=== PATIENT | female | born 1975 | race African-American/Black ===

== ENCOUNTER 2020-01-16 14:42 | Emergency (ER) | payer SELFPAY ==
[2020-01-16 15:01] VITALS: BP 133/68; PULSE 88; RESP 19; TEMP 36.8; O2SAT 100
--- NOTE | 2020-01-16 15:01 | ECG_ITS ---
Measurements Intervals [place] Rate: 86 P: 49 [place]: 144 QRS: -28 QRSD: 98 T: 1 QT: 370 QTc: 443 Interpretive Statements SINUS RHYTHM LOW QRS VOLTAGE IN PRECORDIAL LEADS POOR R WAVE PROGRESSION, ANTERIOR LEADS BORDERLINE ST-T WAVE ABNORMALITY- ANT/INF LEADS BORDERLINE ECG Electronically Signed On 01-16-2020 16:19:23 TIE KNITTER HELPER by Cliff Hackett D.O.
--- NOTE | 2020-01-16 15:11 | PC.NURSE ---
Blood draw x 2 different RNs with no success, patient waiting for IV to obtain blood draw
[2020-01-16 15:29] LABS: Basophils Percent Auto 0.3 % (0.2-1.2); Eosinophils Absolute Auto 0.2 K/mm3 (0-0.3); Eosinophils Percent Auto 1.3 % (0-4.4); Hematocrit 45.6 % (37.0-47.0); Hemoglobin 13.9 g/dL (12.0-15.0); Immature Granulocyte Absolute 0.05 K/mm3 (0.00-0.031); Immature Granulocyte Percent A 0.4 % (0-0.5); Lymphocytes Absolute Auto 3.38 K/mm3 (0.9-3.2); Lymphocytes Percent Auto 29.5 % (18.3-44.2); Mean Corpuscular HGB Conc 30.5 g/dl (32-36); Mean Corpuscular Hemoglobin 28.4 pg (26-34); Mean Corpuscular Volume 93.3 fl (80-100); Mean Platelet Volume 10.6 fl (7.4-10.4); Monocytes Absolute Auto 0.7 K/mm3 (0.1-0.6); Monocytes Percent Auto 5.8 % (2.6-8.5); Neutrophils Absolute Auto 7.2 K/mm3 (1.3-6.7); Neutrophils Percent Auto 62.7 % (45.5-73.1); Platelet Count Result 259 k/mm3 (150-375); Red Blood Count 4.89 M/mm3 (4.2-5.4); Red Cell Distribution Width 13.7 % (11.5-14.5); White Blood Count 11.4 K/mm3 (4.5-10.0)
[2020-01-16 15:38] LABS: INR 0.9; Prothrombin Time 11.6 Seconds (11.1-14.7)
[2020-01-16 15:39] LABS: Blood Urea Nitrogen 14 mg/dL (7-17); Calcium 9.2 mg/dL (8.4-10.2); Carbon Dioxide 25 mmol/L (22-30); Chloride 104 mmol/L (98-107); Estimated Glomerular Filt Rate > 60; Glucose 350 mg/dL (65-105); Potassium 4.1 mmol/L (3.4-5.0); Sodium 139 mmol/L (137-145)
[2020-01-16 15:51] LABS: Troponin I < 0.012 ng/mL (0.000-0.034)
--- NOTE | 2020-01-16 16:27 | PC.NURSE ---
1620 Pt at desk stating she was going to go somewhere else as we were not taking her serious. This conventional underwriter explained there were no rooms available and we had done an EKG and drawn her blood and if there were any abnormalities she would be called back sooner. She stated she was leaving and going somewhere else.
== END 2020-01-16 16:27 | disposition left against medical advice (07) ==
LOC: ANHED 16:40
PROVIDERS: Emergency Provider Emergency Medicine
DX: R07.9 Chest pain, unspecified (principal)
CPT/HCPCS: 36415; 80048; 84484; 85025; 85610; 85730; 93005; 99199

== ENCOUNTER 2021-04-09 17:31 | Emergency (ER) | payer OTHER, SELFPAY ==
--- NOTE | 2021-04-09 17:36 | ED.EYEPROB ---
HPI - Eye Problem General Chief complaint: Eye Problems Stated complaint: Swollen Eye Time Seen by Provider: 04/09/21 17:42 Source: patient Mode of arrival: ambulatory Limitations: no limitations History of Present Illness HPI Narrative: Page Mckinley is a 45 yo female with a PMH of high cholesterol, HTN, [facility]. She has a lot of eye make-up and false eyelashes on the other magnetic strip based. She is concerned if it is a neurological symptom as she sometimes has headaches, or pinkeye or some other type of infection. She works at the [employer]; she has had 3 stents in her heart placed at separate times. She is on Plavix and aspirin as well as medication for hypertension and she is in uncontrolled diabetic Related Data Home Medications Medication Instructions Recorded Confirmed aspirin PO 10/31/19 atorvastatin 10/31/19 clopidogrel 10/31/19 gabapentin 10/31/19 sitagliptin [Januvia] mg 10/31/19 insulin degludec [Tresiba SUBCUT 04/09/21 FlexTouch U-100] ranolazine mg PO 04/09/21 semaglutide [Ozempic] mg SUBCUT 04/09/21 Allergies Allergy/AdvReac Type Severity Reaction Status Date / Time adhesive tape Allergy Mild RASH Verified 04/09/21 17:36 cyclobenzaprine AdvReac Intermediate Dizziness Verified 04/09/21 17:36 Review of Systems Review of Systems: Narrative: CONSTITUTIONAL: Denies fever, chills, sweats. EYES: Denies visual changes, left eye redness, discharge. ENT: Denies rhinorrhea, congestion, sore throat, otalgia. CARDIOVASCULAR: Denies chest pain, palpitations, edema. RESPIRATORY: Denies dyspnea, wheezing, cough GASTROINTESTINAL: Denies abdominal pain, nausea, vomiting, diarrhea. GENITOURINARY: Denies dysuria, hematuria, abnormal discharge SKIN: Denies rash or itching. NEUROLOGIC: Denies numbness, or focal weakness. PSYCHIATRIC: Denies anxiety or depression. [facility] Past Medical History Medical History Cervical vertebral fusion Diabetes Hyperlipidemia Hypertension Myocardial infarction Peripheral neuropathy Surgical History Surgical History H/O: hysterectomy Hx of heart artery stent Previous section Social History Social History Gender identity (if verbalized by the patient): Female Comments At time of signature, I agree with nursing past medical, surgical, social and family history. There is no relevant family history pertinent to the presenting complaint. Exam Narrative: Exam Narrative: GENERAL: This is a well-nourished, well-developed patient, in mild distress. HEAD: normocephalic, atraumatic. EYES: Sclera clear/white on L. Vision is grossly intact. Right eye is injected EARS: External ears normal, a Hearing grossly intact. NOSE: External nose normal without nasal discharge, nares without redness, no rhinorrhea. THROAT: Mucous membranes moist, NECK: Neck supple, non-tender CARDIOVASCULAR: Regular rate and rhythm without murmurs, gallops, or rubs. RESPIRATORY: Clear to auscultation. Breath sounds equal bilaterally. No wheezes, rales, or rhonchi. GASTROINTESTINAL: Abdomen soft, non-tender, SKIN: warm, intact with no suspicious lesions or rash, good texture and turgor. NEURO: awake, alert, and oriented to person, place and time. There were no obvious focal neurologic abnormalities. Steady gait EXTREMITIES: Normal range of motion. BACK: Nontender without deformity Course Course Emergency Course: Patient came for left eye injection, was concerned about also having a intermittent headache-he has a history of headaches and wanted reassurance that is not related to her eye Tetracaine and fluorescein staining done treated for small corneal abrasion in multiple areas If continues to have headache should follow-up with her PCP to do further evaluation Started on tobramycin
[2021-04-09 17:39] VITALS: BP 128/72; PULSE 86; RESP 16; TEMP 36.1; O2SAT 100
[2021-04-09 18:01] VITALS: BP 128/72; PULSE 86; RESP 16; TEMP 36.1; O2SAT 100
== END 2021-04-09 18:20 | disposition home or self-care (01) ==
PROVIDERS: Emergency Provider Nurse Practitioner; PCP Family Medicine
DX: S05.02XA Injury of conjunctiva and corneal abrasion without foreign body, left eye, initial encounter (principal); X58.XXXA Exposure to other specified factors, initial encounter; E78.00 Pure hypercholesterolemia, unspecified; I10 Essential (primary) hypertension; Z95.5 Presence of coronary angioplasty implant and graft; Z79.82 Long term (current) use of aspirin; I25.2 Old myocardial infarction; E11.42 Type 2 diabetes mellitus with diabetic polyneuropathy
CPT/HCPCS: 99213; A9270; G0463

== ENCOUNTER 2021-06-02 08:46 | Emergency (ER) | payer OTHER, SELFPAY ==
[2021-06-02 09:01] VITALS: BP 98/62; PULSE 77; RESP 16; TEMP 36.1; O2SAT 100
--- NOTE | 2021-06-02 09:24 | ED.GENADULT ---
HPI - General Adult General Chief complaint: Headache Stated complaint: headache Time Seen by Provider: 06/02/21 09:20 Source: patient and RN notes reviewed Mode of arrival: ambulatory Limitations: no limitations History of Present Illness HPI narrative: 45-year-old -Maldivian female presents with complaints of headache with aura (light sensitivity and nausea) for the past 14 days. ?Page reports intermittent DASH, initially believed to be related to eyes sought eye care without relief. ?Tylenol and Zyrtec were last taken at 02:00 AM without relief. ?DASH is not the WORST one of her life. ?No neck stiffness. ?No fever or chills. ?No URI symptoms. ?No head injury. ?History of migraines. ?Denies dizziness, vision change, confusion, or seizure activity. ?Remains active. ?The patient reports she has not been diagnosed with COVID-19. ?The patient reports she received 1 Moderna COVID-19 vaccine on Monday05/31/21. ?The patient reports she is not waiting for the results of a COVID-19 lab test. ?The patient reports she does not have fever, chills, weakness, fatigue, myalgia, or facial swelling. ?The patient reports she does not have a new or worsening cough or shortness of breath. ?The patient reports she does not have any rhinorrhea, congestion, loss of taste, sore throat, and diarrhea. ?Denies recent traveling. ?Denies concerns for COVID-19 or exposures. ?At this time, the patient is not suspected of having COVID-19. Some parts of this dictation were generated by voice recognition software and may contain typographical and/or grammatical inaccuracies. Related Data Home Medications Medication Instructions Recorded Confirmed atorvastatin 40 mg PO DAILY 06/02/21 06/02/21 semaglutide [Ozempic] 1 mg SUBCUT 06/02/21 Allergies Allergy/AdvReac Type Severity Reaction Status Date / Time adhesive tape Allergy Unknown Verified 06/02/21 09:37 cyclobenzaprine Allergy Unknown Verified 06/02/21 09:37 [From Flexeril] Review of Systems Review of Systems: Narrative: CONSTITUTIONAL: Denies fever, chills, sweats. EYES: Denies visual changes, redness, discharge. ENT: Denies rhinorrhea, congestion, sore throat, otalgia. CARDIOVASCULAR: Denies chest pain, palpitations, edema. RESPIRATORY: Denies dyspnea, wheezing, cough. GASTROINTESTINAL: Denies abdominal pain, vomiting, or diarrhea. Complaints of nausea. GENITOURINARY: Denies dysuria, hematuria, abnormal discharge. SKIN: Denies rash or itching. MUSCULOSKELETAL: Denies acute back pain, joint pain, or myalgia. NEUROLOGIC: Denies numbness or focal weakness. Complaints of headaches with light sensitivity. PSYCHIATRIC: Denies anxiety or depression. All systems reviewed & are unremarkable except as noted in HPI and below. [facility] Past Medical History Medical History (Updated 06/02/21 @ 09:49 by CAMILLA Vincent) Cervical vertebral fusion delivery delivered Cigar smoker Diabetes Obesity Surgical History Surgical History (Updated 06/02/21 @ 09:44 by CAMILLA Vincent) H/O section X3 History of coronary artery stent placement History of hysterectomy History of neck surgery cervical fusion History of tonsillectomy Family History Family History Mother Diabetes mellitus Hypertension Family history of malignant neoplasm of breast in first degree relative Sibling Diabetes mellitus Hypertension Grandparent Family history of malignant neoplasm of breast in first degree relative Social History Social History (Updated 06/02/21 @ 09:45 by CAMILLA Vincent) Smoking status: Light tobacco smoker Tobacco type: cigars Second hand tobacco smoke exposure: Yes Alcohol intake: current Substance use: never Substance use type: does not use Living arrangements: with family Occupation/Education: occupation Gender identity (if verbalized by the patient): Female Sexual Orientation (if Ve
[2021-06-02] MEDS: FAMOTIDINE 20 MG TABLET 40 MG PO (09:41)
[2021-06-02] MEDS: ONDANSETRON HCL ODT 4 MG TABLET PO (09:41)
[2021-06-02] MEDS: KETOROLAC (*BKC) 60 MG/2 ML VIAL IM (09:42)
== END 2021-06-02 10:22 | disposition home or self-care (01) ==
PROVIDERS: Emergency Provider Nurse Practitioner Family; PCP Family Medicine
DX: G43.109 Migraine with aura, not intractable, without status migrainosus (principal); F17.290 Nicotine dependence, other tobacco product, uncomplicated; E11.9 Type 2 diabetes mellitus without complications; E66.9 Obesity, unspecified; Z68.36 Body mass index [BMI] 36.0-36.9, adult; Z95.5 Presence of coronary angioplasty implant and graft
CPT/HCPCS: 96372; 99203; A9270; G0463; J1885

== ENCOUNTER 2021-07-01 09:26 | Emergency (ER) | payer OTHER, SELFPAY ==
--- NOTE | 2021-07-01 09:31 | ED.GENADULT ---
HPI - General Adult General Chief complaint: Unspecified Stated complaint: Heart burn,Nausea Time Seen by Provider: 07/01/21 09:57 Source: patient and RN notes reviewed Mode of arrival: ambulatory Limitations: no limitations History of Present Illness HPI narrative: 45-year-old female with history of myocardial infarction, hypertension, diabetes presents with concern for nausea, heartburn. She also reports redness, swelling, warmth to her left upper arm where she received her Covid injection on Monday. Reports she noticed on Monday after getting the injection the area became tender and has since become red, warm, swollen, hard. She reports a history of myocardial infarction, reports symptoms with those 2 instances she had severe chest pain, shortness of breath. She denies any intervention for the nausea and heartburn. Reports she had one episode of vomiting yesterday. Reports her only history with heartburn is experiencing it during pregnancies. MD complaint: Heartburn, nausea Related Data Home Medications Medication Instructions Recorded Confirmed aspirin PO 10/31/19 clopidogrel 10/31/19 gabapentin 10/31/19 sitagliptin [Januvia] mg 10/31/19 insulin degludec [Tresiba SUBCUT 04/09/21 FlexTouch U-100] ranolazine mg PO 04/09/21 atorvastatin 40 mg PO DAILY 06/02/21 06/02/21 semaglutide [Ozempic] 1 mg SUBCUT 06/02/21 blood-glucose sensor [Dexcom G6 07/01/21 07/01/21 Sensor] Allergies Allergy/AdvReac Type Severity Reaction Status Date / Time adhesive tape Allergy Unknown Verified 06/08/21 14:45 cyclobenzaprine Allergy Unknown Verified 06/08/21 14:45 [From Flexeril] Review of Systems Review of Systems: CONSTITUTIONAL: Denies malaise, chills, sweats, or fever. CARDIOVASCULAR: Denies chest pain, palpitations, or edema. RESPIRATORY: Denies cough or dyspnea. GASTROINTESTINAL: Denies abdominal pain, diarrhea. Reports nausea, one episode of vomiting, heartburn SKIN: Reports red, swollen, tender, warm area on her left upper arm MUSCULOSKELETAL: Denies back pain, joint pain, or myalgia. NEUROLOGIC: Denies numbness, weakness, or headache. All systems reviewed & are unremarkable except as noted in HPI and below [facility] Past Medical History Medical History (Updated 07/01/21 @ 10:37 by Madelyn Baeza NP) Cervical vertebral fusion Cervical vertebral fusion delivery delivered Cigar smoker Diabetes Diabetes Hyperlipidemia Hypertension Myocardial infarction Obesity Peripheral neuropathy Surgical History Surgical History (Updated 06/08/21 @ 14:45 by Sean Olsen) H/O section X3 H/O: hysterectomy History of coronary artery stent placement History of hysterectomy History of neck surgery cervical fusion History of tonsillectomy Hx of heart artery stent Previous section Family History Family History Mother Diabetes mellitus Hypertension Family history of malignant neoplasm of breast in first degree relative Sibling Diabetes mellitus Hypertension Grandparent Family history of malignant neoplasm of breast in first degree relative Social History Social History (System 06/08/21 @ 14:45 by Sean Olsen) Smoking status: Light tobacco smoker Tobacco type: cigars Second hand tobacco smoke exposure: Yes Alcohol intake: current Substance use: never Substance use type: does not use Gender identity (if verbalized by the patient): Female Comments At time of signature, agree with nursing past medical, surgical, social and family history. There is no relevant family history pertinent to the presenting complaint Exam Narrative: GENERAL: Well-appearing, well-nourished, and in no acute distress. HEAD: Normocephalic, atraumatic. EYES: PERRLA, conjunctivae clear ENT: Nares clear. Mucous membranes moist. NECK: Supple. No lymphadenopathy. CHEST: No respiratory distress. Clear to auscultation. No
[2021-07-01 09:38] VITALS: BP 124/75; PULSE 75; RESP 16; TEMP 36.5; O2SAT 99
[2021-07-01] MEDS: MAG HYDROX/AL HYDROX/SIMETH 30 ML UDC PO (10:13)
--- NOTE | 2021-07-01 11:54 | ECG_ITS ---
Measurements Intervals [place] Rate: 70 P: 51 [place]: 168 QRS: -16 QRSD: 101 T: 6 QT: 400 QTc: 433 Interpretive Statements SINUS RHYTHM DELAYED PRECORDIAL R/S TRANSITION LOW QRS VOLTAGE IN PRECORDIAL LEADS BORDERLINE ECG Electronically Signed On 07-01-2021 13:16:49 CDT by Cliff Hackett D.O.
== END 2021-07-01 10:44 | disposition home or self-care (01) ==
PROVIDERS: Emergency Provider Nurse Practitioner; PCP Family Medicine
DX: L03.114 Cellulitis of left upper limb (principal); R12 Heartburn; E11.9 Type 2 diabetes mellitus without complications; E78.5 Hyperlipidemia, unspecified; I10 Essential (primary) hypertension; I25.2 Old myocardial infarction; E11.42 Type 2 diabetes mellitus with diabetic polyneuropathy; E66.9 Obesity, unspecified; Z68.36 Body mass index [BMI] 36.0-36.9, adult; Z95.5 Presence of coronary angioplasty implant and graft; F17.290 Nicotine dependence, other tobacco product, uncomplicated
CPT/HCPCS: 93005; 99213; A9270; G0463

== ENCOUNTER 2021-07-10 16:09 | Emergency (ER) | payer OTHER, SELFPAY ==
--- NOTE | ~2021-07-10 | XR_ITS ---
EXAMINATION: XR foot LT min 3V DATE: 07/10/2021 16:36 INDICATION: Left foot injury. TECHNIQUE: 4 views of left foot were obtained. COMPARISON: None. FINDINGS: Bone alignment is normal. No fracture. Joint spaces are well maintained. There is an enthes ophyte at plantar aspect of calcaneal tuberosity. IMPRESSION: 1. No fracture. Reviewed, dictated and finalized at location A. IMPRESSION: 1. No fracture.
[2021-07-10 16:18] VITALS: BP 128/77; PULSE 82; RESP 16; TEMP 36.3; O2SAT 100
--- NOTE | 2021-07-10 16:51 | ED.GENADULT ---
HPI - General Adult General Chief complaint: Extremity Injury, Lower Stated complaint: left foot pain Time Seen by Provider: 07/10/21 16:19 Source: patient and RN notes reviewed Mode of arrival: ambulatory Limitations: no limitations History of Present Illness HPI narrative: 45-year-old -Sudanese female presents today with complaints of left foot pain and swelling for the past 19 minutes. ?Page reports walking out the front door and stepping wrong, heard a cracking sound in LT foot causing pain, incident occurred approximated at 16:00. ?No treatment. Hurts to bear weight. ?No radiation of pain. ?No numbness, tingling, or loss of mobility. ?Exacerbating factor applying weight. Denies inability to bear weight. ?Denies discoloration. ?Denies suspect foreign body. ?Denies fever or chills. ?LMP hysterectomy. ?Remains active. ?The patient reports she has not been diagnosed with COVID-19. ?The patient reports she received 2 Moderna COVID-19 vaccines. The patient reports she is not waiting for the results of a COVID-19 lab test. ?The patient reports she does not have weakness, fatigue, or myalgia. ?The patient reports she does not have a new or worsening cough or shortness of breath. ?The patient reports she does not have any rhinorrhea, congestion, loss of taste, sore throat, and diarrhea. ?Denies recent traveling. ?Denies concerns for COVID-19 or exposures. ?At this time, the patient is not suspected of having COVID-19.?? Some parts of this dictation were generated by voice recognition software and may contain typographical and/or grammatical inaccuracies. Related Data Home Medications Medication Instructions Recorded Confirmed aspirin 325 mg PO DAILY 10/31/19 07/10/21 clopidogrel 75 mg PO DAILY 10/31/19 07/10/21 gabapentin 300 mg PO DAILY 10/31/19 07/10/21 insulin degludec [Tresiba SUBCUT 04/09/21 FlexTouch U-100] ranolazine mg PO 04/09/21 atorvastatin 40 mg PO DAILY 06/02/21 07/10/21 semaglutide [Ozempic] 1 mg SUBCUT DIRECTED 06/02/21 07/10/21 blood-glucose sensor [Dexcom G6 07/01/21 07/01/21 Sensor] Allergies Allergy/AdvReac Type Severity Reaction Status Date / Time adhesive tape Allergy Unknown Verified 07/10/21 16:20 cyclobenzaprine Allergy Unknown Verified 07/10/21 16:20 [From Flexeril] Review of Systems Review of Systems: CONSTITUTIONAL: Denies fever, chills, sweats. EYES: Denies visual changes, redness, discharge. ENT: Denies rhinorrhea, congestion, sore throat, otalgia. CARDIOVASCULAR: Denies chest pain, palpitations, edema. RESPIRATORY: Denies dyspnea, wheezing, cough. GASTROINTESTINAL: Denies abdominal pain, nausea, vomiting, diarrhea. SKIN: Denies rash or itching. MUSCULOSKELETAL: Denies acute back pain or myalgia. Complaints of pain and swelling to the left foot. NEUROLOGIC: Denies numbness or focal weakness. PSYCHIATRIC: Denies anxiety or depression. All other systems reviewed are negative, except as documented in HPI and below. [facility] Past Medical History Medical History Cervical vertebral fusion Cervical vertebral fusion delivery delivered Cigar smoker Diabetes Diabetes Hyperlipidemia Hypertension Myocardial infarction Obesity Peripheral neuropathy Surgical History Surgical History H/O section X3 H/O: hysterectomy History of coronary artery stent placement History of hysterectomy History of neck surgery cervical fusion History of tonsillectomy Hx of heart artery stent Previous section Family History Family History Mother Diabetes mellitus Hypertension Family history of malignant neoplasm of breast in first degree relative Sibling Diabetes mellitus Hypertension Grandparent Family history of malignant neoplasm of breast in first degree relative Social History Socia
[2021-07-10] MEDS: KETOROLAC (*BKC) 60 MG/2 ML VIAL IM (17:14)
== END 2021-07-10 17:20 | disposition home or self-care (01) ==
PROVIDERS: Emergency Provider Nurse Practitioner Family; PCP Family Medicine
DX: S93.602A Unspecified sprain of left foot, initial encounter (principal); X58.XXXA Exposure to other specified factors, initial encounter; Z79.82 Long term (current) use of aspirin; Z72.0 Tobacco use; E11.42 Type 2 diabetes mellitus with diabetic polyneuropathy; E78.5 Hyperlipidemia, unspecified; I10 Essential (primary) hypertension; I25.2 Old myocardial infarction; E66.9 Obesity, unspecified; Z68.36 Body mass index [BMI] 36.0-36.9, adult; I25.10 Atherosclerotic heart disease of native coronary artery without angina pectoris; Z95.5 Presence of coronary angioplasty implant and graft
CPT/HCPCS: 73630; 99213; G0463; J1885

== ENCOUNTER 2022-01-18 14:17 | Emergency (ER) | payer OTHER, MEDICAID, SELFPAY ==
[2022-01-18 14:19] VITALS: BP 121/59; PULSE 94; RESP 16; TEMP 36.5; O2SAT 100
--- NOTE | 2022-01-18 15:43 | ECG_ITS ---
Measurements Intervals [place] Rate: 89 P: 49 [place]: 144 QRS: -35 QRSD: 94 T: 3 QT: 353 QTc: 429 Interpretive Statements SINUS RHYTHM POSSIBLE LEFT ATRIAL ENLARGEMENT [-0.1mV P WAVE IN V1/V2] LEFT AXIS DEVIATION [QRS AXIS < -30] LOW QRS VOLTAGE IN PRECORDIAL LEADS [QRS DEFLECTION < 1.0 mV IN CHEST LEADS] PATTERN CONSISTENT WITH PULMONARY DISEASE ABNORMAL EKG COMPARED TO ECG 07/01/2021 10:24:41 LEFT-AXIS DEVIATION NOW PRESENT Electronically Signed On 01-18-2022 15:55:43 HARDWARE MANAGER by Perico Amaya M.D.
[2022-01-18 16:31] VITALS: BP 117/91; PULSE 90; RESP 16; TEMP 36.7; O2SAT 100
--- NOTE | 2022-01-18 16:57 | ED.GENADULT ---
HPI - General Adult General Chief complaint: Nausea/Vomiting/Diarrhea Stated complaint: Nausea and Vomiting Time Seen by Provider: 01/18/22 16:33 Source: patient History of Present Illness HPI narrative: 46-year-old female with history of coronary artery disease presented to the emergency department for evaluation of nausea vomiting and diarrhea that started approximately 6 AM this morning. Patient reports she had a sleep study last night and that yesterday she was eating and drinking normally without any complaints. Patient states that approximate 545 she had onset of nausea and vomiting. Patient states that with the nausea and vomiting she did develop some abdominal cramping. Patient states one time during her emesis she did have some streaked blood. Patient states on subsequent emeses she had no further bleeding. Patient does take Plavix. Patient is also states that she did develop some substernal chest pain. Patient states this is intermittent short lasting and is nonradiating. Patient states it does not radiate to her neck back arm. Patient denies any current associated shortness of breath. Patient does have a prior history of a hysterectomy. Patient has had no abdominal surgeries. Patient did have a stress test in August 2021 when she had another stent placed. Patient currently has 4 stents placed. Related Data Home Medications Medication Instructions Recorded Confirmed aspirin 325 mg PO DAILY 10/31/19 07/10/21 clopidogrel 75 mg PO DAILY 10/31/19 07/10/21 gabapentin 300 mg PO DAILY 10/31/19 07/10/21 insulin degludec [Tresiba SUBCUT 04/09/21 FlexTouch U-100] ranolazine mg PO 04/09/21 atorvastatin 40 mg PO DAILY 06/02/21 07/10/21 semaglutide [Ozempic] 1 mg SUBCUT DIRECTED 06/02/21 07/10/21 blood-glucose sensor [Dexcom G6 07/01/21 07/01/21 Sensor] Allergies Allergy/AdvReac Type Severity Reaction Status Date / Time adhesive tape Allergy Unknown Verified 07/10/21 16:20 cyclobenzaprine Allergy Unknown Verified 07/10/21 16:20 [From Flexeril] Review of Systems Review of Systems: CONSTITUTIONAL: Denies fever, chills, or sweats. EYES: Denies visual changes, redness, or discharge. ENT: Denies rhinorrhea, congestion, sore throat, or otalgia. CARDIOVASCULAR: Intermittent chest pain that lasts approximately 5 minutes and resolved. Patient states chest pain began after her emesis. RESPIRATORY: Denies cough or dyspnea. GASTROINTESTINAL: Nausea vomiting diarrhea with intermittent abdominal cramping GENITOURINARY: Denies dysuria or hematuria. SKIN: Denies rash or itching. MUSCULOSKELETAL: Denies back pain, joint pain, or myalgia. NEUROLOGIC: Denies headache, numbness, or weakness. PSYCHIATRIC: Denies anxiety or depression. All systems reviewed & are unremarkable except as noted in HPI and below [facility] Past Medical History Medical History Cervical vertebral fusion Cervical vertebral fusion delivery delivered Cigar smoker Diabetes Diabetes Hyperlipidemia Hypertension Myocardial infarction Obesity Peripheral neuropathy Surgical History Surgical History H/O section X3 H/O: hysterectomy History of coronary artery stent placement History of hysterectomy History of neck surgery cervical fusion History of tonsillectomy Hx of heart artery stent Previous section Family History Family History Mother Diabetes mellitus Hypertension Family history of malignant neoplasm of breast in first degree relative Sibling Diabetes mellitus Hypertension Grandparent Family history of malignant neoplasm of breast in first degree relative Social History Social History Smoking status: Light tobacco smoker Tobacco type: cigars Second hand tobacco smoke
[2022-01-18 17:16] LABS: Basophils Absolute Auto 0.1 K/mm3 (0.0-0.1); Basophils Percent Auto 0.3 % (0.2-1.2); Eosinophils Absolute Auto 0.1 K/mm3 (0-0.3); Eosinophils Percent Auto 0.7 % (0-4.4); Hematocrit 45.5 % (37.0-47.0); Hemoglobin 13.9 g/dL (12.0-15.0); Immature Granulocyte Absolute 0.07 K/mm3 (0.00-0.031); Immature Granulocyte Percent A 0.4 % (0-0.5); Immature Platelet Fraction Pct 3.6 % (0.9-11.2); Lymphocytes Absolute Auto 3.43 K/mm3 (0.9-3.2); Lymphocytes Percent Auto 20.7 % (18.3-44.2); Mean Corpuscular HGB Conc 30.5 g/dl (32-36); Mean Corpuscular Hemoglobin 28.7 pg (26-34); Mean Platelet Volume 10.3 fl (7.4-10.4); Monocytes Absolute Auto 1.1 K/mm3 (0.1-0.6); Monocytes Percent Auto 6.5 % (2.6-8.5); Neutrophils Absolute Auto 11.9 K/mm3 (1.3-6.7); Neutrophils Percent Auto 71.4 % (45.5-73.1); Platelet Count Result 301 k/mm3 (150-375); Red Blood Count 4.84 M/mm3 (4.2-5.4); Red Cell Distribution Width 13.5 % (11.5-14.5); White Blood Count 16.6 K/mm3 (4.5-10.0)
[2022-01-18 17:48] LABS: Alanine Aminotransferase 22 U/L (4-35); Albumin Level 4.6 g/dL (3.5-5.1); Alkaline Phosphatase 90 U/L (38-126); Anion Gap 8 mmol/L (8-16); Aspartate Amino Transferase 31 U/L (14-36); Bilirubin,Total 0.6 mg/dL (0.2-1.3); Blood Urea Nitrogen 14 mg/dL (7-17); Calcium 8.7 mg/dL (8.4-10.2); Carbon Dioxide 26 mmol/L (22-30); Chloride 107 mmol/L (98-107); Estimated CRCL calculation 115 ml/min; Estimated Glomerular Filt Rate > 60; Glucose 160 mg/dL (65-110); Potassium 4.1 mmol/L (3.4-5.0); Sodium 141 mmol/L (137-145); Troponin I < 0.012 ng/mL (0.000-0.034)
[2022-01-18 18:08] LABS: Platelet Estimate Adequate (Adequate)
[2022-01-18 18:09] LABS: Ovalocytes 1+ (NORMAL)
[2022-01-18] MEDS: BELLADONNA ALK/PHENOB ELIX 10 ML, MAG HYDROX/ALUMINUM HYD/SIMETH 30 ML, LIDOCAINE HCL 2... PO (18:23)
[2022-01-18 18:31] LABS: Add Urine Microscopic? YES; Appearance Urine Clear (Clear); Bilirubin Urine Negative (Negative); Blood Urine 1+ (Negative); Color Urine Yellow (Yellow); Glucose Urine UA 1+ mg/dL (Negative); Ketones Urine Negative (Negative); Leukocyte Esterase Ur Negative LEU/UL (Negative); Mucus Urine Rare /lpf; Nitrate Urine Negative (Negative); Protein Urine Negative (Negative); RBC Urine 0-2 /hpf (0-2); Specific Grav Ur 1.024 (1.001-1.035); Squamous Epithelial Cell Urine Few /hpf (Few); Urobilinogen Urine Negative mg/dL (<2.0); WBC Urine 0-3 /hpf
[2022-01-18] MEDS: SODIUM CHLORIDE 0.9% IV 1,000 ML 999 ML IV CONT (18:50)
[2022-01-18] MEDS: ONDANSETRON INJ 4 MG/2 ML VIAL IV PUSH (18:52)
[2022-01-18] MEDS: HYDROmorphone HCL INJ (*CRX) 1 MG/ML SYR 0.5 MG IV PUSH (18:53)
[2022-01-18 19:29] VITALS: BP 108/69; PULSE 78; RESP 18; O2SAT 98
[2022-01-18 20:46] VITALS: BP 115/69; PULSE 75; RESP 18; O2SAT 100
[2022-01-18 21:10] LABS: Troponin I < 0.012 ng/mL (0.000-0.034)
== END 2022-01-18 21:34 | disposition home or self-care (01) ==
PROVIDERS: Emergency Provider Emergency Medicine; PCP Family Medicine
DX: R11.2 Nausea with vomiting, unspecified (principal); I25.10 Atherosclerotic heart disease of native coronary artery without angina pectoris; I25.2 Old myocardial infarction; E11.42 Type 2 diabetes mellitus with diabetic polyneuropathy; E78.5 Hyperlipidemia, unspecified; Z79.02 Long term (current) use of antithrombotics/antiplatelets; Z79.4 Long term (current) use of insulin; Z79.82 Long term (current) use of aspirin; Z95.5 Presence of coronary angioplasty implant and graft; Z98.1 Arthrodesis status; F17.290 Nicotine dependence, other tobacco product, uncomplicated
CPT/HCPCS: 36415; 80053; 81001; 84484; 85025; 85055; 93005; 96361; 96374; 96375; 99284; A9270; J1170; J2405; J7030

== ENCOUNTER 2022-03-28 13:12 | Outpatient (CLI) | payer OTHER, MEDICAID, SELFPAY ==
--- NOTE | ~2022-03-28 | XR_ITS ---
XR lumbar spine 2-3V DATE: 03/28/2022 13:46 INDICATION: Low back pain. No injury. TECHNIQUE: AP, lateral, coned lateral lumbosacral views COMPARISON: None FINDINGS: Mild levoscoliosis. Normal alignment of the lumbar spine. No fracture or bone destruction o r spondylolisthesis. The lumbar pedicles are intact. The sacroiliac joints are normal. Lumbosacral in terspaces are well preserved. Minimal degenerative spurring at L3-4 and L4-5. IMPRESSION: Mild levoscoliosis Minimal degenerative spurring Reviewed, dictated and finalized at location B.
--- NOTE | ~2022-03-28 | XR_ITS ---
XR thoracic spine 2V DATE: 03/28/2022 13:46 INDICATION: Back pain TECHNIQUE: AP, lateral and swimmer views COMPARISON: None FINDINGS: There is mild levoscoliosis of the thoracolumbar spine. There is degenerative spurring in the mid to lower thoracic spine. No fracture or bone destruction is evident. The thoracic pedicles are intact. Status post interbody surgical spinal fusion at C5-6 IMPRESSION: Degenerative spurring of the mid to lower thoracic spine Reviewed, dictated and finalized at location B.
--- NOTE | ~2022-03-28 | XR_ITS ---
XR_CERV2-3V_CR DATE: 03/28/2022 13:46 INDICATION: Neck pain. No injury. TECHNIQUE: AP, open-mouth, lateral views COMPARISON: None FINDINGS: There is reversal cervical curvature. Status post interbody spinal fusion at C5-6. There is uncovertebral joint spurring at C5-6 bilaterall y. There is anterior spurring at C4-5 and C6-7. Interspaces are relatively preserved. There is mild anterolisthesis at C6-7. C1 and C2 are normally aligned and the odontoid process is intact. No fracture or dislocation or lock ed facet or prevertebral soft tissue swelling. IMPRESSION: Status post interbody spinal fusion at C5-6 Uncovertebral joint spurring at C5-6 Prominent anterior spurring at C4-5 and C6-7 Reversal cervical curvature Reviewed, dictated and finalized at Location A. Reviewed, dictated and finalized at location B.
== END 2022-03-28 13:13 | disposition home or self-care (01) ==
PROVIDERS: PCP Family Medicine; Visit Provider Physician Assistant
DX: M54.50 Low back pain, unspecified (principal); Z98.1 Arthrodesis status
CPT/HCPCS: 72040; 72070; 72100

== ENCOUNTER 2022-04-08 09:33 | Emergency (ER) | payer OTHER, MEDICAID, SELFPAY ==
--- NOTE | ~2022-04-08 | CT_ITS ---
EXAMINATION: CT cervical spine wo con DATE: 04/08/2022 13:19 INDICATION: Neck pain TECHNIQUE: Computed tomography (CT) of the cervical spine was performed without intravenous contrast. The dose-length product was 466 mGy-cm. Automated exposure control and iterative reconstruction tech Unisf[employer] were employed. COMPARISON: Cervical spine series dated 03/28/2022 FINDINGS: There is straightening of cervical lordosis. There is interbody fusion at C5-6. Vertebral b harleen heights are maintained. Odontoid process within normal limits. Craniovertebral junction is normal . No acute fracture or traumatic malalignment. Lung apices are normal. No significant paraspinal soft tissue abnormality. IMPRESSION: 1. No acute abnormality of the cervical spine. Reviewed, dictated and finalized at location B.
--- NOTE | ~2022-04-08 | CT_ITS ---
EXAMINATION: CT thoracic lumbar wo con DATE: 04/08/2022 13:19 INDICATION: Upper and lower back pain. TECHNIQUE: Computed tomography (CT) of the thoracic and lumbar spine was performed without intravenou s contrast. Automated exposure control and iterative reconstruction technique were employed. The dose -length product was 465.89 mGy-cm. COMPARISON: Thoracic and lumbar spine radiographs 03/28/2022 FINDINGS: CT THORACIC SPINE: Bone alignment is normal. There is mild chronic anterior wedging of T7 and T8 vert ebral bodies. Partially visualized are changes of anterior fusion procedure at C5-C6 with interbody d evice. There is mildly decreased disc height from T3-T4 through T8-T9. There is multilevel mild facet joint osteoarthritis. On the right, there is mild neural foraminal stenosis at T9-T10 and T10-T11. N o central canal stenosis. CT LUMBAR SPINE: There is 5 degrees levocurvature of lumbar spine. Vertebral body heights are normal. Intervertebral disc heights are normal. The following disc levels are specifically discussed: L1-L2: The disc does not extend beyond the endplate margin. There is mild bilateral facet joint osteo arthritis. There is no neural foraminal stenosis. There is no central canal stenosis. L2-L3: The disc does not extend beyond the endplate margin. There is mild bilateral facet joint osteo arthritis. There is no neural foraminal stenosis. There is no central canal stenosis. L3-L4: The disc is bulging. There is moderate bilateral facet joint osteoarthritis. There is mild octaviano ateral neural foraminal stenosis. There is mild central canal stenosis. L4-L5: The disc is bulging. There is mild bilateral facet joint osteoarthritis. There is mild bilater al neural foraminal stenosis. There is mild central canal stenosis. L5-S1: The disc is bulging. There is severe right and moderate left facet joint osteoarthritis. There is mild right and moderate left neural foraminal stenosis. There is mild central canal stenosis. IMPRESSION: 1. Mild thoracic and lumbar spondylosis. Reviewed, dictated and finalized at location A.
[2022-04-08 09:38] VITALS: BP 133/73; PULSE 84; RESP 18; TEMP 36.3; O2SAT 100
--- NOTE | 2022-04-08 12:13 | PC.NURSE ---
Called to pt's room, pt tearful. Pt angry regarding her wait and that she hasn't been given any medications for pain. Explained that unable to give meds until has been evaluated, and that someone has signed up for her, but that it has been busy. Apologized for wait. Suellen, charge coordinator made aware of pt's complaints.
[2022-04-08] MEDS: HYDROcodone/acetaminophen (*CRX) 5-325 MG TABLET 1 TAB PO (12:52)
[2022-04-08] MEDS: KETOROLAC 30 MG/ML VIAL (*BKC) IM (12:52)
--- NOTE | 2022-04-08 12:58 | PC.NURSE ---
Meds given po, IM, and topically per SHAILESH Conn. Pt to CT via stretcher.
[2022-04-08] MEDS: LIDOCAINE 5% PATCH 2 PATCH TRANSDERM (13:21)
--- NOTE | 2022-04-08 13:55 | ED.BACK ---
HPI - Back Pain/Injury General Chief Complaint: Back Pain/Injury Stated Complaint: low back pain Time Seen by Provider: 04/08/22 11:08 Source: patient Mode of arrival: ambulatory History of Present Illness HPI Narrative: 46-year-old female presents today with back pain. Patient has a history of back pain and has seen her primary and a pain specialist. Patient saw the pain specialist yesterday who ordered an MRI but no medications. Patient states the pain is intolerable. Patient has a history of cervical neck surgery in [employer]. Patient with complaints of pain to the lumbar area radiating down into the legs. Patient denies urinary incontinence, bowel incontinence, or leg weakness, but does endorse intermittent numbness to thighs which has been going on for more than a month and her legs giving out due to pain when walking at times. Related Data Home Medications Medication Instructions Recorded Confirmed aspirin 325 mg PO DAILY 10/31/19 07/10/21 clopidogrel 75 mg PO DAILY 10/31/19 07/10/21 insulin degludec [Tresiba SUBCUT 04/09/21 FlexTouch U-100] ranolazine mg PO 04/09/21 atorvastatin 40 mg PO DAILY 06/02/21 07/10/21 semaglutide [Ozempic] 1 mg SUBCUT DIRECTED 06/02/21 07/10/21 blood-glucose sensor [Dexcom G6 07/01/21 07/01/21 Sensor] insulin aspart (niacinamide) SUBCUT 04/08/22 [Fiasp FlexTouch U-100 Insulin] Allergies Allergy/AdvReac Type Severity Reaction Status Date / Time adhesive tape Allergy Unknown Verified 04/08/22 10:38 cyclobenzaprine Allergy Unknown Verified 04/08/22 10:38 [From Flexeril] Review of Systems Review of Systems: CONSTITUTIONAL: Denies fever, chills, or sweats. EYES: Denies visual changes, redness, or discharge. ENT: Denies rhinorrhea, congestion, sore throat, or otalgia. CARDIOVASCULAR: Denies chest pain, palpitations, or edema. RESPIRATORY: Denies cough or dyspnea. GASTROINTESTINAL: Denies abdominal pain, nausea, vomiting, or diarrhea. GENITOURINARY: Denies dysuria or hematuria. SKIN: Denies rash or itching. MUSCULOSKELETAL: Low back pain radiating down leg. Denies joint pain, or myalgia. NEUROLOGIC: Denies headache, numbness, dizziness, or weakness. PSYCHIATRIC: Denies anxiety or depression. [facility] Past Medical History Medical History Cervical vertebral fusion Cervical vertebral fusion delivery delivered Cigar smoker Diabetes Diabetes Hyperlipidemia Hypertension Myocardial infarction Obesity Peripheral neuropathy Surgical History Surgical History H/O section X3 H/O: hysterectomy History of coronary artery stent placement History of hysterectomy History of neck surgery cervical fusion History of tonsillectomy Hx of heart artery stent Previous section Family History Family History Mother Diabetes mellitus Hypertension Family history of malignant neoplasm of breast in first degree relative Sibling Diabetes mellitus Hypertension Grandparent Family history of malignant neoplasm of breast in first degree relative Social History Social History Smoking status: Light tobacco smoker Tobacco type: cigars Second hand tobacco smoke exposure: Yes Alcohol intake: current Substance use: never Substance use type: does not use Gender identity (if verbalized by the patient): Female Sexual Orientation (if Verbalized by the Patient): Straight or Heterosexual Exam Narrative: GENERAL: Well-appearing, well-nourished, and in no acute distress. HEAD: Normocephalic, atraumatic. EYES: PERRLA and EOMI. ENT: Nares clear, no rhinorrhea or epistaxis. Mucous membranes moist. Oropharynx without tonsillar hypertrophy exudate or other lesions. Bilateral TMs pearly avendano nonbulging NECK: Supple. No adenopathy o
[2022-04-08 14:25] VITALS: BP 99/65; PULSE 81; RESP 18; O2SAT 100
== END 2022-04-08 14:26 | disposition home or self-care (01) ==
PROVIDERS: Emergency Provider Nurse Practitioner Family; PCP Family Medicine
DX: M51.16 Intervertebral disc disorders with radiculopathy, lumbar region (principal); E78.5 Hyperlipidemia, unspecified; I10 Essential (primary) hypertension; I25.2 Old myocardial infarction; E11.42 Type 2 diabetes mellitus with diabetic polyneuropathy; E66.9 Obesity, unspecified; Z68.38 Body mass index [BMI] 38.0-38.9, adult; Z79.4 Long term (current) use of insulin; Z79.82 Long term (current) use of aspirin; Z95.5 Presence of coronary angioplasty implant and graft; Z98.1 Arthrodesis status; F17.290 Nicotine dependence, other tobacco product, uncomplicated; M47.816 Spondylosis without myelopathy or radiculopathy, lumbar region; M47.814 Spondylosis without myelopathy or radiculopathy, thoracic region
CPT/HCPCS: 72125; 72128; 72131; 96372; 99284; A9270; J1100; J1885

== ENCOUNTER 2022-06-01 13:22 | Outpatient (CLI) | payer OTHER, MEDICAID, SELFPAY ==
--- NOTE | ~2022-06-01 | MR_ITS ---
EXAMINATION: MR cervical spine wo con DATE: 06/01/2022 15:28 INDICATION: Cervical radicular pain. TECHNIQUE: Magnetic resonance imaging (MRI) of the cervical spine was performed without intravenous c ontrast. Sequences included sagittal T2-weighted FSE, sagittal T2-weighted FS FSE, sagittal T1-weight ed FSE, axial MERGE and axial T2-weighted FSE. COMPARISON: Cervical spine CT dated 04/08/2022 FINDINGS: Straightening of the normal cervical lordosis. Metallic magnetic field artifact associated with an in terbody fusion device at C5-C6. Vertebral body heights are normal. Remaining vertebral body heights a re normal. Bone marrow signal intensity is normal. Mild disc height loss at C2-C3 through C4-C5. Cor d signal intensity is normal. Visualized cervical soft tissues are unremarkable. The following disc l evels are specifically discussed: C2-C3: Disc is minimally bulging. There is no uncovertebral joint osteoarthritis. There is no facet j oint osteoarthritis. There is no neural foraminal stenosis. There is no central canal stenosis. C3-C4: Disc is mildly bulging. There is no uncovertebral joint osteoarthritis. There is no facet join t osteoarthritis. There is no neural foraminal stenosis. There is mild central canal stenosis with sl ight flattening of the ventral surface of the cord. C4-C5: Disc is bulging with annular fissure. There is mild bilateral uncovertebral joint osteoarthrit is. There is mild left facet joint osteoarthritis. There is mild left neural foraminal stenosis. Ther e is mild central canal stenosis with mild indentation of the ventral surface of the cord. C5-C6: Discectomy and anterior spinal fusion. Mild hypertrophic change at the bilateral uncovertebral joints.. There is mild bilateral facet joint osteoarthritis. There is mild left neural foraminal everardo nosis. There is no central canal stenosis. C6-C7: Disc is bulging. There is no uncovertebral joint osteoarthritis. There is no facet joint osteo arthritis. There is no neural foraminal stenosis. There is no central canal stenosis. C7-T1: The disc does not extend beyond the endplate margin. There is no uncovertebral joint osteoarth ritis. There is mild left facet joint osteoarthritis. There is no neural foraminal stenosis. There is no central canal stenosis. IMPRESSION: 1. Minimal to mild cervical spondylosis with anterior fusion at C5-C6. Reviewed, dictated and finalized at location B.
== END 2022-06-01 13:23 | disposition home or self-care (01) ==
PROVIDERS: PCP Family Medicine; Referring Provider Nurse Practitioner Family; Visit Provider Nurse Practitioner Adult Health
DX: M54.16 Radiculopathy, lumbar region (principal); M47.812 Spondylosis without myelopathy or radiculopathy, cervical region; Z98.1 Arthrodesis status
CPT/HCPCS: 72141

== ENCOUNTER 2022-06-01 15:22 | Observation (INO) | payer OTHER, MEDICAID, SELFPAY ==
[2022-06-01] VITALS (15 sets, daily range): BP systolic 132–140; BP diastolic 61–75; PULSE 69–86; RESP 13–20; TEMP 36.4–36.7; O2SAT 97–100; BMI 38.3
--- NOTE | ~2022-06-01 | CT_ITS ---
EXAMINATION: CT abdomen pelvis w con DATE: 06/01/2022 19:15 INDICATION: Nausea and abdomen pain TECHNIQUE: Computed tomography (CT) of the abdomen and pelvis was performed with 100 cc Omnipaque 300 intravenous contrast. The dose-length product was 1369.69 mGy-cm. Automated exposure control and ite rative reconstruction technique were employed. COMPARISON: CT dated 10/11/2018. FINDINGS: Lung bases are unremarkable. Heart size is normal. No significant pleural or pericardial ef fusion. No significant vascular abnormality. Heart size normal. The liver, spleen, pancreas, adrenal glands and right kidney are unremarkable. Small subcentimeter hypodensity of the left kidney, most li tika benign cysts. Gallbladder is present. Nonobstructive bowel gas pattern. There are surgical chandra es in the lower anterior abdominal wall. Nonobstructive bowel gas pattern. Moderate colonic fecal aries ding. No bowel obstruction. No free air or free fluid. No acute osseous abnormality. IMPRESSION: 1. No acute abdominal abnormality. Reviewed, dictated and finalized at location A.
--- NOTE | ~2022-06-01 | XR_ITS ---
EXAMINATION: XR chest 2V 06/01/2022 17:13 INDICATION: Chest pain and shortness of breath. Hypertension PROCEDURE: 2 view chest COMPARISON: 03/08/2018 FINDINGS: The lungs are clear. The cardiomediastinal silhouette is within normal limits. There are no pleural effusions. There is no pneumothorax suspected. IMPRESSION: 1: NO ACUTE CARDIOPULMONARY DISEASE. Reviewed, dictated and finalized at location A.
--- NOTE | 2022-06-01 15:29 | ECG_ITS ---
Measurements Intervals [place] Rate: 80 P: 44 MI: 150 QRS: -24 QRSD: 94 T: -3 QT: 360 QTc: 415 Interpretive Statements SINUS RHYTHM POSSIBLE LEFT ATRIAL ENLARGEMENT LOW QRS VOLTAGE IN PRECORDIAL LEADS INCOMPLETE RIGHT BUNDLE BRANCH BLOCK POOR R WAVE PROGRESSION, CONSIDER ANTERIOR INFARCT BORDERLINE T WAVE ABNORMALITY- ANTEROLAT/INF LEADS ABNORMAL ECG Electronically Signed On 06-01-2022 15:47:57 CDT by Cliff Hackett D.O.
[2022-06-01 15:45] LABS: Basophils Absolute Auto 0.1 K/mm3 (0.0-0.1); Basophils Percent Auto 0.4 % (0.2-1.2); Eosinophils Absolute Auto 0.2 K/mm3 (0-0.3); Eosinophils Percent Auto 1.6 % (0-4.4); Hematocrit 40.9 % (37.0-47.0); Hemoglobin 12.3 g/dL (12.0-15.0); Immature Granulocyte Absolute 0.06 K/mm3 (0.00-0.031); Immature Granulocyte Percent A 0.4 % (0-0.5); Lymphocytes Absolute Auto 4.63 K/mm3 (0.9-3.2); Lymphocytes Percent Auto 32.9 % (18.3-44.2); Mean Corpuscular HGB Conc 30.1 g/dl (32-36); Mean Corpuscular Hemoglobin 28.3 pg (26-34); Mean Platelet Volume 9.9 fl (7.4-10.4); Monocytes Absolute Auto 0.9 K/mm3 (0.1-0.6); Monocytes Percent Auto 6.7 % (2.6-8.5); Neutrophils Absolute Auto 8.2 K/mm3 (1.3-6.7); Platelet Count Result 260 k/mm3 (150-375); Red Blood Count 4.35 M/mm3 (4.2-5.4); Red Cell Distribution Width 14.5 % (11.5-14.5); White Blood Count 14.1 K/mm3 (4.5-10.0)
[2022-06-01 15:55] LABS: Prothrombin Time 12.9 Seconds (11.1-14.7)
[2022-06-01 15:56] LABS: Partial Thromboplastin Time 27.1 SECONDS (22.3-36.8)
[2022-06-01 15:58] LABS: Alanine Aminotransferase 19 U/L (6-35); Albumin Level 4.2 g/dL (3.5-5.1); Alkaline Phosphatase 94 U/L (38-126); Anion Gap 4 mmol/L (8-16); Aspartate Amino Transferase 17 U/L (14-36); Bilirubin,Total 0.3 mg/dL (0.2-1.3); Blood Urea Nitrogen 14 mg/dL (7-17); Calcium 8.7 mg/dL (8.4-10.2); Carbon Dioxide 28 mmol/L (22-30); Chloride 107 mmol/L (98-107); Estimated CRCL calculation 103 ml/min; Estimated Glomerular Filt Rate > 60; Glucose 264 mg/dL (65-110); Lipase 373 U/L (23-300); Potassium 3.9 mmol/L (3.4-5.0); Sodium 139 mmol/L (137-145)
[2022-06-01 16:09] LABS: Troponin I < 0.012 ng/mL (0.000-0.034)
[2022-06-01] MEDS: NITROGLYCERIN SL 0.4 MG TABLET SUBLINGUAL (18:12)
--- NOTE | 2022-06-01 18:47 | ED.CHESTPAIN ---
HPI - Chest Pain General Chief Complaint: Chest Pain Stated Complaint: lightheaded, chest tightness Time Seen by Provider: 06/01/22 16:34 Source: patient and RN notes reviewed Mode of arrival: wheelchair Limitations: no limitations History of Present Illness HPI narrative: This is a 46 year old female who presents for evaluation of chest pain. Patient states she was getting an MRI of her cervical spine today for issue with left arm pain with numbness to her fingers. While she was in the MRI machine, she became warm and she developed shortness of breath. She also reports left anterior chest tightness. She states her chest tightness is waxing and waning. She has history of VA and she states her chest pain feels similar to her VA. She states she was not having chest pain with exertion before today. She denies having shortness of breath with exertion before today. She has had 4 coronary stents placed and her last stent was last year. SHe denies leg swelling, nausea, vomiting. She reports mild upper abdominal pain. She rates her chest pain as 8/10 Related Data Home Medications Medication Instructions Recorded Confirmed aspirin 325 mg tablet,delayed 325 mg PO DAILY 10/31/19 07/10/21 release clopidogrel 75 mg tablet 75 mg PO DAILY 10/31/19 07/10/21 insulin degludec 100 unit/mL (3 subcut 04/09/21 mL) subcutaneous pen (Tresiba FlexTouch U-100 insulin) ranolazine 500 mg tablet,extended mg PO 04/09/21 release,12 hr atorvastatin 40 mg tablet 40 mg PO DAILY 06/02/21 07/10/21 semaglutide 1 mg/dose (4 mg/3 mL) 1 mg subcut DIRECTED 06/02/21 07/10/21 subcutaneous pen injector (Ozempic) blood-glucose sensor (Dexcom G6 07/01/21 07/01/21 Sensor device) insulin aspart subcut 04/08/22 (niacinamide)(U-100) 100 unit/mL(3 mL) subcutaneous pen (Fiasp FlexTouch U-100 Insulin) Allergies Allergy/AdvReac Type Severity Reaction Status Date / Time adhesive tape Allergy Unknown Verified 04/08/22 10:38 cyclobenzaprine Allergy Unknown Verified 04/08/22 10:38 [From Flexeril] Review of Systems Review of Systems: All systems reviewed & are unremarkable except as noted in HPI and below Constitutional: Constitutional: Denies chills, Denies fatigue and Denies fever(s) Cardiovascular: Cardiovascular: Reports chest pain and Reports radiating jaw, neck or arm pain Respiratory: Respiratory: Denies chest congestion, Denies cough and Reports dyspnea Gastrointestinal: Gastrointestinal: Reports abdominal pain, Denies diarrhea, Denies nausea and Denies vomiting PMFSH Past Medical History Medical History Cervical vertebral fusion Cervical vertebral fusion delivery delivered Cigar smoker Diabetes Diabetes Hyperlipidemia Hypertension Myocardial infarction Obesity Peripheral neuropathy Surgical History Surgical History H/O section X3 H/O: hysterectomy History of coronary artery stent placement History of hysterectomy History of neck surgery cervical fusion History of tonsillectomy Hx of heart artery stent Previous section Family History Family History Mother Diabetes mellitus Hypertension Family history of malignant neoplasm of breast in first degree relative Sibling Diabetes mellitus Hypertension Grandparent Family history of malignant neoplasm of breast in first degree relative Social History Social History Smoking status: Light tobacco smoker Tobacco type: cigars Second hand tobacco smoke exposure: Yes Alcohol intake: current Substance use: never Substance use type: does not use Gender identity (if verbalized by the patient): Female Sexual Orientation (if Verbalized by the Patient): Straight or Heterosexual Exam N
[2022-06-01 19:21] LABS: Troponin I < 0.012 ng/mL (0.000-0.034)
--- NOTE | 2022-06-01 19:41 | PM.IMHP ---
H&P: HPI History of Present Illness Date/Time: 06/01/22 19:41 Chief Complaint: Chest pain. Narrative: This is a 46-year-old female with past medical history significant for coronary artery disease status post PTCI with stenting patient follows up at outside hospital, hypertension, type diabetes mellitus, obesity, peripheral diabetic neuropathy. Patient presented to the emergency room due to chest pain that started out while she was undergoing MRI taking states pain is in the precordial area radiates to the arm has been having chest pain on and off for the last several months her percutaneous transluminal coronary plasty was done in August of 2021, rates her pain at 6 are out of 10 in intensity and is oppressive. Preliminary workup has been essentially nonrevealing. Patient is been placed in observation for further evaluation, management and treatment. Review of Systems Review of Systems: Chest pain Constitutional: Constitutional: Denies body ache(s), Denies chills, Denies fatigue, Denies fever(s), Denies malaise, Denies night sweats and Denies poor appetite Eyes: Eyes: Denies change in vision ENT: Denies dysphagia, Denies vertigo, Denies dizziness, Denies odynophagia and Denies disequilibrium Cardiovascular: Cardiovascular: Reports chest pain, Denies pedal edema, Denies irregular heart rhythm, Denies leg edema, Denies lightheadedness, Reports radiating jaw, neck or arm pain, Reports palpitations and Denies dyspnea on exertion Respiratory: Respiratory: Denies chest congestion, Denies cough and Denies excessive phlegm production Gastrointestinal: Gastrointestinal: Denies abdominal pain, Denies dyspepsia, Denies heartburn, Denies nausea and Denies vomiting Genitourinary: Genitourinary: Denies dysuria Musculoskeletal: Musculoskeletal: Denies back pain, Denies myalgias, Denies arthralgias, Denies joint swelling and Denies muscle weakness Integumentary/Breasts: Skin/Breast: Denies rash Neurologic: Denies vertigo, Denies dizziness, Denies focal weakness and Denies Sensory deficit (Neuro) Psychiatric: Psychiatric: Reports no additional psychiatric complaints and Reports as per HPI Endocrine: Endocrine: Denies cold intolerance, Denies fatigue, Denies flushing, Denies heat intolerance, Denies polyphagia, Denies polydipsia and Denies palpitations Hematologic/Lymphatic: Hematologic/Lymphatic: Reports no additional hematologic/lymphatic complaints and Reports as per HPI Allergic/Immunologic: Allergic/Immunologic: Reports no additional allergic/immunologic complaints and Reports as per HPI [facility] Past Medical History Medical History (Updated 06/02/22 @ 13:46 by Nabor Phillips MD) CAD (coronary artery disease) Cervical vertebral fusion Cervical vertebral fusion delivery delivered Cigar smoker Diabetes Diabetes Hyperlipidemia Hypertension Myocardial infarction Obesity Peripheral neuropathy Surgical History Surgical History H/O section X3 H/O: hysterectomy History of coronary artery stent placement History of hysterectomy History of neck surgery cervical fusion History of tonsillectomy Hx of heart artery stent Previous section Family History Family History Mother Diabetes mellitus Hypertension Family history of malignant neoplasm of breast in first degree relative Sibling Diabetes mellitus Hypertension Grandparent Family history of malignant neoplasm of breast in first degree relative Social History Social History Smoking status: Current every day smoker Tobacco type: cigars Second hand tobacco smoke exposure: Yes Additional smoking assessment comments: 1/4-1 cigar per day Alcohol intake: current Substance use: never Substance use type: does not use Other substance usage details: drinks alcohol three ti
[2022-06-01] MEDS: MECLIZINE HCL 25 MG TABLET PO (19:59)
[2022-06-01] MEDS: MORPHINE SULFATE (*CRX) 4 MG/ML INJ IV PUSH ×2 (19:59→23:44)
[2022-06-01] MEDS: ONDANSETRON INJ 4 MG/2 ML VIAL IV PUSH (19:59)
[2022-06-01 21:17] LABS: SARS-CoV-2 RNA PCR Negative
[2022-06-01 22:05] LABS: Troponin I < 0.012 ng/mL (0.000-0.034)
[2022-06-01 22:39] LABS: Glucose Point of Care 250 mg/dl (65-105)
--- NOTE | 2022-06-01 22:48 | ADMGEN ---
This patient, Page Mckinley, was admitted to IMU Room 231-01. Patient/family oriented to hospital policies and general routines including ID bracelet, bed and alarms, visiting hours, pain management, procedures, bathroom and other care routines, personal items, smoking policy, room service/diet, and visiting hours. Information on how to activate the Rapid Response Team has been discussed. Patient/Family are encouraged to report perceived risks to care and to ask questions if they do not understand what they are told or what they should do.
[2022-06-02] VITALS (15 sets, daily range): BP systolic 115–133; BP diastolic 52–76; PULSE 66–84; RESP 16–20; TEMP 36.2–36.6; O2SAT 96–100
[2022-06-02] MEDS: INSULIN GLARGINE (*BKC) 100 UNITS/ML 45 UNITS SUB-Q ×2 (02:14→21:05)
[2022-06-02 02:18] LABS: Glucose Point of Care 264 mg/dl (65-105)
[2022-06-02] MEDS: MORPHINE SULFATE (*CRX) 4 MG/ML INJ IV PUSH ×7 (02:18→23:45)
[2022-06-02] MEDS: ONDANSETRON INJ 4 MG/2 ML VIAL IV PUSH ×2 (02:18→21:13)
[2022-06-02] MEDS: ASPIRIN 81 MG CHEWABLE TABLET PO ×2 (02:24→20:49)
[2022-06-02] MEDS: CLOPIDOGREL BISULFATE 75 MG TABLET PO ×2 (02:27→20:48)
[2022-06-02] MEDS: traZODone HCL 50 MG TABLET PO ×2 (02:27→20:48)
[2022-06-02] MEDS: LOSARTAN POTASSIUM 25 MG TABLET PO ×2 (02:27→20:49)
[2022-06-02] MEDS: METOPROLOL SUCCINATE EXT REL 25 MG TABCR PO ×2 (02:27→20:48)
[2022-06-02] MEDS: FOLIC ACID 1 MG TABLET PO ×2 (02:28→20:48)
[2022-06-02] MEDS: CYANOCOBALAMIN 1,000 MCG TABLET 1000 MCG PO ×2 (02:28→20:50)
[2022-06-02] MEDS: CHOLECALCIFEROL 1,000 UNITS TABLET 2000 UNITS PO ×2 (02:29→20:50)
[2022-06-02 05:38] LABS: Basophils Percent Auto 0.2 % (0.2-1.2); Eosinophils Absolute Auto 0.2 K/mm3 (0-0.3); Eosinophils Percent Auto 1.8 % (0-4.4); Hemoglobin 12.3 g/dL (12.0-15.0); Immature Granulocyte Absolute 0.09 K/mm3 (0.00-0.031); Immature Granulocyte Percent A 0.7 % (0-0.5); Lymphocytes Absolute Auto 5.03 K/mm3 (0.9-3.2); Mean Corpuscular Hemoglobin 28.3 pg (26-34); Mean Corpuscular Volume 94.5 fl (80-100); Mean Platelet Volume 10.3 fl (7.4-10.4); Monocytes Absolute Auto 0.7 K/mm3 (0.1-0.6); Monocytes Percent Auto 5.8 % (2.6-8.5); Neutrophils Absolute Auto 6.5 K/mm3 (1.3-6.7); Neutrophils Percent Auto 51.5 % (45.5-73.1); Platelet Count Result 237 k/mm3 (150-375); Red Blood Count 4.34 M/mm3 (4.2-5.4); Red Cell Distribution Width 14.2 % (11.5-14.5); White Blood Count 12.6 K/mm3 (4.5-10.0)
[2022-06-02 05:43] LABS: Alanine Aminotransferase 18 U/L (6-35); Albumin Level 3.9 g/dL (3.5-5.1); Alkaline Phosphatase 86 U/L (38-126); Anion Gap 6 mmol/L (8-16); Aspartate Amino Transferase 19 U/L (14-36); Bilirubin,Total 0.4 mg/dL (0.2-1.3); Blood Urea Nitrogen 14 mg/dL (7-17); Calcium 8.1 mg/dL (8.4-10.2); Carbon Dioxide 25 mmol/L (22-30); Chloride 105 mmol/L (98-107); Estimated CRCL calculation 103 ml/min; Estimated Glomerular Filt Rate > 60; Glucose 231 mg/dL (65-110); Lipase 242 U/L (23-300); Potassium 4.1 mmol/L (3.4-5.0); Sodium 136 mmol/L (137-145)
[2022-06-02 07:56] LABS: Glucose Point of Care 215 mg/dl (65-105)
[2022-06-02] MEDS: GABAPENTIN 400 MG CAPSULE 800 MG PO ×3 (09:48→17:10)
[2022-06-02] MEDS: ATORVASTATIN 40 MG TABLET 80 MG PO (09:48)
[2022-06-02] MEDS: ENOXAPARIN 40 MG/0.4 ML SYRINGE SUB-Q (09:49)
[2022-06-02] MEDS: PANTOPRAZOLE 40 MG TABLET PO ×2 (09:49→20:49)
[2022-06-02] MEDS: FAMOTIDINE 20 MG TABLET PO ×2 (09:49→20:48)
[2022-06-02] MEDS: RANOLAZINE 500 MG TAB.ER.12H 1000 MG PO ×2 (09:49→20:50)
[2022-06-02] MEDS: ISOSORBIDE MONONITRATE 60 MG TAB.ER.24H PO ×2 (09:49→17:11)
[2022-06-02] MEDS: MECLIZINE HCL 25 MG TABLET PO ×2 (10:08→18:49)
--- NOTE | 2022-06-02 12:03 | PM.IMPN ---
Progress Note: A&P Assessment and Plan (1) Chest pain: Code(s): R07.9 - Chest pain, unspecified Status: Acute Assessment and Plan: Sounds atypical. Cardiology has been consulted and will see the patient. Echo has been ordered. Troponins negative. Likely noncardiac. (2) Cigar smoker: Code(s): F17.290 - Nicotine dependence, other tobacco product, uncomplicated Status: Acute (3) Hypertension: Code(s): I10 - Essential (primary) hypertension Status: Acute Assessment and Plan: Monitor and continue home medications (4) Obesity: Code(s): E66.9 - Obesity, unspecified Status: Acute (5) Peripheral neuropathy: Code(s): G62.9 - Polyneuropathy, unspecified Status: Acute Assessment and Plan: Monitor and continue home medications (6) CAD (coronary artery disease): Code(s): I25.10 - Atherosclerotic heart disease of [place] coronary artery without angina pectoris Status: Acute Subjective Date/time seen: 06/02/22 12:03 Still has some mild atypical chest pain. Cardiology to see the patient as well. Exam Narrative: General: alert and oriented Psych: appropriate mood nad affect Eyes: PERRLA Neck: Trachea midline, no new lesions Skin: no changes Lungs: CTA Cardiac: Normal S1,S2, no MGR ABD: soft, nd, nt, nbs Ext: no new lesions, no cce Vasc: Pulses intact Objective Data Vital Signs Vital Signs: Vital Signs - 24 hr 06/01/22 15:47 06/01/22 16:29 06/01/22 16:30 Temperature 97.5 F L Pulse Rate 78 69 74 Respiratory Rate 20 18 15 Blood Pressure 139/63 Pulse Oximetry 100 100 Oxygen Delivery Room Air 06/01/22 16:31 06/01/22 16:51 06/01/22 17:00 Temperature Pulse Rate 82 75 76 Respiratory Rate 19 13 18 Blood Pressure 140/61 Pulse Oximetry 100 100 100 Oxygen Delivery 06/01/22 17:01 06/01/22 17:15 06/01/22 17:17 Temperature Pulse Rate 78 77 76 Respiratory Rate 16 15 14 Blood Pressure 135/75 132/74 Pulse Oximetry 97 100 100 Oxygen Delivery 06/01/22 17:33 06/01/22 17:45 06/01/22 18:00 Temperature Pulse Rate 86 76 78 Respiratory Rate 18 14 18 Blood Pressure Pulse Oximetry 99 Oxygen Delivery 06/01/22 22:35 06/01/22 22:49 06/01/22 22:45 Temperature 98.1 F Pulse Rate 77 77 77 Respiratory Rate 20 20 Blood Pressure 138/70 Pulse Oximetry 100 100 Oxygen Delivery Room Air 06/02/22 00:00 06/02/22 00:00 06/02/22 02:27 Temperature Pulse Rate 74 77 71 Respiratory Rate 20 Blood Pressure Pulse Oximetry 100 Oxygen Delivery Room Air 06/02/22 02:00 06/02/22 04:00 06/02/22 04:00 Temperature Pulse Rate 76 73 71 Respiratory Rate 20 Blood Pressure Pulse Oximetry 100 Oxygen Delivery Room Air 06/02/22 04:00 06/02/22 06:00 06/02/22 08:00 Temperature 97.8 F 97.2 F L Pulse Rate 72 71 66 Respiratory Rate 20 16 Blood Pressure 133/52 L 115/54 L Pulse Oximetry 99 96 Oxygen Delivery 06/02/22 08:00 06/02/22 10:00 06/02/22 08:00 Temperature Pulse Rate 77 66 Respiratory Rate Blood Pressure Pulse Oximetry Oxygen Delivery Room Air Intake/Output Intake/Output: Intake & Output 05/30/22 05/31/22 06/01/22 06/02/22 23:59 23:59 23:59 23:59 Intake Total 300 Balance 300 Meds/Results Medications: Active Medications Generic Name Dose Route Start Last Admin Trade Name Freq PRN Reason Stop Dose Admin Albuterol 2.5 mg 06/02/22 00:10 Albuterol Sulfate Neb 2.5 Mg/3 Ml Inh INHALATION Q4HRT PRN shortness of breath or wheezing Aspirin 81 mg 06/01/22 21:00 06/02/22 02:24 Aspirin 81 Mg Chewable Tablet PO 81 mg HS ANGEL Administration Atorvastatin Calcium 80 mg 06/02/22 09:00 06/02/22 09:48 Atorvastatin 40 Mg Tablet PO 80 mg DAILY ANGEL Administration Clopidogrel Bisulfate 75 mg 06/01/22 21:00 06/02/22 02:27 Clopidogrel Bisulfate 75 Mg Tablet PO 75 mg HS ANGEL
[2022-06-02 12:07] LABS: Glucose Point of Care 202 mg/dl (65-105)
[2022-06-02] MEDS: INSULIN ASPART (*BKC) 100 UNITS/ML 24 UNITS SUB-Q (12:36)
--- NOTE | 2022-06-02 13:40 | PM.CNCAR ---
Assessment and Plan Assessment and plan (1) Chest pain: Code(s): R07.9 - Chest pain, unspecified Status: Acute Assessment and Plan: Atypical, some reproducible chest pain worse with deep breathing, movement but negative serial cardiac enzymes and no acute ischemic changes by EKG. 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 Kirby Gaytan with [facility]. Dr. Gaytan also agrees with conservative management at this time and outpatient follow-up as she knows her history very well. Continue present antianginal therapy. It additional workup for musculoskeletal chest pain per primary service. Pain control per their discretion. Continue dual antiplatelet therapy with aspirin and clopidogrel, Ranexa, Imdur, metoprolol succinate. No clear evidence of pericardial inflammatory process. Will check 2D echocardiogram to assess LV size/function, wall motion abnormalities, valve pathology, pulmonary pressures, and pericardium. Recommendation to follow as appropriate. Patient will follow-up with Dr. Gaytan as an outpatient within the next 2-4 weeks. Disposition per hospitalist service provided echocardiogram does not reveal new or concerning pathology. (2) CAD (coronary artery disease): Code(s): I25.10 - Atherosclerotic heart disease of [place] coronary artery without angina pectoris Status: Acute Assessment and Plan: As above, stable from cardiac perspective with recent coronary angiography having ruled out for myocardial infarction. No further invasive cardiac workup indicated. (3) Hypertension associated with type 2 diabetes mellitus: Code(s): E11.59 - Type 2 diabetes mellitus with other circulatory complications; I15.2 - Hypertension secondary to endocrine disorders Status: Acute Assessment and Plan: Controlled, no acute issues. Continue current antihypertensive regimen. (4) Mixed diabetic hyperlipidemia associated with type 2 diabetes mellitus: Code(s): E11.69 - Type 2 diabetes mellitus with other specified complication; E78.2 - Mixed hyperlipidemia Status: Acute Assessment and Plan: Continue statin therapy with atorvastatin 80 mg at bedtime. Goal LDL less than 70. (5) Tobacco abuse: Code(s): Z72.0 - Tobacco use Status: Acute Assessment and Plan: Immediate and absolute smoking cessation counseling performed. Patient verbalized understanding. History of Present Illness History of Present Illness Consult date/time: Date of service: 06/02/22 13:40 Requesting physician: Joel Leavitt MD Consult reason: chest pain Reason For Visit: chest pain, dizziness, abdominal pain Narrative: Patient is a very pleasant 46-year-old female with a past medical history significant for CAD with multiple previously placed stents with recent coronary angiography January 2022 with patent previously placed stents and nonobstructive CAD, hypertension, type 2 diabetes mellitus, hyperlipidemia, chronic back and neck pain with cervical arthritis who complained of left hand and arm numbness for several weeks. Patient admits to exertional dyspnea at times as well. Patient states she has been having occasional chest pains random and occasional with activity made worse with deep breathing certain movement position change where she was at MRI dated presentation and developed an intense burning sensation in left anterior chest along with shortness of breath made worse with deep breathing. This gave way to a tightness which has waxed and waned but otherwise been relatively persistent since yesterday. Morphine helps nitroglycerin provided no relief ER. She has been compliant with medications. She has had similar symptoms in the past. Patient is able to localize with 2 fingers of poin
--- NOTE | 2022-06-02 13:54 | ECHO_ITS ---
Patient Info Name: Page Mckinley Age: 46 years : 1975 Gender: Female Ht: 65 in Wt: 230 lbs BSA: 2.24 m2 HR: 72 bpm BP: 118 / 57 mmHg Heart Rhythm: Sinus Rhythm Technical Quality: Good Exam Date: 06/02/2022 4:09 PM Exam Location: [facility] Pulmonary Exam Room: 231 Patient Status: Inpatient Admit Date: 06/01/2022 Staff Ordering Physician: Nabor Phillips MD District Manager In Training: Rosetta Soria RDCS Attending Provider: Najma Marcos MD Referring Physician: Jacqueline SANTANA; Exam Type: CA echo doppler color flow Study Info Indications R07.89 - Other chest pain Complete two-dimensional, color flow and Doppler transthoracic echocardiogram is performed. Summary 1. Complete two-dimensional, color flow and Doppler transthoracic echocardiogram is performed. 2. Left ventricular chamber dimension is normal. 3. Left ventricular systolic function is normal, estimated at 65-70%. 4. There is mildly increased left ventricular wall thickness. 5. The left ventricular diastolic function is grade I diastolic dysfunction. 6. There is no aortic valve stenosis. 7. There is trace mitral valve regurgitation. 8. There is trace tricuspid valve regurgitation. 9. No pulmonary hypertension, estimated pulmonary arterial systolic pressure is 29 mmHg. Left Ventricle Left ventricular chamber dimension is normal. Left ventricular systolic function is normal, estimated at 65-70%. There is mildly increased left ventricular wall thickness. The left ventricular diastolic function is grade I diastolic dysfunction. Right Ventricle Right ventricular chamber dimension is normal. Right ventricular systolic function is normal. Left Atria Left atrial chamber dimension is normal. Right Atria Right atrial chamber dimension is normal. Aortic Valve The aortic valve is trileaflet. There is no aortic valve stenosis. There is no aortic valve regurgitation. Pulmonic Valve The pulmonic valve is not well visualized. There is mild pulmonic regurgitation. Mitral Valve The mitral valve has normal leaflets. There is trace mitral valve regurgitation. Tricuspid Valve The tricuspid valve leaflets are normal. There is trace tricuspid valve regurgitation. No pulmonary hypertension, estimated pulmonary arterial systolic pressure is 29 mmHg. Pericardium/Pleural The pericardium appears normal. There is trivial pericardial effusion. Inferior Vena Cava Normal inferior vena cava with >50% collapse upon inspiration consistent with normal right atrial pressure, 5 mmHg. Aorta The aortic root size at the sinus of Valsalva is normal. There is mild aortic atherosclerosis. Left Ventricular Outflow Tract Name Value Normal LVOT 2D LVOT Diameter 2.0 cm LVOT Doppler LVOT Peak Gradient 5 mmHg LVOT Mean Gradient 2 mmHg LVOT VTI 24 cm LVOT VTI/AV VTI Ratio 0.9 LVOT Stroke Volume 73 ml LVOT CO 13.0 l/min LVOT CI
[2022-06-02 15:48] LABS: Glucose Point of Care 313 mg/dl (65-105)
[2022-06-02] MEDS: INSULIN ASPART (*BKC) 100 UNITS/ML 28 UNITS SUB-Q (17:12)
[2022-06-02 22:52] LABS: Glucose Point of Care 278 mg/dl (65-105)
[2022-06-03] VITALS (7 sets, daily range): BP systolic 101–113; BP diastolic 44–62; PULSE 75–85; RESP 16–18; TEMP 36.1–36.7; O2SAT 95–100
[2022-06-03 08:14] LABS: Glucose Point of Care 285 mg/dl (65-105)
[2022-06-03] MEDS: MORPHINE SULFATE (*CRX) 4 MG/ML INJ IV PUSH ×2 (08:38→10:54)
[2022-06-03] MEDS: GABAPENTIN 400 MG CAPSULE 800 MG PO ×2 (08:39→13:05)
[2022-06-03] MEDS: ENOXAPARIN 40 MG/0.4 ML SYRINGE SUB-Q (08:39)
[2022-06-03] MEDS: RANOLAZINE 500 MG TAB.ER.12H 1000 MG PO (08:39)
[2022-06-03] MEDS: FAMOTIDINE 20 MG TABLET PO (08:39)
[2022-06-03] MEDS: ATORVASTATIN 40 MG TABLET 80 MG PO (08:39)
[2022-06-03] MEDS: ISOSORBIDE MONONITRATE 60 MG TAB.ER.24H PO (08:40)
[2022-06-03] MEDS: PANTOPRAZOLE 40 MG TABLET PO (08:40)
[2022-06-03] MEDS: INSULIN ASPART (*BKC) 100 UNITS/ML 24 UNITS SUB-Q ×2 (08:40→13:05)
[2022-06-03 12:09] LABS: Glucose Point of Care 233 mg/dl (65-105)
--- NOTE | 2022-06-03 12:20 | PM.DS ---
DS: Admitting Diagnosis Discharge Date June 03, 2022 Admitting Diagnosis Chest pain DS: Discharge Diagnosis Discharge Diagnosis (1) Chest pain: Code(s): R07.9 - Chest pain, unspecified Status: Acute (2) Cigar smoker: Code(s): F17.290 - Nicotine dependence, other tobacco product, uncomplicated Status: Acute (3) Hypertension: Code(s): I10 - Essential (primary) hypertension Status: Acute (4) Obesity: Code(s): E66.9 - Obesity, unspecified Status: Acute (5) Peripheral neuropathy: Code(s): G62.9 - Polyneuropathy, unspecified Status: Acute (6) CAD (coronary artery disease): Code(s): I25.10 - Atherosclerotic heart disease of [place] coronary artery without angina pectoris Status: Acute DS: Summary Hospital Course Hospital Course: Patient is a 46-year-old female with history of coronary disease and multiple stents placed in the past. Patient has had a left heart catheterization within the last year which was reported as being within normal limits and no stenosis. Patient came in with chest pain and upon evaluation here troponins were negative. Cardiology did evaluate the patient echocardiogram was ordered with no abnormalities or acute issues. No further cardiac workup is indicated at this time. Appreciate Cardiology input. Patient can be discharged home on cardiac medications. Time Spent with Patient Time attestation: Total time spent providing and/or coordinating discharge services: Exam Narrative: General: alert and oriented Psych: appropriate mood nad affect Eyes: PERRLA Neck: Trachea midline, no new lesions Skin: no changes Lungs: CTA Cardiac: Normal S1,S2, no MGR ABD: soft, nd, nt, nbs Ext: no new lesions, no cce Vasc: Pulses intact DS: Data Data Completed and Pending Labs on day of discharge: Labs from last 24 hours 06/03/22 06/03/22 06/02/22 12:07 08:08 22:48 POC Capillary Glucose 233 H 285 H 278 H 06/02/22 15:41 POC Capillary Glucose 313 H Discharge Plan Discharge Attending physician on discharge: Joel Leavitt Consulting providers: Joel Zamora Discharging Clinician: Joel Leavitt Patient Disposition: Home, Self-Care Activity: no preference Diet: as tolerated Patient Instructions: Antibiotic Form Stand Alone Forms: General Discharge Information Follow-up/Referrals: Heber,Mara Mondragon MD [Primary Care Provider] - Discharge Medications: Continued albuterol sulfate 2.5 mg /3 mL (0.083 %) solution for nebulization 2.5 mg INHALATION Q4H PRN (Reason: shortness of breath or wheezing) Qty: 75 0RF clopidogrel 75 mg tablet 75 mg PO HS famotidine 20 mg tablet 20 mg PO BID Qty: 30 0RF atorvastatin 40 mg tablet 80 mg PO DAILY Ozempic 1 mg/dose (4 mg/3 mL) pen injector 1 mg SUBCUT WEEKLY Rx Instructions: every Monday (DME) [employer] G6 Sensor Device MISCELLANEOUS ranolazine 500 mg tablet extended release 12 hr 1,000 mg PO BID Tresiba FlexTouch U-100 100 unit/mL (3 mL) insulin pen 45 unit SUBCUT HS Fiasp FlexTouch U-100 Insulin 100 unit/mL (3 mL) insulin pen See Rx Instructions .ROUTE .COMPLEX Rx Instructions: 24 units SUBQ with breakfast and lunch, 28 units SUBQ with dinner aspirin 81 mg tablet,chewable 81 mg PO HS trazodone 50 mg tablet 50 mg PO HS omeprazole 40 mg capsule,delayed release(DR/EC) 40 mg PO HS isosorbide mononitrate 60 mg tablet extended release 24 hr 60 mg PO BID gabapentin 800 mg Tablet 800 mg PO TID glimepiride 4 mg tablet 4 mg PO BID losartan 25 mg Tablet 25 mg PO HS folic acid 1 mg tablet 1 mg PO HS metoprolol succinate 25 mg tablet extended release 24 hr 25 tablet PO HS cholecalciferol (vitamin D3) [Vitamin D3] 50 mcg (2,000 unit) Capsule 50 mcg PO HS mecobalamin (vitamin B12) 1,000
== END 2022-06-03 14:20 | disposition home or self-care (01) ==
LOC: ANHED 16:45 → ANHIMU 22:24
PROVIDERS: Emergency Medicine; Admitting Provider Internal Medicine; Emergency Provider General Practice; PCP Family Medicine; Visit Provider Chiropractor
DX: R07.9 Chest pain, unspecified (principal); F17.290 Nicotine dependence, other tobacco product, uncomplicated; I15.2 Hypertension secondary to endocrine disorders; E66.9 Obesity, unspecified; E11.42 Type 2 diabetes mellitus with diabetic polyneuropathy; E11.59 Type 2 diabetes mellitus with other circulatory complications; I25.10 Atherosclerotic heart disease of native coronary artery without angina pectoris; Z95.5 Presence of coronary angioplasty implant and graft; Z20.822 Contact with and (suspected) exposure to COVID-19; M79.602 Pain in left arm; R20.0 Anesthesia of skin; R06.02 Shortness of breath; I11.9 Hypertensive heart disease without heart failure; I25.2 Old myocardial infarction; Z68.41 Body mass index [BMI] 40.0-44.9, adult; E78.5 Hyperlipidemia, unspecified; Z90.710 Acquired absence of both cervix and uterus; M54.89 Other dorsalgia; M47.892 Other spondylosis, cervical region; M54.2 Cervicalgia; R94.31 Abnormal electrocardiogram [ECG] [EKG]; Z79.82 Long term (current) use of aspirin; I45.19 Other right bundle-branch block; Z79.02 Long term (current) use of antithrombotics/antiplatelets; Z79.4 Long term (current) use of insulin; Z79.84 Long term (current) use of oral hypoglycemic drugs; Z79.899 Other long term (current) drug therapy
CPT/HCPCS: 36415; 71046; 74177; 80053; 82948; 83690; 84484; 85025; 85610; 85730; 93005; 93306; 96372; 96374; 96375; 96376; 99285; A9270; C9803; G0378; J1650; J1815; J2270; J2405; Q9967; U0003; U0005

== ENCOUNTER 2022-08-15 11:58 | Outpatient (CLI) | payer OTHER, MEDICAID, SELFPAY ==
--- NOTE | ~2022-08-15 | XR_ITS ---
XR cervical spine 4-5V 08/15/2022 12:42 Indication: Pseudoarthrosis after fusion. Procedure: 4 view cervical spine Comparison: 03/28/2022 Findings: There are surgical changes consistent with interbody fusion at C5-6. There is degenerative disc disease at C4-5. Straightening of cervical lordosis. No prevertebral soft tissue swelling. No si gnificant alteration of alignment with flexion/extension views. Lung apices are normal. There are unc inate degenerative changes at C4-5 and C5-6. Impression: 1: No acute abnormality of the cervical spine. 2: Mild cervical spondylosis with surgical changes consistent with interbody fusion at C5-6. Reviewed, dictated and finalized at location B. Impression: 1: No acute abnormality of the cervical spine. 2: Mild cervical spondylosis with surgical changes consistent with interbody f usion at C5-6.
--- NOTE | ~2022-08-15 | CT_ITS ---
EXAMINATION: CT cervical spine wo con DATE: 08/15/2022 12:45 INDICATION: Neck pain. Pseudoarthrosis after fusion or arthrodesis. TECHNIQUE: Computed tomography (CT) of the cervical spine was performed without intravenous contrast. Automated exposure control and iterative reconstruction technique were employed. The dose-length pro duct was 438.28 mGy-cm. COMPARISON: CT cervical spine 04/08/2022, radiographs 08/15/2022, head CT 11/01/17 FINDINGS: There is mild kyphosis of cervical spine. The posterior arch of C1 is ununited bilaterally without change from 11/01/2017, which may be developmental. There are changes of anterior fusion proc edure at C5-C6 with interbody device. There is a bridging left anterior endplate osteophyte. Vertebra l body heights are normal. There is mildly decreased disc height at C4-C5. The following disc levels are specifically discussed: C2-C3: There is no uncovertebral joint osteoarthritis. There is no facet joint osteoarthritis. There is no neural foraminal stenosis. There is no central canal stenosis. C3-C4: There is no uncovertebral joint osteoarthritis. There is no facet joint osteoarthritis. There is no neural foraminal stenosis. There is mild central canal stenosis. C4-C5: There is no uncovertebral joint osteoarthritis. There is mild bilateral facet joint osteoarthr itis. There is no neural foraminal stenosis. There is mild central canal stenosis. C5-C6: There is mild bilateral uncovertebral joint hypertrophy. There is no facet joint osteoarthriti s. There is no neural foraminal stenosis. There is mild central canal stenosis. C6-C7: There is no uncovertebral joint osteoarthritis. There is no facet joint osteoarthritis. There is no neural foraminal stenosis. There is no central canal stenosis. C7-T1: There is no uncovertebral joint osteoarthritis. There is no facet joint osteoarthritis. There is no neural foraminal stenosis. There is no central canal stenosis. IMPRESSION: 1. Anterior fusion procedure at C5-C6. 2. Mild cervical spondylosis. 3. 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 Reviewed, dictated and finalized at location A. IMPRESSION: 1. Anterior fusion procedure at C5-C6. 2. Mild cervical spondylosis. 3. 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
--- NOTE | ~2022-08-15 | XR_ITS ---
XR lumbar spine 2-3V 08/15/2022 12:42 Indication: Pseudoarthrosis. Back pain. Procedure: 4 views lumbar spine Comparison: 03/28/2022 Findings: Vertebral body heights are maintained. No significant disc narrowing. Normal lumbar lordosi s. No evidence for acute fracture or spondylolisthesis. No alteration of alignment with flexion/exten charlene. Mild levocurvature of the lumbar spine. Impression: 1: Mild levoscoliosis. Reviewed, dictated and finalized at location B. Impression: 1: Mild levoscoliosis.
== END 2022-08-15 11:59 | disposition home or self-care (01) ==
PROVIDERS: PCP Family Medicine; Visit Provider Neurological Surgery
DX: M96.0 Pseudarthrosis after fusion or arthrodesis (principal); M54.50 Low back pain, unspecified; Z98.1 Arthrodesis status; M47.892 Other spondylosis, cervical region
CPT/HCPCS: 72050; 72100; 72125

== ENCOUNTER 2022-09-05 10:50 | Emergency (ER) | payer OTHER, SELFPAY ==
[2022-09-05 11:08] VITALS: BP 127/62; PULSE 74; RESP 18; TEMP 36.1; O2SAT 100
--- NOTE | 2022-09-05 11:17 | ED.GENADULT ---
HPI - General Adult General Chief complaint: Upper Respiratory Infection Stated complaint: Headache,Sore Throat,Left Big Toe Time Seen by Provider: 09/05/22 11:17 Source: patient, RN notes reviewed and old records reviewed Mode of arrival: ambulatory Limitations: no limitations History of Present Illness HPI narrative: 46-year-old female presents to the [facility] with complaints of frontal headache, sore throat for 4 days. Patient also reports that her bilateral pinky toes, tip are known. Has an appointment with neurosurgery or neurology for spinal injections. History of peripheral neuropathy secondary to diabetes. Denies any new back pain. No loss or retention bowel or bladder. Related Data Home Medications Medication Instructions Recorded Confirmed clopidogrel 75 mg tablet 75 mg PO HS 10/31/19 09/05/22 insulin degludec 100 unit/mL (3 45 unit subcut HS 04/09/21 09/05/22 mL) subcutaneous pen (Tresiba FlexTouch U-100 insulin) ranolazine 500 mg tablet,extended 1,000 mg PO BID 04/09/21 09/05/22 release,12 hr atorvastatin 40 mg tablet 80 mg PO DAILY 06/02/21 09/05/22 semaglutide 1 mg/dose (4 mg/3 mL) 1 mg subcut WEEKLY 06/02/21 09/05/22 subcutaneous pen injector (Ozempic) blood-glucose sensor ([employer] G6 07/01/21 09/05/22 Sensor device) insulin aspart See Rx Instructions .Route .COMPLEX 04/08/22 09/05/22 (niacinamide)(U-100) 100 unit/mL(3 mL) subcutaneous pen (Fiasp FlexTouch U-100 Insulin) aspirin 81 mg chewable tablet 81 mg PO HS 06/01/22 09/05/22 cholecalciferol (vitamin D3) 50 50 mcg PO HS 06/01/22 09/05/22 mcg (2,000 unit) capsule (Vitamin D3) folic acid 1 mg tablet 1 mg PO HS 06/01/22 09/05/22 gabapentin 800 mg tablet 800 mg PO TID 06/01/22 09/05/22 glimepiride 4 mg tablet 4 mg PO BID 06/01/22 09/05/22 isosorbide mononitrate 60 mg 60 mg PO BID 06/01/22 09/05/22 tablet,extended release 24 hr losartan 25 mg tablet 25 mg PO HS 06/01/22 09/05/22 mecobalamin (vitamin B12) 1,000 1,000 mcg PO HS 06/01/22 09/05/22 mcg chewable tablet metoprolol succinate 25 mg 25 tablet PO HS 06/01/22 09/05/22 tablet,extended release 24 hr omeprazole 40 mg capsule,delayed 40 mg PO HS 06/01/22 09/05/22 release trazodone 50 mg tablet 50 mg PO HS 06/01/22 09/05/22 insulin aspart See Rx Instructions .Route .COMPLEX 06/02/22 09/05/22 (niacinamide)(U-100) 100 unit/mL(3 mL) subcutaneous pen (Fiasp FlexTouch U-100 Insulin) Allergies Allergy/AdvReac Type Severity Reaction Status Date / Time adhesive tape Allergy Unknown Verified 09/05/22 10:58 cyclobenzaprine Allergy Unknown Verified 09/05/22 10:58 [From Flexeril] Review of Systems Review of Systems: All systems reviewed & are unremarkable except as noted in HPI and below Constitutional: Constitutional: Reports no additional constitutional complaints, Denies chills and Denies fever(s) Eyes: Eyes: Reports no additional eye complaints ENT: Reports as per HPI Cardiovascular: Cardiovascular: Reports no additional cardiovascular complaints Respiratory: Respiratory: Reports no additional respiratory complaints Gastrointestinal: Gastrointestinal: Reports no additional gastrointestinal complaints Musculoskeletal: Musculoskeletal: Reports no additional musculoskeletal complaints Integumentary/Breasts: Skin/Breast: Reports system reviewed and no additional complaints, except as docu Neurologic: Reports system reviewed and no additional complaints, except as documented Psychiatric: Psychiatric: Reports no additional psychiatric complaints Allergic/Immunologic: Allergic/Immunologic: Reports no additional allergic/immunologic complaints FOR[facility]LY [facility], [facility]1983 Past Medical History Medical History CAD (coronary artery disease) Cervical vertebral fusion Cervical vertebral fusion delivery delivered Cigar smoker Diabetes Diabetes Hyperlipidemia Hypertension Myocardial infarction Obesity Elisabeth
== END 2022-09-05 13:08 | disposition home or self-care (01) ==
PROVIDERS: Emergency Provider Nurse Practitioner; PCP Family Medicine
DX: H65.03 Acute serous otitis media, bilateral (principal); E11.42 Type 2 diabetes mellitus with diabetic polyneuropathy; R09.82 Postnasal drip; F17.290 Nicotine dependence, other tobacco product, uncomplicated; I25.10 Atherosclerotic heart disease of native coronary artery without angina pectoris; E78.5 Hyperlipidemia, unspecified; I10 Essential (primary) hypertension; I25.2 Old myocardial infarction; E66.9 Obesity, unspecified; Z68.38 Body mass index [BMI] 38.0-38.9, adult; Z95.5 Presence of coronary angioplasty implant and graft
CPT/HCPCS: 99213; G0463

== ENCOUNTER 2022-12-05 08:16 | Emergency (ER) | payer OTHER, SELFPAY ==
--- NOTE | 2022-12-05 08:18 | ED.FEMALEGU ---
HPI - Female Genitourinary General Chief complaint: Urogenital-Female Stated complaint: UTI Time Seen by Provider: 12/05/22 08:18 Source: patient, RN notes reviewed and old records reviewed Mode of arrival: ambulatory Limitations: no limitations History of Present Illness HPI Narrative: 47-year-old female presents to the [facility] with complaints of a UTI. Denies any vaginal discharge. Patient's reports abnormal smell of urine for approximately 1 week. Patient denies any burning, frequency, urgency. Has a history of chronic back pain, denies any new pain. Denies any nausea vomiting or diarrhea. Denies abdominal pain. Denies any chest pain. MD elicited complaint: UTI Onset (ago): week(s) (1) Related Data Home Medications Medication Instructions Recorded Confirmed clopidogrel 75 mg tablet 75 mg PO HS 10/31/19 09/05/22 insulin degludec 100 unit/mL (3 45 unit subcut HS 04/09/21 09/05/22 mL) subcutaneous pen (Tresiba FlexTouch U-100 insulin) ranolazine 500 mg tablet,extended 1,000 mg PO BID 04/09/21 09/05/22 release,12 hr atorvastatin 40 mg tablet 80 mg PO DAILY 06/02/21 09/05/22 semaglutide 1 mg/dose (4 mg/3 mL) 1 mg subcut WEEKLY 06/02/21 09/05/22 subcutaneous pen injector (Ozempic) blood-glucose sensor (Dexcom G6 07/01/21 09/05/22 Sensor device) insulin aspart See Rx Instructions .Route .COMPLEX 04/08/22 09/05/22 (niacinamide)(U-100) 100 unit/mL(3 mL) subcutaneous pen (Fiasp FlexTouch U-100 Insulin) aspirin 81 mg chewable tablet 81 mg PO HS 06/01/22 09/05/22 cholecalciferol (vitamin D3) 50 50 mcg PO HS 06/01/22 09/05/22 mcg (2,000 unit) capsule (Vitamin D3) folic acid 1 mg tablet 1 mg PO HS 06/01/22 09/05/22 gabapentin 800 mg tablet 800 mg PO TID 06/01/22 09/05/22 glimepiride 4 mg tablet 4 mg PO BID 06/01/22 09/05/22 isosorbide mononitrate 60 mg 60 mg PO BID 06/01/22 09/05/22 tablet,extended release 24 hr losartan 25 mg tablet 25 mg PO HS 06/01/22 09/05/22 mecobalamin (vitamin B12) 1,000 1,000 mcg PO HS 06/01/22 09/05/22 mcg chewable tablet metoprolol succinate 25 mg 25 tablet PO HS 06/01/22 09/05/22 tablet,extended release 24 hr omeprazole 40 mg capsule,delayed 40 mg PO HS 06/01/22 09/05/22 release trazodone 50 mg tablet 50 mg PO HS 06/01/22 09/05/22 insulin aspart See Rx Instructions .Route .COMPLEX 06/02/22 09/05/22 (niacinamide)(U-100) 100 unit/mL(3 mL) subcutaneous pen (Fiasp FlexTouch U-100 Insulin) Allergies Allergy/AdvReac Type Severity Reaction Status Date / Time adhesive tape Allergy Unknown Verified 12/05/22 08:20 cyclobenzaprine Allergy Unknown Verified 12/05/22 08:20 [From Flexeril] Review of Systems Review of Systems: All systems reviewed & are unremarkable except as noted in HPI and below Constitutional: Constitutional: Reports no additional constitutional complaints Eyes: Eyes: Reports no additional eye complaints ENT: Reports system reviewed and no additional complaints, except as documented Cardiovascular: Cardiovascular: Reports no additional cardiovascular complaints, Denies chest pain and Denies dyspnea Respiratory: Respiratory: Reports no additional respiratory complaints, Denies chest congestion, Denies cough and Denies dyspnea Gastrointestinal: Gastrointestinal: Reports no additional gastrointestinal complaints, Denies abdominal pain, Denies nausea and Denies vomiting Genitourinary: Genitourinary: Reports as per HPI and Reports dysuria Musculoskeletal: Musculoskeletal: Reports no additional musculoskeletal complaints Integumentary/Breasts: Skin/Breast: Reports system reviewed and no additional complaints, except as docu Neurologic: Reports system reviewed and no additional complaints, except as documented Psychiatric: Psychiatric: Reports no additional psychiatric complaints Allergic/Immunologic: Allergic/Immunologic: Reports no additional allergic/immunologic complaints PMFSH Past Medical History Medical History (Re
[2022-12-05 08:20] VITALS: BP 122/82; PULSE 92; RESP 18; TEMP 35.9; O2SAT 100
== END 2022-12-05 08:48 | disposition home or self-care (01) ==
PROVIDERS: Emergency Provider Nurse Practitioner; PCP Family Medicine
DX: N39.0 Urinary tract infection, site not specified (principal); F17.290 Nicotine dependence, other tobacco product, uncomplicated; I25.10 Atherosclerotic heart disease of native coronary artery without angina pectoris; E78.5 Hyperlipidemia, unspecified; I10 Essential (primary) hypertension; I25.2 Old myocardial infarction; E66.9 Obesity, unspecified; Z68.26 Body mass index [BMI] 26.0-26.9, adult; E11.42 Type 2 diabetes mellitus with diabetic polyneuropathy; Z95.5 Presence of coronary angioplasty implant and graft; Z79.4 Long term (current) use of insulin; Z79.82 Long term (current) use of aspirin
CPT/HCPCS: 81003; 87077; 87086; 87186; 99213; G0463

== ENCOUNTER 2023-02-01 13:31 | Emergency (ER) | payer OTHER, SELFPAY ==
--- NOTE | 2023-02-01 13:35 | ED.URI ---
HPI - URI/Sore Throat General Chief Complaint: Upper Respiratory Infection Stated Complaint: Sore Throat Time Seen by Provider: 02/01/23 13:35 Source: patient Mode of arrival: ambulatory Limitations: no limitations History of Present Illness HPI Narrative: Page is a 47-year-old female patient presenting to clinic today with complaints of sore throat x2 days. She reports she has lost her voice as well. She denies any fever or chills. MD elicited complaint: sore throat and nasal congestion Related Data Home Medications Medication Instructions Recorded Confirmed clopidogrel 75 mg tablet 75 mg PO HS 10/31/19 02/01/23 insulin degludec 100 unit/mL (3 45 unit subcut HS 04/09/21 02/01/23 mL) subcutaneous pen (Tresiba FlexTouch U-100 insulin) ranolazine 500 mg tablet,extended 1,000 mg PO BID 04/09/21 02/01/23 release,12 hr atorvastatin 40 mg tablet 80 mg PO DAILY 06/02/21 02/01/23 semaglutide 1 mg/dose (4 mg/3 mL) 1 mg subcut WEEKLY 06/02/21 02/01/23 subcutaneous pen injector (Ozempic) blood-glucose sensor (Dexcom G6 07/01/21 02/01/23 Sensor device) insulin aspart See Rx Instructions .Route .COMPLEX 04/08/22 02/01/23 (niacinamide)(U-100) 100 unit/mL(3 mL) subcutaneous pen (Fiasp FlexTouch U-100 Insulin) aspirin 81 mg chewable tablet 81 mg PO HS 06/01/22 02/01/23 cholecalciferol (vitamin D3) 50 50 mcg PO HS 06/01/22 02/01/23 mcg (2,000 unit) capsule (Vitamin D3) folic acid 1 mg tablet 1 mg PO HS 06/01/22 02/01/23 gabapentin 800 mg tablet 800 mg PO TID 06/01/22 02/01/23 glimepiride 4 mg tablet 4 mg PO BID 06/01/22 02/01/23 isosorbide mononitrate 60 mg 60 mg PO BID 06/01/22 02/01/23 tablet,extended release 24 hr losartan 25 mg tablet 25 mg PO HS 06/01/22 02/01/23 mecobalamin (vitamin B12) 1,000 1,000 mcg PO HS 06/01/22 02/01/23 mcg chewable tablet metoprolol succinate 25 mg 25 tablet PO HS 06/01/22 02/01/23 tablet,extended release 24 hr omeprazole 40 mg capsule,delayed 40 mg PO HS 06/01/22 02/01/23 release trazodone 50 mg tablet 50 mg PO HS 06/01/22 02/01/23 insulin aspart See Rx Instructions .Route .COMPLEX 06/02/22 02/01/23 (niacinamide)(U-100) 100 unit/mL(3 mL) subcutaneous pen (Fiasp FlexTouch U-100 Insulin) Allergies Allergy/AdvReac Type Severity Reaction Status Date / Time adhesive tape Allergy Unknown Verified 02/01/23 13:40 cyclobenzaprine Allergy Unknown Verified 02/01/23 13:40 [From Flexeril] Review of Systems Review of Systems: Pertinent positives per HPI. Patient denies any fever, chills, rash, headache, visual changes, dizziness, cough, shortness of breath, chest pain, palpitations, nausea, vomiting, diarrhea, constipation, abdominal pain, or any urinary issues. [facility] Past Medical History Medical History CAD (coronary artery disease) Cervical vertebral fusion Cervical vertebral fusion delivery delivered Cigar smoker Diabetes Diabetes Hyperlipidemia Hypertension Myocardial infarction Obesity Peripheral neuropathy Surgical History Surgical History H/O section X3 H/O: hysterectomy History of coronary artery stent placement History of hysterectomy History of neck surgery cervical fusion History of tonsillectomy Hx of heart artery stent Previous section Family History Family History Mother Diabetes mellitus Hypertension Family history of malignant neoplasm of breast in first degree relative Sibling Diabetes mellitus Hypertension Grandparent Family history of malignant neoplasm of breast in first degree relative Social History Social History Smoking status: Current every day smoker Tobacco type: cigars Second hand tobacco smoke exposure: Yes Additional smok
[2023-02-01 13:42] VITALS: BP 100/58; PULSE 87; RESP 16; TEMP 36.7; O2SAT 99
== END 2023-02-01 14:04 | disposition home or self-care (01) ==
PROVIDERS: Emergency Provider Nurse Practitioner Family; PCP Family Medicine
DX: J06.9 Acute upper respiratory infection, unspecified (principal); J02.9 Acute pharyngitis, unspecified; F17.290 Nicotine dependence, other tobacco product, uncomplicated; I25.10 Atherosclerotic heart disease of native coronary artery without angina pectoris; E78.5 Hyperlipidemia, unspecified; I10 Essential (primary) hypertension; E11.42 Type 2 diabetes mellitus with diabetic polyneuropathy; Z79.84 Long term (current) use of oral hypoglycemic drugs; Z79.4 Long term (current) use of insulin; I25.2 Old myocardial infarction; E66.9 Obesity, unspecified; Z68.36 Body mass index [BMI] 36.0-36.9, adult
CPT/HCPCS: 87081; 87880; 99213; G0463

== ENCOUNTER 2023-02-16 19:29 | Emergency (ER) | payer OTHER, SELFPAY ==
[2023-02-16 19:36] VITALS: BP 128/76; PULSE 79; RESP 16; TEMP 36.1; O2SAT 100
--- NOTE | 2023-02-16 19:37 | ED.URI ---
HPI - URI/Sore Throat General Chief Complaint: Upper Respiratory Infection Stated Complaint: uri Time Seen by Provider: 02/16/23 19:48 Source: patient and RN notes reviewed Mode of arrival: ambulatory Limitations: no limitations History of Present Illness HPI Narrative: 47-year-old female presents concern for 2 week history of sore throat, nasal congestion, drainage, hoarse voice. Reports she has been doing antihistamine, Flonase, TheraFlu without relief. She reports a burning sensation in her throat. She denies fever, chills, aches, sweats MD elicited complaint: sore throat Related Data Home Medications Medication Instructions Recorded Confirmed clopidogrel 75 mg tablet 75 mg PO HS 10/31/19 02/01/23 insulin degludec 100 unit/mL (3 45 unit subcut HS 04/09/21 02/01/23 mL) subcutaneous pen (Tresiba FlexTouch U-100 insulin) ranolazine 500 mg tablet,extended 1,000 mg PO BID 04/09/21 02/01/23 release,12 hr atorvastatin 40 mg tablet 80 mg PO DAILY 06/02/21 02/01/23 blood-glucose sensor (Dexcom G6 07/01/21 02/01/23 Sensor device) insulin aspart See Rx Instructions .Route .COMPLEX 04/08/22 02/01/23 (niacinamide)(U-100) 100 unit/mL(3 mL) subcutaneous pen (Fiasp FlexTouch U-100 Insulin) aspirin 81 mg chewable tablet 81 mg PO HS 06/01/22 02/01/23 cholecalciferol (vitamin D3) 50 50 mcg PO HS 06/01/22 02/01/23 mcg (2,000 unit) capsule (Vitamin D3) folic acid 1 mg tablet 1 mg PO HS 06/01/22 02/01/23 isosorbide mononitrate 60 mg 60 mg PO BID 06/01/22 02/01/23 tablet,extended release 24 hr losartan 25 mg tablet 25 mg PO HS 06/01/22 02/01/23 mecobalamin (vitamin B12) 1,000 1,000 mcg PO HS 06/01/22 02/01/23 mcg chewable tablet metoprolol succinate 25 mg 25 tablet PO HS 06/01/22 02/01/23 tablet,extended release 24 hr omeprazole 40 mg capsule,delayed 40 mg PO HS 06/01/22 02/01/23 release trazodone 50 mg tablet 50 mg PO HS 06/01/22 02/01/23 cyclobenzaprine 10 mg tablet mg 02/16/23 folic acid 1 mg tablet 02/16/23 furosemide 20 mg tablet mg 02/16/23 insulin aspart subcut 02/16/23 (niacinamide)(U-100) 100 unit/mL(3 mL) subcutaneous pen (Fiasp FlexTouch U-100 Insulin) nitroglycerin 0.4 mg sublingual mg 02/16/23 tablet rosuvastatin 40 mg tablet mg 02/16/23 tirzepatide 12.5 mg/0.5 mL mg subcut 02/16/23 subcutaneous pen injector (Adamunevertonro) Allergies Allergy/AdvReac Type Severity Reaction Status Date / Time adhesive tape Allergy Unknown Verified 02/16/23 19:41 cyclobenzaprine Allergy Unknown Verified 02/16/23 19:41 [From Flexeril] Review of Systems Review of Systems: CONSTITUTIONAL: Denies malaise, chills, sweats, or fever. EYES: Denies visual changes, redness, or discharge. ENT: Reports rhinorrhea, congestion, sinus pain, otalgia, hoarse voice, and sore throat. CARDIOVASCULAR: Denies chest pain, palpitations, or edema. RESPIRATORY: Reports cough. Denies dyspnea. GASTROINTESTINAL: Denies abdominal pain, nausea, vomiting, diarrhea SKIN: Denies rash or itching. MUSCULOSKELETAL: Denies myalgia. NEUROLOGIC: Denies headache. All systems reviewed & are unremarkable except as noted in HPI and below PMFSH Past Medical History Medical History CAD (coronary artery disease) Cervical vertebral fusion Cervical vertebral fusion delivery delivered Cigar smoker Diabetes Diabetes Hyperlipidemia Hypertension Myocardial infarction Obesity Peripheral neuropathy Surgical History Surgical History H/O section X3 H/O: hysterectomy History of coronary artery stent placement History of hysterectomy History of neck surgery cervical fusion History of tonsillectomy Hx of heart artery stent Previous section Family History Family History Mother Diabetes mellitus Hyper
== END 2023-02-16 20:14 | disposition home or self-care (01) ==
PROVIDERS: Emergency Provider Nurse Practitioner
DX: J32.9 Chronic sinusitis, unspecified (principal); J04.0 Acute laryngitis; F17.290 Nicotine dependence, other tobacco product, uncomplicated; I25.10 Atherosclerotic heart disease of native coronary artery without angina pectoris; E78.5 Hyperlipidemia, unspecified; I10 Essential (primary) hypertension; I25.2 Old myocardial infarction; E11.42 Type 2 diabetes mellitus with diabetic polyneuropathy; E66.9 Obesity, unspecified; Z68.36 Body mass index [BMI] 36.0-36.9, adult; Z95.5 Presence of coronary angioplasty implant and graft; Z79.4 Long term (current) use of insulin; Z79.82 Long term (current) use of aspirin
CPT/HCPCS: 99213; G0463

== ENCOUNTER 2023-02-18 07:24 | Emergency (ER) | payer OTHER, SELFPAY ==
[2023-02-18] VITALS (22 sets, daily range): BP systolic 106–153; BP diastolic 68–89; PULSE 73–100; RESP 12–21; TEMP 36.7; O2SAT 98–100
--- NOTE | ~2023-02-18 | CT_ITS ---
EXAMINATION: CT abdomen pelvis w con DATE: 02/18/2023 10:11 INDICATION: Epigastric abdominal pain. TECHNIQUE: Computed tomography (CT) of the abdomen and pelvis was performed with 100 mL Omnipaque 350 intravenous contrast. Automated exposure control and iterative reconstruction technique were employe d. The dose-length product was 1328.92 mGy-cm. COMPARISON: CT abdomen and pelvis 06/01/2022 FINDINGS: The visualized portions of the lung bases demonstrate a 3 mm nodule in left lower lobe and a 2 mm nodule in lingula, likely benign. No pleural effusion. The heart size is normal. No pericardia l effusion. The liver, gallbladder, spleen, pancreas, and adrenal glands are normal. There is cortica l thinning of the kidneys. There is a 7 mm cyst in left kidney. There are no dilated loops of bowel. The appendix is normal. There are no pathologically enlarged lymph nodes. There is no free intraperit brian fluid. There is an infraumbilical ventral hernia containing fat. There is mild thoracolumbar sp ondylosis. IMPRESSION: 1. Infraumbilical ventral hernia containing fat. Reviewed, dictated and finalized at location A.
--- NOTE | ~2023-02-18 | CT_ITS ---
EXAMINATION: CT soft tissue neck wo con DATE: 02/18/2023 13:37 INDICATION: Throat pain. TECHNIQUE: Computed tomography (CT) of the neck was performed with 75 mL Omnipaque-350 intravenous co ntrast. Automated exposure control and iterative reconstruction technique were employed. The dose-ozzie gth product was 518.07 mGy-cm. COMPARISON: None FINDINGS: There are no pathologically enlarged lymph nodes. The pharynx and larynx are normal. The pa ranasal sinuses are clear. The mastoid air cells are normal. There are changes of anterior fusion pro cedure at C5-C6. There is mild cervical spondylosis. IMPRESSION: 1. No etiology for the patient's symptoms. Reviewed, dictated and finalized at location A.
--- NOTE | ~2023-02-18 | XR_ITS ---
EXAMINATION: XR chest 2V DATE: 02/18/2023 09:24 INDICATION: Chest pain. TECHNIQUE: Frontal and lateral views of the chest were obtained. COMPARISON: Chest 2 views 06/01/2022 FINDINGS: The chest demonstrates clear lungs without pneumonia, pleural effusion, or pneumothorax. Th e heart size is normal. There are changes of anterior fusion procedures in cervical spine. IMPRESSION: 1. No acute cardiopulmonary disease. Reviewed, dictated and finalized at location A.
--- NOTE | 2023-02-18 07:36 | ECG_ITS ---
Measurements Intervals [place] Rate: 91 P: 49 MS: 152 QRS: -19 QRSD: 101 T: 20 QT: 338 QTc: 416 Interpretive Statements SINUS RHYTHM LOW QRS VOLTAGE IN PRECORDIAL LEADS POSSIBLE ANTERIOR MYOCARDIAL INFARCTION , OLD COMPARED TO ECG 06/01/2022 15:44:29 NO SIGNIFICANT CHANGES Electronically Signed On 02-18-2023 10:20:45 CDT by Jourdan Barlow M.D.
--- NOTE | 2023-02-18 07:50 | ED.GENADULT ---
HPI - General Adult General Chief complaint: Unspecified Stated complaint: sore throat Time Seen by Provider: 02/18/23 07:25 Source: RN notes reviewed History of Present Illness HPI narrative: Patient presents emergency department from home for sore throat. Patient states that she has had a sore throat intermittently for the past 3 weeks. States that the throat feels burning in nature and that she has been seen at the urgent care twice for this and was started on Augmentin approximately 2 days ago. States that last night she had a burning in her chest and up into her throat that made her feel that she was going to throw up and felt like heartburn that caused her to come into the emergency department today. States that she has had no fevers or chills she denies any rhinorrhea or ear pain she denies any shortness of breath abdominal pain vomiting or any other symptoms. States that she has been hoarse for the past 2 days Related Data Home Medications Medication Instructions Recorded Confirmed clopidogrel 75 mg tablet 75 mg PO HS 10/31/19 02/01/23 insulin degludec 100 unit/mL (3 45 unit subcut HS 04/09/21 02/01/23 mL) subcutaneous pen (Tresiba FlexTouch U-100 insulin) ranolazine 500 mg tablet,extended 1,000 mg PO BID 04/09/21 02/01/23 release,12 hr atorvastatin 40 mg tablet 80 mg PO DAILY 06/02/21 02/01/23 blood-glucose sensor (Dexcom G6 07/01/21 02/01/23 Sensor device) insulin aspart See Rx Instructions .Route .COMPLEX 04/08/22 02/01/23 (niacinamide)(U-100) 100 unit/mL(3 mL) subcutaneous pen (Fiasp FlexTouch U-100 Insulin) aspirin 81 mg chewable tablet 81 mg PO HS 06/01/22 02/01/23 cholecalciferol (vitamin D3) 50 50 mcg PO HS 06/01/22 02/01/23 mcg (2,000 unit) capsule (Vitamin D3) folic acid 1 mg tablet 1 mg PO HS 06/01/22 02/01/23 isosorbide mononitrate 60 mg 60 mg PO BID 06/01/22 02/01/23 tablet,extended release 24 hr losartan 25 mg tablet 25 mg PO HS 06/01/22 02/01/23 mecobalamin (vitamin B12) 1,000 1,000 mcg PO HS 06/01/22 02/01/23 mcg chewable tablet metoprolol succinate 25 mg 25 tablet PO HS 06/01/22 02/01/23 tablet,extended release 24 hr omeprazole 40 mg capsule,delayed 40 mg PO HS 06/01/22 02/01/23 release trazodone 50 mg tablet 50 mg PO HS 06/01/22 02/01/23 cyclobenzaprine 10 mg tablet mg 02/16/23 folic acid 1 mg tablet 02/16/23 furosemide 20 mg tablet mg 02/16/23 insulin aspart subcut 02/16/23 (niacinamide)(U-100) 100 unit/mL(3 mL) subcutaneous pen (Fiasp FlexTouch U-100 Insulin) nitroglycerin 0.4 mg sublingual mg 02/16/23 tablet rosuvastatin 40 mg tablet mg 02/16/23 tirzepatide 12.5 mg/0.5 mL mg subcut 02/16/23 subcutaneous pen injector (Mounjaro) Allergies Allergy/AdvReac Type Severity Reaction Status Date / Time adhesive tape Allergy Unknown Verified 02/16/23 19:41 cyclobenzaprine Allergy Unknown Verified 02/16/23 19:41 [From Flexeril] Review of Systems Review of Systems: Gen.: Denies fevers or chills ENT: See HPI Respiratory: Denies shortness of breath or cough CV: Reports midsternal chest pain consistent with heartburn GI: Denies abdominal pain emesis or diarrhea reports nausea and heartburn Musculoskeletal: Denies back pain or muscle pain Neuro: Denies numbness, tingling, weakness or focal weakness Skin: Denies rash Except as documented, all other systems reviewed and negative [facility] Past Medical History Medical History CAD (coronary artery disease) Cervical vertebral fusion Cervical vertebral fusion delivery delivered Cigar smoker Diabetes Diabetes Hyperlipidemia Hypertension Myocardial infarction Obesity Peripheral neuropathy Surgical History Surgical History H/O section X3 H/O: hysterectomy History of coronary artery stent placement History of hysterectomy History of neck surgery
[2023-02-18 08:07] LABS: Strep Group A RT-PCR NOT DETECTED (Negative)
[2023-02-18 08:19] LABS: Basophils Percent Auto 0.2 % (0.2-1.2); Eosinophils Percent Auto 0.1 % (0-4.4); Hematocrit 40.5 % (37.0-47.0); Hemoglobin 12.7 g/dL (12.0-15.0); Immature Granulocyte Absolute 0.11 K/mm3 (0.00-0.031); Immature Granulocyte Percent A 0.6 % (0-0.5); Lymphocytes Absolute Auto 2.72 K/mm3 (0.9-3.2); Lymphocytes Percent Auto 15.5 % (18.3-44.2); Mean Corpuscular HGB Conc 31.4 g/dl (32-36); Mean Corpuscular Hemoglobin 28.7 pg (26-34); Mean Corpuscular Volume 91.6 fl (80-100); Mean Platelet Volume 9.5 fl (7.4-10.4); Monocytes Absolute Auto 0.8 K/mm3 (0.1-0.6); Monocytes Percent Auto 4.7 % (2.6-8.5); Neutrophils Absolute Auto 13.8 K/mm3 (1.3-6.7); Neutrophils Percent Auto 78.9 % (45.5-73.1); Platelet Count Result 285 k/mm3 (150-375); Red Blood Count 4.42 M/mm3 (4.2-5.4); Red Cell Distribution Width 13.1 % (11.5-14.5); White Blood Count 17.5 K/mm3 (4.5-10.0)
[2023-02-18] MEDS: FAMOTIDINE 20 MG/2 ML VIAL IV PUSH (08:29)
[2023-02-18] MEDS: ONDANSETRON INJ 4 MG/2 ML VIAL IV PUSH (08:30)
[2023-02-18 08:59] LABS: Troponin I < 0.012 ng/mL (0.000-0.034)
[2023-02-18 09:00] LABS: Alanine Aminotransferase 22 U/L (6-35); Albumin Level 4.3 g/dL (3.5-5.1); Alkaline Phosphatase 66 U/L (38-126); Anion Gap 9 mmol/L (8-16); Aspartate Amino Transferase 25 U/L (14-36); Bilirubin,Total 0.6 mg/dL (0.2-1.3); Blood Urea Nitrogen 13 mg/dL (7-17); Calcium 8.9 mg/dL (8.4-10.2); Carbon Dioxide 26 mmol/L (22-30); Chloride 105 mmol/L (98-107); Estimated CRCL calculation 114 ml/min; Estimated Glomerular Filt Rate > 60; Glucose 210 mg/dL (65-110); Lipase 86 U/L (23-300); Potassium 4.7 mmol/L (3.4-5.0); Sodium 140 mmol/L (137-145)
[2023-02-18 09:23] LABS: Appearance Urine Clear (Clear); Bilirubin Urine Negative (Negative); Blood Urine Negative (Negative); Color Urine Yellow (Yellow); Glucose Urine UA 1+ mg/dL (Negative); Ketones Urine Negative (Negative); Leukocyte Esterase Ur Negative LEU/UL (Negative); Nitrate Urine Negative (Negative); Protein Urine Negative (Negative); Specific Grav Ur 1.019 (1.001-1.035); Urobilinogen Urine 0.2 mg/dL (<2.0)
[2023-02-18 09:45] LABS: Add Urine Microscopic? NO
--- NOTE | 2023-02-18 09:50 | PC.NURSE ---
Pt. called stating her chest pain has worsening and radiating into her left jaw. ERP notified and aware. See new orders.
--- NOTE | 2023-02-18 10:01 | ECG_ITS ---
Measurements Intervals [place] Rate: 74 P: 51 LA: 161 QRS: -19 QRSD: 97 T: 22 QT: 366 QTc: 408 Interpretive Statements SINUS RHYTHM LOW QRS VOLTAGE IN PRECORDIAL LEADS POSSIBLE ANTERIOR MYOCARDIAL INFARCTION , PROBABLY OLD COMPARED TO ECG 02/18/2023 07:44:25 NO SIGNIFICANT CHANGES Electronically Signed On 02-18-2023 10:21:43 CDT by Jourdan Barlow M.D.
[2023-02-18] MEDS: MORPHINE SULFATE (*CRX) 4 MG/ML INJ 2 MG IV PUSH (10:19)
[2023-02-18 11:49] LABS: Troponin I < 0.012 ng/mL (0.000-0.034)
[2023-02-18 15:37] LABS: Troponin I < 0.012 ng/mL (0.000-0.034)
== END 2023-02-18 15:00 | disposition home or self-care (01) ==
PROVIDERS: Emergency Provider Emergency Medicine
DX: K21.9 Gastro-esophageal reflux disease without esophagitis (principal); J02.9 Acute pharyngitis, unspecified; I25.10 Atherosclerotic heart disease of native coronary artery without angina pectoris; E11.9 Type 2 diabetes mellitus without complications; E78.5 Hyperlipidemia, unspecified; I10 Essential (primary) hypertension; I25.2 Old myocardial infarction; F17.290 Nicotine dependence, other tobacco product, uncomplicated
CPT/HCPCS: 36415; 70490; 71046; 74177; 80053; 81003; 81025; 83690; 84484; 85025; 87651; 93005; 96374; 96375; 99284; A9270; J2270; J2405; Q9967

== ENCOUNTER 2023-03-10 19:16 | Emergency (ER) | payer OTHER, SELFPAY ==
[2023-03-10 19:20] VITALS: BP 135/71; PULSE 86; RESP 17; TEMP 36.7; O2SAT 100
--- NOTE | 2023-03-10 20:19 | ED.GENADULT ---
HPI - General Adult General Chief complaint: Unspecified Stated complaint: generalized pain Time Seen by Provider: 03/10/23 19:29 History of Present Illness HPI narrative: 39-year-old female presented to the emergency department for evaluation of lower back pain. Patient does have history of degenerative disc disease and patient followed up with the pain management today. Patient was prescribed [place] 5/325 but when the patient presented to the pharmacy to get the prescription filled they were out. Related Data Home Medications Medication Instructions Recorded Confirmed clopidogrel 75 mg tablet 75 mg PO HS 10/31/19 02/01/23 insulin degludec 100 unit/mL (3 45 unit subcut HS 04/09/21 02/01/23 mL) subcutaneous pen (Tresiba FlexTouch U-100 insulin) ranolazine 500 mg tablet,extended 1,000 mg PO BID 04/09/21 02/01/23 release,12 hr atorvastatin 40 mg tablet 80 mg PO DAILY 06/02/21 02/01/23 blood-glucose sensor (Dexcom G6 07/01/21 02/01/23 Sensor device) insulin aspart See Rx Instructions .Route .COMPLEX 04/08/22 02/01/23 (niacinamide)(U-100) 100 unit/mL(3 mL) subcutaneous pen (Fiasp FlexTouch U-100 Insulin) aspirin 81 mg chewable tablet 81 mg PO HS 06/01/22 02/01/23 cholecalciferol (vitamin D3) 50 50 mcg PO HS 06/01/22 02/01/23 mcg (2,000 unit) capsule (Vitamin D3) folic acid 1 mg tablet 1 mg PO HS 06/01/22 02/01/23 isosorbide mononitrate 60 mg 60 mg PO BID 06/01/22 02/01/23 tablet,extended release 24 hr losartan 25 mg tablet 25 mg PO HS 06/01/22 02/01/23 mecobalamin (vitamin B12) 1,000 1,000 mcg PO HS 06/01/22 02/01/23 mcg chewable tablet metoprolol succinate 25 mg 25 tablet PO HS 06/01/22 02/01/23 tablet,extended release 24 hr omeprazole 40 mg capsule,delayed 40 mg PO HS 06/01/22 02/01/23 release trazodone 50 mg tablet 50 mg PO HS 06/01/22 02/01/23 cyclobenzaprine 10 mg tablet mg 02/16/23 folic acid 1 mg tablet 02/16/23 furosemide 20 mg tablet mg 02/16/23 insulin aspart subcut 02/16/23 (niacinamide)(U-100) 100 unit/mL(3 mL) subcutaneous pen (Fiasp FlexTouch U-100 Insulin) nitroglycerin 0.4 mg sublingual mg 02/16/23 tablet rosuvastatin 40 mg tablet mg 02/16/23 tirzepatide 12.5 mg/0.5 mL mg subcut 02/16/23 subcutaneous pen injector (Mounjaro) Allergies Allergy/AdvReac Type Severity Reaction Status Date / Time adhesive tape Allergy Unknown Verified 03/10/23 19:18 cyclobenzaprine Allergy Unknown Verified 03/10/23 19:18 [From Flexeril] Review of Systems Review of Systems: All systems reviewed & are unremarkable except as noted in HPI and below PMFSH Past Medical History Medical History CAD (coronary artery disease) Cervical vertebral fusion Cervical vertebral fusion delivery delivered Cigar smoker Diabetes Diabetes Hyperlipidemia Hypertension Myocardial infarction Obesity Peripheral neuropathy Surgical History Surgical History H/O section X3 H/O: hysterectomy History of coronary artery stent placement History of hysterectomy History of neck surgery cervical fusion History of tonsillectomy Hx of heart artery stent Previous section Family History Family History Mother Diabetes mellitus Hypertension Family history of malignant neoplasm of breast in first degree relative Sibling Diabetes mellitus Hypertension Grandparent Family history of malignant neoplasm of breast in first degree relative Social History Social History Smoking status: Current every day smoker Tobacco type: cigars Second hand tobacco smoke exposure: Yes Additional smoking assessment comments: 1/4-1 cigar per day Alcohol intake: current Substance use: never Substance use type: does not use
[2023-03-10] MEDS: HYDROcodone/acetaminophen (*CRX) 7.5-325 MG TABLET 1 TAB PO (20:23)
== END 2023-03-10 20:30 | disposition home or self-care (01) ==
PROVIDERS: Emergency Provider Emergency Medicine
DX: M54.50 Low back pain, unspecified (principal); I25.10 Atherosclerotic heart disease of native coronary artery without angina pectoris; E78.5 Hyperlipidemia, unspecified; I10 Essential (primary) hypertension; E11.9 Type 2 diabetes mellitus without complications; I25.2 Old myocardial infarction; F17.290 Nicotine dependence, other tobacco product, uncomplicated; Z79.4 Long term (current) use of insulin
CPT/HCPCS: 99283; A9270

== ENCOUNTER 2023-03-30 10:29 | Emergency (ER) | payer OTHER, SELFPAY ==
--- NOTE | ~2023-03-30 | CT_ITS ---
EXAMINATION: CTA chest PE protocol DATE: 03/30/2023 15:31 CDT INDICATION: Elevated d-dimer TECHNIQUE: Computed tomographic angiography (CTA) of the chest was performed with 100 mL Omnipaque-35 0 intravenous contrast. The dose-length product was 562.29 mGy-cm. Maximum intensity projection 3D-re constructions of the aorta and other arteries were constructed by the technologist on a separate work station. Automated exposure control and iterative reconstruction technique were employed. COMPARISON: Chest x-ray dated 03/30/2023. FINDINGS: Heart size normal. Study is technically limited for evaluation of pulmonary embolism. No la rge central pulmonary embolism. No significant pleural or pericardial effusion. No thoracic lymphaden opathy. Thyroid gland appears enlarged. No endobronchial lesions. No pneumothorax. No focal airspace consolidation. There is a 3 mm right upper lobe nodule , likely benign. IMPRESSION: 1. Study technically limited due to contrast bolus timing. No large central pulmonary embolism. 2: Right upper lobe nodule measuring 3 mm, likely benign. Reviewed, dictated and finalized at location L. IMPRESSION: 1. Study technically limited due to contrast bolus timing. No large central pul monary embolism. 2: Right upper lobe nodule measuring 3 mm, likely benign.
--- NOTE | ~2023-03-30 | XR_ITS ---
EXAMINATION: XR chest 2V 03/30/2023 11:03 INDICATION: Shortness of breath and chest congestion PROCEDURE: 2 view chest COMPARISON: Comparison to multiple prior studies sequentially, with oldest reviewed study dated 08/20. FINDINGS: The lungs are clear. The cardiomediastinal silhouette is within normal limits. There are no pleural effusions. There is no pneumothorax suspected. IMPRESSION: 1: NO ACUTE CARDIOPULMONARY DISEASE. Reviewed, dictated and finalized at location L.
[2023-03-30 10:33] VITALS: BP 129/74; PULSE 85; RESP 18; TEMP 36.9; O2SAT 100
--- NOTE | 2023-03-30 10:36 | ECG_ITS ---
Measurements Intervals [place] Rate: 87 P: 51 [place]: 139 QRS: -27 QRSD: 92 T: 13 QT: 351 QTc: 424 Interpretive Statements SINUS RHYTHM POSSIBLE LEFT ATRIAL ENLARGEMENT LOW QRS VOLTAGE IN PRECORDIAL LEADS BORDERLINE R WAVE PROGRESSION, ANTERIOR LEADS BORDERLINE T WAVE ABNORMALITY- ANTERIOR LEADS BORDERLINE ECG COMPARED TO ECG 02/18/2023 10:18:05 NO SIGNIFICANT CHANGES Electronically Signed On 03-30-2023 11:21:09 CDT by Cliff Hackett D.O.
--- NOTE | 2023-03-30 10:36 | PC.NURSE ---
Patient ambulatory with steady gait and in no distress to show RN a typed out note on her phone. Note reads that she is experiencing discolored phlegm. Patient has audible productive cough.
[2023-03-30 10:56] LABS: Basophils Percent Auto 0.4 % (0.2-1.2); Eosinophils Absolute Auto 0.3 K/mm3 (0-0.3); Eosinophils Percent Auto 2.8 % (0-4.4); Hematocrit 41.4 % (37.0-47.0); Hemoglobin 12.6 g/dL (12.0-15.0); Immature Granulocyte Absolute 0.04 K/mm3 (0.00-0.031); Immature Granulocyte Percent A 0.4 % (0-0.5); Lymphocytes Absolute Auto 3.18 K/mm3 (0.9-3.2); Lymphocytes Percent Auto 30.9 % (18.3-44.2); Mean Corpuscular HGB Conc 30.4 g/dl (32-36); Mean Corpuscular Hemoglobin 28.5 pg (26-34); Mean Corpuscular Volume 93.7 fl (80-100); Mean Platelet Volume 9.2 fl (7.4-10.4); Monocytes Absolute Auto 0.7 K/mm3 (0.1-0.6); Monocytes Percent Auto 6.6 % (2.6-8.5); Neutrophils Absolute Auto 6.1 K/mm3 (1.3-6.7); Neutrophils Percent Auto 58.9 % (45.5-73.1); Platelet Count Result 282 k/mm3 (150-375); Red Blood Count 4.42 M/mm3 (4.2-5.4); Red Cell Distribution Width 13.6 % (11.5-14.5); White Blood Count 10.3 K/mm3 (4.5-10.0)
[2023-03-30 11:05] LABS: Alanine Aminotransferase 24 U/L (6-35); Albumin Level 4.2 g/dL (3.5-5.1); Alkaline Phosphatase 84 U/L (38-126); Anion Gap 6 mmol/L (8-16); Aspartate Amino Transferase 24 U/L (14-36); Bilirubin,Total 0.4 mg/dL (0.2-1.3); Blood Urea Nitrogen 11 mg/dL (7-17); Calcium 8.6 mg/dL (8.4-10.2); Carbon Dioxide 30 mmol/L (22-30); Chloride 106 mmol/L (98-107); Estimated CRCL calculation 113 ml/min; Estimated Glomerular Filt Rate > 60; Glucose 137 mg/dL (65-110); Potassium 4.3 mmol/L (3.4-5.0); Sodium 142 mmol/L (137-145)
--- NOTE | 2023-03-30 13:46 | ED.SOB ---
HPI - SOB/Dyspnea General Chief Complaint: Shortness of Breath/Dyspnea Stated Complaint: SOB Time Seen by Provider: 03/30/23 13:45 Source: patient Mode of arrival: ambulatory Limitations: no limitations History of Present Illness HPI Narrative: Patient is a 47-year-old female with a history of hypertension, hyperlipidemia, type 2 diabetes, myocardial infarction, presenting to the emergency department for evaluation of cough and chest pain. Patient reports a 3-day history of worsening cough, vocal hoarseness. Also reports left-sided anterior chest pain which is mild in nature, aching. No radiation to the neck, jaw, back. No shoulder pain. Patient reports mild shortness of breath and sore throat. She denies fever, chills, nausea or vomiting. No diaphoresis. No pleuritic chest pain. She denies any leg swelling or calf pain. No recent long car or air travel. No history of coagulopathy. Patient takes daily aspirin and Plavix. She has been compliant with her medications. Patient states that this pain does not seem similar to when she was having cardiac chest pain. Patient does report cough with sputum production that is white, denies hemoptysis. Related Data Home Medications Medication Instructions Recorded Confirmed clopidogrel 75 mg tablet 75 mg PO HS 10/31/19 02/01/23 insulin degludec 100 unit/mL (3 45 unit subcut HS 04/09/21 02/01/23 mL) subcutaneous pen (Tresiba FlexTouch U-100 insulin) ranolazine 500 mg tablet,extended 1,000 mg PO BID 04/09/21 02/01/23 release,12 hr atorvastatin 40 mg tablet 80 mg PO DAILY 06/02/21 02/01/23 blood-glucose sensor (Dexcom G6 07/01/21 02/01/23 Sensor device) insulin aspart See Rx Instructions .Route .COMPLEX 04/08/22 02/01/23 (niacinamide)(U-100) 100 unit/mL(3 mL) subcutaneous pen (Fiasp FlexTouch U-100 Insulin) aspirin 81 mg chewable tablet 81 mg PO HS 06/01/22 02/01/23 cholecalciferol (vitamin D3) 50 50 mcg PO HS 06/01/22 02/01/23 mcg (2,000 unit) capsule (Vitamin D3) folic acid 1 mg tablet 1 mg PO HS 06/01/22 02/01/23 isosorbide mononitrate 60 mg 60 mg PO BID 06/01/22 02/01/23 tablet,extended release 24 hr losartan 25 mg tablet 25 mg PO HS 06/01/22 02/01/23 mecobalamin (vitamin B12) 1,000 1,000 mcg PO HS 06/01/22 02/01/23 mcg chewable tablet metoprolol succinate 25 mg 25 tablet PO HS 06/01/22 02/01/23 tablet,extended release 24 hr omeprazole 40 mg capsule,delayed 40 mg PO HS 06/01/22 02/01/23 release trazodone 50 mg tablet 50 mg PO HS 06/01/22 02/01/23 cyclobenzaprine 10 mg tablet mg 02/16/23 folic acid 1 mg tablet 02/16/23 furosemide 20 mg tablet mg 02/16/23 insulin aspart subcut 02/16/23 (niacinamide)(U-100) 100 unit/mL(3 mL) subcutaneous pen (Fiasp FlexTouch U-100 Insulin) nitroglycerin 0.4 mg sublingual mg 02/16/23 tablet rosuvastatin 40 mg tablet mg 02/16/23 tirzepatide 12.5 mg/0.5 mL mg subcut 02/16/23 subcutaneous pen injector (Adamunjaro) Allergies Allergy/AdvReac Type Severity Reaction Status Date / Time adhesive tape Allergy Unknown Verified 03/10/23 19:18 cyclobenzaprine Allergy Unknown Verified 03/10/23 19:18 [From Flexeril] Review of Systems Review of Systems: CONSTITUTIONAL: Denies fever, chills, or sweats. EYES: Denies visual changes, redness, or discharge. ENT: Denies rhinorrhea, congestion, reports sore throat without otalgia. Reports vocal hoarseness CARDIOVASCULAR: Reports mild chest pain without palpitations, or edema. RESPIRATORY: Reports cough and shortness of breath GASTROINTESTINAL: Denies abdominal pain, nausea, vomiting, or diarrhea. GENITOURINARY: Denies dysuria or hematuria. SKIN: Denies rash or itching. MUSCULOSKELETAL: Denies back pain, joint pain, or myalgia. NEUROLOGIC: Denies headache, numbness, or weakness. [facility] Past Medical History Medical History CAD (coronary artery disease) Cervical vertebral fusion Cervi
[2023-03-30] MEDS: ALBUTEROL SULFATE NEB 2.5 MG/3 ML INH 5 MG INHALATION (14:22)
[2023-03-30] MEDS: IPRATROPIUM BR 0.02% INH SOLN 0.5 MG/2.5 ML VIAL INHALATION (14:22)
[2023-03-30 14:23] VITALS: PULSE 88; RESP 18
[2023-03-30 14:32] LABS: Troponin I < 0.012 ng/mL (0.000-0.034)
[2023-03-30 15:07] LABS: Strep Group A RT-PCR NOT DETECTED (Negative)
[2023-03-30 15:18] LABS: Influenza A QL RT-PCR Negative (Negative); Influenza B QL RT-PCR Negative (Negative); RSV RNA, RT-PCR Negative (Negative); SARS-CoV-2 RNA PCR Negative (Negative)
[2023-03-30 16:22] VITALS: BP 141/90; PULSE 81; RESP 18; O2SAT 100
== END 2023-03-30 16:20 | disposition home or self-care (01) ==
PROVIDERS: Emergency Medicine; Emergency Provider Emergency Medicine
DX: J04.0 Acute laryngitis (principal); J40 Bronchitis, not specified as acute or chronic; R91.1 Solitary pulmonary nodule; E78.5 Hyperlipidemia, unspecified; I10 Essential (primary) hypertension; E11.9 Type 2 diabetes mellitus without complications; I25.2 Old myocardial infarction; I25.10 Atherosclerotic heart disease of native coronary artery without angina pectoris; F17.290 Nicotine dependence, other tobacco product, uncomplicated; Z20.822 Contact with and (suspected) exposure to COVID-19
CPT/HCPCS: 36415; 71046; 71275; 80053; 84484; 85025; 85380; 87637; 87651; 93005; 94640; 96374; 99284; J1100; Q9967

== ENCOUNTER 2023-08-15 16:27 | Emergency (ER) | payer OTHER, SELFPAY ==
[2023-08-15 16:29] VITALS: BP 117/78; PULSE 81; RESP 18; TEMP 36.9; O2SAT 100
== END 2023-08-15 18:03 | disposition left against medical advice (07) ==
DX: Z53.21 Procedure and treatment not carried out due to patient leaving prior to being seen by health care provider (principal)
CPT/HCPCS: 99199

== ENCOUNTER 2023-08-21 12:00 | Emergency (ER) | payer OTHER, SELFPAY ==
[2023-08-21 12:18] VITALS: BP 123/61; PULSE 82; RESP 14; TEMP 36.6; O2SAT 100
--- NOTE | 2023-08-21 12:49 | ED.GENADULT ---
HPI - General Adult General Chief complaint: Headache Stated complaint: headache,dizzy Time Seen by Provider: 08/21/23 12:49 Source: patient, RN notes reviewed and old records reviewed Mode of arrival: ambulatory Limitations: no limitations History of Present Illness HPI narrative: 47-year-old female presents to the [facility] with 810/10 headache, generalized headache worse on the left side. Reporting blurry vision, photosensitivity. Phonosensitivity. Patient states that she had difficulty driving here because of her vision is blurry and she is dizzy Recently was in [facility] Patient states she has taken Tylenol in the headache just keeps getting worse. Onset (ago): day(s) (2) Related Data Home Medications Medication Instructions Recorded Confirmed clopidogrel 75 mg tablet 75 mg PO HS 10/31/19 02/01/23 insulin degludec 100 unit/mL (3 45 unit subcut HS 04/09/21 02/01/23 mL) subcutaneous pen (Tresiba FlexTouch U-100 insulin) ranolazine 500 mg tablet,extended 1,000 mg PO BID 04/09/21 02/01/23 release,12 hr blood-glucose sensor (Dexcom G6 07/01/21 02/01/23 Sensor device) insulin aspart See Rx Instructions .Route .COMPLEX 04/08/22 02/01/23 (niacinamide)(U-100) 100 unit/mL(3 mL) subcutaneous pen (Fiasp FlexTouch U-100 Insulin) aspirin 81 mg chewable tablet 81 mg PO HS 06/01/22 02/01/23 cholecalciferol (vitamin D3) 50 50 mcg PO HS 06/01/22 02/01/23 mcg (2,000 unit) capsule (Vitamin D3) folic acid 1 mg tablet 1 mg PO HS 06/01/22 02/01/23 isosorbide mononitrate 60 mg 60 mg PO BID 06/01/22 02/01/23 tablet,extended release 24 hr mecobalamin (vitamin B12) 1,000 1,000 mcg PO HS 06/01/22 02/01/23 mcg chewable tablet metoprolol succinate 25 mg 25 tablet PO HS 06/01/22 02/01/23 tablet,extended release 24 hr omeprazole 40 mg capsule,delayed 40 mg PO HS 06/01/22 02/01/23 release trazodone 50 mg tablet 50 mg PO HS 06/01/22 02/01/23 furosemide 20 mg tablet mg 02/16/23 insulin aspart subcut 02/16/23 (niacinamide)(U-100) 100 unit/mL(3 mL) subcutaneous pen (Fiasp FlexTouch U-100 Insulin) nitroglycerin 0.4 mg sublingual mg 02/16/23 tablet tirzepatide 12.5 mg/0.5 mL mg subcut 02/16/23 subcutaneous pen injector (Kanwal) Unknown Cholest. Med. Sample From 08/21/23 furosemide 20 mg tablet mg 08/21/23 insulin aspart subcut 08/21/23 (niacinamide)(U-100) 100 unit/mL(3 mL) subcutaneous pen (Fiasp FlexTouch U-100 Insulin) losartan 50 mg tablet mg 08/21/23 naproxen 500 mg tablet mg 08/21/23 ropinirole 2 mg tablet,extended mg PO 08/21/23 release 24 hr Allergies Allergy/AdvReac Type Severity Reaction Status Date / Time adhesive tape Allergy Unknown Verified 08/21/23 12:21 cyclobenzaprine Allergy Unknown Verified 08/21/23 12:21 [From Flexeril] Review of Systems Review of Systems: All systems reviewed & are unremarkable except as noted in HPI and below Constitutional: Constitutional: Reports no additional constitutional complaints Eyes: Eyes: Reports no additional eye complaints ENT: Reports system reviewed and no additional complaints, except as documented Cardiovascular: Cardiovascular: Reports no additional cardiovascular complaints, Denies chest pain and Denies dyspnea Respiratory: Respiratory: Reports no additional respiratory complaints, Denies chest congestion, Denies cough and Denies dyspnea Gastrointestinal: Gastrointestinal: Reports no additional gastrointestinal complaints, Denies abdominal pain, Denies nausea and Denies vomiting Musculoskeletal: Musculoskeletal: Reports no additional musculoskeletal complaints Integumentary/Breasts: Skin/Breast: Reports system reviewed and no additional complaints, except as docu Neurologic: Reports as per HPI, Denies Abnormal speech present, Denies abnormal gait, Reports dizziness, Reports headache(s), Denies numbness and Denies paresthesias Psychiatric: Psychiatric: Reports no additional p
== END 2023-08-21 13:04 | disposition short-term general hospital (02) ==
LOC: EXPCOLL 12:03
PROVIDERS: Emergency Provider Nurse Practitioner; PCP Internal Medicine Gastroenterology
DX: R42 Dizziness and giddiness (principal); R51.9 Headache, unspecified; I25.10 Atherosclerotic heart disease of native coronary artery without angina pectoris; E78.5 Hyperlipidemia, unspecified; I10 Essential (primary) hypertension; I25.2 Old myocardial infarction; F17.219 Nicotine dependence, cigarettes, with unspecified nicotine-induced disorders; Z79.4 Long term (current) use of insulin; Z79.899 Other long term (current) drug therapy; Z79.1 Long term (current) use of non-steroidal anti-inflammatories (NSAID)
CPT/HCPCS: 99215; G0463

== ENCOUNTER 2023-08-21 13:23 | Emergency (ER) | payer OTHER, SELFPAY ==
[2023-08-21 13:53] VITALS: BP 123/58; PULSE 77; RESP 16; TEMP 36.4; O2SAT 100
--- NOTE | 2023-08-21 14:14 | PC.NURSE ---
patient left waiting room without being seen
== END 2023-08-21 14:14 | disposition left against medical advice (07) ==
PROVIDERS: PCP Internal Medicine Gastroenterology
DX: R51.9 Headache, unspecified (principal)
CPT/HCPCS: 99199

== ENCOUNTER 2023-10-17 21:38 | Emergency (ER) | payer OTHER, SELFPAY ==
--- NOTE | ~2023-10-17 | XR_ITS ---
EXAM: XR lumbar spine 2-3V DATE: 10/17/2023 22:08 HISTORY: pain radiating to rt hip and leg . COMPARISON: 08/15/2022. FINDINGS: 5 nonrib-bearing lumbar-type vertebral bodies. Pedicles intact. Lumbar scoliosis. Normal v ertebral body alignment. Vertebral body heights preserved. Mild disc space narrowing and marginal ost eophytosis at L5-S1. Mild lower lumbar facet hypertrophy. No fracture or dislocation. IMPRESSION: No acute fracture or traumatic malalignment detected in the lumbar spine. Reviewed, dictated and finalized at location K. ND CLERK
[2023-10-17 21:44] VITALS: BP 154/76; PULSE 95; RESP 18; TEMP 36.5; O2SAT 97
--- NOTE | 2023-10-17 23:07 | PC.NURSE ---
Assumed care of pt from SHAILESH Tyler.
--- NOTE | 2023-10-18 00:11 | ED.BACK ---
HPI - Back Pain/Injury General Chief Complaint: Back Pain/Injury Stated Complaint: back pain Time Seen by Provider: 10/17/23 23:47 History of Present Illness HPI Narrative: 48-year-old female with a history of chronic back pain secondary to known degenerative disc disease through L1-L5 and L5-S1 bulging disc reports for evaluation for right-sided low back pain that started last night worsened today. states the pain starts in her right low back and goes to her right buttock, down the front of her leg into her knee. States at times she experiences numbness into her great toe. Patient states that she had a back injection on October 04 by pain management. Last night she began developing worsening pain. patient states that the injections occur over the right lower aspect of her back but not in the middle of her back. She denies fever, nausea or vomiting, dysuria or hematuria, loss of bowel or bladder control, urinary retention, saddle anesthesia, abdominal pain. She reports taking [place] and muscle relaxers prior to arrival without improvement. She denies recent injury trauma, no history of cancer Related Data Home Medications Medication Instructions Recorded Confirmed clopidogrel 75 mg tablet 75 mg PO HS 10/31/19 02/01/23 insulin degludec 100 unit/mL (3 45 unit subcut HS 04/09/21 02/01/23 mL) subcutaneous pen (Tresiba FlexTouch U-100 insulin) ranolazine 500 mg tablet,extended 1,000 mg PO BID 04/09/21 02/01/23 release,12 hr blood-glucose sensor (Dexcom G6 07/01/21 02/01/23 Sensor device) insulin aspart See Rx Instructions .Route .COMPLEX 04/08/22 02/01/23 (niacinamide)(U-100) 100 unit/mL(3 mL) subcutaneous pen (Fiasp FlexTouch U-100 Insulin) aspirin 81 mg chewable tablet 81 mg PO HS 06/01/22 02/01/23 cholecalciferol (vitamin D3) 50 50 mcg PO HS 06/01/22 02/01/23 mcg (2,000 unit) capsule (Vitamin D3) folic acid 1 mg tablet 1 mg PO HS 06/01/22 02/01/23 isosorbide mononitrate 60 mg 60 mg PO BID 06/01/22 02/01/23 tablet,extended release 24 hr mecobalamin (vitamin B12) 1,000 1,000 mcg PO HS 06/01/22 02/01/23 mcg chewable tablet metoprolol succinate 25 mg 25 tablet PO HS 06/01/22 02/01/23 tablet,extended release 24 hr omeprazole 40 mg capsule,delayed 40 mg PO HS 06/01/22 02/01/23 release trazodone 50 mg tablet 50 mg PO HS 06/01/22 02/01/23 furosemide 20 mg tablet mg 02/16/23 insulin aspart subcut 02/16/23 (niacinamide)(U-100) 100 unit/mL(3 mL) subcutaneous pen (Fiasp FlexTouch U-100 Insulin) nitroglycerin 0.4 mg sublingual mg 02/16/23 tablet tirzepatide 12.5 mg/0.5 mL mg subcut 02/16/23 subcutaneous pen injector (Adamunnelly) Unknown Cholest. Med. Sample From 08/21/23 furosemide 20 mg tablet mg 08/21/23 insulin aspart subcut 08/21/23 (niacinamide)(U-100) 100 unit/mL(3 mL) subcutaneous pen (Fiasp FlexTouch U-100 Insulin) losartan 50 mg tablet mg 08/21/23 naproxen 500 mg tablet mg 08/21/23 ropinirole 2 mg tablet,extended mg PO 08/21/23 release 24 hr Allergies Allergy/AdvReac Type Severity Reaction Status Date / Time adhesive tape Allergy Unknown Verified 08/21/23 12:21 cyclobenzaprine Allergy Unknown Verified 08/21/23 12:21 [From Flexeri] Review of Systems Review of Systems: CONSTITUTIONAL: Denies fever, chills, or sweats. EYES: Denies visual changes, redness, or discharge. ENT: Denies rhinorrhea, congestion, sore throat, or otalgia. CARDIOVASCULAR: Denies chest pain, palpitations, or edema. RESPIRATORY: Denies cough or dyspnea. GASTROINTESTINAL: Denies abdominal pain, nausea, vomiting, or diarrhea. GENITOURINARY: Denies dysuria or hematuria. SKIN: Denies rash or itching. MUSCULOSKELETAL: See HPI NEUROLOGIC: see HPI PSYCHIATRIC: Denies anxiety or depression. [facility] Past Medical History Medical History CAD (coronary artery disease) Cervical vertebral fusion Cervic
[2023-10-18] MEDS: LIDOCAINE 5% PATCH 1 PATCH TRANSDERM (00:27)
[2023-10-18] MEDS: ACETAMINOPHEN 325 MG TABLET 650 MG PO (00:28)
[2023-10-18] MEDS: methocarbamoL 500 MG TABLET PO (00:28)
[2023-10-18] MEDS: HYDROmorphone HCL INJ (*CRX) 1 MG/ML SYR IM (01:45)
[2023-10-18 02:23] VITALS: BP 148/71; PULSE 90; RESP 19; O2SAT 100
== END 2023-10-18 02:58 | disposition home or self-care (01) ==
PROVIDERS: Emergency Provider Physician Assistant; PCP Internal Medicine Gastroenterology
DX: M54.16 Radiculopathy, lumbar region (principal); I25.10 Atherosclerotic heart disease of native coronary artery without angina pectoris; E11.9 Type 2 diabetes mellitus without complications; E78.5 Hyperlipidemia, unspecified; I10 Essential (primary) hypertension; I25.2 Old myocardial infarction; Z79.4 Long term (current) use of insulin
CPT/HCPCS: 72100; 96372; 99284; A9270; J1100; J1170

== ENCOUNTER 2024-01-09 12:48 | Emergency (ER) | payer OTHER, SELFPAY ==
[2024-01-09 12:57] VITALS: BP 133/69; PULSE 102; RESP 16; TEMP 36.2; O2SAT 100
[2024-01-09 13:02] VITALS: BP 133/69; PULSE 102; RESP 16; TEMP 36.2; O2SAT 100
--- NOTE | 2024-01-09 13:28 | ED.URI ---
HPI - URI/Sore Throat General Chief Complaint: Upper Respiratory Infection Stated Complaint: loss of voice,chest bothersome,hot Time Seen by Provider: 01/09/24 13:31 Source: patient, RN notes reviewed and old records reviewed Mode of arrival: ambulatory Limitations: no limitations History of Present Illness HPI Narrative: 48-year-old female presents to the [facility] with vague symptoms of chest congestion, laryngitis as well as having hot flashes and concerned that she might be in menopause. Patient states most for symptoms started about a week ago. Denies any sore throat, it nasal congestion. Patient states that she is not having chest pain or significant shortness of breath. States that she has been using her albuterol inhaler Discussed with patient due to her significant cardiac history, past medical history transferring to the ER which patient is declining at this time, states she just got out of [facility] Onset (ago): week(s) (1) Related Data Home Medications Medication Instructions Recorded Confirmed clopidogrel 75 mg tablet 75 mg PO HS 10/31/19 01/09/24 insulin degludec 100 unit/mL (3 45 unit subcut HS 04/09/21 01/09/24 mL) subcutaneous pen (Tresiba FlexTouch U-100 insulin) ranolazine 500 mg tablet,extended 1,000 mg PO BID 04/09/21 01/09/24 release,12 hr blood-glucose sensor (Dexcom G6 07/01/21 02/01/23 Sensor device) insulin aspart See Rx Instructions .Route .COMPLEX 04/08/22 01/09/24 (niacinamide)(U-100) 100 unit/mL(3 mL) subcutaneous pen (Fiasp FlexTouch U-100 Insulin) cholecalciferol (vitamin D3) 50 50 mcg PO HS 06/01/22 01/09/24 mcg (2,000 unit) capsule (Vitamin D3) folic acid 1 mg tablet 1 mg PO HS 06/01/22 01/09/24 isosorbide mononitrate 60 mg 60 mg PO BID 06/01/22 01/09/24 tablet,extended release 24 hr mecobalamin (vitamin B12) 1,000 1,000 mcg PO HS 06/01/22 01/09/24 mcg chewable tablet metoprolol succinate 25 mg 25 tablet PO HS 06/01/22 01/09/24 tablet,extended release 24 hr omeprazole 40 mg capsule,delayed 40 mg PO HS 06/01/22 01/09/24 release trazodone 50 mg tablet 50 mg PO HS 06/01/22 01/09/24 furosemide 20 mg tablet 20 mg PO DAILY 02/16/23 01/09/24 insulin aspart 5 unit subcut DAILY 02/16/23 01/09/24 (niacinamide)(U-100) 100 unit/mL(3 mL) subcutaneous pen (Fiasp FlexTouch U-100 Insulin) nitroglycerin 0.4 mg sublingual 0.4 mg sublingual DAILY 02/16/23 01/09/24 tablet tirzepatide 12.5 mg/0.5 mL 12.5 mg subcut WEEKLY 02/16/23 01/09/24 subcutaneous pen injector (Kanwal) losartan 50 mg tablet 50 mg PO DAILY 08/21/23 01/09/24 ropinirole 2 mg tablet,extended 2 mg PO DAILY 08/21/23 01/09/24 release 24 hr Allergies Allergy/AdvReac Type Severity Reaction Status Date / Time adhesive tape Allergy Unknown Verified 01/09/24 12:53 cyclobenzaprine Allergy Unknown Verified 01/09/24 12:53 [From Flexeril] semaglutide [From Ozempic] Allergy Itching Verified 01/09/24 13:12 Review of Systems Review of Systems: All systems reviewed & are unremarkable except as noted in HPI and below Constitutional: Constitutional: Reports no additional constitutional complaints Eyes: Eyes: Reports no additional eye complaints ENT: Reports system reviewed and no additional complaints, except as documented Cardiovascular: Cardiovascular: Reports no additional cardiovascular complaints, Denies chest pain and Denies dyspnea Respiratory: Respiratory: Reports as per HPI, Reports chest congestion, Reports cough and Reports dyspnea (Intermittent) Gastrointestinal: Gastrointestinal: Reports no additional gastrointestinal complaints, Denies abdominal pain, Denies nausea and Denies vomiting Musculoskeletal: Musculoskeletal: Reports no additional musculoskeletal complaints Integumentary/Breasts: Skin/Breast: Reports system reviewed and no additional complaints, except as docu Neurologic: Reports system reviewed and no additional complaints, except as documented P
== END 2024-01-09 13:50 | disposition home or self-care (01) ==
PROVIDERS: Emergency Provider Nurse Practitioner; PCP Internal Medicine Gastroenterology
DX: J40 Bronchitis, not specified as acute or chronic (principal); I25.10 Atherosclerotic heart disease of native coronary artery without angina pectoris; E11.42 Type 2 diabetes mellitus with diabetic polyneuropathy; E78.5 Hyperlipidemia, unspecified; I10 Essential (primary) hypertension; I25.2 Old myocardial infarction; E66.9 Obesity, unspecified; Z68.36 Body mass index [BMI] 36.0-36.9, adult; F17.290 Nicotine dependence, other tobacco product, uncomplicated; Z95.5 Presence of coronary angioplasty implant and graft
CPT/HCPCS: 99213; G0463

== ENCOUNTER 2024-06-16 12:55 | Emergency (ER) | payer OTHER, SELFPAY ==
[2024-06-16 13:13] VITALS: BP 119/69; PULSE 65; RESP 16; TEMP 37; O2SAT 99
[2024-06-16 13:17] VITALS: BP 119/69; PULSE 65; RESP 16; TEMP 37; O2SAT 99
--- NOTE | 2024-06-16 14:26 | ED.SKABFB ---
HPI - Skin/Abscess/Foreign Bdy General Chief complaint: Skin/Abscess/Foreign Body Stated complaint: lips feel swollen scar on stomach irritated Time Seen by Provider: 06/16/24 13:32 Source: patient and RN notes reviewed Mode of arrival: ambulatory Limitations: no limitations History of Present Illness HPI narrative: Patient presents today complaining of a wound to her left lower abdomen. States 2 weeks ago she injected herself with her Tresiba and instead of distributing in her subcutaneous tissue, she states it formed a blister on the surface of her skin. This blister later ruptured causing an open wound on her skin. Reports that this wound has dried out but over the last several days has had redness surrounding it and is tender. She has been cleaning with peroxide and applying Neosporin. She is also complaining of some mild swelling to her lips since yesterday. Denies any new contacts except she ate at a restaurant she has never eat not before, but did not have any new foods. She denies any shortness of breath, difficulty swallowing, swelling in her throat or tongue. She took a dose of Benadryl this morning without change in her symptoms. Related Data Home Medications Medication Instructions Recorded Confirmed clopidogrel 75 mg tablet 75 mg PO HS 10/31/19 06/16/24 insulin degludec 100 unit/mL (3 45 unit subcut HS 04/09/21 06/16/24 mL) subcutaneous pen (Tresiba FlexTouch U-100 insulin) ranolazine 500 mg tablet,extended 1,000 mg PO BID 04/09/21 06/16/24 release,12 hr blood-glucose sensor (Dexcom G6 07/01/21 06/16/24 Sensor device) insulin aspart See Rx Instructions .Route .COMPLEX 04/08/22 06/16/24 (niacinamide)(U-100) 100 unit/mL(3 mL) subcutaneous pen (Fiasp FlexTouch U-100 Insulin) cholecalciferol (vitamin D3) 50 50 mcg PO HS 06/01/22 06/16/24 mcg (2,000 unit) capsule (Vitamin D3) folic acid 1 mg tablet 1 mg PO HS 06/01/22 06/16/24 isosorbide mononitrate 60 mg 60 mg PO BID 06/01/22 06/16/24 tablet,extended release 24 hr mecobalamin (vitamin B12) 1,000 1,000 mcg PO HS 06/01/22 06/16/24 mcg chewable tablet metoprolol succinate 25 mg 25 tablet PO HS 06/01/22 06/16/24 tablet,extended release 24 hr omeprazole 40 mg capsule,delayed 40 mg PO HS 06/01/22 06/16/24 release trazodone 50 mg tablet 50 mg PO HS 06/01/22 06/16/24 furosemide 20 mg tablet 20 mg PO DAILY 02/16/23 06/16/24 insulin aspart 5 unit subcut DAILY 02/16/23 06/16/24 (niacinamide)(U-100) 100 unit/mL(3 mL) subcutaneous pen (Fiasp FlexTouch U-100 Insulin) nitroglycerin 0.4 mg sublingual 0.4 mg sublingual DAILY 02/16/23 06/16/24 tablet tirzepatide 12.5 mg/0.5 mL 12.5 mg subcut WEEKLY 02/16/23 06/16/24 subcutaneous pen injector (Kanwal) losartan 50 mg tablet 50 mg PO DAILY 08/21/23 06/16/24 ropinirole 2 mg tablet,extended 2 mg PO DAILY 08/21/23 06/16/24 release 24 hr Allergies Allergy/AdvReac Type Severity Reaction Status Date / Time adhesive tape Allergy Unknown Verified 06/16/24 13:12 cyclobenzaprine Allergy Unknown Verified 06/16/24 13:12 [From Flexeril] semaglutide [From Ozempic] Allergy Itching Verified 06/16/24 13:12 Review of Systems Review of Systems: CONSTITUTIONAL: Denies body aches, fever, chills, or sweats. EYES: Denies visual changes, redness, or discharge. ENT: Denies rhinorrhea, congestion, sore throat, or otalgia. + lip swelling CARDIOVASCULAR: Denies chest pain, palpitations, or edema. RESPIRATORY: Denies cough or dyspnea. GASTROINTESTINAL: Denies abdominal pain, nausea, vomiting, or diarrhea. GENITOURINARY: Denies dysuria or hematuria. SKIN: abdominal wound MUSCULOSKELETAL: Denies back pain, joint pain, or myalgia. NEUROLOGIC: Denies headache, numbness, tingling, or weakness. PSYCH: Denies depression or anxiety. [facility] Past Medical History Medical History CAD (coronary artery disease) Cervical vertebral f
== END 2024-06-16 13:50 | disposition home or self-care (01) ==
PROVIDERS: Emergency Provider Nurse Practitioner; PCP Internal Medicine Gastroenterology
DX: S31.109A Unspecified open wound of abdominal wall, unspecified quadrant without penetration into peritoneal cavity, initial encounter (principal); L08.9 Local infection of the skin and subcutaneous tissue, unspecified; X58.XXXA Exposure to other specified factors, initial encounter; T78.40XA Allergy, unspecified, initial encounter; F17.290 Nicotine dependence, other tobacco product, uncomplicated; I25.10 Atherosclerotic heart disease of native coronary artery without angina pectoris; E11.42 Type 2 diabetes mellitus with diabetic polyneuropathy; E78.5 Hyperlipidemia, unspecified; I10 Essential (primary) hypertension; I25.2 Old myocardial infarction; E66.9 Obesity, unspecified; Z68.33 Body mass index [BMI] 33.0-33.9, adult; Z95.5 Presence of coronary angioplasty implant and graft
CPT/HCPCS: 99213; G0463

== ENCOUNTER 2024-09-06 09:07 | Emergency (ER) | payer OTHER, SELFPAY ==
--- NOTE | ~2024-09-06 | XR_ITS ---
EXAMINATION: XR chest 1V portable 09/06/2024 10:00 INDICATION: Cough and congestion PROCEDURE: 2 view chest COMPARISON: Comparison to multiple prior studies sequentially, with oldest reviewed study dated 03/08 . FINDINGS: The lungs are clear. The cardiomediastinal silhouette is within normal limits. There are no pleural effusions. There is no pneumothorax suspected. IMPRESSION: 1: NO ACUTE CARDIOPULMONARY DISEASE. Reviewed, dictated and finalized at location B.
[2024-09-06 09:15] VITALS: BP 125/72; PULSE 77; RESP 17; TEMP 36.4; O2SAT 100
--- NOTE | 2024-09-06 09:28 | ED.URI ---
HPI - URI/Sore Throat General Chief Complaint: Upper Respiratory Infection Stated Complaint: cough Time Seen by Provider: 09/06/24 09:27 Source: patient Mode of arrival: ambulatory Limitations: no limitations History of Present Illness HPI Narrative: Presents with somewhat productive cough, bilateral nasal congestion, and hoarse voice. No nausea/vomiting. Also had a sore throat but better now. She became short of breath only during coughing episodes. Trialing Therflu and benadryl. States she feels dehydratd but has been drinking water and gatorade. She noticed that her tongue had a slight green film on it and was brushing it this morning. Her symptoms have been present for 2 days but she felt like they were coming on while in [place] from 08/30 - 09/03. The first two days while there the room smelled like mildew and she states her aso felt unwell at that time but they both felt a bit better after their room was changed. Diarrhea but she states this occurs chronically and intermittently s/p gastric bypass, no acute changes. No fevers. Underlying asthma and bronchitis. Uses an abuterol inhaler PRN at baseline (only occasionally) and has trialed that as well as 2 nebulizer treatments. Not on steroids for asthma or any other inhaler. Related Data Home Medications Medication Instructions Recorded Confirmed clopidogrel 75 mg tablet 75 mg PO HS 10/31/19 06/16/24 insulin degludec 100 unit/mL (3 45 unit subcut HS 04/09/21 06/16/24 mL) subcutaneous pen (Tresiba FlexTouch U-100 insulin) ranolazine 500 mg tablet,extended 1,000 mg PO BID 04/09/21 06/16/24 release,12 hr blood-glucose sensor (Dexcom G6 07/01/21 06/16/24 Sensor device) insulin aspart See Rx Instructions .Route .COMPLEX 04/08/22 06/16/24 (niacinamide)(U-100) 100 unit/mL(3 mL) subcutaneous pen (Fiasp FlexTouch U-100 Insulin) cholecalciferol (vitamin D3) 50 50 mcg PO HS 06/01/22 06/16/24 mcg (2,000 unit) capsule (Vitamin D3) folic acid 1 mg tablet 1 mg PO HS 06/01/22 06/16/24 isosorbide mononitrate 60 mg 60 mg PO BID 06/01/22 06/16/24 tablet,extended release 24 hr mecobalamin (vitamin B12) 1,000 1,000 mcg PO HS 06/01/22 06/16/24 mcg chewable tablet metoprolol succinate 25 mg 25 tablet PO HS 06/01/22 06/16/24 tablet,extended release 24 hr omeprazole 40 mg capsule,delayed 40 mg PO HS 06/01/22 06/16/24 release trazodone 50 mg tablet 50 mg PO HS 06/01/22 06/16/24 furosemide 20 mg tablet 20 mg PO DAILY 02/16/23 06/16/24 insulin aspart 5 unit subcut DAILY 02/16/23 06/16/24 (niacinamide)(U-100) 100 unit/mL(3 mL) subcutaneous pen (Fiasp FlexTouch U-100 Insulin) nitroglycerin 0.4 mg sublingual 0.4 mg sublingual DAILY 02/16/23 06/16/24 tablet tirzepatide 12.5 mg/0.5 mL 12.5 mg subcut WEEKLY 02/16/23 06/16/24 subcutaneous pen injector (Kanwal) losartan 50 mg tablet 50 mg PO DAILY 08/21/23 06/16/24 ropinirole 2 mg tablet,extended 2 mg PO DAILY 08/21/23 06/16/24 release 24 hr Allergies Allergy/AdvReac Type Severity Reaction Status Date / Time adhesive tape Allergy Unknown Verified 09/06/24 09:18 cyclobenzaprine Allergy Unknown Verified 09/06/24 09:18 [From Flexeril] semaglutide [From Ozempic] Allergy Itching Verified 09/06/24 09:18 [facility] Past Medical History Medical History Asthma Bronchitis CAD (coronary artery disease) Cervical vertebral fusion delivery delivered Cigar smoker Diabetes Hyperlipidemia Hypertension Myocardial infarction Obesity Peripheral neuropathy Surgical History Surgical History H/O section X3 H/O gastric bypass H/O: hysterectomy History of coronary artery stent placement History of hysterectomy History of neck surgery cervical fusion History of tonsillectomy Hx of heart artery stent Family History Family History (Reviewed 06/16/24 @ 14:31 b
[2024-09-06] MEDS: dexAMETHasone 2 MG TABLET 10 MG PO (10:08)
[2024-09-06] MEDS: guaiFENesin/DEXTROMETHORPHAN 10 ML UDC PO (10:08)
[2024-09-06 10:11] LABS: Strep Group A RT-PCR NOT DETECTED (Negative)
[2024-09-06 10:23] LABS: Influenza A QL RT-PCR Negative (Negative); Influenza B QL RT-PCR Negative (Negative); RSV RNA, RT-PCR Negative (Negative); SARS-CoV-2 RNA PCR Negative (Negative)
[2024-09-06 10:46] VITALS: BP 132/80; PULSE 82; RESP 16; TEMP 36.8; O2SAT 98
== END 2024-09-06 10:46 | disposition home or self-care (01) ==
PROVIDERS: Emergency Provider Student in an Organized Health Care Education/Training Program; PCP Internal Medicine Gastroenterology
DX: B34.9 Viral infection, unspecified (principal); R05.9 Cough, unspecified; R09.81 Nasal congestion; Z20.822 Contact with and (suspected) exposure to COVID-19; I25.10 Atherosclerotic heart disease of native coronary artery without angina pectoris; I10 Essential (primary) hypertension; I25.2 Old myocardial infarction; E11.42 Type 2 diabetes mellitus with diabetic polyneuropathy; E78.5 Hyperlipidemia, unspecified; E66.9 Obesity, unspecified; Z68.31 Body mass index [BMI] 31.0-31.9, adult; J45.909 Unspecified asthma, uncomplicated; F17.290 Nicotine dependence, other tobacco product, uncomplicated; Z98.84 Bariatric surgery status; Z98.1 Arthrodesis status; Z95.5 Presence of coronary angioplasty implant and graft; Z90.710 Acquired absence of both cervix and uterus
CPT/HCPCS: 71045; 87637; 87651; 99283; A9270; J8540

== ENCOUNTER 2025-05-07 10:14 | Outpatient (CLI) | payer OTHER, SELFPAY ==
--- NOTE | ~2025-05-07 | MR_ITS ---
MRI of the lumbar spine Clinical History: Spondylosis Technique: Axial T2-weighted images, and sagittal T1-weighted, T2-weighted, and T2 fat-sat images wer e acquired. Findings: There is no fracture or subluxation of the lumbar spine. Vertebral bodies maintain normal h eight and alignment. No bone marrow signal abnormality seen. At L1-L2, L2-L3, L3-L4, L4-L5, there is no significant disc bulge or herniation. There is moderate fa cet arthropathies levels. No spinal canal stenosis or neural foraminal narrowing at these levels. At L5-S1, there is diffuse disc bulge with advanced facet arthropathy. No central canal stenosis. The re is moderate to advanced left neural foraminal narrowing, and moderate right neural foraminal narro wing. Paravertebral soft tissues are unremarkable. Impression: Moderate degenerative spondylosis at L5-S1. Reviewed, dictated and finalized at [facility]. Impression: Moderate degenerative spondylosis at L5-S1.
--- OUTSIDE RECORDS SUMMARY | 2025-05-07 11:38 | XMS_ITS | Clinical Summary ---
Author Organization [facility] Address [address] [place] [address] Care Team Providers Care Compliance Professional Name Role Phone Gregory Gaytan MD Unavailable [phone] Jose Alejandro Solomon MD Primary Care Provider Allergies Active Allergy Reactions Criticality Noted Date Comments Adhesive Rash Medium 09/07/2022 Adhesive Tape-Silicones Rash Medium 03/09/2018 Atorvastatin Muscle pain Medium 01/31/2023 Elevated CK Elevated CK Elevated CK Elevated CK Dermatitis Antigens Rash Medium 11/09/2018 Empagliflozin Other (See comments) Low 03/25/2021 uti recurrently Metformin Diarrhea,Stomach upset,Nausea And Vomiting Low 03/25/2021 Ydqcwbk-Ehu-Buz Reductase Inhibitors Muscle pain High 07/17/2023 Zucchini Rash Medium 06/22/2020 Medications FREESTYLE LITE STRIPS strip TEST BID 12 02/14/20 18 Active albuterol HFA (PROVENTIL HFA,VENTOLIN HFA) 90 mcg/actuation inhaler Inhale 2 puffs every 4 (four) hours as needed for wheezing or shortness of breath Active Dexcom G6 Sensor device 09/16/20 21 Active Dexcom G6 Transmitter device 10/15/20 21 Active nitroglycerin (NITROSTAT) 0.4 mg SL tablet DISSOLVE 1 TABLET UNDER THE TONGUE NEEDED FOR CHEST PAIN 08/29/[address] (CYMBALTA) 30 mg capsuleIndications :Chronic Musculoskeletal Pain Take 1 capsule (30 mg total) by mouth mortarman before breakfast 10/02/20 23 Active rOPINIRole XL (REQUIP XL) 2 mg 24 hr tabletIndications: Restless Legs Syndrome Take 1 tablet (2 mg total) by mouth nightly Active SUMAtriptan (IMITREX) 50 mg tablet Take 1 tablet (50 mg total) by mouth mortarman before breakfast 09/27/20 23 Active traZODone (DESYREL) 100 mg tabletIndications: insomnia associated with depression Take 1 tablet (100 mg total) by mouth nightly 10/02/20 23 Active oxyCODONE-acetamin ophen (PERCOCET) 10-325 mg per tablet Take 1 tablet by mouth every 6 (six) hours as needed for pain 02/12/20 24 Active diphenhydrAMINE 25 mg capsule Take 1 tablet/capsule (25 mg total) by mouth every 6 (six) hours as needed for itching Active clopidogreL (PLAVIX) 75 mg tablet Take 1 tablet (75 mg total) by mouth mortarman before breakfast Active oxyCODONE (ROXICODONE) 10 mg tabletIndications: Pain Take 1 tablet (10 mg total) by mouth every 3 (three) hours as needed for pain 10 tablet 03/24/20 24 Active insulin lispro (HumaLOG, ADMELOG) 100 unit/mL pen for injection Inject 0-10 Units under the skin 3 (three) times a day as needed (Use before meals as needed based on sugar levels as described with instructions) As needed based on sugar levels 9 mL 03/24/20 24 Active OneTouch Delica Plus Lancet 33 gauge misc USE 1 TO CHECK GLUCOSE 4 TIMES DAILY 02/05/20 24 Active NovoLOG 100 unit/mL (3 mL) pen for injection 03/24/20 24 Active BD Ultra-Fine Radha Pen Needle 32 gauge x /32 needle 03/24/20 24 Active albuterol 0.63 mg/3 mL nebulizer solution INHALE 1 VIAL IN NEBULIZER EVERY 6 HOURS 01/09/20 24 Active FIASP 100 unit/mL (3 mL) pen for injection INJECT 62 UNITS SUBQ THREE TIMES A DAY BEFORE MEALS PLUS SLIDING SCALE 5 UNITS FOR EVERY 50MG/DL OVER 150MG/DL,150MG/DL =5, 200MG/DL=10, 250MG/DL=15, 300MG/DL=20 (62 UNITS+20 UNITS GIVE THE DOSE AND CALL/SEND A MESSAGE TO THE OFFICE) WHILE TAKING STEROIDS 03/28/20 24 Active TRESIBA 100 unit/mL (3 mL) pen for injection INJECT 82 UNITS SUBCUTANEOUSLY AT BEDTIME WHILE TAKING STEROIDS 03/29/20 24 Active cyanocobalamin (Vitamin B-12) 250 mcg tablet Take 2 tablets (500 mcg total) by mouth daily 06/03/20 24 Active metaxalone (SKELAXIN) 800 mg tablet metaxalone 800 mg tablet 08/27/20 24 Active glimepiride (AMARYL) 1 mg tablet Take 1 tablet (1 mg total) by mouth daily 07/31/20 24 Active furosemide (LASIX) 20 mg tablet Take 1 tablet (20 mg total) by mouth daily 07/17/20 24 Active cyclobenzaprine (FLEXERIL) 10 mg tablet Take by mouth 3 (three) times a day as needed 07/04/20 24 Active multivitamin with minerals tablet Take 2 tablets by mouth daily 180 tablet 3 03/25/20 25 026 Active ergocalciferol (VITAMIN D) 50,000 unit capsuleIndications :Vitamin D Deficiency Take 1 capsule (50,000 Units total) by mouth every 30 (thirty) days 12 capsule 04/27/20 25 Active ergocalciferol (VITAMIN D) 50,000 unit capsuleIndications :Vitamin D Deficiency Take 1 capsule (50,000 Units total) by mouth once a week 4 capsule 03/28/20 25 Active Active Problems Problem Noted Date Diagnosed Date Status post bariatric surgery 06/18/2024 ARSENIO (obstructive sleep apnea) 03/21/2024 No diagnosis on [place] I 06/26/2023 Lumbar radiculopathy 02/09/2023 Vitamin D deficiency 01/30/2023 Chest pain 02/15/2022 Overweight 11/03/2021 Restless legs 11/03/2021 Nicotine dependence 11/03/2021 Psychophysiological insomnia 11/03/2021 Hypersomnia 11/03/2021 Pulmonary nodules 11/01/2021 Loud snoring 11/01/2021 Abdominal wound dehiscence 12/20/2018 Infection of deep incisional surgical site after procedure 11/22/2018 Post-op pain 11/22/2018 S/P hysterectomy 11/16/2018 Colon adenoma 11/15/2018 Overview (11/06/2023): 10/2018 colon adenoma, recommend repeat in 3 years (2020) Lumbar facet arthropathy 01/26/2015 Overview (11/06/2023): Added automatically from request for surgery [id number] Neck pain 01/26/2015 Maternal mitral valve prolapse, antepartum 10/05 Overview (10/09/2023): Normal maternal echocardiogram. SBE prophylaxis not indicated. Anxiety disorder 10/05/2009 Overview (11/06/2023): Anxiety made worse because she is her . Migraine headache 10/05/2009 Tobacco abuse 10/05/2009 Overview (11/06/2023): 5-6 cigs/day mostly at work, Hypercholesteremia 10/03/2009 Resolved Problems Problem Noted Date Diagnosed Date Resolved Date Morbid obesity 01/15/2024 06/18/2024 BMI 36.0-36.9,adult 06/26/2023 06/18/20 24 Encounters Date Type Department Care Team Description 03/28/2025 Results Follow-Up [facility] [address] [place] [address] Medical Office Building [address] [place] [id number] Lashay Jean NP Vitamin D 25 hydroxy, Vitamin B12, Vitamin B1, Additional followed-up results: 11 03/24/2025 10:25 AM CDT Lab [facility] [address] [address] [address] H/O gastric bypass; Intestinal malabsorption, unspecified type; BMI 27.0-27.9,adult 03/24/2025 10:00 AM CDT Office Visit [facility] [address] [facility] Medical Office Building [address] [place] [address] Lashay Jean NP H/O gastric bypass (Primary Dx); Bariatric surgery status; Intestinal malabsorption, unspecified type; BMI 27.0-27.9,adult from Last 3 Months Surgical History Surgery Date Site/Laterality Comments JOINT REPLACEMENT BACK SURGERY ABDOMINAL SURGERY CARDIAC STENT PLACEMENT SECTION 1996, 2002, 2009 HYSTERECTOMY 2017 Medical History Medical History Date Comments Arthritis Asthma Coronary artery disease Diabetes mellitus (HCC) Sleep apnea Hypertension [place], old Type 2 diabetes mellitus (HCC) 1997 GERD (gastroesophageal reflux disease) 2022 Low back pain 2019 Hypercholesteremia Awareness under anesthesia Family History Medical History Relation Name Comments Diabetes Brother Bonifacio Grider Hypertension Brother Bonifacio Grider Breast cancer Maternal Grandmother Rosa Grider Breast cancer Mother Soledad Solomon Diabetes Mother Soledad Solomon Hypertension Mother Soledad Solomon Cancer Mother's Sister 1 Nery Weber Cancer Mother's Sister 2 Nano Harrington Anesthesia problems Neg Hx Relation Name Status Comments Brother Bonifacio Grider Maternal Grandmother Rosa Grider Mother Soledad Solomon Mother's Sister 1 Nery Weber Mother's Sister 2 Nano Harrington Social History Tobacco Use Types Packs/Day Years Used Date Smoking Tobacco: Every Day Cigarettes 0.4 30.2 Started: 1993; Last attempted to quit: 01/30/2024 Cigars Started: 2017; Last attempted to quit: 2023 Passive Smoke Exposure: Never Smokeless Tobacco: Never Tobacco Cessation:Ready to Q uit: Not Asked; Counseling Given: Not Answered Comments:1\2 cigar daily Alcohol Use Standard Drinks/Week Comments Yes 0 (1 standard drink = 0.6 oz pur e alcohol) ocassional AUDIT-C Answer Date Recorded Q1: How often do you have a drink containing alcohol? Never 03/21/2024 Q2: How many drinks containi ng alcohol do you have on a typical day when you are drinking? Patient does not drink Q3: How often do you have si x or more drinks on one occasion? Never 03/21/2024 Personal Safety Answer Date Recorded Have you ever been in or are you currently in a harmful physical or emotional relationship or is someone making you feel afraid or unsafe? Denies 03/21/2024 Comments No Sex and Gender Information Value Date Recorded Sex Assigned at Not on file Legal Sex Female 2:34 PM [employer]URRET LAT[employer] Gender Identity Female 03/14/2024 9:53 AM CDT Sexual Orientation Straight 03/14/2024 9: 53 AM CDT Obstetrics History Last Filed Vital Signs Vital Sign Reading Time Taken Comments Blood Pressure 129/83 03/24/2025 9:46 AM CDT Pulse 80 03/24/2025 9:46 AM CDT Temperature 36.9 C (98.4 F) 04/24/2024 9:39 AM CDT Respiratory Rate 16 03/27/2024 9:32 AM CDT Oxygen Saturation 100% 03/24/2025 9:46 AM CDT Inhaled Oxygen Concentration - - Weight 76.1 kg (167 lb 12.8 oz) 03/24/2025 9:46 AM CDT Height 165.1 cm (5' 5) 03/24/2025 9:46 AM CDT Body Mass Index 27.92 03/24/2025 9:46 AM CDT Plan of Treatment Health Maintenance Due Date Last Done Comments Breast Cancer Screening-Mammogram 1974 Colon Cancer Screening-Colonoscopy 1974 Depression Screening 1974 Hepatitis C Screening 1974 DTaP/Tdap/Td Vaccine (1 - Tdap) 1985 Hepatitis B Screening 1992 Regular Well Visit/Exam 18-64 1992 Pneumococcal vaccine <65 (2 of 2 - PCV) 03/03/2016 0 03/03/2015 Covid-19 Vaccine (3 - season) 07/21/202407/2021, 05/31/2021 Zoster Vaccine (1 of 2) 2024 Influenza Vaccine (Season Ended) 2025 Medical Devices Implanted Type Area Inside Technical Sales Representative Device Identifier Shelf Expiration Date Model / Serial / Lot [employer] Biological Bariatric Peristrip Non Crosslinked Bovine Pericardium For Endo Teri Thin [id number] - Sn/A - [id number] Implanted:Qty: 1 on 03/21/2024 by Jos Samuels MD at [facility] Other - see comments N/A: Abdomen [employer] [id number] 11/08/2025 [id number] ATHN / N/A / [id number] Description:Elisabeth-Strips Dry Staple Line Reinforcement [employer] Biological Bariatric Peristrip Non Crosslinked Bovine Pericardium For Endo Teri Thin [id number] - Sn/A - [id number] Implanted:Qty: 1 on 03/21/2024 by Jos Samuels MD at [facility] Other - see comments N/A: Abdomen [employer] [id number] 11/08/2025 [id number] ATHN / N/A / [id number] Description:Elisabeth-Strips Dry Staple Line Reinforcement [employer] Biological Bariatric Peristrip Non Crosslinked Bovine Pericardium For Endo Teri Thin [id number] - [id number] Implanted:Qty: 1 on 03/21/2024 by Jos Samuels MD at [facility] Other - see comments N/A: Abdomen [employer] [id number] 11/08/2025 [id number] ATHN / / [id number] Description:Elisabeth-Strips Dry Staple Line Reinforcement System Coronary Stent Synergy Pebax Everolimus Eluting Onemo Chromium Plga L12 Mm L144 Cm Od2.25 Mm Radiopaque 1 Access Port Inflation Lumen Accepts .014 In Guidewire - [id number] Implanted:Qty: 1 on 03/10/2018 by Darek Dailey MD at [facility] [employer] 12/13/2018 [id number] / / [id number] Procedures Procedure Name Priority Date/Time Associated Diagnosis Comments EGFR Routine 03/24/2025 10:40 AM CDT H/O gastric bypass Intestinal malabsorption, unspecified type BMI 27.0-27.9,adult DIFFERENTIAL AUTO Routine 03/24/2025 10: 40 AM CDT H/O gastric bypass Intestinal malabsorption, unspecified type BMI 27.0-27.9,adult CBC WITH AUTO DIFFERENTIAL Routine 03/24/2025 10:40 AM CDT H/O gastric bypass Intestinal malabsorption, unspecified type BMI 27.0-27.9,adult COMPREHENSIVE METABOLIC PANEL Routine 03/24/2025 10:40 AM CDT H/O gastric bypass Intestinal malabsorption, unspecified type BMI 27.0-27.9,adult COPPER, SERUM Routine 03/24/2025 10:40 AM CDT H/O gastric bypass Intestinal malabsorption, unspecified type BMI 27.0-27.9,adult FERRITIN Routine 03/24/2025 10:40 AM CDT H/O gastric bypass Intestinal malabsorption, unspecified type BMI 27.0-27.9,adult FOLATE Routine 03/24/2025 10:40 AM CDT H/O gastric bypass Intestinal malabsorption, unspecified type BMI 27.0-27.9,adult HEMOGLOBIN A1C Routine 03/24/2025 10:40 AM CDT H/O gastric bypass Intestinal malabsorption, unspecified type BMI 27.0-27.9,adult IRON PROFILE W/ IBC Routine 03/24/2025 1 0:40 AM CDT H/O gastric bypass Intestinal malabsorption, unspecified type BMI 27.0-27.9,adult LIPID PANEL Routine 03/24/2025 10:40 AM CDT H/O gastric bypass Intestinal malabsorption, unspecified type BMI 27.0-27.9,adult PTH Routine 03/24/2025 10:40 AM CDT H/O gastric bypass Intestinal malabsorption, unspecified type BMI 27.0-27.9,adult VITAMIN B1 Routine 03/24/2025 10:40 AM CDT H/O gastric bypass Intestinal malabsorption, unspecified type BMI 27.0-27.9,adult VITAMIN B12 Routine 03/24/2025 10:40 AM CDT H/O gastric bypass Intestinal malabsorption, unspecified type BMI 27.0-27.9,adult VITAMIN D 25 HYDROXY Routine 03/24/2025 10:40 AM CDT H/O gastric bypass Intestinal malabsorption, unspecified type BMI 27.0-27.9,adult from Last 3 Months Results * eGFR (03/24/2025 10:40 AM CDT) eGFR >90 >=60 mL/min/1. 73 m2 Comment: Interpretive Data Reference Interval Normal >/= 90 mL/min/1.73m2 Mildly decreased* 60 - 89 mL/min/1.73m2 Mildly to moderately decreased 45 - 59 mL/min/1.73m2 Moderately to severely decreased 30 - 44 mL/min/1.73m2 Severely decreased 15 - 29 mL/min/1.73m2 Kidney Failure < 15 mL/min/1.73m2 *Relative to young adult level Estimated glomerular filtration rate is determined by the 2020 CKD-EPI equation recommended by the National Kidney Foundation (A Unifying Approach to GFR Estimation: Recommendations of the NKF-ASK Task Force on Reassessing the Inclusion of Race in Diagnosing Kidney Disease, JASN 2020). The CKD-EPI equation should not be used for patients with unstable renal function and has not been validated in children and those over 70. Current interpretive data was last reviewed 2021. Blood 03/24/2025 10:4 0 AM CDT 03/24/2025 10:57 AM CDT us Lashay Jean NP LAB BLOOD ORDERABLES Final Result [facility] [address] [facility] [place] [place] [address] * Differential, auto (03/24/2025 10:40 AM CDT) Neutrophil abs 5.18 1.50 - 6.50 K/cumm Imm gran abs 0.02 0.00 - 0.10 K/cumm [facility] Lymphocyte abs 3.23 0.80 - 3.30 K/cumm [facility] Monocyte abs 0.38 0.20 - 0.80 K/cumm [facility] Eosinophil abs 0.11 0.00 - 0.50 K/cumm [facility] Basophil abs 0.03 0.00 - 0.10 K/cumm [facility] Neutrophil pct 58.0 % [facility] Comment: Interpretive Data Percent cell count reference ranges are not reported, since discordance with absolute values may lead to misinterpretation of CBC data. Current Interpretive Data was last revised on 2018. Imm gran pct 0.2 % [facility] Comment: Interpretive Data Percent cell count reference ranges are not reported, since discordance with absolute values may lead to misinterpretation of CBC data. Current Interpretive Data was last revised on 2018. Lymphocyte pct 36.1 % [facility] Comment: Interpretive Data Percent cell count reference ranges are not reported, since discordance with absolute values may lead to misinterpretation of CBC data. Current Interpretive Data was last revised on 2018. Monocyte pct 4.2 % [facility] Comment: Interpretive Data Percent cell count reference ranges are not reported, since discordance with absolute values may lead to misinterpretation of CBC data. Current Interpretive Data was last revised on 2018. Eosinophil pct 1.2 % [facility] Comment: Interpretive Data Percent cell count reference ranges are not reported, since discordance with absolute values may lead to misinterpretation of CBC data. Current Interpretive Data was last revised on 2018. Basophil pct 0.3 % [facility] Comment: Interpretive Data Percent cell count reference ranges are not reported, since discordance with absolute values may lead to misinterpretation of CBC data. Current Interpretive Data was last revised on 2018. Blood 03/24/2025 10:4 0 AM CDT 03/24/2025 10:57 AM CDT us Lashay Jean NP LAB BLOOD ORDERABLES Final Result [facility] [address] [facility]. [place] [address] * Iron profile w/ IBC (03/24/2025 10:40 AM CDT) Iron 132 35 - 145 mcg/dL Comment:Testing performed by : [facility], [address] [place] [address]., [id number] TIBC 331 250 - 400 mcg/dL [facility] Comment:Testing performed by : [facility], [address] [place] [address]., [id number] Transferrin saturation 40 20 - 50 % [facility] Comment:Testing performed by : [facility], [address] [place] [address]., [id number] Blood 03/24/2025 10:4 0 AM CDT 03/24/2025 12:25 PM CDT us Lashay Jean GAS FITTER HELPER LAB BLOOD ORDERABLES Final Result [facility] KAUR [address] [facility]. Department of Laboratories [place], [place] [id number] * (ABNORMAL) CBC with auto differential (03/24/2025 10:40 AM CDT) Pathologist [facility] WBC 8.95 3.80 - 9.90 K/cumm Hgb 13.7 11.9 - 15.5 g/dL [facility] Hct 44.7 35.6 - 45.5 % [facility] Plt 306 150 - 400 K/cumm [facility] MPV 9.9 9.1 - 12.3 fL [facility] RBC 4.85 3.90 - 5.20 M/cumm [facility] MCV 92.2 81.3 - 96.4 fL [facility] MCH 28.2 27.1 - 33.3 pg [facility] MCHC 30.6(L) 32.3 - 35.7 g/dL [facility] RDW CV 13.5 11.1 - 14.9 % [facility] RDW SD 45.7 35.7 - 48.1 fL [facility] NRBC abs 0.00 0.00 - 0.01 K/cumm [facility] Blood 03/24/2025 10:4 0 AM CDT 03/24/2025 10:57 AM CDT Lashay Jean NP LAB BLOOD ORDERABLES Final Result Performing Organization Address [facility] Co de Phone Number [facility] CO[facility] [address] [place] [address] * Copper, serum (03/24/2025 10:40 AM CDT) Copper 129 77 - 206 mcg/dL [facility] Comment: ADDITIONAL INFORMATION This test was developed and its performance characteristics determined by [facility] in a manner consistent with CLIA requirements. This test has not been cleared or approved by the U.S. Food and Drug Administration. Test Performed by: [facility] [place] [address] Crown Buffer: Elijah Gardner Ph.D.; CLIA# [id number] Blood 03/24/2025 10:4 0 AM CDT 03/24/2025 10:57 AM CDT Lashay Kristen Jean NP LAB BLOOD ORDERABLES Final Result Performing Organization Address [facility] de Phone Number [facility] [address] [address] [place] [address] [place] * (ABNORMAL) Vitamin D 25 hydroxy (03/24/2025 10:40 AM CDT) Vitamin D 25-OH 25(L) 30 - 80 ng/mL Blood 03/24/2025 10:4 0 AM CDT 03/24/2025 10:57 AM CDT Lashay Jean NP LAB BLOOD ORDERABLES Edited Result - Final Performing Organization Address [facility] Co de Phone Number [facility] [address] [employer] [place] [address] * Vitamin B1 (03/24/2025 10:40 AM CDT) Pathologist [facility] Thiamine (Vit B1) 105 70 - 180 nmol/L [facility] Lab Comment: ADDITIONAL INFORMATION This test was developed and its performance characteristics determined by [facility] in a manner consistent with CLIA requirements. This test has not been cleared or approved by the U.S. Food and Drug Administration. Test Performed by: [facility] [address] [place] [address] Crown Buffer: Elijah Gardner Ph.D.; CLIA# [id number] Blood 03/24/2025 10:4 0 AM CDT 03/24/2025 10:57 AM CDT Lashay Jean LAB BLOOD ORDERABLES Final Result [facility] [address] [facility] [place] [address] [facility] Lab * PTH (03/24/2025 10:40 AM CDT) Pathologist [facility] PTH 36 15 - 65 pg/mL Blood 03/24/2025 10:4 0 AM CDT 03/24/2025 10:57 AM CDT Lashay Jean LAB BLOOD ORDERABLES Final Result [facility] [address] [employer] [facility] [place] [address] * (ABNORMAL) Hemoglobin A1c (03/24/2025 10:40 AM CDT) Pathologist [facility] Hgb A1C 6.2(H) 4.0 - 5.6 % Estimated Average Glucose 131 mg/dL [facility] Comment: The ADA recommends reporting an estimated Average Glucose (eAG) with all Hemoglobin A1c results using the equation derived from a study of 507 normal and diabetic adults. Minority populations were underrepresented and children were not included. (Diabetes Care 31:5196-2908, 2008). The eAG is not equivalent to a fasting glucose. Blood 03/24/2025 10:4 0 AM CDT 03/24/2025 10:57 AM CDT Lashay Jean NP LAB BLOOD ORDERABLES Final Result Performing Organization Address [facility] de Phone Number [facility] [address] [place] [address] * Folate (03/24/2025 10:40 AM CDT) Folic acid 5.7 >=5.0 ng/mL Comment:Testing performed by : [facility], [address] [place] [address]., [id number] Blood 03/24/2025 10:4 0 AM CDT 03/24/2025 12:25 PM CDT Lashay Jean NP LAB BLOOD ORDERABLES Final Result Performing Organization Address [facility] de Phone Number [facility] [address] [facility] [place] [address] * (ABNORMAL) Ferritin (03/24/2025 10:40 AM CDT) Ferritin 174(H) 15 - 150 ng/mL Comment:Testing performed by : [facility], [address] [place] [address]., [id number] Blood 03/24/2025 10:4 0 AM CDT 03/24/2025 12:25 PM CDT Lashay Jean NP LAB BLOOD ORDERABLES Final Result Performing Organization Address [facility]/State/ZIP Co de Phone Number [facility] CO[facility] [address] [address] [place] [address] * (ABNORMAL) Vitamin B12 (03/24/2025 10:40 AM CDT) Vitamin B12 1,344(H) 230 - 1,250 pg/mL Comment:Testing performed by : [facility], [facility] [facility], [place]., [address] Blood 03/24/2025 10:4 0 AM CDT 03/24/2025 12:25 PM CDT Lashay Jean NP LAB BLOOD ORDERABLES Final Result [facility] [address] [employer] [place] [address] * Lipid panel (03/24/2025 10:40 AM CDT) Cholesterol 156 30 - 199 mg/dL Comment: Interpretive Data Ages < or = 19 years Acceptable: <170 mg/dL Borderline high: 170-199 mg/dL High: >or= 200 mg/dL Ages > or = 20 years Desirable: <200 mg/dL Borderline high: 200-239 mg/dL High: >or= 240 mg/dL Literature References: 1. Expert Panel on Integrated Guidelines for Cardiovascular Health and Risk Reduction in Children and Adolescents. Pediatrics 2011;128:S213 2. NCEP Expert Panel. Circulation 2004;110:227 Current Interpretive Data was last revised on 2018. Triglycerides 80 <=149 mg/dL [facility] Comment: Interpretive Data Ages < or = 9 years Acceptable: <75 mg/dL Borderline high: 75-99 mg/dL High: >or= 100 mg/dL Ages 10 to 20 years Acceptable: <90 mg/dL Borderline high: 90-129 mg/dL High: >or= 130 mg/dL Ages > or = 20 years Desirable: <150 mg/dL Borderline high: 150-199 mg/dL High: 200-499 mg/dL Very high: >or= 499 mg/dL Literature References: 1. Expert Panel on Integrated Guidelines for Cardiovascular Health and Risk Reduction in Children and Adolescents. Pediatrics 2011;128:S213 2. NCEP Expert Panel. Circulation 2004;110:227 Current Interpretive Data was last revised on 2018. HDL 41 >=40 mg/dL LULI GAUTAM Comment: Interpretive Data Ages < or = 19 years Acceptable: >45 mg/dL Borderline low: 40-45 mg/dL Low: <40 mg/dL Ages > or = 20 years Desirable: >or= 60 mg/dL Low: <40 mg/dL Literature References: 1. Expert Panel on Integrated Guidelines for Cardiovascular Health and Risk Reduction in Children and Adolescents. Pediatrics 2011;128:S213 2. NCEP Expert Panel. Circulation 2004;110:227 Current Interpretive Data was last revised on 2018. LDL, calculated 100 <=129 mg/dL LULI GAUTAM Comment: Interpretive Data Ages < or = 19 years Acceptable: <110 mg/dL Borderline high: 110-129 mg/dL High: >or= 130 mg/dL Ages > or = 20 years Optimal: <100 mg/dL Near optimal: 100-129 mg/dL Borderline high: 130-159 mg/dL High: >160 mg/dL Calculated using the Tray LDL-C estimating equation. This equation was implemented on 2024. Prior to this date LDL-C was estimated using the Friedewald equation. Literature References: 1. Expert Panel on Integrated Guidelines for Cardiovascular Health and Risk Reduction in Children and Adolescents. Pediatrics 2011;128:S213 2. NCEP Expert Panel. Circulation 2004;110:227 3. Tray Brito et al. MARLY Cardiol. 2019March 20;5(5):540-548. doi: 10.1001/[email or web address] Current Interpretive Data was last revised on 2024. Non-HDL Cholesterol 115 mg/dL LULI GAUTAM Comment: Interpretive Data Ages < or = 19 years Acceptable: <120 mg/dL Borderline high: 120-144 mg/dL High: >145 mg/dL Ages > or = 20 years When triglycerides are >200 mg/dL, Non-HDL cholesterol is a secondary target of therapy with treatment goals that are 30 mg/dL greater than the LDL cholesterol target. Literature References: 1. Expert Panel on Integrated Guidelines for Cardiovascular Health and Risk Reduction in Children and Adolescents. Pediatrics 2011;128:S213 2. NCEP Expert Panel. Circulation 2004;110:227 Current Interpretive Data was last revised on 2018. Chol/HDL ratio 4 [facility] Blood 03/24/2025 10:4 0 AM CDT 03/24/2025 10:57 AM CDT Lashay Jean NP LAB BLOOD ORDERABLES Edited Result - Final LULI KAUR [id number] [facility]. [place] [address] * Comprehensive metabolic panel (03/24/2025 10:40 AM CDT) Sodium 144 135 - 145 mmol/L Potassium, pl 4.6 3.3 - 4.9 mmol/L [facility] Chloride 107 97 - 110 mmol/L [facility] CO2 25 22 - 32 mmol/L [facility] Anion gap 12 2 - 15 mmol/L [facility] BUN 11 6 - 25 mg/dL [facility] Creatinine 0.70 0.60 - 1.10 mg/dL [facility] Glucose 81 70 - 199 mg/dL [facility] Comment: Interpretive Data Fasting glucose >/= 126 mg/dl is diagnostic for diabetes. Fasting is defined as no caloric intake for at least 8 hours. Fasting glucose between 100 mg/dl to 125 mg/dl is diagnostic of prediabetes. In a patient with classic symptoms of hyperglycemia or hyperglycemic crisis, a random glucose >/= 200 mg/dl is diagnostic for diabetes. In the absence of unequivocal hyperglycemia, results should be confirmed by repeat testing. The classification and Diagnosis of Diabetes Diabetes Care 202; 46: S19-S40. Current interpretive data was last revised 2022. Calcium 9.6 8.5 - 10.3 mg/dL [facility] Bilirubin, total 0.3 0.1 - 1.2 mg/dL [facility] Protein, pl 7.3 6.5 - 8.5 g/dL [facility] Albumin 4.4 3.5 - 5.0 g/dL [facility] Alk phos 111 40 - 130 Units/L [facility] ALT 25 7 - 45 Units/L [facility] AST 34 10 - 45 Units/L [facility] Blood 03/24/2025 10:4 0 AM CDT 03/24/2025 10:57 AM CDT Lashay Jean NP LAB BLOOD ORDERABLES Edited Result - Final LULI KAURCH [id number] [facility]. [place] [address] from Last 3 Months Insurance [employer] [facility] [id number] [facility] [id number] Member Subscriber Plan / Payer (Ef fective 2021-Present) Name:Page Dubois Member ID:[id number] Relation to Subscriber:Self Name:Page Dubois Subscriber ID:[id number] Payer ID:[id number] Type:[employer] HMO/PPO Address: [address] [facility] [address] Advance Directives For more information, please contact: [phone] * Full Code (Latest Code Status on File) Date Activated Date Inactivated Comments 03/21/2024 7:12 PM 03/24/2024 6:20 PM * Full Code Date Activated Date Inactivated Comments 02/18/2022 1:39 PM 02/19/2022 5:14 PM * Full Code Date Activated Date Inactivated Comments 02/15/2022 8:29 PM 02/18/2022 1:39 PM * Full Code Date Activated Date Inactivated Comments 03/10/2018 12:26 PM 03/11/2018 3:44 PM Care Teams Compliance Professional Relationship Specialty Start [place] [address] [place] [id number] PCP - General Gastroenterology 01/05/24 Gregory Gaytan MD Referring Physician Cardiovascular Disease 03/11/18
--- OUTSIDE RECORDS SUMMARY | 2025-05-07 11:38 | XMS_ITS | Clinical Summary ---
Author Organization [facility] [employer] Address [address] [place] [address] Care Team Providers Care Makeup Editor Name Role Phone Sara Chambers RN Unavailable Mara Buck MD Primary Care Provider [phone] Delmi Forrest MD Unavailable [phone] Kirby Gaytan MD Unavailable Source Comments [facility],non-owned Affiliates and Associated Physician Practices is amultiple site organization consisting of ambulatory clinics and hospital sitesin [place], [place], [place] and [place]. This disclosure is being madepursuant to the Care Everywhere program and may not contain all information available regarding this patient. Last updated 18.[facility] Allergies Active Allergy Reactions Criticality Noted Date Comments Adhesive Sensitivity Rash Medium 11/09/2018 Atorvastatin Myalgias 01/31/2023 Elevated CK Dermatitis Antigen Rash Medium 11/09/2018 Empagliflozin Other 03/25/2021 uti recurrently Metformin Diarrhea,Nausea and/ or Vomiting,GI Discomfort 03/25/2021 Medications * Be aware that medications may not be up to date on this document. Alwaysverify current medications with the patient. clopidogrel (PLAVIX) 75 MG tablet Take 1 (one) tablet by mouth once daily Active B-D INS SYR ULTRAFINE .5CC/30G 30G X 1/2 0.5 ML MISC Use 1 syringe 2 times daily 100 Each 12/28/19 19 Active nitroGLYCERIN (NITROSTAT) 0.4 MG tablet Dissolve 1 (one) tablet under the tongue every 5 minutes as needed for Angina Active albuterol HFA (PROVENTIL;VENT DESMOND;PROAIR) 108 (90 Base) MCG/ACT inhaler Inhale 2 (two) puffs by mouth Active Cholecalciferol (VITAMIN D) 50 MCG (2000 UT) capsule Take 1 (one) capsule by mouth once daily 10/20/20 21 Active famotidine (PEPCID) 20 MG tablet Take 1 (one) tablet by mouth 2 times daily 07/01/20 21 Active ranolazine ER 12hr (RANEXA) 500 MG tablet 03/23/20 21 Active baclofen (Lioresal) 10 MG tablet 06/10/20 22 Active diazePAM (Valium) 5 MG tablet 10/05/20 22 Active furosemide (Lasix) 20 MG tablet Take 1 (one) tablet by mouth once daily 02/23/20 22 Active HYDROcodone-yoshi taminophen (Vicodin) 5-300 MG tablet Take 1 (one) tablet by mouth every 6 hours as needed pain 04/08/20 22 Active losartan (Cozaar) 50 MG tablet 03/12/20 22 Active Ostomy Supplies (Skin Tac Adhesive Barrier Wipe) MISC Use 1 Each every 10 days For use with Dexcom 50 Each 3 10/31/20 22 Active Transparent Dressings (Tegaderm + Pad 2x2-3/4) MISC Use 1 Each every 10 days 50 Each 3 10/31/20 22 Active Blood Glucose Monitoring Suppl (Blood Glucose Monitor System) w/Device KITIndications: Type 2 diabetes mellitus with hyperglycemia, with long-term current use of insulin (HCC) Use 1 Each once daily 1 Each 1 01/31/20 23 Active Continuous Blood Gluc Transmit (Dexcom G6 Transmitter) MISCIndications :Diabetes Mellitus Use 1 Each Every 90 days Reasons: Diabetes 1 Each 3 02/01/20 23 Active folic acid (Folvite) 1 MG tablet TAKE 1 TABLET BY MOUTH DAILY 90 tablet 2 05/10/20 23 Active traZODone (Desyrel) 50 MG tablet TAKE 1 (ONE) TABLET BY MOUTH NIGHTLY NEEDED FOR INSOMNIA COURTESY REFILL 90 tablet 1 05/10/20 23 Active Varenicline Tartrate, Starter, (Chantix Starting Month ) 0.5 MG X 11 & 1 MG X 42 tabletsIndicati ons:Tobacco consumption Take by mouth as directed Take 0.5 mg daily days 1-3, twice daily days 4-7, then 1 mg twice daily 42 tablet 11/27/19 24 Active Continuous Blood Gluc Sensor (Dexcom G7 Sensor) MISCIndications :Type 2 diabetes mellitus with hyperglycemia, with long-term current use of insulin ([facility]) Use 1 Each every 10 days 3 Each 5 11/27/19 24 Active Lancets Micro Thin 33G MISCIndications :Type 2 diabetes mellitus with hyperglycemia, with long-term current use of insulin ([facility]) Use 1 Each 4 times daily 200 Each 02/05/20 24 Active Insulin Pen Needle 32G X 4 MM MISCIndications :Type 2 diabetes mellitus with hyperglycemia, with long-term current use of insulin ([facility]) 1 Each by Injection route 4 times daily 200 Each 02/05/20 24 Active blood glucose test stripIndication s:Type 2 diabetes mellitus with hyperglycemia, with long-term current use of insulin ([facility]) Use 1 (one) strip 4 times daily - before meals & nightly 200 strip 02/05/20 24 Active insulin aspart, w/Niacinamide, (Fiasp FlexTouch) penIndications: Type 2 diabetes mellitus with hyperglycemia, with long-term current use of insulin ([facility]) INJECT 62 UNITS SUBCUTANEOUSLY 3 TIMES A DAY BEFORE MEALS plus scale starting at 5 units for every 50 mg/dl over 150 mg/dL 150 mg/dl=5 200 mg/dl=10 250 mg/dl=15 300 mg/dl=20 (62 units +20 units give the dose and call/send a message to the office) While taking steroids 30 mL 02/06/20 24 Active insulin degludec (Tresiba FlexTouch) 100 UNIT/ML penIndications: Type 2 diabetes mellitus with hyperglycemia, with long-term current use of insulin ([facility]) Inject 25 (twenty five) Units subcutaneously at bedtime While taking steroids 45 mL 1 10/31/20 24 Active glimepiride (Amaryl) 1 MG tabletIndicatio ns:Type 2 diabetes mellitus with hyperglycemia, with long-term current use of insulin (HCC) TAKE 1 TABLET BY MOUTH ONCE DAILY WITH BREAKFAST HOLD IF BLOOD SUGAR IS UNDER 90 DO NOT DOSE AT DINNER TIME 90 tablet 1 01/22/20 25 Active EQ Calcium Citrate+D3 Petites 200-6.25 MG-MCG tablet Take 2 (two) tablets by mouth 3 times daily Active cyanocobalamin (Vitamin B-12) 250 MCG tablet Take 500 (five hundred) mcg by mouth once daily Active DULoxetine (Cymbalta) 30 MG capsule Take 1 (one) capsule by mouth once daily 10/02/20 23 Active fluticasone propionate (Flonase) 50 MCG/ACT nasal spray [place] 2 (two) sprays into each nostril once daily as needed 09/24/20 24 Active Multiple Vitamins-Minera ls (Compete) TABS Take 1 (one) tablet by mouth once daily 03/06/20 24 Active rOPINIRole XL 24hr (Requip XL) 2 MG tablet Take 1 (one) tablet by mouth once daily Active SUMAtriptan (Imitrex) 50 MG tablet Take 1 (one) tablet by mouth once as needed Active tirzepatide (Mounjaro) 5 MG/0.5ML injectionIndica tions:Type 2 diabetes mellitus with hyperglycemia, with long-term current use of insulin (HCC) INJECT 5 MG SUBCUTANEOUSLY EVERY 7 DAYS 6 mL 1 03/13/20 25 Active Active Problems Problem Noted Date Diagnosed Date Vitamin D deficiency 01/30/2023 Abdominal wound dehiscence 12/20/2018 Post-op pain 11/22/2018 Infection of deep incisional surgical site after procedure 11/22/2018 S/P hysterectomy 11/16/2018 Colon adenoma 11/15/2018 Overview (11/15/2018): 10/2018 colon adenoma, recommend repeat in 3 years (2020) Bulging disc 01/26/2015 Neck pain 01/26/2015 Non-compliance 11/12/2009 Overview (11/12/2009): Not taking consistent accuchecks with post prandials, or sending them in as instructed. H/O: 10/05/2009 Overview (01/11/2010): H/o c/s x2 BOTH are LTCS at [facility] and first at [facility]. Both had vertical skin incisions. w/ h/o in G1. Dense adhesions on op report. Repeat C/S sched for 01/20/10 Tobacco abuse 10/05/2009 Overview (11/30/2009): 5-6 cigs/day mostly at work, Maternal mitral valve prolapse 10/05/2009 Overview (10/26/2009): Normal maternal echocardiogram. SBE prophylaxis not indicated. Advanced maternal age in or not applic able 10/05/2009 Overview (10/26/2009): Normal QUAD screen, normal anatomy on scan; declined amniocentesis. Migraine headache 10/05/2009 Anxiety disorder 10/05/2009 Overview (11/30/2009): Anxiety made worse because she is her . Supervision of other high-risk 009 Overview (09/27/2015): Type 2 diabetes mellitus wit h other specified complication, with long-term current use of insulin 10/03/2009 Overview (01/18/2010): On insulin pump.patient to be NPO after 01:30 am Wed early am mar 3, '10., to turn off pump after arrivat at hospital and iv started. Pt has post- settings when she is eating normally post-C/S. Hypercholesteremia 10/03/2009 Encounters Date Type Department Care Team Description 03/13/2025 Refill [facility] - Endocrinology [address], [address] [place] [address] Yuliet Martines, TENDER LABOR-MANAGER DAIRY Refill Request from Last 3 Months Immunizations Immunization Administration Dates Next Due PNEUMOCOCCAL PPSV23 03/03/2015 Family History Medical History Relation Name Comments Diabetes - Type 2 Brother Hyperlipidemia Brother Hypertension Brother Asthma Daughter None Known Father Cancer - Pancreatic Maternal Aunt 1 Diabetes - Type 2 Maternal Aunt 1 Cancer Maternal Aunt 2 Cancer - Breast Maternal Grandmother Asthma Mother CVA Mother Cancer-Breast Premenopausal Mother Diabetes - Type 2 Mother Hyperlipidemia Mother Hypertension Mother Relation Name Status Comments Brother Daughter Father Maternal Aunt 1 Maternal Aunt 2 Maternal Grandmother Mother Alive Social History Tobacco Use Types Packs/Day Years Used Date Smoking Tobacco: Former Cigars Q uit: 02/16/2024 Smokeless Tobacco: Never Tobacco Cessation:Counseling Given: Not Answered Alcohol Use Standard Drinks/Week Comments Yes 0.8 (1 standard drink = 0.6 oz p ure alcohol) PHQ-2 Answer Date Recorded PHQ2 TOTAL SCORE 0 02/07/2022 Comments No Sex and Gender Information Value Date Recorded Sex Assigned at Female 01/29/2025 7:50 PM CDT Legal Sex Female 5:33 AM BEAUTY SALES CONSULTANT Gender Identity Female 01/29/2025 7:50 PM CDT Sexual Orientation Not on file 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 Not on file Not on file Last Filed Vital Signs Vital Sign Reading Time Taken Comments Blood Pressure 132/74 02/03/2025 11:54 AM CDT Pulse 78 02/03/2025 11:54 AM CDT Temperature 36.7 C (98 F) 05/02/2022 11:52 AM CDT Respiratory Rate 20 01/21/2019 3:08 PM BEAUTY SALES CONSULTANT Oxygen Saturation 100% 02/03/2025 11:54 AM CDT Inhaled Oxygen Concentration 21% 11/22/2018 7 :40 AM BEAUTY SALES CONSULTANT Weight 81.6 kg (180 lb) 02/03/2025 11:54 AM CDT Height 165.1 cm (5' 5) 02/03/2025 11:54 AM CDT Body Mass Index 29.95 02/03/2025 11:54 AM CDT Plan of Treatment Upcoming Encounters Date Type Department Care Team (Late st Contact Info) Description 08/08/2025 11:20 AM CDT Office Visit [facility] - Endocrinology [address], [address] [place] [address] Delmi Forrest MD [id number] [place] [address] [address] [place] [address] Health Maintenance Due Date Last Done Comments CT COLONOGRAPHY - COLON CA SCREENING 1975 FIT - COLON CA SCREENING 1975 FLEX SIG - COLON CA SCREENING 1975 MAMMOGRAM 1975 HIV SCREENING 1989 HEPATITIS C SCREENING 09/14/1992 DTAP/TDAP/TD VACCINES (1 - Tdap) 1993 HEPATITIS B VACCINE (1 of 3 - 19+ 3-dose series) 1993 DIABETES-STATIN 2014 PNEUMOCOCCAL VACCINE 50+ (2 of 2 - PCV) 03/03/2016 03/03/2015 PAP with HPV 10/24/2023 10/24/2018 COVID-19 VACCINE (3 - season) 2024 06/28/2021, 05/31/2021 ZOSTER VACCINE (1 of 2) 2024 DIABETES RETINOPATHY SCREENING 10/31/2024 10/31/2022, 10/07/2021 DEPRESSION SCREENING 11/20/2024 05/02/2022 DIABETES - URINE PROTEIN SCREENING 11/20/2024 10/31/2024, 07/31/2024, 11/27/2023, Additional history exists INFLUENZA VACCINE (Season Ended) 2025 2019, 08/08/2017 DIABETES-HGB A1C 08/06/2025 02/03/2025, 10/2024, 07/31/2024, Additional history exists DIABETES-SERUM CREATININE 10/31/20252023, 10/31/2024, 07/31/2024, Additional history exists DIABETES-FOOT EXAM WITH MONOFILAMENT 02/03/2026 02/03/2025 COLOGUARD (AGES 45-75) - COLON CA SCREENING 07/19/2026 07/19/2023 COLON MONITORING 11/09/2028 11/09/2018, , 11/09/2018, Additional history exists COLONOSCOPY - COLON CA SCREENING 11/09/2028 11/09/2018, 11/09/2018, 11/09/2018, Additional history exists Colorectal Cancer Screening 11/09/2028 HIB VACCINE Aged Out No longer eligi ble based on patient's age to complete this topic HPV VACCINE Aged Out No longer eligi ble based on patient's age to complete this topic MENINGOCOCCAL (Group B) VACCINE SHARED DECISION-MAKING Aged Out No longer eligible based on patient's age to complete this topic MENINGOCOCCAL GROUPS A/C/Y/W VACCINE Aged Out No longer eligible based on patient's age to complete this topic Medical Devices Implanted Type Area Public Health Program Manager Device Identifier Shelf Expiration Date Model / Serial / Lot Disha Vale Dbx Bone 1.0cc - [id number] Implanted:Qty : 1 on 03/03/2015 by Richard Mosquera MD at [facility] Cervical [employer] 10/22/2017 [id number] / [id number] / Space Peek 7 X 16 X 14mm Implanted:Qty : 1 on 03/03/2015 by Richard Mosquera MD at [facility] Cervical [employer] 12/05/2022 [id number] / / [id number] Infs Bone [employer] Med Implanted:Qty : 1 on 03/03/2015 by Richard Mosquera MD at [facility] Cervical [employer] [id number] / / Procedures Procedure Name Priority Date/Time Associated Diagnosis Comments HEMOGLOBIN A1C - POINT OF CARE (AMB) Routine 02/03/2025 Type 2 diabetes mellitus with hyperglycemia, with long-term current use of insulin MICROALB/CREAT RATIO URINE RANDOM PANEL Routine 10/31/2024 1:20 PM BEAUTY SALES CONSULTANT Type 2 diabetes mellitus with hyperglycemia, with long-term current use of insulin COMPREHENSIVE METABOLIC PANEL Routine 10/31/2024 1:20 PM BEAUTY SALES CONSULTANT Type 2 diabetes mellitus with hyperglycemia, with long-term current use of insulin HM DIABETES EYE EXAM Routine 10/31/2022 ENDOSCOPY, COLON, DIAGNOSTIC Routine 11/09/2018 12:04 PM BEAUTY SALES CONSULTANT HPV DETECTION HIGH RISK JAI Routine 10/24/2018 11:35 AM BEAUTY SALES CONSULTANT Screening for breast cancer from Last 3 Months or Most Recently Relevant to Health Maintenance Results * HEMOGLOBIN A1C - POINT OF CARE (HgbA1C) (02/03/2025) Hemoglobin A1c POCT 6.5 % Expiration Date 07/10/2026 Lot # [id number] QC Verified Yes Yes Blood BLOOD SPECIMEN / Unknown 02/03/2025 us Delmi Forrest MD LAB - POINT OF CARE RICKY CABRAL Final Result * MICROALB/CREAT RATIO URINE RANDOM PANEL (10/31/2024 1:20 PM BEAUTY SALES CONSULTANT) Creatinine Urine 184.87 mg/dL [facility] ACCOUNT BILL Microalbumin Urine 1.1 mg/dL [facility] ACCOUNT BILL Microalbumin/Crea tinine Ratio 5 <30 mg/g [facility] ACCOUNT BILL Urine URINE SPECIMEN OBTAINED BY CLEAN CATCH PROCEDURE / Unknown 10/31/2024 1:20 PM BEAUTY SALES CONSULTANT 10/31/2024 Narrative [facility] ACCOUNT BILL - 11/01/2024 12:06 AM BEAUTY SALES CONSULTANT Performed at: [address] [place] [address] [place] , [place], [place] [id number] Speech Therapy Assistant: Lima Pearson [facility], Phone: [phone] us Yuliet Martines APRN-MANAGER DAIRY LAB - URINE CHEMISTRY ORD ERABLES Final Result [facility] ACCOUNT BILL [address] [place] [address] * (ABNORMAL) COMPREHENSIVE METABOLIC PANEL (10/31/2024 1:20 PM BEAUTY SALES CONSULTANT) Glucose 87 70 - 99 mg/dL [facility] ACCOUNT BILL BUN 12 7 - 26 mg/dL [facility] ACCOUNT BILL Creatinine 0.77 0.57 - 1.11 mg/dL [facility] ACCOUNT BILL eGFR by CKD-EPI >90 >=90 mL/min/1.7 3 m2 [facility] ACCOUNT BILL Sodium 147(H) 136 - 145 mmol/L [facility] ACCOUNT BILL Potassium 4.1 3.5 - 5.1 mmol/L [facility] ACCOUNT BILL Chloride 110(H) 98 - 107 mmol/L [facility] ACCOUNT BILL CO2 25 22 - 29 mmol/L [facility] ACCOUNT BILL Calcium 9.2 8.4 - 10.4 mg/dL [facility] ACCOUNT BILL Protein Total 6.8 6.4 - 8.3 gm/dL [facility] ACCOUNT BILL Albumin 4.0 3.4 - 5.0 gm/dL [facility] ACCOUNT BILL Bilirubin Total 0.4 0.2 - 1.2 mg/dL [facility] ACCOUNT BILL Alkaline Phosphatase 121 40 - 150 U/L [facility] ACCOUNT BILL AST 20 5 - 34 U/L [facility] ACCOUNT BILL ALT 17 0 - 55 U/L [facility] ACCOUNT BILL Blood BLOOD SPECIMEN / Unknown 10/31/2024 1:20 PM BEAUTY SALES CONSULTANT 10/31/2024 Narrative [facility] ACCOUNT BILL - 10/31/2024 11:06 PM BEAUTY SALES CONSULTANT Performed at: [address] [place] [address] [place], [place] [id number] Speech Therapy Assistant: Lima Pearson [facility], Phone: [phone] us Yuliet Martines TENDER LABOR-MANAGER DAIRY LAB - CHEMISTRY ORDERABLE S Final Result [facility] ACCOUNT BILL [address] [place] [address] * DIABETES EYE EXAM (10/31/2022) us Delmi Forrset MD HEALTH MAINTENANCE Final Result * ENDOSCOPY, COLON, DIAGNOSTIC (11/09/2018 12:04 PM BEAUTY SALES CONSULTANT) Report Endoscopy POC _ Patient Name: Annemarie Jordan Procedure Date: 11/09/2018 12:04 PM Date of : 1975 Admit Type: Outpatient Age: 43 Gender: Female Attending MD: Moon Summers MD _ Procedure: Colonoscopy Indications: Abdominal pain in the left lower quadrant Providers: Moon Summers MD (Doctor), Meli Garcia RN, Lyle Burris, Casing Inspector Referring MD: Florentino Chakraborty MD (Referring MD), Clinton Mitchell MD (Referring MD) Medicines: Propofol per Anesthesia Complications: No immediate complications. _ Procedure: Pre-Anesthesia Assessment: - Prior to the procedure, a History and Physical was performed, and patient medications and allergies were reviewed. The patient's tolerance of previous anesthesia was also reviewed. The risks and benefits of the procedure and the sedation options and risks were discussed with the patient. All questions were answered, and informed consent was obtained. Prior Anticoagulants: The patient has taken aspirin, last dose was day of procedure. ASA Grade Assessment: III - A patient with severe systemic disease. After reviewing the risks and benefits, the patient was deemed in satisfactory condition to undergo the procedure. - Prior to the procedure, a History and Physical was performed, and patient medications and allergies were reviewed. The patient's tolerance of previous anesthesia was also reviewed. The risks and benefits of the procedure and the sedation options and risks were discussed with the patient. All questions were answered, and informed consent was obtained. Prior Anticoagulants: The patient has taken Plavix (clopidogrel), last dose was 7 days prior to procedure. After reviewing the risks and benefits, the patient was deemed in satisfactory condition to undergo the procedure. After I obtained informed consent, the scope was passed under direct vision. Throughout the procedure, the patient's blood pressure, pulse, and oxygen saturations were monitored continuously. The Colonoscope was introduced through the anus and advanced to the cecum, identified by appendiceal orifice and ileocecal valve. The patient tolerated the procedure well. The quality of the bowel preparation was evaluated using the BBPS ([place] Bowel Preparation Scale) with scores of: Right Colon = 2 (minor amount of residual staining, small fragments of stool and/or opaque liquid, but mucosa seen well), Transverse Colon = 2 (minor amount of residual staining, small fragments of stool and/or opaque liquid, but mucosa seen well) and Left Colon = 3 (entire mucosa seen well with no residual staining, small fragments of stool or opaque liquid). The total BBPS score equals 7. The quality of the bowel preparation was good. Impression: Suspect hyperplastic. - One 12 mm polyp in the transverse colon, removed with a hot snare. Resected and retrieved. Clip (MR conditional) was placed. - One diminutive polyp in the rectum, removed with a cold biopsy forceps. Resected and retrieved. - The examination was otherwise normal on direct and retroflexion views. - Medium-sized lipoma in the cecum. - Biopsies were taken with a cold forceps from the descending colon and sigmoid colon for evaluation of microscopic colitis. Findings: The perianal and digital rectal examinations were normal. Pertinent negatives include no anal lesion or abnormality was detected. A 12 mm polyp was found in the transverse colon. The polyp was semi-sessile. The polyp was removed with a hot snare. Resection and retrieval were complete. To prevent bleeding after the polypectomy, one hemostatic clip was successfully placed (MR conditional). There was no bleeding during, or at the end, of the procedure. A diminutive polyp was found in the rectum. The polyp was sessile. The polyp was removed with a cold biopsy forceps. Resection and retrieval were complete. Biopsies for histology were taken with a cold forceps from the descending colon and sigmoid colon for evaluation of microscopic colitis. The exam was otherwise without abnormality on direct and retroflexion views. There was a medium-sized lipoma, in the cecum. _ Recommendation: - Discharge patient to home (ambulatory). - Await pathology results. - No significant findings to explain patients abdominal pain. - Resume plavix today. - Return to referring physician as previously scheduled. Procedure Code(s): --- Professional --- 28226, Colonoscopy, flexible; with removal of tumor(s), polyp(s), or other lesion(s) by snare technique [id number], 59, Colonoscopy, flexible; with biopsy, single or multiple --- Technical --- 19960, Colonoscopy, flexible; with removal of tumor(s), polyp(s), or other lesion(s) by snare technique [id number], 59, Colonoscopy, flexible; with biopsy, single or multiple Diagnosis Code(s): --- Professional --- D12.3, Benign neoplasm of transverse colon (hepatic flexure or splenic flexure) K62.1, Rectal polyp R10.32, Left lower quadrant pain --- Technical --- D12.3, Benign neoplasm of transverse colon (hepatic flexure or splenic flexure) K62.1, Rectal polyp R10.32, Left lower quadrant pain CPT copyright 2017 [employer]. All rights reserved. The codes documented in this report are preliminary and upon cereal maker review may be revised to meet current compliance requirements. Moon Summers MD 11/09/2018 12:49:45 PM Number of Addenda: 0 Note Initiated On: 11/09/2018 12:[address] [facility] ENDOSCOPY 11/09/2018 12:0 4 PM BEAUTY SALES CONSULTANT us Moon Summers MD GI PROCEDURE ORDERABLES Ed ited Result - Final [facility] ENDOSCOPY * HPV DETECTION HIGH RISK JAI (10/24/2018 11:35 AM BEAUTY SALES CONSULTANT) High Risk Human Papilloma Result Not Detected Not Detected 10/27/2018 12:26 PM BEAUTY SALES CONSULTANT [facility] High Risk Human Papilloma Interp 10/27/2018 12:26 PM BEAUTY SALES CONSULTANT [facility] PATHOLOGY LAB Comment:High Risk Human Kartik lloma Virus was Not Detected. Pathology/Cytolo gy MISCELLANEOUS SAMPLES / Unknown 10/24/2018 11:35 AM BEAUTY SALES CONSULTANT 10/25/2018 11:35 AM BEAUTY SALES CONSULTANT Narrative [facility] PATHOLOGY LAB - 10/27/2018 12:26 PM BEAUTY SALES CONSULTANT Nucleic acid isolated from the specimen was analyzed with a nucleic acid amplification test (FDA approved Gen-Probe HPV Assay) to detect high risk human papilloma virus (Types: 16, 18, 31, 33, 35, 39, 45, 51, 52, 56, 58, 59, 66, and 68). The reference range is Not Detected. Comment: These test results should not be used as the sole basis for clinical assessment and treatment of patients. These results should always be correlated with other available data (cytology, histology, and clinical information). Poppy Mitchell MD LAB - MICROBIOLOGY ORDERABL ES Final Result [facility] PATHOLOGY LAB [address] [phone] from Last 3 Months or Most Recently Relevant to Health Maintenance Insurance MEDICAID [employer] [facility] SELF PAY NO INSURANCE Member Subscriber Plan / Payer (Ef fective for All Dates) Name:Annemarie Dubois Member ID:Not on file Relation to Subscriber:Self Name:Annemarie Dubois Subscriber ID:Not on file Payer ID:Not on file Group ID:Not on file Type:Self Pay Address: [place], [place] Advance Directives * Full Code (Latest Code Status on File) Date Activated Date Inactivated Comments 12/20/2018 4:44 PM 12/29/2018 1:11 PM * Full Code Date Activated Date Inactivated Comments 11/22/2018 4:04 AM 11/24/2018 5:22 AM * Full Code Date Activated Date Inactivated Comments 11/22/2018 4:04 AM 11/22/2018 4:04 AM * Full Code Date Activated Date Inactivated Comments 11/16/2018 12:36 PM 11/19/2018 4:08 PM * Full Code Date Activated Date Inactivated Comments 11/16/2018 12:36 PM 11/16/2018 12:36 PM Care Teams Makeup Editor Relationship Specialty Start Date End Date Mara Buck MD [address] [place] [address] PCP - General Family Medicine 03/17/21 Sara Chambers, RN Coroner Forensic Technician 03/03/15 [place] [address] [address] Endocrinology 05/31/21 Kirby Gaytan MD [address] [place] [address] Cardiovascular Disease 05/31/21
--- OUTSIDE RECORDS SUMMARY | 2025-05-07 11:38 | XMS_ITS | Referral Summary ---
Author Organization [facility] Address [address] [place] [address] Care Team Providers Care Space And Missile Operations Spacelift Name Role Phone Gregory Gaytan MD Unavailable [phone] Jose Alejandro Solomon MD Primary Care Provider Encounters Date Type Department Care Team Description 03/28/2025 Results Follow-Up [facility] Minimally Invasive Surgery [address] [place] [address] Medical Office Building [address] [place] [address] Lashay Jean NP Vitamin D 25 hydroxy, Vitamin B12, Vitamin B1, Additional followed-up results: 11 03/24/2025 10:25 AM CDT Lab [facility] [address] [place] [address] H/O gastric bypass; Intestinal malabsorption, unspecified type; BMI 27.0-27.9,adult 03/24/2025 10:00 AM CDT Office Visit [facility] Minimally Invasive Surgery [address] [place] [address] Medical Office Building [address] [place] [address] Lashay Jean NP H/O gastric bypass (Primary Dx); Bariatric surgery status; Intestinal malabsorption, unspecified type; BMI 27.0-27.9,adult from Last 3 Months Allergies Active Allergy Reactions Criticality Noted Date Comments Adhesive Rash Medium 09/07/2022 Adhesive Tape-Silicones Rash Medium 03/09/2018 Atorvastatin Muscle pain Medium 01/31/2023 Elevated CK Elevated CK Elevated CK Elevated CK Dermatitis Antigens Rash Medium 11/09/2018 Empagliflozin Other (See comments) Low 03/25/2021 uti recurrently Metformin Diarrhea,Stomach upset,Nausea And Vomiting Low 03/25/2021 Wymrcvq-Qnn-Usr Reductase Inhibitors Muscle pain High 07/17/2023 Zucchini [...] 1 capsule (30 mg total) by mouth 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 before 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 10/02/20 23 Active rOPINIRole XL (REQUIP XL) 2 mg 24 hr tabletIndications: Restless Legs Syndrome Take 1 tablet (2 mg total) by mouth nightly Active SUMAtriptan (IMITREX) 50 mg tablet Take 1 tablet (50 mg total) by mouth 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 before breakfast 09/27/20 23 Active traZODone (DESYREL) [...] 1 tablet (75 mg total) by mouth 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 before breakfast Active oxyCODONE (ROXICODONE) 10 mg [...] Ultra-Fine Radha Pen Needle 32 gauge x 5/32 needle 03/24/20 24 Active albuterol 0.63 mg/3 [...] (obstructive sleep apnea) 03/21/2024 No diagnosis on Nunez I 06/26/2023 Lumbar radiculopathy 02/09/2023 Vitamin D [...] (11/06/2023): Added automatically from request for surgery [id number] Neck pain 01/26/2015 Maternal mitral valve prolapse, [...] 01/15/2024 06/18/2024 BMI 36.0-36.9,adult 06/26/2023 06/18/20 24 Social History Tobacco Use Types Packs/Day Years [...] on file 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 Gender Identity Female 03/14/2024 9:53 AM CDT Sexual Orientation Straight 03/14/2024 9: 53 AM CDT Last Filed Vital Signs Vital Sign Reading [...] 03/24/2025 9:46 AM CDT Plan of Treatment Not on file Medical Devices Implanted Type Area Pipe Bowl Paint Trimmer Device Identifier Shelf Expiration Date Model / Serial / Lot [employer] Biological Bariatric Peristrip Non Crosslinked Bovine Pericardium For Endo Teri Thin [id number] - Sn/A - [id number] Implanted:Qty: 1 on 03/21/2024 by Jos Samuels MD at [facility] Other - see comments N/A: Abdomen [employer] [id number] 11/08/2025 [id number] ATHN / N/A / [id number] Description:Elisabeth-Strips Dry Staple Line Reinforcement [employer] Bariatric Peristrip Non Crosslinked Bovine Pericardium For Endo Teri Thin [id number] - Sn/A - [id number] Implanted:Qty: 1 on 03/21/2024 by Jos Samuels MD at [facility] Other - see comments N/A: Abdomen [employer] [id number] 11/08/2025 [id number] ATHN / N/A / [id number] Description:Elisabeth-Strips Dry Staple Line Reinforcement [employer] Biological Bariatric Peristrip Non Crosslinked Bovine Pericardium For Endo Teri Thin [id number] - [id number] Implanted:Qty: 1 on 03/21/2024 by Jos Samuels MD at [facility] Other - see comments N/A: Abdomen [employer] [id number] 11/08/2025 [id number] ATHN / / [id number] Description:Elisabeth-Strips Dry Staple Line Reinforcement System Coronary Stent Synergy Pebax Everolimus Eluting [place] Chromium Plga L12 Mm L144 Cm Od2.25 Mm Radiopaque 1 Access Port Inflation Lumen Accepts .014 In Guidewire - [id number] Implanted:Qty: 1 on 03/10/2018 by Darek Dailey MD at [facility] [employer] [facility] 12/13/2018 [id number] / / [id number] Procedures Procedure Name Priority Date/Time Associated Diagnosis [...] NP LAB BLOOD ORDERABLES Final Result [facility]UT[facility] [address] [place] [address] * Differential, auto (03/24/2025 10:40 AM CDT) Neutrophil abs 5.18 1.50 - 6.50 K/cumm Imm gran abs 0.02 0.00 - 0.10 K/cumm [facility] Lymphocyte abs 3.23 0.80 - 3.30 K/cumm [facility] Monocyte abs 0.38 0.20 - 0.80 K/cumm [facility] Eosinophil abs 0.11 0.00 - 0.50 K/cumm [facility] Basophil abs 0.03 0.00 - 0.10 K/cumm [facility] Neutrophil pct 58.0 % [facility] Comment: Interpretive Data Percent cell count reference ranges are not reported, since discordance with absolute values may lead to misinterpretation of CBC data. Current Interpretive Data was last revised on 2018. Imm gran pct 0.2 % [facility] Comment: Interpretive Data Percent cell count reference ranges are not reported, since discordance with absolute values may lead to misinterpretation of CBC data. Current Interpretive Data was last revised on 2018. Lymphocyte pct 36.1 % [facility] Comment: Interpretive Data Percent cell count reference ranges are not reported, since discordance with absolute values may lead to misinterpretation of CBC data. Current Interpretive Data was last revised on 2018. Monocyte pct 4.2 % [facility] Comment: Interpretive Data Percent cell count reference ranges are not reported, since discordance with absolute values may lead to misinterpretation of CBC data. Current Interpretive Data was last revised on 2018. Eosinophil pct 1.2 % [facility] Comment: Interpretive Data Percent cell count reference ranges are not reported, since discordance with absolute values may lead to misinterpretation of CBC data. Current Interpretive Data was last revised on 2018. Basophil pct 0.3 % [facility] Comment: Interpretive Data Percent cell count reference ranges are not reported, since discordance with absolute values may lead to misinterpretation of CBC data. Current Interpretive Data was last revised on 2018. Blood 03/24/2025 10:4 0 AM CDT 03/24/2025 10:57 AM CDT Lashay Jean POULTRY HELPER LAB BLOOD ORDERABLES Final Result Performing Organization Address [facility] de Phone Number [facility] GAUT[facility] [address] [facility] [employer] [place], [place] [id number] * Iron profile w/ IBC (03/24/2025 10:40 AM CDT) Iron 132 35 - 145 mcg/dL Comment:Testing performed by : [facility], [address] [place] [address]., [address] TIBC 331 250 - 400 mcg/dL [facility] Comment:Testing performed by : [facility], [address] [place] [address]., [address] Transferrin saturation 40 20 - 50 % [facility] Comment:Testing performed by : [facility], [address] [place] [address]., [address] Blood 03/24/2025 10:4 0 AM CDT 03/24/2025 12:25 PM CDT Lashay Jean POULTRY HELPER LAB BLOOD ORDERABLES Final Result Performing Organization Address [facility] de Phone Number LULI KAURCH [address] [facility] [facility] [place] [address] * (ABNORMAL) CBC with auto differential (03/24/2025 10:40 AM CDT) WBC 8.95 3.80 - 9.90 K/cumm Hgb 13.7 11.9 - 15.5 g/dL [facility] Hct 44.7 35.6 - 45.5 % [facility] Plt 306 150 - 400 K/cumm [facility] MPV 9.9 9.1 - 12.3 fL [facility] RBC 4.85 3.90 - 5.20 M/cumm [facility] MCV 92.2 81.3 - 96.4 fL [facility] MCH 28.2 27.1 - 33.3 pg [facility] MCHC 30.6(L) 32.3 - 35.7 g/dL [facility] RDW CV 13.5 11.1 - 14.9 % [facility] RDW SD 45.7 35.7 - 48.1 fL [facility] NRBC abs 0.00 0.00 - 0.01 K/cumm L[facility]I CO[facility] Blood 03/24/2025 10:4 0 AM CDT 03/24/2025 10:57 AM CDT Lashay Jean NP LAB BLOOD ORDERABLES Final Result Performing Organization Address [facility] Co de Phone Number [facility] [address] [place] [address] * Copper, serum (03/24/2025 10:40 AM CDT) [facility] Copper 129 77 - 206 mcg/dL [facility] Comment: ADDITIONAL INFORMATION This test was developed and its performance characteristics determined by [facility] in a manner consistent with CLIA requirements. This test has not been cleared or approved by the U.S. Food and Drug Administration. Test Performed by: [facility] - [address] [address] Steel Pourer Helper: Elijah Gardner Ph.D.; CLIA# [id number] Blood 03/24/2025 10:4 0 AM CDT 03/24/2025 10:57 AM CDT Lashay Jean NP LAB BLOOD ORDERABLES Final Result Performing Organization Address [facility] de Phone Number [facility] [address] [employer] [address] [facility] * (ABNORMAL) Vitamin D 25 hydroxy (03/24/2025 10:40 AM CDT) [facility] Vitamin D 25-OH 25(L) 30 - 80 ng/mL Blood 03/24/2025 10:4 0 AM CDT 03/24/2025 10:57 AM CDT Lashay Jean POULTRY HELPER LAB BLOOD ORDERABLES Edited Result - Final Performing Organization Address City/[facility]/ZIP Co de Phone Number [facility] [address] [facility]. [facility] [place] [address] * Vitamin B1 (03/24/2025 10:40 AM CDT) [facility] Thiamine (Vit B1) 105 70 - 180 nmol/L [facility] Comment: ADDITIONAL INFORMATION This test was developed and its performance characteristics determined by [facility] in a manner consistent with CLIA requirements. This test has not been cleared or approved by the U.S. Food and Drug Administration. Test Performed by: [facility] [id number] Steel Pourer Helper: Elijah Gardner Ph.D.; CLIA# [id number] Blood 03/24/2025 10:4 0 AM CDT 03/24/2025 10:57 AM CDT Lashay Jean NP LAB BLOOD ORDERABLES Final Result [facility] [address] [facility]. [facility] [place] [address] [facility] * PTH (03/24/2025 10:40 AM CDT) [facility] PTH 36 15 - 65 pg/mL Blood 03/24/2025 10:4 0 AM CDT 03/24/2025 10:57 AM CDT us Lashay Jean NP LAB BLOOD ORDERABLES Final Result Performing Organization Address City/State/[facility] Co de Phone Number LULI KAUR [address] [facility] [facility] [place] [address] * (ABNORMAL) Hemoglobin A1c (03/24/2025 10:40 AM CDT) Hgb A1C 6.2(H) 4.0 - 5.6 % Estimated Average Glucose 131 mg/dL [facility] Comment: The ADA recommends reporting an estimated Average Glucose (eAG) with all Hemoglobin A1c results using the equation derived from a study of 507 normal and diabetic adults. Minority populations were underrepresented and children were not included. (Diabetes Care 31:1080-6280, 2008). The eAG is not equivalent to a fasting glucose. Blood 03/24/2025 10:4 0 AM CDT 03/24/2025 10:57 AM CDT us Lashay Jean NP LAB BLOOD ORDERABLES Final Result Performing Organization Address [facility] Co de Phone Number [facility] [address] [facility] [facility] [place] [address] * Folate (03/24/2025 10:40 AM CDT) Folic acid 5.7 >=5.0 ng/mL Comment:Testing performed by : [facility], [facility], [place]., [address] Blood 03/24/2025 10:4 0 AM CDT 03/24/2025 12:25 PM CDT us Lashay Jean NP LAB BLOOD ORDERABLES Final Result Performing Organization Address City/[facility]/ZIP Co de Phone Number [facility] [address] [facility]. [place] [address] * (ABNORMAL) Ferritin (03/24/2025 10:40 AM CDT) Ferritin 174(H) 15 - 150 ng/mL Comment:Testing performed by : [facility], [address] [place] [address]., [address] Blood 03/24/2025 10:4 0 AM CDT 03/24/2025 12:25 PM CDT us Lashay Jean NP LAB BLOOD ORDERABLES Final Result [facility] [address] [facility] [place] [address] * (ABNORMAL) Vitamin B12 (03/24/2025 10:40 AM CDT) Vitamin B12 1,344(H) 230 - 1,250 pg/mL Comment:Testing performed by : [facility], [address] [place] [address]., [address] Blood 03/24/2025 10:4 0 AM CDT 03/24/2025 12:25 PM CDT us Lashay Jean NP LAB BLOOD ORDERABLES Final Result [facility] [address] [facility] [place] [address] * Lipid panel (03/24/2025 10:40 AM CDT) [...] on 2018. Triglycerides 80 <=149 mg/dL [facility] Comment: Interpretive Data Ages [...] 2. NCEP Expert Panel. Circulation 2004;110:227 3. Feliz M et al. MARLY Cardiol. 2020 March 20;5(5):540-548. doi: 10.1001/jamacardio.2020.0013 Current Interpretive Data was last revised on 2024. Non-HDL Cholesterol 115 mg/dL [facility] Comment: Interpretive Data Ages < or = [...] revised on 2018. Chol/HDL ratio 4 [facility] Blood 03/24/2025 10:4 0 AM CDT 03/24/2025 10:57 AM CDT us Lashay Jean NP LAB BLOOD ORDERABLES Edited Result - Final [facility] [address] [facility]. Department of Laboratories [place], [place] [id number] * Comprehensive metabolic panel (03/24/2025 10:40 AM CDT) Sodium 144 135 - 145 mmol/L Potassium, pl 4.6 3.3 - 4.9 mmol/L [facility] Chloride 107 97 - 110 mmol/L [facility] CO2 25 22 - 32 mmol/L [facility] Anion gap 12 2 - 15 mmol/L [facility] BUN 11 6 - 25 mg/dL [facility] Creatinine 0.70 0.60 - 1.10 mg/dL [facility] Glucose 81 70 - 199 mg/dL [facility] Comment: Interpretive Data Fasting glucose >/= 126 [...] classification and Diagnosis of Diabetes Diabetes Care 2021; 46: S19-S40. Current interpretive data was last [...] AM CDT 03/24/2025 10:57 AM CDT Lashay Jaen NP LAB BLOOD ORDERABLES Edited Result - Final [facility] [address] [facility]. [place] [address] from Last 3 Months Insurance IDPA [facility] [id number] [facility] [id number] Member Subscriber Plan / Payer (Ef fective 2021-Present) Name:Page Dubois Member ID:[id number] Relation to Subscriber:Self Name:Page Dubois Subscriber ID:[id number] Payer ID:[id number] Type:HEALTH[employer] HMO/PPO Address: [facility] [address] [facility] [address] Advance Directives For more information, please contact: [phone] * Full Code (Latest Code Status on File) Date Activated Date Inactivated Comments 03/21/2024 7:12 PM 03/24/2024 6:20 PM * Full Code Date Activated Date Inactivated Comments 02/18/2022 1:39 PM 02/19/2022 5:14 PM * Full Code Date Activated Date Inactivated Comments 02/15/2022 8:29 PM 02/18/2022 1:39 PM * Full Code Date Activated Date Inactivated Comments 03/10/2018 12:26 PM 03/11/2018 3:44 PM Care Teams Space And Missile Operations Spacelift Relationship Specialty Start Date End Date Jose Alejandro Solomon MD [address] [address] PCP - General Gastroenterology 01/05/24 Gregory Gaytan MD Referring Physician Cardiovascular Disease 03/11/18
--- OUTSIDE RECORDS SUMMARY | 2025-05-07 11:38 | XMS_ITS | Continuity of Care Document ---
Author Organization [facility] Address [address] [place] [address] Phone Care Team Providers Care Maintenance Parts Technician Name Role Phone Michelle Cao Unavailable Unavailable Toño RN, Mara Unavailable Unavailable Advance Directives Directive Yes / No Effective Date File Name No Information Encounters Encounter Description Practice Location Reason(s) For Visit Diagnoses Date Provider Providers [facility] [address] [place], [place], [id number], tel:[phone] [facility] [place] No Information Gaurav Martinez. [address], [place], [place], [id number], . tel:[phone] Consulting Provider: Mara Lundberg, [address], [place], [address]. tel:[phone] Family History Family Member Type Diagnosis Age At Onset No Information Payers Payer name Insurance type Covered democrat ID Authoriza tion(s) No Information Social History [...]
--- OUTSIDE RECORDS SUMMARY | 2025-05-07 11:38 | XMS_ITS | Data Portability ---
Author Organization [facility] Address [address] [facility] [place] [address] Care Team Providers Care Turn Supervisor Name Role Phone JOSE ALEJANDRO MOLINA Primary Care Provider Assessment No assessment recorded. Plan of Treatment Reminders Order Date Submit Date Provider Last Modified By Organization Details Last Modified Time Details Appointments NEW PATIENT 30 2024 08:30A M Sarita Perez MD Not available Not available Not available Lab drug screen, 14 drugs (detect imed), urine 2023 024 [facility], [address], [place], [address], 07/03/2024 19:08:57 HbA1c (hemogl obin A1c), blood [address] [facility], [address], [place], [address], 11/14/2024 11:14:00 lipid panel, serum 2023 024 [facility], [address], [place], [address], 06/28/2024 07:16:50 CMP, serum or plasma 2023 024 [facility], [address], [place], [address], 06/28/2024 07:16:51 CBC 2023 024 [facility], [address], [place], [address], 06/28/2024 07:16:51 Referral pain managem ent referra l - Pt to be seen at [facility] 2024 ILANA Miller MD, [address] [facility] , [place], [address], 04/30/2025 13:03:36 Procedures None recorde d. Surgeries None recorde d. Imaging None recorde d. Medication Orders Linzess 145 mcg capsule 2024 [facility] [address], [address], [place], [address], 01/22/2025 15:27:59 oxycodo ne-acet aminoph en 10 mg-325 mg tablet 2024 [facility] [address], [address], [place], [address], 01/22/2025 15:28:08 oxycodo ne-acet aminoph en 10 mg-325 mg tablet 2023 [facility] [address], [address], [place], [address], 09/24/2024 13:03:44 cetiriz ine 10 mg tablet 2023 [facility] [address], [address], [place], [address], 09/24/2024 13:03:43 flutica sone propion ate 50 mcg/act uation nasal spray,s uspensi on 2023 [facility] [address], [address], [place], [address], 09/24/2024 13:03:41 oxycodo ne-acet aminoph en 10 mg-325 mg tablet 2023 024 [facility] #[id number], [address], [place], [address], 12/20/2023 15:23:43 Patient TargetsNo targets recorded. Patient Instructions Encounter Date Encounter Id Patient Instructions Last Modified By Organization Details Last Modified Time 06/27/2024 [id number] gastroesophageal reflux disease (GERD): care instructions [email or web address] Not available 06/27/2024 15:51:25 09/24/2024 [id number] allergies: care instructions Not available 09/24/2024 13:03:36 A healthy lifest yle: care instructions [email or web address] Not available 09/24/2024 13:19:42 01/22/2025 [id number] heart attack: ca re instructions [email or web address] Not available 01/22/2025 15:27:49 04/24/2025 [id number] heart attack: ca re instructions [email or web address] Not available 04/24/2025 15:02:24 Reason for Referral Pain Management Referral for Chronic low back pain Pt to be seen at [facility] Referring Physician: Jose Alejandro Molina, Internal Medicine, Encounter Date: 04/24/2025 Results Created Date Observation Date Name Description Value Unit Range Abnormal Flag Note LastModifiedBy Organization Detail LastModifiedTime 06/27/2006/28/2024 LIPID PANEL cholesterol, total 160 mg/dL 100-19 9 Not Available [facility] ([facility]) [address] [place], [address], 06/28/2024 07:16:50 06/27/20 24 06/28/2024 LIPID PANEL triglyceride s 156 mg/dL 0-149 above high normal Not Available [facility] ([facility]) [address] [place], [address], 06/28/2024 07:16:50 06/27/20 24 06/28/2024 LIPID PANEL HDL cholesterol 43 mg/dL >39 Not Available [facility] ([facility]) [address] [place], [address], 06/28/2024 07:16:50 06/27/20 24 06/28/2024 LIPID PANEL VLDL cholesterol hansel 27 mg/dL 5-40 Not Available [facility] ([facility]) [address] [place], [address], 06/28/2024 07:16:50 06/27/20 24 06/28/2024 LIPID PANEL LDL chol calc ([facility]) 90 mg/dL 0-99 Not Available [facility] ([facility]) [address] [place], [address], 06/28/2024 07:16:50 06/27/20 24 06/28/2024 COMP. METAB OLIC PANEL (14) glucose 74 mg/dL 70-99 Not Available [facility] ([facility]) [address] [place], [address], 06/28/2024 07:16:51 06/27/20 24 06/28/2024 COMP. METAB OLIC PANEL (14) BUN 13 mg/dL 6-24 Not Available [facility] ([facility]) [address] [place], [address], 06/28/2024 07:16:51 06/27/20 24 06/28/2024 COMP. METAB OLIC PANEL (14) creatinine 0.68 mg/dL 0.57-1 .00 Not Available [facility] ([facility]) [address] [place], [address], 06/28/2024 07:16:51 06/27/20 24 06/28/2024 COMP. METAB OLIC PANEL (14) eGFR 107 mL/mi n/1.7 3 >59 Not Available [facility] ([facility]) [address] [place], [address], 06/28/2024 07:16:51 06/27/20 24 06/28/2024 COMP. METAB OLIC PANEL (14) BUN/creatini ne ratio 19 9-23 Not Available [facility] ([facility]) [address] [facility] [place], [address], 06/28/2024 07:16:51 06/27/20 24 06/28/2024 COMP. METAB OLIC PANEL (14) sodium 145 mmol/ L 134-14 4 above high normal Not Available [facility] ([facility]) [address] [facility] [place], [address], 06/28/2024 07:16:51 06/27/20 24 06/28/2024 COMP. METAB OLIC PANEL (14) potassium 3.9 mmol/ L 3.5-5. 2 Not Available [facility] ([facility]) [address] [facility] [place], [address], 06/28/2024 07:16:51 06/27/20 24 06/28/2024 COMP. METAB OLIC PANEL (14) chloride 104 mmol/ L 96-106 Not Available [facility] ([facility]) [address] [facility] [place], [address], 06/28/2024 07:16:51 06/27/20 24 06/28/2024 COMP. METAB OLIC PANEL (14) carbon dioxide, total 23 mmol/ L 20-29 Not Available [facility] ([facility]) [address] [facility] [place], [address], 06/28/2024 07:16:51 06/27/20 24 06/28/2024 COMP. METAB OLIC PANEL (14) calcium 9.3 mg/dL 8.7-10 .2 Not Available [facility] ([facility]) [address] [facility] [place], [address], 06/28/2024 07:16:51 06/27/20 24 06/28/2024 COMP. METAB OLIC PANEL (14) protein, total 6.8 g/dL 6.0-8. 5 Not Available [facility] ([facility]) [address] [place], [address], 06/28/2024 07:16:51 06/27/20 24 06/28/2024 COMP. METAB OLIC PANEL (14) albumin 4.1 g/dL 3.9-4. 9 Not Available [facility] ([facility]) [address] [place], [address], 06/28/2024 07:16:51 06/27/20 24 06/28/2024 COMP. METAB OLIC PANEL (14) globulin, total 2.7 g/dL 1.5-4. 5 Not Available [facility] ([facility]) [address] [facility] [place], [address], 06/28/2024 07:16:51 06/27/20 24 06/28/2024 COMP. METAB OLIC PANEL (14) bilirubin, total 0.2 mg/dL 0.0-1. 2 Not Available [facility] ([facility]) [address] [facility], [place], [address], 06/28/2024 07:16:51 06/27/20 24 06/28/2024 COMP. METAB OLIC PANEL (14) alkaline phosphatase 108 IU/L 44-121 Not Available [facility] ([facility]) [address] [facility] [place], [address], 06/28/2024 07:16:51 06/27/20 24 06/28/2024 COMP. METAB OLIC PANEL (14) AST (SGOT) 21 IU/L 0-40 Not Available [facility] ([facility]) [address] [facility] [place], [address], 06/28/2024 07:16:51 06/27/20 24 06/28/2024 COMP. METAB OLIC PANEL (14) ALT (SGPT) 17 IU/L 0-32 Not Available [facility] ([facility]) [address] [facility] [place], [address], 06/28/2024 07:16:51 06/27/20 24 06/28/2024 CBC, PLATE LET, NO DIFFE RENTI AL WBC 9.8 x10e3 /uL 3.4-10 .8 Not Available [facility] ([facility]) [address] [facility], [place], [address], 06/28/2024 07:16:51 06/27/2006/28/2024 CBC, PLATE LET, NO DIFFE RENTI AL RBC 4.43 x10e6 /uL 3.77-5 .28 Not Available [facility] ([facility]) [address] [facility], [place], [address], 06/28/2024 07:16:51 06/27/2006/28/2024 CBC, PLATE LET, NO DIFFE RENTI AL hemoglobin 12.5 g/dL 11.1-1 5.9 Not Available [facility] ([facility]) [address] [facility], [place], [address], 06/28/2024 07:16:51 06/27/2006/28/2024 CBC, PLATE LET, NO DIFFE RENTI AL hematocrit 40.8 % 34.0-4 6.6 Not Available [facility] ([facility]) [address] [facility], [place], [address], 06/28/2024 07:16:51 06/27/2006/28/2024 CBC, PLATE LET, NO DIFFE RENTI AL MCV 92 fL 79-97 Not Available [facility] ([facility]) [address] [facility], [place], [address], 06/28/2024 07:16:51 06/27/2006/28/2024 CBC, PLATE LET, NO DIFFE RENTI AL MCH 28.2 pg 26.6-3 3.0 Not Available [facility] ([facility]) [address] [facility], [place], [address], 06/28/2024 07:16:51 06/27/20 24 06/28/2024 CBC, PLATE LET, NO DIFFE RENTI AL MCHC 30.6 g/dL 31.5-3 5.7 below low normal Not Available [facility] ([facility]) [address] [facility], [place], [address], 06/28/2024 07:16:51 06/27/20 24 06/28/2024 CBC, PLATE LET, NO DIFFE RENTI AL RDW 13.6 % 11.7-1 5.4 Not Available [facility] ([facility]) [address] [place], [address], 06/28/2024 07:16:51 06/27/20 24 06/28/2024 CBC, PLATE LET, NO DIFFE RENTI AL platelets 319 x10e3 /uL 150-45 0 Not Available [facility] ([facility]) [address] [facility], [place], [address], 06/28/2024 07:16:51 06/27/20 24 07/03/2024 COMPL IANCE DRUG NOEL SIS, UR summary report (summary) FINAL ===== ===== ===== ===== ===== ===== ===== ===== ===== ===== ===== ===== ===== === TOXAS SURE COMP DRUG NOEL SIS,U R ===== ===== ===== ===== ===== ===== ===== ===== ===== ===== ===== ===== ===== === Test Resul t Flag Units Drug Prese nt Oxyco done 144 ng/mg creat Oxymo rphon e 205 ng/mg creat Norox ycodo ne 373 ng/mg creat Norox ymorp lilian 130 ng/mg creat Sourc es of oxyco done are sched uled presc ripti on medic ation s. Oxymo rphon e, norox ycodo ne, and norox ymorp lilian are expec su metab olite s of oxyco done. Oxymo rphon e is also avail able as a sched uled presc ripti on medic ation . Cyclo benza darby PRESE NT Desme thylc yclob enzap rine PRESE NT Desme thylc yclob enzap rine is an expec su metab olite of cyclo benza darby . Trazo done PRESE NT 1,3 chlor ophen yl piper azine PRESE NT 1,3-c hloro pheny l piper azine is an expec su metab olite of trazo done. Aceta minop hen PRESE NT ===== ===== ===== ===== ===== ===== ===== ===== ===== ===== ===== ===== ===== === Test Resul t Flag Units Ref Range Creat inine 176 mg/dL >=20 ===== ===== ===== ===== ===== ===== ===== ===== ===== ===== ===== ===== ===== === Decla red Medic ation s: Medic ation list was not provi ded. ===== ===== ===== ===== ===== ===== ===== ===== ===== ===== ===== ===== ===== === For clini hansel consu ltati on, pleas e call . ===== ===== ===== ===== ===== ===== ===== ===== ===== ===== ===== ===== ===== === Not Available [facility] ([facility]) [address] [facility], [place], [address], 07/03/2024 19:08:57 06/27/2007/03/2024 COMPL RJANI DRUG NOEL SIS, UR pdf . Not Available [facility] ([facility]) [address] [facility], [place], [address], 07/03/2024 19:08:57 07/31/20 24 08/01/2024 C pepti de [Mass /volu me] in Serum or Plasm a C-peptide 1.3 NG/mL low: 1.1NG/ mLhigh : 4.4NG/ mL C-Pep tide 1.3 1.1 - 4.4 ng/mL [facility] ACCOU NT BILL Not Available Not Available 02/05/2025 09:32:21 07/31/20 24 08/01/2024 C pepti de [Mass /volu me] in Serum or Plasm a Unknown Analyte [facility] at: 01 - [facility] [place] [id number] [facility] or: Jacki potter PhD, Not Available Not Available 09:32:21 07/31/20 24 08/01/2024 Compr ehens candida metab olic 2000 panel - Serum or Plasm a glucose [mass/volume ] in serum or plasma 97 mg/dL low: 70mg/d Lhigh: 99mg/d L Gluco se 97 70 - 99 mg/dL [facility] ACCOU NT BILL Not Available Not Available 02/05/2025 09:32:21 07/31/20 24 08/01/2024 Compr ehens candida metab olic 2000 panel - Serum or Plasm a BUN 13 mg/dL low: 6mg/dL high: 24mg/d L BUN 13 6 - 24 mg/dL [facility] ACCOU NT BILL Not Available Not Available 02/05/2025 09:32:21 07/31/20 24 08/01/2024 Compr ehens candida metab olic 2000 panel - Serum or Plasm a creatinine [mass/volume ] in serum or plasma 0.75 mg/dL low: 0.57mg /dLhig h: 1mg/dL Creat inine 0.75 0.57 - 1.00 mg/dL [facility] ACCOU NT BILL Not Available Not Available 02/05/2025 09:32:21 07/31/20 24 08/01/2024 Compr ehens candida metab olic 2000 panel - Serum or Plasm a glomerular filtration rate/1.73 sq M.predicted [volume rate/area] in serum, plasma or blood by creatinine-b ased formula (CKD-epi) 98 mL/mi n/1.7 3 low: 59mL/m in/1.7 3 eGFR by CKD-E PI 98 >59 mL/mi n/1.7 3 [facility] ACCOU NT BILL Not Available Not Available 02/05/2025 09:32:21 07/31/20 24 08/01/2024 Compr ehens candida metab olic 2000 panel - Serum or Plasm a BUN/creatini ne ratio 17 low: 9high: 23 BUN/C reati nine Ratio 17 9 - 23 [facility] ACCOU NT BILL Not Available Not Available 02/05/2025 09:32:21 07/31/20 24 08/01/2024 Compr ehens candida metab olic 2000 panel - Serum or Plasm a sodium 143 mmol/ L low: 134mmo l/Lhig h: 144mmo l/L Sodiu m 143 134 - 144 mmol/ L [facility] ACCOU NT BILL Not Available Not Available 02/05/2025 09:32:21 07/31/20 24 08/01/2024 Compr ehens candida metab olic 1999 panel - Serum or Plasm a potassium 4.1 mmol/ L low: 3.5mmo l/Lhig h: 5.2mmo l/L Potas sium 4.1 3.5 - 5.2 mmol/ L [facility] ACCOU NT BILL Not Available Not Available 02/05/2025 09:32:21 07/31/20 24 08/01/2024 Compr ehens candida metab olic 2000 panel - Serum or Plasm a chloride 101 mmol/ L low: 96mmol /Lhigh : 106mmo l/L Chlor dusty 101 96 - 106 mmol/ L [facility] ACCOU NT BILL Not Available Not Available 02/05/2025 09:32:21 07/31/20 24 08/01/2024 Compr ehens candida metab olic 1999 panel - Serum or Plasm a CO2 29 mmol/ L low: 20mmol /Lhigh : 29mmol /L CO2 29 20 - 29 mmol/ L [facility] ACCOU NT BILL Not Available Not Available 02/05/2025 09:32:21 07/31/20 24 08/01/2024 Compr ehens candida metab olic 1999 panel - Serum or Plasm a calcium 9.4 mg/dL low: 8.7mg/ dLhigh : 10.2mg /dL Calci um 9.4 8.7 - 10.2 mg/dL [facility] ACCOU NT BILL Not Available Not Available 02/05/2025 09:32:21 07/31/20 24 08/01/2024 Compr ehens candida metab olic 1999 panel - Serum or Plasm a protein total 6.9 g/dL low: 6g/dLh igh: 8.5g/d L Prote in Total 6.9 6.0 - 8.5 g/dL [facility] ACCOU NT BILL Not Available Not Available 02/05/2025 09:32:21 07/31/20 24 08/01/2024 Compr ehens candida metab olic 2000 panel - Serum or Plasm a albumin 4.3 g/dL low: 3.9g/d Lhigh: 4.9g/d L Album in 4.3 3.9 - 4.9 g/dL [facility] ACCOU NT BILL Not Available Not Available 02/05/2025 09:32:21 07/31/20 24 08/01/2024 Compr ehens candida metab olic 2000 panel - Serum or Plasm a globulin total 2.6 g/dL low: 1.5g/d Lhigh: 4.5g/d L Globu allan Total 2.6 1.5 - 4.5 g/dL [facility] ACCOU NT BILL Not Available Not Available 02/05/2025 09:32:21 07/31/20 24 08/01/2024 Compr ehens candida metab olic 2000 panel - Serum or Plasm a bilirubin total 0.3 mg/dL low: 0mg/dL high: 1.2mg/ dL Bilir ubin Total 0.3 0.0 - 1.2 mg/dL [facility] ACCOU NT BILL Not Available Not Available 02/05/2025 09:32:21 07/31/20 24 08/01/2024 Compr ehens candida metab olic 2000 panel - Serum or Plasm a alkaline phosphatase 110 text: 44 - 121 IU/L Alkal ine Phosp hatas e 110 44 - 121 IU/L [facility] ACCOU NT BILL Not Available Not Available 02/05/2025 09:32:21 07/31/20 24 08/01/2024 Compr ehens candida metab olic 2000 panel - Serum or Plasm a AST 14 text: 0 - 40 IU/L AST 14 0 - 40 IU/L [facility] ACCOU NT BILL Not Available Not Available 02/05/2025 09:32:21 07/31/20 24 08/01/2024 Compr ehens candida metab olic 2000 panel - Serum or Plasm a ALT 11 text: 0 - 32 IU/L ALT 11 0 - 32 IU/L [facility] ACCOU NT BILL Not Available Not Available 02/05/2025 09:32:21 07/31/20 24 08/01/2024 Compr ehens candida metab olic 2000 panel - Serum or Plasm a Unknown Analyte [facility] at: 01 - [facility] [place] [id number] [facility] Direct or: Jacki potter PhD, Not Available Not Available 09:32:21 07/31/20 24 07/31/2024 Hemog lobin A1c/H emogl obin. total in Blood hemoglobin A1C/hemoglob in.total in blood 6.8 % Hemog lobin A1c POCT 6.8 % Not Available Not Available 02/05/2025 09:32:21 07/31/20 24 07/31/2024 Hemog lobin A1c/H emogl obin. total in Blood expiration date 026 Expir ation Date 2025 Not Available Not Available 02/05/2025 09:32:21 07/31/20 24 07/31/2024 Hemog lobin A1c/H emogl obin. total in Blood lot or batch number [id number] Lot # [id number] Not Available Not Available 02/05/2025 09:32:21 07/31/20 24 07/31/2024 Hemog lobin A1c/H emogl obin. total in Blood QC verified Yes text: yes QC Verif ied Yes Yes Not Available Not Available 02/05/2025 09:32:21 10/31/20 24 11/01/2024 Micro album in/Cr eatin ine [Mass Ratio ] in Urine creatinine urine 184.87 mg/dL Creat inine Urine 184.8 7 mg/dL [facility] ACCOU NT BILL Not Available Not Available 12/31/2024 12:50:57 10/31/20 24 11/01/2024 Micro album in/Cr eatin ine [Mass Ratio ] in Urine microalbumin urine 1.1 mg/dL Micro album in Urine 1.1 mg/dL [facility] ACCOU NT BILL Not Available Not Available 12/31/2024 12:50:57 10/31/20 24 11/01/2024 Micro album in/Cr eatin ine [Mass Ratio ] in Urine microalbumin /creatinine [mass ratio] in urine 5 mg/g high: 30mg/g Micro album in/Cr eatin ine Ratio 5 <30 mg/g [facility] ACCOU NT BILL Not Available Not Available 12/31/2024 12:50:57 10/31/20 24 11/01/2024 Micro album in/Cr eatin ine [Mass Ratio ] in Urine Unknown Analyte [facility] at: [facility] [id number] , [place], [place] [id number] Lab Direct or: Lima Pearson [facility], Not Available Not Available 12:50:57 10/31/20 24 11/01/2024 Compr ehens candida metab olic 2000 panel - Serum or Plasm a glucose [mass/volume ] in serum or plasma 87 mg/dL low: 70mg/d Lhigh: 99mg/d L Gluco se 87 70 - 99 mg/dL [facility] ACCOU NT BILL Not Available Not Available 12/31/2024 12:50:57 10/31/20 24 11/01/2024 Compr ehens candida metab olic 2000 panel - Serum or Plasm a BUN 12 mg/dL low: 7mg/dL high: 26mg/d L BUN 12 7 - 26 mg/dL [facility] ACCOU NT BILL Not Available Not Available 12/31/2024 12:50:57 10/31/20 24 11/01/2024 Compr ehens candida metab olic 1999 panel - Serum or Plasm a creatinine [mass/volume ] in serum or plasma 0.77 mg/dL low: 0.57mg /dLhig h: 1.11mg /dL Creat inine 0.77 0.57 - 1.11 mg/dL [facility] ACCOU NT BILL Not Available Not Available 12/31/2024 12:50:57 10/31/20 24 11/01/2024 Compr ehens candida metab olic 1999 panel - Serum or Plasm a glomerular filtration rate/1.73 sq M.predicted [volume rate/area] in serum, plasma or blood by creatinine-b ased formula (CKD-epi) >90 text: >=90 mL/min /1.73 m2 eGFR by CKD-E PI >90 >=90 mL/mi n/1.7 3 m2 [facility] ACCOU NT BILL Not Available Not Available 12/31/2024 12:50:57 10/31/20 24 11/01/2024 Compr ehens candida metab olic 1999 panel - Serum or Plasm a sodium 147 mmol/ L low: 136mmo l/Lhig h: 145mmo l/L high Sodiu m 147 (H) 136 - 145 mmol/ L [facility] ACCOU NT BILL Not Available Not Available 12/31/2024 12:50:57 10/31/20 24 11/01/2024 Compr ehens candida metab olic 1999 panel - Serum or Plasm a potassium 4.1 mmol/ L low: 3.5mmo l/Lhig h: 5.1mmo l/L Potas sium 4.1 3.5 - 5.1 mmol/ L [facility] ACCOU NT BILL Not Available Not Available 12/31/2024 12:50:57 10/31/20 24 11/01/2024 Compr ehens candida metab olic 2000 panel - Serum or Plasm a chloride 110 mmol/ L low: 98mmol /Lhigh : 107mmo l/L high Chlor dusty 110 (H) 98 - 107 mmol/ L [facility] ACCOU NT BILL Not Available Not Available 12/31/2024 12:50:57 10/31/20 24 11/01/2024 Compr ehens candida metab olic 2000 panel - Serum or Plasm a CO2 25 mmol/ L low: 22mmol /Lhigh : 29mmol /L CO2 25 22 - 29 mmol/ L [facility] ACCOU NT BILL Not Available Not Available 12/31/2024 12:50:57 10/31/20 24 11/01/2024 Compr ehens candida metab olic 2000 panel - Serum or Plasm a calcium 9.2 mg/dL low: 8.4mg/ dLhigh : 10.4mg /dL Calci um 9.2 8.4 - 10.4 mg/dL [facility] ACCOU NT BILL Not Available Not Available 12/31/2024 12:50:57 10/31/20 24 11/01/2024 Compr ehens candida metab olic 2000 panel - Serum or Plasm a protein total 6.8 text: 6.4 - 8.3 gm/dL Prote in Total 6.8 6.4 - 8.3 gm/dL [facility] ACCOU NT BILL Not Available Not Available 12/31/2024 12:50:57 10/31/20 24 11/01/2024 Compr ehens candida metab olic 2000 panel - Serum or Plasm a albumin 4 text: 3.4 - 5.0 gm/dL Album in 4.0 3.4 - 5.0 gm/dL [facility] ACCOU NT BILL Not Available Not Available 12/31/2024 12:50:57 10/31/20 24 11/01/2024 Compr ehens candida metab olic 2000 panel - Serum or Plasm a bilirubin total 0.4 mg/dL low: 0.2mg/ dLhigh : 1.2mg/ dL Bilir ubin Total 0.4 0.2 - 1.2 mg/dL [facility] ACCOU NT BILL Not Available Not Available 12/31/2024 12:50:57 10/31/20 24 11/01/2024 Compr ehens candida metab olic 2000 panel - Serum or Plasm a alkaline phosphatase 121 U/L low: 40U/Lh igh: 150U/L Alkal ine Phosp hatas e 121 40 - 150 U/L [facility] ACCOU NT BILL Not Available Not Available 12/31/2024 12:50:57 10/31/20 24 11/01/2024 Compr ehens candida metab olic 2000 panel - Serum or Plasm a AST 20 U/L low: 5U/Lhi gh: 34U/L AST 20 5 - 34 U/L [facility] ACCOU NT BILL Not Available Not Available 12/31/2024 12:50:57 10/31/20 24 11/01/2024 Compr ehens candida metab olic 2000 panel - Serum or Plasm a ALT 17 U/L low: 0U/Lhi gh: 55U/L ALT 17 0 - 55 U/L [facility] ACCOU NT BILL Not Available Not Available 12/31/2024 12:50:57 10/31/20 24 11/01/2024 Compr ehens candida metab olic 2000 panel - Serum or Plasm a Unknown Analyte [facility] at: 01 - [facility] [address] , [facility], [place] [id number] Lab Direct or: Lima Pearson [facility], Not Available Not Available 12:50:57 10/31/20 24 11/01/2024 Compr ehens candida metab olic 2000 panel - Serum or Plasm a interpretati on and review of laboratory results Abnorm al Not Available Not Available 12:50:57 10/31/20 24 11/01/2024 Renal funct ion 1999 panel - Serum or Plasm a phosphorus 3.9 mg/dL low: 3mg/dL high: 4.3mg/ dL Phosp horus 3.9 3.0 - 4.3 mg/dL [facility] ACCOU NT BILL Not Available Not Available 12/31/2024 12:50:57 10/31/20 24 11/01/2024 Renal funct ion 2000 panel - Serum or Plasm a Unknown Analyte [facility] at: 01 - [facility] [address] [id number] Lab Direct or: Jacki potter PhD, Not Available Not Available 12:50:57 10/31/20 24 11/01/2024 Lipid 1996 panel - Serum or Plasm a cholesterol 158 mg/dL high: 200mg/ dL Delfina stero l 158 <200 mg/dL [facility] ACCOU NT BILL Not Available Not Available 12/31/2024 12:50:57 10/31/20 24 11/01/2024 Lipid 1996 panel - Serum or Plasm a triglyceride s 120 mg/dL high: 150mg/ dL Trigl yceri carlos 120 <150 mg/dL [facility] ACCOU NT BILL Not Available Not Available 12/31/2024 12:50:57 10/31/20 24 11/01/2024 Lipid 1996 panel - Serum or Plasm a HDL cholesterol 38 mg/dL low: 40mg/d L low HDL Delfina stero l 38 (L) >40 mg/dL [facility] RP ACCOU NT BILL Not Available Not Available 12/31/2024 12:50:57 10/31/20 24 11/01/2024 Lipid 1996 panel - Serum or Plasm a VLDL calculated 24 mg/dL high: 30mg/d L VLDL Calcu lated 24 <=30 mg/dL [facility] RP ACCOU NT BILL Not Available Not Available 12/31/2024 12:50:57 10/31/20 24 11/01/2024 Lipid 1996 panel - Serum or Plasm a cholesterol in LDL [mass/volume ] in serum or plasma by calculation 96 mg/dL high: 130mg/ dL LDL Calcu lated 96 <130 mg/dL [facility] RP ACCOU NT BILL Not Available Not Available 12/31/2024 12:50:57 10/31/20 24 11/01/2024 Lipid 1996 panel - Serum or Plasm a Unknown Analyte Perfor med at: 01 [facility] [id number], [place], [place] [id number] [address] [facility] or: Lima Pearson [facility], Not Available Not Available 12:50:57 10/31/20 24 11/01/2024 Lipid 1995 panel - Serum or Plasm a interpretati on and review of laboratory results Abnorm al Not Available Not Available 12:50:57 10/31/20 24 11/01/2024 Fruct osami ne [Mole s/vol ume] in Serum or Plasm a fructosamine 312 umol/ L low: 0umol/ Lhigh: 285umo l/L high Fruct osami ne 312 (H) 0 - 285 umol/ L LABCO RP ACCOU NT BILL Not Available Not Available 12/31/2024 12:50:57 10/31/20 24 11/01/2024 Fruct osami ne [Mole s/vol ume] in Serum or Plasm a Unknown Analyte Perfor med at: 01 - [facility] [address] [id number] Lab Direct or: Jacki potter PhD, Not Available Not Available 12:50:57 10/31/20 24 11/01/2024 Fruct osami ne [Mole s/vol ume] in Serum or Plasm a interpretati on and review of laboratory results Abnorm al Not Available Not Available 12:50:57 10/31/20 24 11/01/2024 25-hy droxy vitam in D3 [Mass /volu me] in Serum or Plasm a vitamin D, 25 hydroxy 24.6 NG/mL low: 30NG/m Lhigh: 80NG/m L low Vitam in D, 25 Lawrence xy 24.6 (L) 30 - 80 ng/mL LABCO RP ACCOU NT BILL Not Available Not Available 12/31/2024 12:50:57 10/31/20 24 11/01/2024 25-hy droxy vitam in D3 [Mass /volu me] in Serum or Plasm a Unknown Analyte Perfor med at: 01 - [facility] [address] , [facility], [place] [id number] 535 Lab Direct or: Lima Pearson [facility], Not Available Not Available 12:50:57 10/31/20 24 11/01/2024 25-hy droxy vitam in D3 [Mass /volu me] in Serum or Plasm a interpretati on and review of laboratory results Abnorm al Not Available Not Available 12:50:57 10/31/20 24 11/04/2024 Hemog lobin A1c/H emogl obin. total in Blood hemoglobin A1C/hemoglob in.total in blood 7.7 % Hemog lobin A1c POCT 7.7 % Not Available Not Available 12/31/2024 12:50:57 10/31/20 24 11/04/2024 Hemog lobin A1c/H emogl obin. total in Blood expiration date 2025 Expir ation Date 07/10 Not Available Not Available 12/31/2024 12:50:57 10/31/20 24 11/04/2024 Hemog lobin A1c/H emogl obin. total in Blood lot or batch number [id number] Lot # [id number] Not Available Not Available 12/31/2024 12:50:57 10/31/20 24 11/04/2024 Hemog lobin A1c/H emogl obin. total in Blood QC verified Yes text: yes QC Verif ied Yes Yes Not Available Not Available 12/31/2024 12:50:57 02/04/20 25 02/03/2025 Hemog lobin A1c/H emogl obin. total in Blood hemoglobin A1C/hemoglob in.total in blood 6.5 % Hemog lobin A1c POCT 6.5 % Not Available Not Available 02/05/2025 09:32:17 02/04/20 25 02/03/2025 Hemog lobin A1c/H emogl obin. total in Blood expiration date 026 Expir ation Date 2025 Not Available Not Available 02/05/2025 09:32:17 02/04/20 25 02/03/2025 Hemog lobin A1c/H emogl obin. total in Blood lot or batch number [id number] Lot # [id number] Not Available Not Available 02/05/2025 09:32:17 02/04/20 25 02/03/2025 Hemog lobin A1c/H emogl obin. total in Blood QC verified Yes text: yes QC Verif ied Yes Yes Not Available Not Available 02/05/2025 09:32:17 09/06/20 24 09/06/2024 XR, chest No observ ation record ed. [place] [id number], [place], [address], 09/18/2024 02:01:00 09/09/20 24 09/09/2024 XR, chest , 2 view No observ ation record ed. [email or web address] Not Available 2023 17:41:13 05/06/20 25 05/06/2025 lab* No observ ation record ed. [facility] [address] [place], [address], 05/06/2025 11:18:39 Result Notes None recorded. Problems Name Problem SNOMED Code Status Onset Date Resolution Date Notes Provider Name and Address Organization Details Recorded Time Pelvic abscess 819936269 Active 2018 Not Available [facility] 1 07:37:20 Lumbar radiculop athy 092202477 Active 2021 ALICE JOHNSON Attn: Accounting ,[address] [place], [address] , [place] - [facility] 2 13:20:15 Chronic neck pain 36745690780 07 Active 2021 C3-C7 replaced 2014 ALICE JOHNSON Attn: Accounting ,[address] [place], [address] , [place] - [facility] 2 11:06:19 Chronic low back pain 156360582 Active 2021 ALICE JOHNSON Attn: Accounting ,[address] [place], [address] , [place] - [facility] 2 20:14:35 Complaini ng of backache Active Not Available [facility] 1 07:37:19 Neck pain 26478216 Active ALICE JOHNSON Attn: Accounting ,[address] [place], [address] , [place] [facility] 2 10:41:23 Screening for malignant neoplasm of colon Active 2022 Jose Alejandro Molina MD Attn: Accounting ,[address] [place], [address] , [place] - [facility] 3 15:10:43 Insomnia 733485362 Active 2022 Jose Alejandro Molina MD Attn: Accounting ,[address] [place], [address] , [place] [facility] 3 15:15:33 Migraine 46265595 Active 2022 Jose Alejandro Molina MD Attn: Accounting ,[address] [facility], [place], [address] , [place] [facility] 3 16:09:49 Hearing disorder 706883903 Active 2022 Jose Alejandro Molina MD Attn: Accounting ,[address] [facility], [place], [address] , [place] [facility] 3 16:51:18 Magnetic resonance imaging of cervical spine abnormal 583855033 Active Not Available [facility] 1 07:37:20 Furuncle 745494182 Active 2023 Jose Alejandro Molina MD Attn: Accounting ,[address] [facility], [place], [address] , [place] - [facility] 4 15:44:36 Medicatio n monitorin g Active 2023 Jose Alejandro Molina MD Attn: Accounting ,[address] [facility], [place], [address] , [place] [facility] 4 15:52:14 Allergic rhinitis 37996263 Active 2023 Jose Alejandro Molina MD Attn: Accounting ,[address] [facility], [place], [address] , [place] - [facility] 4 12:57:09 Viral syndrome 923401733 Active 2024 Jose Alejandro Molina MD Attn: Accounting ,[address] [facility], [place], [address] , [place] [facility] 5 16:25:46 Chronic constipat ion 468477789 Active 2024 Jose Alejandro Molina MD Attn: Accounting ,[address] [facility], [place], [address] , [place] - [facility] 5 15:26:12 Gastroeso phageal reflux disease 767603574 Active ALICE JOHNSON Attn: Accounting ,[address] [facility], [place], [place], [address] [place] [address] , [facility] - [facility] 2 10:41:15 Anxiety 07343569 Active Not Available [facility] 1 07:37:20 Myocardia l infarctio n 65402803 Active admitted [place] and had 2 stents placed. ALICE JOHNSON Attn: Accounting ,[address] [facility], [place], [place], [address] [place] [address] , [facility] 2 20:46:11 Coronary arteriosc lerosis 99518080 Active CARLOS to ALEXIA 06/2020 ALICE JOHNSON Attn: Accounting ,[address] [facility], [place], [place], [address] [place] [address] , [facility] 2 14:27:44 Diabetes mellitus 92105034 Active ALICE JOHNSON Attn: Accounting ,[address] [facility], [place], [place], [address] [place] [address] , [facility] 2 10:41:03 Neuropath y due to diabetes mellitus 688141800 Active Not Available [facility] 1 07:37:19 Obesity 722030884 Active Not Available [facility] 1 07:37:19 Chronic back pain 420259324 Active ALICE JOHNSON Attn: Accounting ,[address] [facility], [place], [place], [address] [place] [address] , [facility] 2 10:41:10 Cramp in lower leg 489660435 Active out of Neurontin and Robaxin Not Available [facility] 1 07:37:20 Furunculo sis of skin AND/OR subcutane ous tissue Active Not Available [facility] 1 07:37:20 Problem Notes None recorded. Procedures Surgical History Date Name Laterality Status Provider Name and Address Organization Details Recorded Time 10/20/20 19 Date of Last Pap Smear completed Kate Yusuf MA [facility] 01/25/2021 11:11:17 10/20/20 19 Partial hysterectomy completed Kate Yusuf MA [facility] 07/03/2020 15:41:53 08/08/20 17 Diabetic Foot Exam completed Laura Byrd MA [facility] 08/08/2017 16:36:25 Imaging Results None recorded. Procedure Notes None recorded. Medical Equipment None Reported. Allergies Allergen ID Allergen Name Allergen Category Reaction Reaction Severity Criticality Documentation Date Start Date Code Code System Note Provider Name and Address Organization Details Recorded Time 048157 cyclobenz aprine medicatio n decreased blood pressure Not available Not available 07/03/2020 81469 RxNorm Kate Yusuf MA null, [place] - [facility] 0 15:39:15 [id number] metformin medicatio n nausea moderate Not available 01/25/2021 6809 RxNorm Mara Buck MD Attn: Accountannetta g,[address] [facility], [place], [address], [facility] 1 11:20:02 [id number] Jardiance medicatio n other moderate Not available 01/25/2021 36321 59 RxNorm yeast infec tions despi te fluco nazol e Mara Buck MD Attn: Accountin g,[address] [facility], [place], [address], [facility] 1 11:21:53 Medications Name Sig Start Date Stop Date Status Note LastModified by Organization Details LastModified Time Prescript ion - Prior Authoriza tion Request 02/08 completed prior authoriz ation Not Available Not Available Not Available eq calc citr+d3 200-250 tab TAKE 2 TABLETS BY MOUTH THREE TIMES DAILY active Not Available Not Available No t Available multivita min tablet TAKE 2 TABLETS BY MOUTH ONCE DAILY active Not Available Not Available No t Available losartan 50 mg tablet TAKE 1 TABLET BY MOUTH EVERY DAY 06/27 completed Not Available Not Available Not Available cyclobenz aprine 10 mg tablet TAKE 1 TABLET BY MOUTH THREE TIMES A DAY NEEDED active Not Available Not Available No t Available amoxicill in 500 mg capsule TAKE 1 CAPSULE BY MOUTH EVERY 6 HOURS FOR 7 DAYS active Not Available Not Available No t Available atorvasta tin 40 mg tablet TAKE 1 TABLET BY MOUTH EVERY DAY 12/07 completed Not Available Not Available Not Available methocarb kathy 500 mg tablet TAKE 1 TABLET BY MOUTH FOUR TIMES DAILY NEEDED 07/03 completed Not Available Not Available Not Available metformin 500 mg tablet TAKE 1 TABLET BY MOUTH TWICE DAILY 02/27 completed Not Available Not Available Not Available hydrocodo ne 7.5 mg-ibupro fen 200 mg tablet 03/18 completed Not Available Not Available Not Available albuterol sulfate 0.63 mg/3 mL solution for nebulizat ion INHALE 1 VIAL IN NEBULIZE R EVERY 6 HOURS active Not Available Not Available No t Available Novolin 70/30 U-100 Insulin 100 unit/mL subcutane ous suspensio n Inject 15 units twice a day by subcutan eous route. 09/19 completed Not Available Not Available Not Available BD Alcohol Swabs USE DIRECTED TWICE DAILY 06/28 completed Not Available Not Available Not Available atorvasta tin 80 mg tablet TAKE 1 TABLET BY MOUTH EVERY DAY 06/28 completed Not Available Not Available Not Available acetamino phen 325 mg tablet 07/17 completed Not Available Not Available Not Available prednison e 10 mg tablet TAKE 1 TABLET BY MOUTH ONCE DAILY IN THE MORNING WITH FOOD STARTING 08/28 active Not Available Not Available No t Available gabapenti n 600 mg tablet 06/28 completed Not Available Not Available Not Available atorvasta tin 20 mg tablet 09/12 completed Not Available Not Available Not Available nicotine 14 mg/24 hr daily transderm al patch 07/03 completed Not Available Not Available Not Available ketoconaz ole 2 % shampoo APPLY TO THE AFFECTED AREA(S), LATHER, LEAVE IN PLACE FOR 5 MINUTES, AND THEN RINSE OFF WITH WATER BY TOPICAL ROUTE ONCE DAILY 07/03 completed Not Available Not Available Not Available tizanidin e 2 mg tablet 09/19 completed Not Available Not Available Not Available trazodone 50 mg tablet TAKE 1 (ONE) TABLET BY MOUTH NIGHTLY NEEDED FOR INSOMNIA COURTESY REFILL 09/27 completed Not Available Not Available Not Available polyethyl chelle glycol 3350 17 gram oral powder packet 07/03 completed Not Available Not Available Not Available cetirizin e 10 mg tablet Take 1 tablet every day by oral route. 2023 active Not Available Not Available Not Avai lable aspirin 325 mg tablet TAKE 1 TABLET BY MOUTH EVERY DAY 07/17 completed Not Available Not Available Not Available ibuprofen 800 mg tablet TAKE 1 TABLET BY MOUTH THREE TIMES DAILY NEEDED FOR PAIN 08/02 completed Not Available Not Available Not Available Novolin N NPH U-100 Insulin isophane 100 unit/mL subcutane ous susp Inject 5 units every day by subcutan eous route at bedtime. 08/02 completed Not Available Not Available Not Available tizanidin e 4 mg tablet TK 1 T PO Q 8 HOURS PRN 08/02 completed Not Available Not Available Not Available fluconazo le 150 mg tablet TK 1 T PO QD 09/12 completed Not Available Not Available Not Available benzonata te 200 mg capsule TAKE 1 CAPSULE BY MOUTH THREE TIMES DAILY FOR 10 DAYS active Not Available Not Available No t Available metoprolo l succinate ER 50 mg tablet,ex tended release 24 hr 08/02 completed Not Available Not Available Not Available hydrocodo ne 5 mg-acetam inophen 325 mg tablet TAKE ONE TABLET BY MOUTH EVERY 6 HOURS NEEDED 06/27 completed Not Available Not Available Not Available promethaz ine 6.25 mg/5 mL oral syrup Take 10 mL 4 times a day by oral route as needed. 08/02 completed Not Available Not Available Not Available fluconazo le 200 mg tablet 03/18 completed Not Available Not Available Not Available meloxicam 15 mg tablet TAKE 1 TABLET BY MOUTH DAILY 08/02 completed Not Available Not Available Not Available FreeStyle Lancets 28 gauge TEST TWICE DAILY 06/28 completed Not Available Not Available Not Available ondansetr on HCl 4 mg tablet TAKE 1 TABLET BY MOUTH EVERY 6 HOURS NEEDED FOR NAUSEA OR VOMITING active Not Available Not Available No t Available prednison e 20 mg tablet TAKE 1 TABLET BY MOUTH EVERY 12 HOURS FOR 5 DAYS active Not Available Not Available No t Available isosorbid e mononitra te ER 30 mg tablet,ex tended release 24 hr TAKE 1 TABLET BY MOUTH EVERY DAY 07/17 completed Not Available Not Available Not Available ceftriaxo ne 250 mg solution for injection Take 250 mg as needed by injectio n route as directed for 1 day. 03/07 completed pt tolerate d injectio n well Not Available Not Available Not Available Zithromax Z-Tang 250 mg tablet TAKE 2 TABLETS (500 MG) BY ORAL ROUTE ONCE DAILY FOR 1 DAY THEN 1 TABLET (250 MG) BY ORAL ROUTE ONCE DAILY FOR 4 DAYS 03/18 completed Not Available Not Available Not Available sumatript an 50 mg tablet TAKE 1 TABLET EVERY DAY BY ORAL ROUTE NEEDED. active Not Available Not Available No t Available cyanocoba sonny (vit B-12) 1,000 mcg tablet Take 1 tablet every day by oral route before meals for 30 days. 06/27 completed Not Available Not Available Not Available penicilli n V potassium 500 mg tablet Take 1 tablet every 8 hours by oral route. 03/18 completed Not Available Not Available Not Available metronida zole 500 mg tablet 03/18 completed Not Available Not Available Not Available acetamino phen 300 mg-codein e 30 mg tablet TAKE 1 TABLET BY MOUTH EVERY 4 TO 6 HOURS NEEDED FOR PAIN active Not Available Not Available No t Available clopidogr el 75 mg tablet TAKE 1 TABLET BY MOUTH EVERY DAY active Not Available Not Available No t Available ciproflox acin 500 mg tablet 03/18 completed Not Available Not Available Not Available sulfameth oxazole 800 mg-trimet hoprim 160 mg tablet Take 1 tablet every 12 hours by oral route for 5 days. 07/03 completed Not Available Not Available Not Available hydrocodo ne 10 mg-acetam inophen 325 mg tablet 03/18 completed Not Available Not Available Not Available omeprazol e 40 mg capsule,d elayed release TAKE 1 CAPSULE BY MOUTH ONCE A DAY TAKE 1 CAPSULE BY MOUTH EVERY DAY active Not Available Not Available No t Available tramadol 50 mg tablet TAKE 1 TABLET BY MOUTH EVERY 6 HOURS NEEDED FOR 3 DAYS active Not Available Not Available No t Available acetamino phen 500 mg tablet active Not Available Not Available No t Available guaifenes in 100 mg/5 mL oral liquid TAKE 10 ML BY MOUTH EVERY 4 HOURS NEEDED FOR CONGESTI ON active Not Available Not Available No t Available bupropion HCl SR 100 mg tablet,12 hr sustained -release 08/02 completed Not Available Not Available Not Available glimepiri de 2 mg tablet TAKE 1 TABLET BY MOUTH TWICE DAILY 03/07 completed Not Available Not Available Not Available carvedilo l 3.125 mg tablet TAKE 1 TABLET BY MOUTH TWICE DAILY WITH MEALS 07/17 completed Not Available Not Available Not Available glimepiri de 1 mg tablet TAKE 1 TABLET BY MOUTH ONCE DAILY WITH BREAKFAS T HOLD BLOOD SUGAR IS UNDER 90 DO NOT DOSE AT DINNER TIME active Not Available Not Available No t Available pantopraz ole 20 mg tablet,de layed release Take 2 tablets every day by oral route for 30 days. 07/17 completed Not Available Not Available Not Available meloxicam 7.5 mg tablet TAKE 1 TABLET BY MOUTH DAILY 08/02 completed Not Available Not Available Not Available oxycodone -acetamin ophen 5 mg-325 mg tablet Take 1 tablet every 8 hours by oral route as needed. 03/18 completed Not Available Not Available Not Available isosorbid e mononitra te ER 60 mg tablet,ex tended release 24 hr TAKE 1 TABLET BY MOUTH EVERY DAY 06/27 completed Not Available Not Available Not Available amoxicill in 875 mg tablet 02/27 completed Not Available Not Available Not Available hydromorp lilian 2 mg tablet 03/18 completed Not Available Not Available Not Available alprazola m 0.25 mg tablet TK 1 T PO D PRA 08/02 completed Not Available Not Available Not Available famotidin e 20 mg tablet TAKE 1 TABLET BY MOUTH TWICE DAILY 02/08 completed Not Available Not Available Not Available magnesium oxide 400 mg (241.3 mg magnesium ) tablet 03/18 completed Not Available Not Available Not Available DOK 100 mg capsule 07/03 completed Not Available Not Available Not Available aspirin 325 mg tablet,de layed release TAKE 1 TABLET BY MOUTH EVERY DAY 07/17 completed Not Available Not Available Not Available oxycodone -acetamin ophen 10 mg-325 mg tablet TAKE 1 TABLET BY MOUTH TWICE DAILY NEEDED FOR PAIN FOR 14 DAYS active Not Available Not Available No t Available trazodone 100 mg tablet TAKE 1 TABLET BY MOUTH EVERYDAY AT BEDTIME active Not Available Not Available No t Available dicyclomi ne 20 mg tablet Take 1 tablet 4 times a day by oral route. 07/03 completed Not Available Not Available Not Available OneTouch Ultra Test strips USE 1 STRIP TO CHECK GLUCOSE 4 TIMES DAILY BEFORE MEAL(S) AND NIGHTLY active Not Available Not Available No t Available meclizine 25 mg tablet 03/18 completed Not Available Not Available Not Available baclofen 10 mg tablet TAKE 1 TABLET BY MOUTH EVERY 12 HOURS NEEDED FOR 6 DAYS 09/24 completed Not Available Not Available Not Available doxycycli ne monohydra te 100 mg capsule 03/07 completed Not Available Not Available Not Available hydrocodo ne 7.5 mg-acetam inophen 325 mg tablet TK 1 T PO BID 08/02 completed Not Available Not Available Not Available cephalexi n 500 mg capsule TAKE 1 CAPSULE BY MOUTH EVERY 6 HOURS FOR 10 DAYS 06/27 completed Not Available Not Available Not Available pantopraz ole 40 mg tablet,de layed release TAKE 1 TABLET BY MOUTH EVERY DAY active Not Available Not Available No t Available oseltamiv ir 75 mg capsule TAKE 1 CAPSULE BY MOUTH TWICE DAILY FOR 5 DAYS active Not Available Not Available No t Available Vitamin B-12 250 mcg tablet TAKE 2 TABLETS BY MOUTH ONCE DAILY active Not Available Not Available No t Available tobramyci n 0.3 % eye drops INSTILL 2 DROPS IN LEFT EYE EVERY 4 HOURS FOR 5 DAYS 12/07 completed Not Available Not Available Not Available meropenem 1 gram intraveno us solution 07/17 completed Not Available Not Available Not Available glimepiri de 4 mg tablet TAKE ONE TABLET BY MOUTH TWICE A DAY 06/28 completed Not Available Not Available Not Available hyoscyami ne 0.125 mg sublingua l tablet active Not Available Not Available Not Available lidocaine 5 % topical patch 06/27 completed Not Available Not Available Not Available ursodiol 300 mg capsule TAKE 1 CAPSULE BY MOUTH TWICE DAILY START POST SURGERY active Not Available Not Available No t Available Qvar 40 mcg/actua tion Metered Aerosol oral inhaler INHALE 2 PUFFS BY MOUTH TWICE DAILY 07/03 completed Not Available Not Available Not Available losartan 25 mg tablet TAKE 1 TABLET BY MOUTH DAILY 03/28 completed Not Available Not Available Not Available ibuprofen 400 mg tablet 03/18 completed Not Available Not Available Not Available nitroglyc prisca 0.4 mg sublingua l tablet DISSOLVE 1 TAB UNDER TONGUE EVERY 5 MINS NEEDED FOR CHEST PAIN. MAX TOTAL OF 3 DOSES IN 15 MINS active Not Available Not Available No t Available gabapenti n 300 mg capsule TAKE 1 CAPSULE BY MOUTH THREE TIMES DAILY 09/12 completed Not Available Not Available Not Available sertralin e 25 mg tablet 07/17 completed Not Available Not Available Not Available lidocaine HCl 2 % mucosal solution active Not Available Not Available Not Available omeprazol e 20 mg capsule,d elayed release TAKE 1 CAPSULE BY MOUTH DAILY active Not Available Not Available No t Available aspirin 81 mg chewable tablet CHEW AND SWALLOW 1 TABLET ONCE DAILY active Not Available Not Available No t Available folic acid 1 mg tablet TAKE 1 TABLET BY MOUTH EVERY DAY active Not Available Not Available No t Available ranitidin e 150 mg capsule TAKE ONE CAPSULE BY MOUTH TWICE DAILY 01/20 completed Not Available Not Available Not Available zolpidem 5 mg tablet Take 1 tablet every day by oral route at bedtime. 08/02 completed Not Available Not Available Not Available furosemid e 20 mg tablet TAKE 1 TABLET BY MOUTH EVERY DAY active Not Available Not Available No t Available metoprolo l succinate ER 25 mg tablet,ex tended release 24 hr TAKE 1 TABLET BY MOUTH EVERY DAY 06/27 completed Not Available Not Available Not Available diazepam 10 mg tablet TAKE 1 TABLET BY MOUTH 1 HOUR PRIOR TO PROCEDUR E, MAY CAUSE DROWSINE SS. DO NOT DRIVE 09/27 completed Not Available Not Available Not Available ibuprofen 600 mg tablet 03/18 completed Not Available Not Available Not Available scopolami ne 1 mg over 3 days transderm al patch UNWRAP AND APPLY 1 PATCH TO SKIN BEHIND EAR AT 8PM THE NIGHT PRIOR TO SURGERY ONCE FOR 1 DOSE active Not Available Not Available No t Available methylpre dnisolone 4 mg tablets in a dose pack FOLLOW PACKAGE DIRECTIO NS 06/27 completed Not Available Not Available Not Available albuterol sulfate HFA 90 mcg/actua tion aerosol inhaler INHALE 1 TO 2 PUFFS BY MOUTH EVERY 4 TO 6 HOURS NEEDED FOR WHEEZING FOR 10 DAYS active Not Available Not Available No t Available Vitamin D2 1,250 mcg (50,000 unit) capsule Take 1 capsule every week by oral route with meals for 30 days. 09/12 completed Not Available Not Available Not Available ketorolac 60 mg/2 mL intramusc ular solution Inject 2 mL by intramus cular route. 03/28 completed Not Available Not Available Not Available hydromorp lilian 4 mg tablet 03/18 completed Not Available Not Available Not Available ondansetr on 4 mg disintegr ating tablet DISSOLVE 1 TABLET ON THE TONGUE EVERY 8 HOURS FOR 3 DAYS 03/22 completed Not Available Not Available Not Available fluticaso ne propionat e 50 mcg/actua tion nasal spray,gracy pension USE 2 SPRAY(S) IN EACH NOSTRIL ONCE DAILY active Not Available Not Available No t Available sertralin e 50 mg tablet TAKE ONE TABLET BY MOUTH EVERY DAY 09/19 completed Not Available Not Available Not Available loratadin e 10 mg tablet Take 1 tablet every day by oral route in the morning for 30 days. 06/27 completed Not Available Not Available Not Available naproxen 500 mg tablet TAKE 1 TABLET BY MOUTH TWICE DAILY WITH FOOD 06/27 completed Not Available Not Available Not Available diazepam 5 mg tablet 09/27 completed Not Available Not Available Not Available amoxicill in 875 mg-potass ium clavulana te 125 mg tablet TAKE 1 TABLET BY MOUTH EVERY 12 HOURS FOR 10 DAYS 06/28 completed Not Available Not Available Not Available nicotine 7 mg/24 hr daily transderm al patch APPLY 1 PATCH TOPICALL Y ONCE A DAY 06/27 completed Not Available Not Available Not Available oxycodone 5 mg tablet TAKE 1 TABLET BY MOUTH TWICE A DAY FOR SEVERE PAIN NEEDED 09/27 completed Not Available Not Available Not Available Adult Low Dose Aspirin 81 mg tablet,de layed release Take 1 tablet every day by oral route. 12/07 completed Not Available Not Available Not Available Denta 5000 Plus 1.1 % cream PLACE A PEA SIZED AMOUNT ON TOOTHBRU SH AND BRUSH NIGHTLY, NO RINSING, EATING OR DRINKING FOR AT LEAST 30 MINUTES active Not Available Not Available No t Available insulin syringe U-100 with needle 1/2 mL 30 gauge 06/28 completed Not Available Not Available Not Available valsartan 40 mg tablet TAKE 1 TABLET BY MOUTH TWICE DAILY 09/19 completed Not Available Not Available Not Available Novolog Mix 70-30 FlexPen U-100 Insulin 100 unit/mL subcutane ous pen Inject 15 units twice a day by subcutan eous route. 09/19 completed Not Available Not Available Not Available metaxalon e 800 mg tablet TAKE 1 TABLET BY MOUTH ONCE DAILY NEEDED FOR PAIN active Not Available Not Available No t Available Novolog Mix 70-30 U-100 Insulin 100 unit/mL subcutane ous solution INJECT 15 UNITS UNDER THE SKIN TWICE DAILY WITH MORNING AND EVENING MEAL 09/19 completed Not Available Not Available Not Available Novolog FlexPen U-100 Insulin aspart 100 unit/mL (3 mL) subcutane ous active Not Available Not Available Not Available Nitroling ual 400 mcg/spray 08/02 completed Not Available Not Available Not Available rosuvasta tin 40 mg tablet TAKE 1 (ONE) TABLET BY MOUTH ONCE DAILY REPLACES ATORVAST ATIN 06/28 completed Muscle pain Not Available Not Available Not Available nitrofura ntoin monohydra te/macroc rystals 100 mg capsule 07/03 completed Not Available Not Available Not Available duloxetin e 30 mg capsule,d elayed release TAKE 1 CAPSULE BY MOUTH EVERY DAY 2024 active Not Available Not Available Not Avai lable duloxetin e 60 mg capsule,d elayed release TAKE 1 CAPSULE BY MOUTH ONCE DAILY DO NOT CRUSH OR CHEW active Not Available Not Available No t Available tizanidin e 6 mg capsule Take 1 capsule every 6 hours by oral route as needed for 30 days. 02/24 completed Not Available Not Available Not Available pregabali n 75 mg capsule TAKE 1 CAPSULE BY MOUTH TWICE DAILY active Not Available Not Available No t Available pregabali n 150 mg capsule TAKE 1 CAPSULE BY MOUTH TWICE DAILY active Not Available Not Available No t Available chlorhexi dine gluconate 0.12 % mouthwash active Not Available Not Available No t Available ranolazin e ER 500 mg tablet,ex tended release,1 2 hr 06/27 completed Not Available Not Available Not Available hydrocodo ne 5 mg-acetam inophen 300 mg tablet TAKE 1 TABLET BY MOUTH EVERY 6 HOURS NEEDED FOR PAIN 06/20 completed Not Available Not Available Not Available varenicli ne tartrate 0.5 mg (11)-1 mg (42) tablets in a dose pack FOLLOW PACKAGE DIRECTIO NS active Not Available Not Available No t Available Januvia 100 mg tablet TAKE 1 TABLET BY MOUTH DAILY 08/02 completed Not Available Not Available Not Available peg 3350 240 gram-elec trolytes 22.72 gram-6.72 g-5.84 g powdr for soln 07/03 completed Not Available Not Available Not Available Lantus Solostar U-100 Insulin 100 unit/mL (3 mL) subcutane ous pen active Not Available Not Available Not Available ranolazin e ER 1,000 mg tablet,ex tended release,1 2 hr active Not Available Not Available Not Available oxycodone 10 mg tablet 07/05 completed Not Available Not Available Not Available ropinirol e ER 2 mg tablet,ex tended release 24 hr TAKE 1 TABLET BY MOUTH EVERY DAY active Not Available Not Available No t Available calcium 200 mg (as citrate)- vitamin D3 6.25 mcg (250 unit) tablet TAKE 2 TABLETS BY MOUTH THREE TIMES DAILY active Not Available Not Available No t Available naproxen sodium ER (CR) 500 mg tablet,ex tended release 24 hr mphase TAKE 1 TABLET BY MOUTH DAILY NEEDED active Not Available Not Available No t Available [place] Calcium 200 mg-Vitami n D3 6.25 mcg (250 unit) tablet TAKE 2 TABLETS BY MOUTH THREE TIMES DAILY active Not Available Not Available No t Available Zirgan 0.15 % eye gel 06/27 completed Not Available Not Available Not Available Linzess 145 mcg capsule Take 1 capsule every day by oral route. 2024 active Not Available Not Available Not Avai lable Farxiga 5 mg tablet Take 1 tablet every day by oral route. 01/29 completed Not Available Not Available Not Available Tanzeum 30 mg/0.5 mL subcutane ous pen injector Inject 0.5 mL every week by subcutan eous route. 09/19 completed Not Available Not Available Not Available Jardiance 25 mg tablet Take 1 tablet every day by oral route. 01/25 completed Infectio ns Not Available Not Available Not Available Trulicity 1.5 mg/0.5 mL subcutane ous pen injector Inject 0.5 mL every week by subcutan eous route. 08/02 completed Not Available Not Available Not Available Tresiba FlexTouch U-100 insulin 100 unit/mL (3 mL) subcutane ous pen INJECT 82 UNITS SUBCUTAN EOUSLY AT BEDTIME WHILE TAKING STEROIDS active Not Available Not Available No t Available TRUEplus Pen Needle 32 gauge x 5/32 USE DIRECTED FOUR TIMES DAILY active Not Available Not Available No t Available Fiasp FlexTouch U-100 Insulin 100 unit/mL (3 mL) subcutane ous pen INJECT 62 UNITS SUBQ THREE TIMES A DAY BEFORE MEALS PLUS SLIDING SCALE 5 UNITS FOR EVERY 50MG/DL OVER 150MG/DL , 150MG/DL =5, 200MG/DL =10, 250MG/DL =15, 300MG/DL =20 (62 UNITS+0 UNITS GIVE THE DOSE AND active Not Available Not Available No t Available Ozempic 0.25 mg or 0.5 mg (2 mg/1.5 mL) subcutane ous pen injector 02/08 completed Not Available Not Available Not Available OneTouch Ultra Blue Test Strip TEST TWICE DAILY 02/08 completed Not Available Not Available Not Available Framehawk G6 Transmitt er device USE 1 EACH EVERY 90 DAYS REASONS: DIABETES 06/27 completed Not Available Not Available Not Available Novolin 70-30 FlexPen U-100 Insulin 100 unit/mL (70-30) subcutane ous Inject by subcutan eous route. 08/02 completed Not Available Not Available Not Available Wixela Inhub 100 mcg-50 mcg/dose powder for inhalatio n Inhale 1 puff twice a day by inhalati on route. 12/07 completed Not Available Not Available Not Available OneTouch Ultra2 Meter USE 1 EACH ONCE DAILY 06/28 completed Not Available Not Available Not Available OneTouch Delica Plus Lancet 33 gauge USE 1 TO CHECK GLUCOSE 4 TIMES DAILY active Not Available Not Available No t Available OneTouch Delica Plus Lancet 30 gauge 06/28 completed Not Available Not Available Not Available Nexletol 180 mg tablet TAKE 1 TABLET BY MOUTH EVERY DAY active Not Available Not Available No t Available Ozempic 1 mg/dose (4 mg/3 mL) subcutane ous pen injector INJECT 1MG INTO THE SKIN EVERY 7 DAYS 06/28 completed Not Available Not Available Not Available Mounjaro 7.5 mg/0.5 mL subcutane ous pen injector INJECT 7.5 MG UNDER THE SKIN EVERY 7 DAYS active Not Available Not Available No t Available Mounjaro 5 mg/0.5 mL subcutane ous pen injector INJECT 5 MG SUBCUTAN EOUSLY ONCE A WEEK active Not Available Not Available No t Available Mounjaro 15 mg/0.5 mL subcutane ous pen injector INJECT 15 MG UNDER THE SKIN EVERY 7 DAYS active Not Available Not Available No t Available Mounjaro 10 mg/0.5 mL subcutane ous pen injector active Not Available Not Available Not Available Mounjaro 12.5 mg/0.5 mL subcutane ous pen injector Inject 12.5 mg every week by subcutan eous route. 06/27 completed Not Available Not Available Not Available Dexcom G7 Sensor device CHANGE SENSOR EVERY 10 DAYS active Not Available Not Available No t Available Vitals Date Recorded Body height Respiratory rate Body mass index (BMI) Body weight Heart rate Oxygen saturation Oxygen saturation in Arterial blood by Pulse oximetry Systolic blood pressure Diastolic blood pressure Provider Name and Address Organization Details Last Updated DateTime 4 165.1 cm 18 /min 37.9 kg/m2 910743. 34 g 84 /min 98 % 98 % 115 mm[Hg] 80 mm[Hg] Reuben Mcadams MA [facility] 4 14:51:45 Date Recorded Body height Body mass index (BMI) Body weight Oxygen saturation Oxygen saturation in Arterial blood by Pulse oximetry Heart rate Systolic blood pressure Diastolic blood pressure Provider Name and Address Organization Details Last Updated DateTime 5 165.1 cm 29.3 kg/m2 77352.6 9 g 99 % 99 % 66 /min 114 mm[Hg] 72 mm[Hg] Marielena Olsen MA [facility] 5 14:39:16 Date Recorded Body height Body mass index (BMI) Body weight Heart rate Oxygen saturation Oxygen saturation in Arterial blood by Pulse oximetry Systolic blood pressure Diastolic blood pressure Provider Name and Address Organization Details Last Updated DateTime 5 165.1 cm 27.6 kg/m2 57073.3 3 g 74 /min 99 % 99 % 123 mm[Hg] 81 mm[Hg] Marielena Olsen MA [facility] 5 14:22:09 Date Recorded Body height Body mass index (BMI) Body weight Oxygen saturation Oxygen saturation in Arterial blood by Pulse oximetry Heart rate Systolic blood pressure Diastolic blood pressure Provider Name and Address Organization Details Last Updated DateTime 4 165.1 cm 34.4 kg/m2 39021.6 2 g 98 % 98 % 80 /min 112 mm[Hg] 74 mm[Hg] Cait Lundberg MA [facility] 4 15:04:45 Date Recorded Body height Body mass index (BMI) Body weight Heart rate Systolic blood pressure Diastolic blood pressure Provider Name and Address Organization Details Last Updated DateTime 165.1 cm 32.3 kg/m2 20048.9 2 g 74 /min 110 mm[Hg] 60 mm[Hg] Marielena Olsen MA [facility] 4 12:24:16 Social History Question Answer Notes LastModified by Organizat ion Details LastModified Time Tobacco Smoking Status Former Smoker Cigar Cait Lundberg MA [facility] 06/27/2024 15:04:14 Do You Have An Advance Directive? No Information n ot available 02/08/2022 Are You Blind Or Do You Have Difficulty Seeing? No Information n ot available 03/11/2021 What Is Your Level Of Caffeine Consumption? None Information not available 03/11/2021 How Much Tobacco Do You Chew? None Information not available 07/03/2020 In The 14 Days Before Symptom Onset, Have You Had Close Contact With A Laboratory-confirm ed COVID-19 While That Case Was Ill? No Information n ot available 03/11/2021 In The 14 Days Before Symptom Onset, Have You Had Close Contact With A Person Who Is Under Investigation For COVID-19 While That Person Was Ill? No Information not available 03/11/2021 Have You Been To An Area Known To Be High Risk For COVID-19? No Information not available 07/17/2020 Are You Deaf Or Do You Have Serious Difficulty Hearing? No Information not available 03/11/2021 What Type Of Diet Are You Following? DIABETIC Information n ot available 03/11/2021 Which Illicit Or Recreational Drugs Have You Used? None Information not available 07/03/2020 Education 2 Year College Information not available 07/03/2020 Are There Any Guns Present In Your Home? No Information not available 03/11/2021 Hard Of Hearing Or Deaf In One Or Both Ears? No Information not available 07/17/2020 Legally Blind In One Or Both Eyes? No Information no t available 07/17/2020 Marital Status Single Informatio n not available 07/03/2020 What Was The Date Of Your Most Recent Tobacco Screening? 04/24/2025 Information not available 04/24/2025 What Is Your Relationship Status? Information not available 03/11/2021 Do You Use Your Seat Belt Or Car Seat Routinely? Yes Information not available 03/11/2021 Are You Sexually Active? No Information not available 02/08/2022 Do You Have Smoke And Carbon Monoxide Detectors In Your Home? Yes Information not available 03/11/2021 At What Age Did You Start Smoking Tobacco? 16 Information not available 07/03/2020 Are You Passively Exposed To Smoke? Yes Information no t available 03/11/2021 Do You Use Sunscreen Routinely? No [email or web address] Information not available 03/22/2022 Has Tobacco Cessation Counseling Been Provided? Yes Information not available 01/25/2021 On What Date Was Tobacco Cessation Counseling Provided? 04/24/2025 Information not available 04/24/2025 Sex: Female Functional Status Question Answer Note LastModified by Organizat ion Details LastModified Time Do you use any illicit or recreational drugs? No Information not available 01/25/2021 Do you or have you ever used any other forms of tobacco or nicotine? No Information not available 01/25/2021 What is your level of alcohol consumption? Occasional Information not available 07/03/2020 Do you or have you ever used smokeless tobacco? Never used smokeless tobacco Information not available 07/03/2020 Are you currently employed? Yes Information not available 03/11/2021 Are you able to care for yourself? Yes Information not available 03/11/2021 What is your occupation? [employer] Information not available 03/11/2021 Do you or have you ever used e-cigarettes or vape? Never used electronic cigarettes Information not available 07/03/2020 Mental Status Question Answer Note LastModified by Organization D etails LastModified Time Do you feel stressed (tense, restless, nervous, or anxious, or unable to sleep at night)? [id number] Information not available 03/11/2021 Family History Relationship Description Onset Age of this Age Resolved Age Notes LastModified by Organization Details LastModified Time Mother Malignant tumor of breast [email or web address] Not available 07/17 15:34:28 Maternal Grandmother Malignant tumor of breast [email or web address] Not available 07/17 15:34:28 Medical History Condition Response Coronary Artery Disease N Other N Atrial Fibrillation N High Blood Pressure N Thyroid Problems N Kidney or Bladder Problems N GI Problems N Depression N COPD N Blood Clots N Eating Disorder N Skin Problems N Anemia N Heart Attack ([place]) N Diabetes N Anxiety Disorder N Muscle, Joint, or Bone Problems N Seizures/Epilepsy N Acid Reflux (GERD) N Cancer N Stroke N Asthma N Allergies N ADHD N Substance Abuse N High Cholesterol N Hepatitis N Liver Disease N Schizophrenia N Headaches N Osteoporosis N Heart Failure N Gynecological History Statement/Question Response Date of Last Mammogram Sexually Active? Y Menses Monthly N Date of Last Pap Smear 10/20/2019 Age at Menarche 13 Current Control Method Hysterectom y Age at First Child 19 LMP Unknown Obstetrics History GPAL:G 4 P 2 2 0 4 Type Value Multiple Births 0 Full Term 2 Induced 0 Spontaneous 0 Premature 2 Living 4 Ectopics 0 Total 4 Immunizations Vaccine Type Date Status Note Provider Nam e and Address Organization Details Recorded Time COVID-19, mRNA, LNP-S, PF, 100 mcg/0.5mL dose or 50 mcg/0.25mL dose 1 completed Not Available [facility] 10/05/2023 22:56:51 COVID-19, mRNA, LNP-S, PF, 100 mcg/0.5mL dose or 50 mcg/0.25mL dose 1 completed Not Available [facility] 10/05/2023 22:56:51 pneumococcal polysaccharide PPV23 5 completed Not Available [facility] 04/24/2025 14:07:52 COVID-19, mRNA, LNP-S, PF, 100 mcg/0.5mL dose or 50 mcg/0.25mL dose 2 completed Not Available [facility] 04/24/2025 14:07:52 Influenza, split virus, quadrivalent, PF 7 completed Not Available [facility] 12/07/2019 02:34:00 Influenza, split virus, quadrivalent, PF 9 completed Not Available [facility] 12/07/2019 02:38:43 Past Encounters Encounter ID Performer Location Encounter Start Date Encounter Closed Date Diagnosis/Indication Diagnosis SNOMED-CT Code Diagnosis ICD10 Code Diagnosis Note [id number] Florentino Chakraborty MD [facility] (Adult[facility]) [address] [place] [address] 11/12/2014 12:06:23 11/12/2014 14:31:52 Diabetes mellitus 34817507 diet and exercises. check BS frequently smaples of Victoza 1.2 given Essential hypertension 43958183 Neuropathy due to diabetes mellitus 089698097 continue current meds change Neurontin to 300 mg at bedtime. Obesity 675871906 diet a nd exercises. Chronic back pain 232984548 History of asthma 631279451 [id number] Florentino Chakraborty MD [facility] (Adult[facility]) [address] [place] [address] 05/20/2015 16:16:02 05/20/2015 17:22:10 Diabetes mellitus 04367348 Neuropathy due to diabetes mellitus 769079809 Essential hypertension 82412740 Neck pain 52684377 had surgery at [facility] [place] for c-spine [id number] Florentino Chakraborty MD [facility] (Adult[facility]Fa m [facility]) [address] [place] [address] 07/22/2015 16:03:25 07/22/2015 17:09:36 Chronic back pain 243587974 Diabetes mellitus 36297639 Neuropathy due to diabetes mellitus 120099250 Essential hypertension 27558912 History of asthma 775781292 Gastroesop hageal reflux disease 461798031 Neck pain 98699573 had surgery at [facility] [place] for c-spine Anxiety 52199291 admitte d to [facility] with altered LOC, place don Zoloft 50 mg po daily. [id number] Florentino Chakraborty MD [facility] (Adult/Fa m Med) [address] [place] [address] 12/08/2015 12:04:17 12/08/2015 17:59:06 Chronic back pain 463950532 R52 Diabetes mellitus 441424 09 E11.9 samples of Tanzium given to hold Ghislaine for now. Essential hypertension 22613956 I10 Coronary arteriosclerosis 35747829 I25.10 [id number] Florentino Chakraborty MD [facility] (Adult/Fa m [facility]) [address] [place] [address] 06/28/2016 11:40:24 06/28/2016 15:31:15 Diabetes mellitus 69344893 E11.9 labs next visit in 1 month Furunculos is of skin AND/OR subcutaneous tissue 49821357 L02.92 on scalp x 2 weeks. pt said that she used OTC Neosporin/ medicated shampoo but she is not getting any better. very tender small abscess at hair root/ follicles. will add Keflex 500 mg QID x 10 days / to wash her hair daily with Selsun Blue shampoo RTO in 1 month. [id number] Florentino Chakraborty MD [facility] (Adult/Fa [facility]) [address] [place] [address] 07/26/2016 12:03:17 07/26/2016 17:29:23 Diabetes mellitus 01113469 E11.9 continue all home meds. repeat labs Furunculos is of skin AND/OR subcutaneous tissue 40530239 L02.92 on scalp x 6 weeks continue Keflex 500 mg QID x 10 days / to wash her hair daily with ketoconazo le shampoo Derm consult if not getting any better. RTO in 1 month. Cramp in lower leg 11263 8009 R25.2 [id number] Florentino Chakraborty MD [facility] (Adult/Fa m Med) [address] [place] [address] 09/29/2016 11:25:03 09/30/2016 10:28:47 Diabetes mellitus 45948272 E11.9 continue all home meds. repeat labs Furunculos is of skin AND/OR subcutaneous tissue 02134835 L02.92 on scalp x 6 weeks continue Keflex 500 mg QID x 10 days / to wash her hair daily with ketoconazo le shampoo Derm consult if not getting any better. RTO in 1 month. [id number] Florentino Chakraborty MD [facility] (Adult/Fa m Med) [address] [place] [address] 07/06/2017 15:44:29 07/13/2017 08:51:27 Diabetes mellitus 89388483 E11.9 continue all home meds. repeat labswas taken off metformin and given Jardiance 10 mg po daily Coronary arteriosclerosis 47536335 I25.10 Chronic back pain 875829 002 R52 Neuropathy due to diabetes mellitus 367637957 E11.40 Obesity 353027380 E66.9 diet and exercises. Essential hypertension 65691547 I10 [id number] Florentino Chakraborty MD [facility] (Adult[facility]Fa m [facility]) [address] [place] [address] 08/08/2017 16:24:48 08/09/2017 10:39:45 Diabetes mellitus 09079326 E11.9 continue all home meds.alyssa nue Jardiance 10 mg po daily Coronary arteriosclerosis 68531377 I25.10 Chronic back pain 496690 002 R52 Gastroesop hageal reflux disease 951404900 K21.9 Infection of tooth 85475 8007 K04.7 [id number] Florentino Chakraborty MD [facility] (Adult[facility]Fa m [facility]) [address] [place] [address] 02/27/2018 11:49:50 03/05/2018 10:21:39 Diabetes mellitus 67720588 E11.9 continue all home meds. Chronic back pain 197995 002 R52 Essential hypertension 56514135 I10 Anxiety 58429745 F41.9 admitted to [facility] with altered LOC, place don Zoloft 50 mg po daily. [id number] Florentino Chakraborty MD [facility] (Adult/Fa m Med) [address] [place] [address] 03/15/2018 11:01:16 03/19/2018 12:09:53 Coronary arteriosclerosis 90667597 I25.10 had CP . seen in the ER at [place]. [facility]--> clotted 2 previous stents. had angioplast y and 2 new stentsback s on Plavix.koki landry obtain hospital records. [id number] Nabor Alicea DO [facility] ([facility]) [address] [place] [address] 07/19/2018 15:06:15 09/03/2018 17:35:00 Acute cervicitis 50933182 N72 History of urinary tract infection 3087246315 107 Z87.440 Family his tory of breast cancer 442510651 Z80.3 MOM has diabetes, breast cancer X 2 , first cousin only 32 y\o with breast cancer, Mat. G-MOM breast cancer. First mammograph y ordered today inquired r\t family Uncontroll ed type 2 diabetes mellitus 732634995 E11.65 Irregular periods 053534 07 N92.6 Discussed uncontroll ed diabetes & hyper androgenic states can cause irregular vaginal bleeding advised to f\u with PMD to get diabetes controlled will await U\S results from [facility] as directed to have sent to [facility] to r\o uterine fibroids r\t bleeding [id number] Florentino Chakraborty MD [facility] (Adult/Fa m Med) [address] [place] [address] 10/17/2018 12:01:24 10/17/2018 13:07:49 Coronary arteriosclerosis 06070352 I25.10 stable. F/U with cardiology Chronic back pain 052226 002 R52 stable Neuropathy due to diabetes mellitus 440592419 E11.40 Gastroesop hageal reflux disease 895942944 K21.9 Essential hypertension 28953035 I10 Diabetes mellitus 731790 09 E11.9 continue all home meds. Chronic pe lvic pain of female 237602095 R10.2 supposed to have surgery. needs clearance [id number] Florentino Chakraborty MD [facility] (Adult[facility]Fa m [facility]) [address] [place] [address] 01/29/2019 11:52:30 01/29/2019 13:21:06 Diabetes mellitus 89274557 E11.9 meds changed. on insulin now Coronary arteriosclerosis 28710310 I25.10 stable. F/U with cardiology Essential hypertension 47097669 I10 not controlled . Anxiety 75653671 F41.9 stable Pelvic abscess 162895556 N73.8 complicati ons of hesterocto myhad surgeryon IV antibiotic s/ PICC line [id number] Florentino Chakraborty MD [facility] (Adult/Fa m [facility]) [address] [place] [address] 03/07/2019 11:20:55 03/07/2019 12:27:20 Diabetes mellitus 06902722 E11.9 meds changed. on insulin now Coronary arteriosclerosis 55268748 I25.10 stable. F/U with cardiology Chronic back pain 931606 002 R52 stable Gastroesop hageal reflux disease 962275692 K21.9 Essential hypertension 01872137 I10 not controlled . Anxiety 46947797 F41.9 stable Pelvic abscess 382724505 N73.8 complicati ons of hysterecto myhad surgeryoff antibiotic s [id number] Florentino Chakraborty MD [facility] (Adult[facility]Fa m [facility]) [address] [place] [address] 2019 15:02:44 2019 16:15:00 Diabetes mellitus 74173427 E11.9 off insulin for nowadd steglatro 5 mg po daily x 4 weeks then go to 15 mg dailysampl es given Coronary arteriosclerosis 19485281 I25.10 stable. F/U with cardiology Essential hypertension 76352080 I10 not controlled . Anxiety 45088618 F41.9 stable Migraine 78353801 G43.90 9 seen in the [facility] neg work up Gastroesop hageal reflux disease 283747414 K21.9 Asthma 576525359 J45.90 9 [id number] Florentino Chakraborty MD [facility] (Adult[facility]Fa m Med) [address] [place] [address] 01/21/2020 13:59:07 01/21/2020 16:07:59 Diabetes mellitus 76308043 E11.9 off insulin for nowadd steglatro 15 mg dailysampl es given Essential hypertension 44861964 I10 better Hyperglycemia 72098072 R 73.9 Anxiety 28739909 F41.9 stable Coronary arteriosclerosis 66410129 I25.10 stable. F/U with cardiology Gastroesop hageal reflux disease 126971023 K21.9 Asthma 578182815 J45.90 9 Upper resp iratory infection 51316713 J06.9 [id number] Mara Buck MD [facility] [address] [place] [address] 07/03/2020 10:59:32 07/09/2020 20:50:01 Coronary arteriosclerosis in [place] artery 6907824316 107 I25.10 has had 3 stents in the heart. Type 2 ashley betes mellitus 05613763 E11.65 had been on Januvia Candidiasis of vagina 72 415086 B37.3 patient is at risk of vaginal yeast infections while on Jardiance, but it does decrease her cardiac risk factors. [id number] Mara Buck MD [facility] [address] [place] [address] 07/17/2020 15:01:44 07/20/2020 15:05:24 Chest pain on exertion 02528394 R07.89 To whom it may concern: [employer] may return to work but should not be exposed to high temperatur es, and she cannot do prolonged standing. She will need to take breaks and sit down several times a day. Yours truly, Mara Buck MD Persistent insomnia 1918003 G47.09 Coronary arteriosclerosis in [place] artery [id number] 107 I25.10 stents in 2017 and 2019 [id number] Mara Buck MD [facility] [address] [facility] [address] 08/10/2020 09:29:24 08/11/2020 10:56:19 [id number] Mara Buck MD [facility] [address] [facility] [address] 01/25/2021 11:04:02 02/01/2021 07:20:58 Type 2 diabetes mellitus 68653318 E11.65 had been on Januvia but it may no longer be covered on the 340b plan. Persistent insomnia 1919 10330 G47.09 uses melatonin gummies, 2-3 a night 5 mg each. Chronic back pain 935381 [address] is open on weekends Morbid obesity 480053999 E66.01 Patient advised on bariatric surgery and will check with her insurance plan to see what is available. BMI 39, comorbidit ies of diabetes and back pain. Adult heal th examination 082556319 Z00.00 [id number] Mara Buck MD [facility] [address] [place] [address] 03/11/2021 12:31:31 03/16/2021 13:37:06 Uncontrolled type 2 diabetes mellitus 399725559 E11.65 blood sugars in the 300s, nauseated, not eating much, can't lose weight, tired and weak Angina pectoris 45191810 0 I20.9 Screening mammography 24 685206 Z12.31 Diabetic p eripheral neuropathy 991456985 E11.40 Depression screening 171 005395 Z13.31 patient does not appear to be significan tly depressed. [id number] Mara Buck MD [facility] [address] [place] [address] 04/05/2021 09:54:02 04/06/2021 06:41:09 Adult health examination 815945857 Z00.00 [id number] ALICE GAYTAN [facility] [address] [place] [address] 08/02/2021 08:05:58 08/10/2021 12:19:08 Fracture of foot 66862653 S92.902A - RICE- f/u WITH podiatry- f/u here prn [id number] Reece roa MD [facility] [address] [place] [address] 12/07/2021 11:59:03 12/08/2021 07:34:51 Diabetes mellitus 13462427 E11.59 takes glimepirid e, ozempic, tresiba 36 units at night, fiasp 24 units + sliding scaleworki ng on diet and exercisefo llows with Dr. Delmi Forrest (Endocrine ), last visit 12/35188/1 8/22 a1c 8.6 Suspected COVID-19 72699 4004 Z20.822 COVID positive at home test 11/23/21sinu s drainagequ aratined for 10 days per work protocol and needs return to work formasympt omatic throughout quaratine and no sx todaycompl eted RTW form and gave to pt Depression screening 171 870534 Z13.31 PHQ 2 [id number] Reece roa MD [facility] [address] [place] [address] 02/08/2022 08:56:46 02/09/2022 08:54:36 Vitamin deficiency 88517058 E56.9 Vit B12- 753, folate 4.3 lab work yesterday at [facility] Diabetes mellitus 667698 09 E11.59 02/08/22: hgb a1c 6.9, appt with endocrine yesterday and had lab work done- CMP, lipid panel, Vit B12 and folate nl, glucose 227 (didn't take medicine), TSH 0.803post prandial drops after eating, when sleeping sugar elevateslo wered Fiasp, increased Tresiba 12/07/21:ta kes glimepirid e, ozempic, tresiba 36 units at night, fiasp 24 units + sliding scaleworki ng on diet and exercisefo llows with Dr. Delmi Forrest (Endocrine ), last visit 07/11 a1c 8.6 Chronic neck pain 009489 8644 107 M54.2 C3, C4 replaced 7 yrs agofeeling stiff w/ increased muscle tensionwou ld like to try muscle relaxertri ed flexeril in the past, caused low blood pressuretr ial tizanidine Numbness a nd tingling sensation of skin 0164003773 02 R20.2 m0fsdfcfb and thighslose s sensation for 1-2 minutesno known causeVit B12 normalendo crine referred to neurology Depression screening 171 188675 Z13.31 PHQ 7 [id number] Reece roa MD [facility] [address] [place] [address] 02/23/2022 14:13:11 02/25/2022 08:04:27 Hospital inpatient stay within past 30 days [id number] 106 Z76.89 Went to [facility] ED on 02/15/22 c/o radiating left sided chest pain and nausea that occurred at work. Took 4 nitros w/o relief. No worsened by position or movement or pleuritic chest pain. PEx nl, VSS. Serial troponins remain flat. WBC and H&H stable. CXR nl. EKG w/o changes. Cardiology would like admission. Per Cardiology outpatient office note:Card iac cath showed 20-30% and proximal RCA 50-60% stenosis. Pulm CT scan was negative for PE. Given IV lasix in hospital which helped with swelling. BS controlled at 6.8. Discharged on 02/19/22. Continues to have radiating pain down left arm, cardio increased isosorbide nitrate to 60 mg twice a day. Continues to have SOB which likely is due to asthma and allergies. Developed URI in hospital. Pt has smoked since discharge from hospital and encouraged to stop smoking.c /o left sided upper back pain with taking deep breathsenc ouraged ptfull cardiac w/u nlcontinue with compliance with medication sdiscussed EGD results of mild chronic gastritis, c/w omeprazole Chronic neck pain 974247 1899 107 M54.2 02/23/22: no relief with tizanidine or flexerilwo uld like to try different medication trial baclofen 02/08/22:C3 , C4 replaced 7 yrs agofeeling stiff w/ increased muscle tensionwou ld like to try muscle relaxertri ed flexeril in the past, caused low blood pressuretr ial tizanidine Depression screening 171 592255 Z13.31 PHQ 2 [id number] Reece roa MD [facility] [address] [place] [address] 03/22/2022 11:18:23 03/23/2022 09:27:40 Acute low back pain 464065759 M54.50 x3 daysno trauma or injuryno concerning sxusing heating pad and baclofenPE x- limited ROM of lumbar spine due to pain, TTP right sided lower paraspinal musclestor adol in officepred nisone x5 days, advised pt to take 24 hrs after toradol shotf/u in 1-2 wks if symptoms don't improvedis cussed exercises as tolerated after using heating padwork note until 03/24/22 [id number] Reece roa MD [facility] [address] [place] [address] 03/28/2022 11:04:41 03/29/2022 10:24:44 Acute low back pain 437032167 M54.50 03/28/22: no relief with toradol or prednisone using heating pad, tylenol, and baclofenca nnot use ibuprofen or meloxicam due to h/o MIPEx- limited ROM due to pain, can only perform lumbar flexion, paraspinal muscle tenderness to thoracic/l umbarencou raged to continue to do exercises and work on ROMRTW in 3 daysXR C, T, L spine 03/22/22:x3 daysno trauma or injuryno concerning sxusing heating pad and baclofenPE x- limited ROM of lumbar spine due to pain, TTP right sided lower paraspinal musclestor adol in officepred nisone x5 days, advised pt to take 24 hrs after toradol shotf/u in 1-2 wks if symptoms don't improvedis cussed exercises as tolerated after using heating padwork note until 03/24/22 Depression screening 171 297526 Z13.31 PHQ 5 [id number] Reece roa MD [facility] [address] [place] [address] 04/11/2022 15:27:44 04/12/2022 16:22:38 Motion sickness 57398452 T75.3XXA going on cruise in 6 daysreques ting motion sickness medication trial scopolamin e Acute low back pain 2788 75917 M54.50 04/11/22: went to ED on 04/08/2022 T lumbar showed bulging disc to L3-S1 and facet joint arthritis, given short script of hydrocodon e, decadron, and toradol w/ mild reliefupco john MRIestabli shing with new interventi onal pain in 3 daysPEx- unchangedr equesting FMLA paperwork for medical leave 03/28/22: no relief with toradol or prednisone using heating pad, tylenol, and baclofenca nnot use ibuprofen or meloxicam due to h/o MIPEx- limited ROM due to pain, can only perform lumbar flexion, paraspinal muscle tenderness to thoracic/l umbarencou raged to continue to do exercises and work on ROMRTW in 3 daysXR C, T, L spine 03/22/22:x3 daysno trauma or injuryno concerning sxusing heating pad and baclofenPE x- limited ROM of lumbar spine due to pain, TTP right sided lower paraspinal musclestor adol in officepred nisone x5 days, advised pt to take 24 hrs after toradol shotf/u in 1-2 wks if symptoms don't improvedis cussed exercises as tolerated after using heating padwork note until 03/24/22 Depression screening 171 932321 Z13.31 PHQ 5 [id number] Reece roa MD [facility] [address] [place] [address] 04/29/2022 11:21:38 05/03/2022 09:17:36 Chronic back pain 256776337 M54.15 04/29/22: going to PT twice a week, has to do PT until insurance approves injections by PMno relief with gabapentin 300 TID, PM is increasing per chart review, provider submitted paperwork on 04/13/22 for pt to RTW 1 wk after cruise which is todaypt thought that it was decided RTW was unknown due to uncontroll ed back painreport s she cannot work until her pain is under controlwil l fax extension letter to DM[employer] and medical leave [phone] 27RTW pending 06/21/22 04/11/22: went to ED on 04/08/2022 T lumbar showed bulging disc to L3-S1 and facet joint arthritis, given short script of hydrocodon e, decadron, and toradol w/ mild reliefupco john MRIestabli shing with new interventi onal pain in 3 daysPEx- unchangedr equesting FMLA paperwork for medical leave 03/28/22: no relief with toradol or prednisone using heating pad, tylenol, and baclofenca nnot use ibuprofen or meloxicam due to h/o MIPEx- limited ROM due to pain, can only perform lumbar flexion, paraspinal muscle tenderness to thoracic/l umbarencou raged to continue to do exercises and work on ROMRTW in 3 daysXR C, T, L spine 03/22/22:x3 daysno trauma or injuryno concerning sxusing heating pad and baclofenPE x- limited ROM of lumbar spine due to pain, TTP right sided lower paraspinal musclestor adol in officepred nisone x5 days, advised pt to take 24 hrs after toradol shotf/u in 1-2 wks if symptoms don't improvedis cussed exercises as tolerated after using heating padwork note until 03/24/22 [id number] Reece roa MD [facility] [address] [place] [address] 06/06/2022 14:55:42 06/07/2022 14:42:53 Body mass index 40+ - severely obese 526436116 Z68.41 refer to bariatric surgerysta michelle she is unable to exercise due to chronic pain Chest pain 81064354 R07. 9 5 days agooccurre d while in MRI [place] claustroph obicdescri bes as burning chest pain and tightness a/w headache, nausea, and dizziness, lasted 2-3 minwent to ED, EKG and echo normal, cardio consulted and not concernedp t had f/u with cardiologi st today, lab work and imaging from ED normalrefe rred pt to neurosurge ry and started tramadolre fill nitro Neck pain 84943977 M54.2 cardio referred to neurosurge ry Dr. Goddard and started tramadol [id number] Reece roa MD [facility] [address] [place] [address] 06/20/2022 12:37:40 06/21/2022 10:40:16 Chronic back pain 698783103 M54.15 06/20/22:pt reports she cannot perform her job duties and needs extension until max 6 monthsretu rn to work 09/22/22fol lowing with PM, they want to do neck injections pt had recent MRI of C spine, PCP did not receive resultscar kaycee referred pt to neurosurge onutll fax paperwork to 04/29/22: going to PT twice a week, has to do PT until insurance approves injections by PMno relief with gabapentin 300 TID, PM is increasing per chart review, provider submitted paperwork on 04/13/22 for pt to RTW 1 wk after cruise which is todaypt thought that it was decided RTW was unknown due to uncontroll ed back painreport s she cannot work until her pain is under controlwil l fax extension letter to [employer] and medical leave [phone] 27RTW pending 06/21/22 04/11/22: went to ED on 04/08/2022 T lumbar showed bulging disc to L3-S1 and facet joint arthritis, given short script of hydrocodon e, decadron, and toradol w/ mild reliefupco john MRIestabli shing with new interventi onal pain in 3 daysPEx- unchangedr equesting FMLA paperwork for medical leave 03/28/22: no relief with toradol or prednisone using heating pad, tylenol, and baclofenca nnot use ibuprofen or meloxicam due to h/o MIPEx- limited ROM due to pain, can only perform lumbar flexion, paraspinal muscle tenderness to thoracic/l umbarencou raged to continue to do exercises and work on ROMRTW in 3 daysXR C, T, L spine 03/22/22:x3 daysno trauma or injuryno concerning sxusing heating pad and baclofenPE x- limited ROM of lumbar spine due to pain, TTP right sided lower paraspinal musclestor adol in officepred nisone x5 days, advised pt to take 24 hrs after toradol shotf/u in 1-2 wks if symptoms don't improvedis cussed exercises as tolerated after using heating padwork note until 03/24/22 [id number] Reece roa MD [facility] [address] [facility] [place] [address] 08/12/2022 09:17:59 08/16/2022 09:20:06 Chronic back pain 211464606 M54.15 08/12/22:marissa selby with Dr. Goddard (neurosuge ), requested notes, ordered CT and XR of lower backL5-S1 biggest problem no surgery at this timereferr ing to Dr. Joyce PM, to start back injections , 3 injections then will follow-up with Dr. 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- pt expressed that since it is a state position they will not let her go back part timef/u before RTW on 09/22/22pt is going to [facility] for her birthday 09/19/22 06/20/22:pt reports she cannot perform her job duties and needs extension until max 6 monthsretu rn to work 09/22/22fol lowing with PM, they want to do neck injections pt had recent MRI of C spine, PCP did not receive resultscar kaycee referred pt to neurosurge jennie fax paperwork to 04/29/22: going to PT twice a week, has to do PT until insurance approves injections by PMno relief with gabapentin 300 TID, PM is increasing per chart review, provider submitted paperwork on 04/13/22 for pt to RTW 1 wk after cruise which is todaypt thought that it was decided RTW was unknown due to uncontroll ed back painreport s she cannot work until her pain is under controlwil frantz fax extension letter to [employer] and medical leave [phone] 27RTW pending 06/21/22 04/11/22: went to ED on 04/08/2022 T lumbar showed bulging disc to L3-S1 and facet joint arthritis, given short script of hydrocodon e, decadron, and toradol w/ mild reliefupco john MRIestabli shing with new interventi onal pain in 3 daysPEx- unchangedr equesting FMLA paperwork for medical leave 03/28/22: no relief with toradol or prednisone using heating pad, tylenol, and baclofenca nnot use ibuprofen or meloxicam due to h/o MIPEx- limited ROM due to pain, can only perform lumbar flexion, paraspinal muscle tenderness to thoracic/l umbarencou raged to continue to do exercises and work on ROMRTW in 3 daysXR C, T, L spine 03/22/22:x3 daysno trauma or injuryno concerning sxusing heating pad and baclofenPE x- limited ROM of lumbar spine due to pain, TTP right sided lower paraspinal musclestor adol in officepred nisone x5 days, advised pt to take 24 hrs after toradol shotf/u in 1-2 wks if symptoms don't improvedis cussed exercises as tolerated after using heating padwork note until 03/24/22 Body mass index 40+ - severely obese 949449219 Z68.41 refer to bariatric surgerysta michelle she is unable to exercise due to chronic pain [id number] Reece roa MD [facility] [address] [place] [address] 09/12/2022 10:59:52 09/14/2022 12:34:04 Chronic back pain 882091260 M54.15 08/12/22:fo llowing with Dr. Goddard (neurosurg [facility]), requested notes, ordered CT and XR of lower backL5-S1 biggest problem no surgery at this timereferr ing to Dr. Joyce PM, to start back injections , 3 injections then will follow-up with Dr. 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- pt expressed that since it is a state position they will not let her go back part timef/u before RTW on 09/22/22pt is going to [place] for her birthday 09/19/22 06/20/22:pt reports she cannot perform her job duties and needs extension until max 6 monthsretu rn to work 09/22/22fol lowing with PM, they want to do neck injections pt had recent MRI of C spine, PCP did not receive resultscar kaycee referred pt to neurosurge jennie fax paperwork to 04/29/22: going to PT twice a week, has to do PT until insurance approves injections by PMno relief with gabapentin 300 TID, PM is increasing per chart review, provider submitted paperwork on 04/13/22 for pt to RTW 1 wk after cruise which is todaypt thought that it was decided RTW was unknown due to uncontroll ed back painreport s she cannot work until her pain is under controlwil l fax extension letter to [employer] and medical leave [phone] 27RTW pending 06/21/22 04/11/22: went to ED on 04/08/2022 T lumbar showed bulging disc to L3-S1 and facet joint arthritis, given short script of hydrocodon e, decadron, and toradol w/ mild reliefupco john MRIestabli shing with new interventi onal pain in 3 daysPEx- unchangedr equesting FMLA paperwork for medical leave 03/28/22: no relief with toradol or prednisone using heating pad, tylenol, and baclofenca nnot use ibuprofen or meloxicam due to h/o MIPEx- limited ROM due to pain, can only perform lumbar flexion, paraspinal muscle tenderness to thoracic/l umbarencou raged to continue to do exercises and work on ROMRTW in 3 daysXR C, T, L spine 03/22/22:x3 daysno trauma or injuryno concerning sxusing heating pad and baclofenPE x- limited ROM of lumbar spine due to pain, TTP right sided lower paraspinal musclestor adol in officepred nisone x5 days, advised pt to take 24 hrs after toradol shotf/u in 1-2 wks if symptoms don't improvedis cussed exercises as tolerated after using heating padwork note until 03/24/22 Allergic rhinitis 815560 04 J30.9 headache for dayswent to UCtaking claritin during the day, benadryl at night Chronic low back pain 27 6192027 M54.50 max characters from chronic back pain 09/12/22:R TW on 09/22/22dis cussed with pt at length that since I am no longer managing her back pain and pt needs leave extension from work, she needs to contact pain management or neurosurge rypt reports she can be on leave from work for 2 yrs before her job is at riskdiscus sed RTW part-time, previously pt was told she cannot RTW with restrictio nsshe spoke with personnel at [facility] during visit, told pt that she needs to write letter that PCP is no longer signing extension leave paperwork, can RTW with restrictio ns if DMV signs off on itnext steroid injection r d injection epidural 10/2022, follows up with Dr. Goddard after 3rd injectionD matthew Goddard note on 08/04/22, won't see him until done with injection seriesddx with sacroiliit is, pseudoarth ritis after fusion or arthrodesi s, may warrant ALIF, C4-7 ACDF, trial SI injections reports she is unsure if she is going to [place] due to sinus issues [id number] MD Rhona Kwan (Adult Med) [address] [place] [address] 06/28/2023 13:54:20 07/04/2023 14:55:14 Morbid obesity 806313815 E66.01 Screening for malignant neoplasm of colon 185468409 Z12.11 Diabetes mellitus 307864 09 E11.59 Coronary arteriosclerosis 95222861 I25.10 Chronic low back pain 27 1357408 M54.50 Insomnia 821051494 G47.0 0 [id number] MD Rhona Kwan (Adult Med) [address] [place] [address] 08/29/2023 15:15:46 09/04/2023 15:42:03 Morbid obesity 651642744 E66.01 Migraine 46710890 G43.90 9 Hearing disorder 7339824 05 H91.92 [id number] MD Rhona Kwan (Adult Med) [address] [place] [address] 09/27/2023 17:06:00 10/05/2023 16:43:39 Chronic low back pain 355121690 M54.50 Diabetes mellitus 950827 09 E11.59 [id number] MD Rhona Kwan (Adult Med) [address] [place] [address] 10/18/2023 16:07:09 10/20/2023 11:40:46 Chronic low back pain 521812735 M54.50 [id number] MD Rhona Kwan (Adult Med) [address] [place] [address] 12/20/2023 14:33:14 12/21/2023 16:03:58 Chronic low back pain 754048990 M54.50 Diabetes mellitus 840664 09 E11.59 Coronary arteriosclerosis 81439193 I25.10 [id number] MD Rhona Kwan (Adult Med) [address] [place] [address] 06/27/2024 14:54:56 06/28/2024 20:03:29 Furuncle 593789695 L02.92 Continue topical treatment Chronic low back pain 27 4502729 M54.50 Diabetes mellitus 452063 09 E11.59 Gastroesop hageal reflux disease 117120358 K21.9 Medication monitoring 39 7791745 Z51.81 [id number] MD Rhona Kwan (Adult Med) [address] [place] [address] 09/24/2024 11:53:57 09/26/2024 11:59:04 Obesity 427439104 E66.9 Allergic rhinitis 120848 04 J30.9 Chronic low back pain 27 6903200 M54.50 [id number] MD Rhona Kwan (Adult Med) [address] [place] [address] 01/22/2025 14:19:37 01/23/2025 13:11:31 Chronic low back pain 133968313 M54.50 Diabetes mellitus 793510 09 E11.59 Myocardial infarction 22 623284 I21.9 Chronic constipation 236 028550 K59.09 [id number] MD Rhona Kwan (Adult Med) [address] [place] [address] 04/24/2025 14:04:36 04/25/2025 12:36:27 Diabetes mellitus 20949582 E11.59 Coronary arteriosclerosis 94350177 I25.10 Myocardial infarction 22 358686 I21.9 Chronic low back pain 27 5630360 M54.50 Health Concerns Section Related Observation LastModified by Organization Detai ls LastModified Time None Recorded Concern Status LastModified by Organization Details LastModified Time None Recorded Advance Directives Directive N: Payers Insurance Date Sequence Insurance Name Policy Number Policy Salas Covered Member ID Salas Member ID Guarantor Name 10/25/2022 2 [facility] - DOS ON OR AFTER 21 (MEDICAID REPLACEMENT - HMO) Pagetalha MolinaTalon chen [id number] Page Silvino 09/13/2022 1 [facility] - DOS ON OR AFTER 2020 - DUAL ELIGIBLE (MEDICARE REPLACEMENT/ ADVANTAGE - HMO) Page Mamie chen [id number] Page Silvino 03/11/2021 2 [employer] (POS II) [id number] Pagetalha MolinaTalon chen [id number] Page Silvino 01/22/2025 2 [employer] [facility] [facility] [place] ON [place] AFTER 2020 (MEDICAID REPLACEMENT - HMO) Page Juradort [id number] Page Silvino 03/11/2021 1 [employer] (POS) [id number] Page R Mamie chen [id number] Page Silvino 03/11/2021 1 [facility] (MEDICAID HMO) [id number] Page Juradort [id number] Page Silvino 03/11/2021 1 [facility] - DOS PRIOR TO 2021 (MEDICAID REPLACEMENT - HMO) Page Juradort [id number] Page Silvino 09/27/2023 1 [facility] BENEFITS PLAN (PPO) [id number] Page Mamie chen [id number] Page Silvino 09/13/2022 1 [facility] BENEFITS PLAN (PPO) Page chen [id number] OI Page Silvino 04/24/2025 2 [employer] (POS II) [id number] Page Silvino [id number] Page Silvino 04/24/2025 2 [employer] [place] - [place] ON [place] AFTER 2020 (MEDICAID REPLACEMENT - HMO) Page Silvino [id number] Page Silvino 04/24/2025 1 [employer] - OPEN ACCESS [id number] Page Silvino [id number] OI Page Silvino 12/20/2023 1 [facility] (MEDICAID HMO) [id number] Page Elías [id number] Page Silvino 12/20/2023 [facility] - DOS ON OR AFTER 21 (MEDICAID REPLACEMENT - HMO) Page Elías [id number] Page Silvino 01/22/2025 2 [employer] (POS II) Benedict Silvino [id number] Page Silvino 04/24/2025 1 [place] [employer] Page Elías [id number] Page Silvino 01/22/2025 2 [employer] [facility] ON [place] AFTER 2020 (MEDICAID REPLACEMENT - HMO) Page Elías [id number] Page Silvino 11/17/2021 1 [employer] - DOS PRIOR TO 21 - [facility] BENEFITS PLAN Page Padilla Gigitayaaurelia chen [id number] Page Silvino 08/29/2023 2 [place] Page Elías [id number] Page Silvino Notes Date Note Type Note Provider Name and Address Organization Details Recorded Time 12/20/2023 text/html Recently admitte d for chest pain. Cardiac cath reportedly unremarkable. Scheduled to see bariatric surgeon in two weeks Jose Alejandro Molina MD Attn: Accounting[address] [place], [address], [facility] [facility]2023 15:35:57 06/27/2024 text/html Seen in urgent care for furuncles not related to sites of incision related to recent gastric bypass. Needs a letter for a emotional support animal. Jose Alejandro Molina MD Attn: Accounting,[address] [facility], [place], [address], [facility] 06/27/2024 15:53:13 09/24/2024 text/html Seen in ED X2 in the past three weeks because of worsening SOB, chest pain. Sx initially while in [place] including cough, sorethroat, rhinitis. Sx intermittent after being moved to another room but worsened after returning to the [place]. No acute changes on CXR. Now experiences stuffiness at night and nasal drainage throughuot the day. Occasional leg swelling Jose Alejandro Molina MD Attn: Accounting,[address] [facility], [place], [address], [place] [facility] 09/24/2024 13:07:03 01/22/2025 text/html Here for routine f/u. Had dental work in past week and increased her pain relief use. Has had problems with constipation Jose Alejandro Molina MD Attn: Accounting,[address] [place], [address], [facility] 01/22/2025 15:28:36 04/24/2025 text/html Here for routine f/u. Needs new referral to PM. Jose Alejandro Molina MD Attn: Accounting,[address] [place], [address], [place] [facility] 04/24/2025 15:04:29 OBGyn Episode No OBEpisode recorded.
--- OUTSIDE RECORDS SUMMARY | 2025-05-07 11:39 | XMS_ITS | CONTINUITY OF CARE DOCUMENT ---
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 Name Role Phone Lukas JUAN, Kirby Unavailable TRACY JUAN, LEONORA Cuellar Unavailable LEONORA MOLINA MD Unavailable [phone] PROBLEMS Condition Status Date Provider Notes Chest pain active Kirby Gaytan MD B12 deficiency active Darek Dailey MD Iron deficiency active Darek Dailey MD Vitamin D deficiency active Darek Ybarra Hypercholesterolemia active Kirby Gaytan MD Diabetes mellitus active Kirby Gaytan MD CAD - TONY LAD 09/09, 60% RCA , other old stents patent active Rolan Sinclair HTN essential--echo ef 65%, 2018 active Bashir Gaytan MD Tobacco abuse cigars active Kirby Gaytan MD Asthma active Kirby Gaytan MD Angina, chronic--stress nuc normal 06/2023 active Kirby Gaytan MD Palpitations active Kirby Gaytan MD GERD active Kirby Gaytan MD Glaucoma active Kirby Gaytan MD Abdominal pain active Kirby Gaytan MD Shortness of breath active Rolan Sinclair sleep apnea on cpap active Kirby Gaytan MD Claudication active Kirby Gaytan MD Chronic back pain active Kirby Gaytan MD Preoperative cardiovascular evaluation completed - Kirby Gaytan MD Cardiology examination completed 4 - Kirby Gaytan MD Obesity s/p wt loss surgery 2023 active Bashir Gaytan MD ENCOUNTERS Date Type Provider Location Encounter Diag nosis - In-person encounter Office Visit Kirby Gaytan MD [facility] Cardiology examinationObesity s/p wt loss surgery 2023 - In-person encounter Office Visit Kirby Gaytan MD [facility] - In-person encounter Office Visit Kirby Gaytan MD [facility] - In-person encounter Office Visit Kirby Gaytan MD [facility] - In-person encounter Office Visit Kirby Gaytan MD [facility] - In-person encounter Office Visit Kirby Gaytan MD [facility] Preoperative cardiovascular evaluation - In-person encounter Office Visit Kirby Gaytan MD [facility] - In-person encounter Office Visit Kirby Gaytan MD [facility] - In-person encounter Office Visit Kirby Gaytan MD [facility] Angina, chronic--stress nuc normal 06/2023 - In-person encounter Office Visit Kirby Gaytan MD [facility] CAD - TONY LAD 09/09, 60% RCA, other old stents patent - In-person encounter Office Visit Kirby Gaytan MD [facility] - In-person encounter Office Visit Kirby Gaytan MD [facility] - In-person encounter Office Visit Kirby Gaytan MD [facility] - In-person encounter Office Visit Kirby Gaytan MD [facility] Chronic back pain - In-person encounter Office Visit Kirby Gaytan MD [facility] Shortness of breath - In-person encounter Office Visit Kirby Gaytan MD [facility] - In-person encounter Office Visit Kirby Gaytan MD [facility] - In-person encounter Office Visit Kirby Gaytan MD [facility] Office CAD - TONY LAD 09/09, 60% RCA, other old stents patentHTN essential--echo ef 65%, 2018Angina, chronic--stress nuc normal 06/2023 - In-person encounter Office Visit Kirby Gaytan MD [facility] - In-person encounter Office Visit Kirby Gaytan MD [facility] - In-person encounter Office Visit Kirby Gaytan MD [facility] - In-person encounter Office Visit Kirby Gaytan MD [facility] - In-person encounter Office Visit Kenji Bailey MD [facility] - In-person encounter Office Visit Kirby Gaytan MD [facility] - In-person encounter Office Visit Kirby Gaytan MD [facility] CAD - TONY LAD 09/09, 60% RCA, other old stents patent - In-person encounter Office Visit Kirby Gaytan MD [facility] - In-person encounter Office Visit Kirby Gaytan MD [facility] - In-person encounter Office Visit Kirby Gaytan MD [facility] - In-person encounter Office Visit Kirby Gaytan MD [facility] - In-person encounter Office Visit Kirby Gaytan MD [facility] - In-person encounter Office Visit Kirby Gaytan MD [facility] Shortness of breathsleep apnea on cpapClaudication - In-person encounter Office Visit Kirby Gaytan MD [facility] - In-person encounter Office Visit Kirby Gaytan MD [facility] Tobacco abuse cigarsGERDGlaucomaAbdominal painShortness of breath - In-person encounter Office Visit Kirby Gaytan MD [facility] CAD - TONY LAD 10/21, 60% RCA, other old stents patent - In-person encounter Office Visit Kirby Gaytan MD [facility] - In-person encounter Office Visit Kirby Gaytan MD [facility] Palpitations - In-person encounter Office Visit Kirby Gaytan MD [facility] CAD - TONY LAD 10/21, 60% RCA, other old stents patent - In-person encounter Office Visit Kirby Gaytan MD [facility] CAD - TONY LAD 10/21, 60% RCA, other old stents patent - In-person encounter Office Visit Kirby Gaytan MD [facility] CAD - TONY LAD 10/21, 60% RCA, [facility] V[facility] SIGNS Date Observation Value Provider Body Mass Index (Ratio) 27.52 kg/m2 Baldemar Oliveira blood pressure, diastolic 84 mm[Hg] Macario Ochoa blood pressure, systolic 126 mm[Hg] Sarah Ochoa oxygen saturation, oximetry 98 % Kelsie [facility] pulse rate 82 /min [facility] E&M 165.4 [lb_av] [facility] height E&M 65 [in_i] [facility], cuff size regular Macario meredith Bjelevac Body Mass Index (Ratio) 33.28 kg/m2 Rolan Ahmedzai blood pressure, diastolic 82 mm[Hg] Li nkLogic blood pressure, systolic 123 mm[Hg] Freda kLogic oxygen saturation, oximetry 98 % Elke Ruple pulse rate 68 /min Elke [facility] blood pressure, diastolic 82 mm[Hg] Ka yla Ruple blood pressure, systolic 123 mm[Hg] Eri la Ruple weight E&M 200 [lb_av] Elke [facility] height E&M 65 [in_i] Elke [facility] Body Mass Index (Ratio) 33.78 kg/m2 Rolan Delunazai oxygen saturation, oximetry 98 % Madeleine Salgado weight E&M 203 [lb_av] Madeleine Salgado blood pressure, cuff size regular Ta bitha Salgado blood pressure, diastolic 74 mm[Hg] Ta bitha Salgado blood pressure, systolic 124 mm[Hg] Tab itha Salgado pulse rate 82 /min Madeleine Salgado respiratory rate E&M 12 /min Madeleine Salgado height E&M 65 [in_i] Madeleine Salgdao Body Mass Index (Ratio) 34.94 kg/m2 Christiano Gaytan MD blood pressure, cuff size regular Ke rri Gruenenfelder blood pressure, diastolic 72 mm[Hg] Ke rri Gruenenfelder blood pressure, systolic 124 mm[Hg] Ker ri Gruenenfelder respiratory rate E&M 12 /min Gladis G ruenenfelder pulse rate 70 /min Gladis Gruenekyara lder weight E&M 210 [lb_av] Gladis Bone [facility] height E&M 65 [in_i] Gladis Bone [facility] Body Mass Index (Ratio) 37.27 kg/m2 [facility] blood pressure, cuff size regular Fa [facility] blood pressure, diastolic 84 mm[Hg] [facility] blood pressure, systolic 121 mm[Hg] [facility] pulse rate 94 /min [facility] oxygen saturation, oximetry 96 % [facility] respiratory rate E&M 18 /min [facility] iller weight E&M 224 [lb_av] [facility] height E&M 65 [in_i] [facility] Body Mass Index (Ratio) 37.94 kg/m2 [facility] weight E&M 228 [lb_av] [facility] height E&M 65 [in_i] [facility] pulse rate 80 /min [facility] blood pressure, cuff size regular [facility] blood pressure, diastolic 78 mm[Hg] [facility] blood pressure, systolic 119 mm[Hg] [facility] oxygen saturation, oximetry 98 % [facility] respiratory rate E&M 16 /min [facility] iller Body Mass Index (Ratio) 38.44 kg/m2 Rolan Sinclair pulse rate 96 /min [facility] blood pressure, cuff size regular Fa [facility] blood pressure, diastolic 73 mm[Hg] [facility] blood pressure, systolic 136 mm[Hg] [facility] oxygen saturation, oximetry 98 % [facility] respiratory rate E&M 16 /min [facility] iller weight E&M 231 [lb_av] [facility] height E&M 65 [in_i] Nola Salgado Body Mass Index (Ratio) 37.11 kg/m2 Michael Veliz blood pressure, cuff size large Ja rret blood pressure, diastolic 83 mm[Hg] Ja rret blood pressure, systolic 132 mm[Hg] Jar ret pulse rate 96 /min Pawan y oxygen saturation, oximetry 99 % Pawan respiratory rate E&M 12 /min Pawan weight E&M 223 [lb_av] Pawan y height E&M 65 [in_i] Pawan y Body Mass Index (Ratio) 36.61 kg/m2 Christiano Gaytan MD weight E&M 220 [lb_av] Zena Angel pulse rate 97 /min Zena Angel blood pressure, diastolic 80 mm[Hg] lia Angel oxygen saturation, oximetry 98 % Zena Angel respiratory rate E&M 97 /min Zena Angel blood pressure, cuff size regular lia Angel blood pressure, systolic 123 mm[Hg] She karentiff Jeanne height E&M 65 [in_i] Zena Angel Body Mass Index (Ratio) 36.44 kg/m2 Patricia jonathan Fitzgeraldhse blood pressure, cuff size large Ke rri Rosendouenenfelder blood pressure, diastolic 70 mm[Hg] Ke rri Rosendouenenfelder blood pressure, systolic 122 mm[Hg] Reji Stubbsnenfeldanupama oxygen saturation, oximetry 97 % Gladis Nat respiratory rate E&M 12 /min Gladis harmaneldanupama pulse rate 97 /min Gladis Bone lder weight E&M 219 [lb_av] Gladis Bone [facility] height E&M 65 [in_i] Gladis Bone [facility] Body Mass Index (Ratio) 37.11 kg/m2 Christiano Gaytan MD blood pressure, diastolic 86 mm[Hg] St hiren Pankaj blood pressure, systolic 141 mm[Hg] Sta maciej Pankaj oxygen saturation, oximetry 98 % Yuliet Pankaj respiratory rate E&M 18 /min Yuliet D jairo pulse rate 99 /min Yuliet Pankaj weight E&M 223 [lb_av] Yuliet Pankaj height E&M 65 [in_i] Yuliet Pankaj Body Mass Index (Ratio) 38.77 kg/m2 Christiano Gaytan MD blood pressure, cuff size large Ri joanna Mccord blood pressure, diastolic 74 mm[Hg] Ri joanna Mccord blood pressure, systolic 111 mm[Hg] Abelino joshua Mccord oxygen saturation, oximetry 98 % Nicole Mccord respiratory rate E&M 16 /min Damaris Mccord pulse rate 85 /min Nicole Childress son weight E&M 233 [lb_av] Nicole Childress son height E&M 65 [in_i] Nicole Childress son Body Mass Index (Ratio) 39.60 kg/m2 Christiano Gaytan MD blood pressure, diastolic 61 mm[Hg] Sa ra Zimmer blood pressure, systolic 117 mm[Hg] Krzysztof a Zimmer oxygen saturation, oximetry 96 % Fernanda Zimmer respiratory rate E&M 20 /min Fernanda Si ms pulse rate 92 /min Fernanda Zimmer weight E&M 238 [lb_av] Fernanda Zimmer blood pressure, cuff size regular Sa ra Zimmer height E&M 65 [in_i] Fernanda Zimmer Body Mass Index (Ratio) 38.27 kg/m2 Christiano Gaytan MD blood pressure, diastolic 75 mm[Hg] Sa ra Zimmer blood pressure, systolic 134 mm[Hg] Krzysztof a Zimmer oxygen saturation, oximetry 97 % Fernanda Zimmer respiratory rate E&M 22 /min Fernanda Si ms pulse rate 85 /min Fernanda Zimmer blood pressure, cuff size regular Sa ra Zimmer weight E&M 230 [lb_av] Fernanda Zimmer height E&M 65 [in_i] Fernanda Zimmer Body Mass Index (Ratio) 39.43 kg/m2 Christiano Gaytan MD blood pressure, diastolic 60 mm[Hg] Freya Grider blood pressure, systolic 116 mm[Hg] Arsalan Grider pulse rate 76 /min Magenanupamahodan Arguello wilfrido oxygen saturation, oximetry 98 % Noemi Grider weight E&M 237 [lb_av] Arsalannayahodan Arguello wilfrido blood pressure, cuff size regular Freya Grider height E&M 65 [in_i] Noemi Arguello wilfrido Body Mass Index (Ratio) 38.94 kg/m2 Christiano Gaytan MD blood pressure, cuff size large Ca therine [place] blood pressure, diastolic 84 mm[Hg] Ca therine [place] blood pressure, systolic 112 mm[Hg] Cat herine [place] oxygen saturation, oximetry 95 % Chelsi [place] respiratory rate E&M 14 /min Catheri ne Franklyn pulse rate 81 /min Chelsi Kirkis weight E&M 234 [lb_av] Chelsi Franklyn height E&M 65 [in_i] Chelsi [place] Body Mass Index (Ratio) 38.40 kg/m2 Christiano Gaytan MD blood pressure, diastolic 70 mm[Hg] El Lin Alvarez blood pressure, systolic 112 mm[Hg] Alice Roberson Alvarez oxygen saturation, oximetry 97 % Bairon Alvarez respiratory rate E&M 16 /min Aj Alvarez pulse rate 85 /min Bairon gresham weight E&M 230.8 [lb_av] Bairon christensensudhakar height E&M 65 [in_i] [place] mp Body Mass Index (Ratio) 39.43 kg/m2 Christiano Gaytan MD blood pressure, diastolic 83 mm[Hg] Mildred fordLogmariza blood pressure, systolic 153 mm[Hg] Freda [facility] blood pressure, diastolic 83 mm[Hg] Mildred fordAllen County Hospitalmariza blood pressure, systolic 153 mm[Hg] Freda Fitzgeraldmariza blood pressure, diastolic 83 mm[Hg] Rh onirena Stein blood pressure, systolic 153 mm[Hg] Rho blessing Stein oxygen saturation, oximetry 97 % Ree Stein pulse rate 78 /min Ree Stein blood pressure, cuff size regular Rh onda Sarita blood pressure, resting Yes Rina Arambula respiratory rate E&M 18 /min Ree Stein weight E&M 237 [lb_av] Ree Stein height E&M 65 [in_i] Ree Stein Body Mass Index (Ratio) 38.27 kg/m2 Baldemar Oliveira blood pressure, diastolic 70 mm[Hg] basilia Sappford blood pressure, systolic 127 mm[Hg] She margoth [place] blood pressure, resting Yes Mandeep Rose oxygen saturation, oximetry 98 % Maggi Rose pulse rate 80 /min Maggi mendoza respiratory rate E&M 18 /min Suyapa Rose weight E&M 230 [lb_av] Maggi Sapp mendoza height E&M 65 [in_i] Maggi madrigald Body Mass Index (Ratio) 38.27 kg/m2 Baldemar chowdary Nacht blood pressure, cuff size large Ke rri Gruenenfelder blood pressure, diastolic 80 mm[Hg] Ke rri Gruenenfelder blood pressure, systolic 142 mm[Hg] Ker ri Gruenenfelder oxygen saturation, oximetry 85 % Gladis Gruenenfelder respiratory rate E&M 16 /min Gladis G ellenenenfelder pulse rate 92 /min Gladis Gryumie lder weight E&M 230 [lb_av] Gladis Gruenenfe lder height E&M 65 [in_i] Gladis Gruenenfe lder Body Mass Index (Ratio) 38.10 kg/m2 Christiano Gaytan MD blood pressure, cuff size large Ke rri Gruenenfelder blood pressure, diastolic 90 mm[Hg] Ke rri Gruenenfelder blood pressure, systolic 140 mm[Hg] Ker ri Gruenenfelder oxygen saturation, oximetry 98 % Gladis Gruenenfelder respiratory rate E&M 16 /min Gladis G ruenenfelder pulse rate 85 /min Gladis Bone er weight E&M 229 [lb_av] Gladis Bone er height E&M 65 [in_i] Gladis Bone [facility] oxygen saturation, oximetry 98 % [facility] 98 /min Sylvia Jiménez blood pressure, diastolic 82 mm[Hg] Te ri [place] blood pressure, systolic 144 mm[Hg] Ter i Jiménez oxygen saturation, oximetry 98 % Sylvia Jiménez pulse rate 80 /min Sylvia Jiménez blood pressure, diastolic 86 mm[Hg] Te ri Jiménez blood pressure, systolic 146 mm[Hg] Ter i Jiménez oxygen saturation, oximetry 98 % Sylvia Jiménez pulse rate 74 /min Sylvia Jiménez blood pressure, diastolic 82 mm[Hg] Te ri Jiménez blood pressure, systolic 143 mm[Hg] Ter i [place] Body Mass Index (Ratio) 36.77 kg/m2 Yaw Oden blood pressure, cuff size regular Cy marco aidcarmen Bates blood pressure, diastolic 66 mm[Hg] Cy [facility] Bates blood pressure, systolic 101 mm[Hg] Inna eleazra Bates oxygen saturation, oximetry 96 % Marce Bates respiratory rate E&M 16 /min Marce Bates pulse rate 75 /min Marce Donavanbel l weight E&M 221 [lb_av] Marce Campbel l height E&M 65 [in_i] Marce Campbel l Body Mass Index (Ratio) 37.27 kg/m2 Christiano Gaytan MD blood pressure, diastolic 74 mm[Hg] To faby Fernandez blood pressure, systolic 121 mm[Hg] Bashir Fernandez respiratory rate E&M 16 /min Tonsha Fernandez oxygen saturation, oximetry 98 % Tonsha Fernandez pulse rate 77 /min Tonsha Fernandez weight E&M 224 [lb_av] Tonsha Fernandez height E&M 65 [in_i] Tonsha Fernandez Body Mass Index (Ratio) 36.77 kg/m2 Baldemar Oliveira blood pressure, diastolic 68 mm[Hg] To nsha Fernandez blood pressure, systolic 127 mm[Hg] Ton sha Fernandez pulse rate 75 /min Tonsha Fernandez oxygen saturation, oximetry 98 % Tonsha Fernandez respiratory rate E&M 16 /min Tonsha Fernandez weight E&M 221 [lb_av] Tonsha Fernandez height E&M 65 [in_i] Tonsha Fernandez Body Mass Index (Ratio) 37.11 kg/m2 Christiano Gaytan MD blood pressure, resting Yes Tons raya Fernandez blood pressure, diastolic 72 mm[Hg] To nsha Fernandez blood pressure, systolic 136 mm[Hg] Ton sha Fernandez oxygen saturation, oximetry 96 % Tonsha Fernandez respiratory rate E&M 16 /min Tonsha Feranndez pulse rate 70 /min Tonsha Fernandez weight E&M 223 [lb_av] Tonsha Fernandez height E&M 65 [in_i] Tonsha Fernandez Body Mass Index (Ratio) 37.77 kg/m2 Christiano Gaytan MD blood pressure, diastolic 83 mm[Hg] To nsha Fernandez blood pressure, systolic 127 mm[Hg] Ton sha Fernandez oxygen saturation, oximetry 98 % Tonsha Fernandez respiratory rate E&M 16 /min Tonsha Fernandez pulse rate 76 /min Tonsha Fernandez weight E&M 227 [lb_av] Tonsha Fernandez height E&M 65 [in_i] Tonsha Fernandez Body Mass Index (Ratio) 33.61 kg/m2 Christiano Gaytan MD blood pressure, diastolic 76 mm[Hg] Da ayanna Arlene blood pressure, systolic 122 mm[Hg] Dac ia Arlene oxygen saturation, oximetry 93 % Gisela Arlene respiratory rate E&M 16 /min Gisela V oss pulse rate 82 /min Gisela Arlene weight E&M 202 [lb_av] Gisela Arlene height E&M 65 [in_i] Gisela Arlene Body Mass Index (Ratio) 32.88 kg/m2 Christiano Gaytan MD blood pressure, diastolic 77 mm[Hg] El Riley Alvarez blood pressure, systolic 116 mm[Hg] Alice Roberson Alvarez oxygen saturation, oximetry 93 % Bairon Alvarez respiratory rate E&M 18 /min Aj Amadoenson pulse rate 78 /min [place] nson weight E&M 197.6 [lb_av] Bairon Amado enson height E&M 65 [in_i] [place] nson Body Mass Index (Ratio) 33.31 kg/m2 Christiano Gaytan MD blood pressure, diastolic 84 mm[Hg] El Amadoenson blood pressure, systolic 126 mm[Hg] Alice Roberson Alvarez oxygen saturation, oximetry 97 % Bairon Alvarez respiratory rate E&M 18 /min MeliEll christie Alvarez pulse rate 76 /min [place] nson weight E&M 200.2 [lb_av] Bairon Amado enson height E&M 65 [in_i] [place] nson Body Mass Index (Ratio) 33.94 kg/m2 Christiano Gaytan MD blood pressure, cuff size large Mandy Len blood pressure, diastolic 80 mm[Hg] Freya Harrington blood pressure, systolic 110 mm[Hg] Kevin quinteros Harrington oxygen saturation, oximetry 99 % Cristina Harrington respiratory rate E&M 16 /min Cristina Harrington pulse rate 73 /min Cristina Harrington weight E&M 204 [lb_av] Cristina Harrington height E&M 65 [in_i] Cristina Harrington blood pressure, resting No Terra prajapati Len Body Mass Index (Ratio) 33.11 kg/m2 Christiano Gaytan MD blood pressure, cuff size regular Ke kareni Nat blood pressure, diastolic 70 mm[Hg] Ke rri Nat blood pressure, systolic 120 mm[Hg] Reji Johns oxygen saturation, oximetry 98 % Gladis Johns respiratory rate E&M 16 /min Gladis maravilla pulse rate 71 /min Gladis stephensoner weight E&M 199 [lb_av] Gladis Lizandro stephensoner height E&M 65 [in_i] Gladis Lizandro stephensoner Body Mass Index (Ratio) 33.28 kg/m2 Christiano Gaytan MD blood pressure, cuff size large Ke rri Nat blood pressure, diastolic 82 mm[Hg] Ke rri Enocnedavid blood pressure, systolic 132 mm[Hg] Reji Johns oxygen saturation, oximetry 98 % Gladis Nat respiratory rate E&M 16 /min Gladis G ellenenenfeldanupama pulse rate 87 /min Gladis Lizandro lder weight E&M 200 [lb_av] Gladis Lizandro lder height E&M 65 [in_i] Gladis escamilla blood pressure, diastolic 66 mm[Hg] El Alvarez blood pressure, systolic 126 mm[Hg] Alice Alvarez pulse rate 83 /min Bairon gresham oxygen saturation, oximetry 99 % Bairon Alvarez respiratory rate E&M 16 /min Aj Alvarez Body Mass Index (Ratio) 33.41 kg/m2 Meli Alvarez weight E&M 200.8 [lb_av] Bairon bailey blood pressure, diastolic 60 mm[Hg] Me akins Nikolay blood pressure, systolic 118 mm[Hg] Ashlyn keitaa Nikolay pulse rate 82 /min Yoana Nikolay oxygen saturation, oximetry 98 % Yoana Nikolay respiratory rate E&M 16 /min Yoana Nikolay Body Mass Index (Ratio) 34.14 kg/m2 Patricia castillo Nikolay weight E&M 205.2 [lb_av] Yoana Link blood pressure, diastolic 79 mm[Hg] El Alvarez blood pressure, systolic 120 mm[Hg] Alice Alvarez pulse rate 71 /min [place] jerrisudhakar oxygen saturation, oximetry 99 % Bairon Alvarez respiratory rate E&M 16 /min Aj Alvarez Body Mass Index (Ratio) 33.71 kg/m2 Meli Alvarez weight E&M 202.6 [lb_av] Bairon bailey blood pressure, diastolic 73 mm[Hg] tashi Pike blood pressure, systolic 123 mm[Hg] Ashlyn darryn Pike pulse rate 76 /min Yoana Pike oxygen saturation, oximetry 98 % Yoana Pike respiratory rate E&M 15 /min Yoana Pike Body Mass Index (Ratio) 33.94 kg/m2 Patricia castillo Pike weight E&M 204 [lb_av] Yoana Pike oxygen saturation, oximetry 96 % Bairon Alvarez Body Mass Index (Ratio) 34.78 kg/m2 Meli Alvarez weight E&M 209 [lb_av] [place] jerrisudhakar blood pressure, diastolic 82 mm[Hg] Be tsy Chakraborty blood pressure, systolic 117 mm[Hg] Bet sy Chakraborty pulse rate 64 /min Nehal Chakraborty respiratory rate E&M 15 /min Nehal M ayveronica blood pressure, diastolic 70 mm[Hg] El Alvarez blood pressure, systolic 109 mm[Hg] Alice Amadoenson pulse rate 76 /min [place] jerrisudhakar oxygen saturation, oximetry 97 % Bairon Alvarez respiratory rate E&M 19 /min Aj Alvarez Body Mass Index (Ratio) 34.88 kg/m2 Meli Alvarez weight E&M 209.6 [lb_av] Bairon bailey height E&M 65 [in_i] [place] jerrisudhakar ALLERGIES Allergy Name Onset Date Reaction Criticality Status ADHESIVE TAPE High Criticality activ e STATIN leg pain High Criticality active ZUCCHINI rash rash Low Criticality active RESULTS Date Observation Value Provider Reference Range Interpretation Location nitrate usage 0 Sylvia Jiménez nitrate usage 0 Sylvia Jiménez nitrate usage 0 Sylvia Jiménez microalbumin/creatin ine ratio, urine <8.6 mg/g creat [facility] 0.0-30.0 microalbumin, random, urine <3.0 ug/mL [facility] Not Estab. creatinine, random, urine 34.7 mg/dL [facility] Not Estab. thyroid stimulating hormone, serum 1.130 ??IU/ML [facility] 0.270 - 4.200 pro brain natriuretic peptide 38.5 pg/mL [facility] 0.0 - 125.0 very low density lipoproteins 14.0 mg/dL [facility] 5.0 - 40.0 LDL/HDL (low-density lipoprotein/high-den sity lipoprotein) ratio 1.6 RATIO [facility] - lipoprotein, beta, serum, point, quantitative, calculated 52.0 (?) [facility] 0.0 - 100.0 HDL cholesterol, serum 32.0 mg/dL [facility] 45.0 - 65.0 Low cholesterol, serum 98.0 mg/dL [facility] 0.0 - 200.0 triglyceride, serum, fasting 70.0 mg/dL [facility] 0.0 - 150.0 anion gap, serum 12.5 [facility] - albumin/globulin ratio, serum 1.7 g/dL [facility] 1.1 - 2.5 globulin, serum 2.5 [facility] 2.3 - 3.8 urea nitrogen/creatinine ratio, serum 17.1 [facility] - Estimated Glomerular Filtration Rate (calc) 97.5 (?) [facility] 59.0 - chloride, serum 104.5 mmol/L [facility] 98.0 - 107.0 potassium, serum 4.5 mmol/L [facility] 3.5 - 5.1 sodium, serum 142.0 mmol/L [facility] 136.0 - 145.0 creatinine, serum 0.7 mg/dL [facility] 0.5 - 1.0 carbon dioxide, venous blood 25.0 mmol/L [facility] 22.0 - 29.0 albumin, serum 4.2 g/dL [facility] 3.5 - 5.2 calcium, serum 8.8 mg/dL [facility] 8.6 - 10.2 aspartate aminotransferase (SGOT), serum 13.0 1/L [facility] 0.0 - 32.0 alkaline phosphatase, serum 84.0 1/L [facility] 40.0 - 130.0 alanine aminotransferase (SGPT), serum 13.0 1/L [facility] 0.0 - 33.0 protein, total, serum 6.7 g/dL [facility] 6.6 - 8.7 bilirubin, serum, total 0.3 mg/dL [facility] 0.0 - 1.2 urea nitrogen, blood 12.0 mg/dL [facility] 6.0 - 20.0 blood glucose, random 209.0 mg/dL [facility] 74.0 - 99.0 High red blood cell distribution width, size density 47.8 fL [facility] - immature granulocytes, percentage of total cells, blood 0.3 % [facility] - nucleated red blood cells as percent of blood leukocytes 0.0 % [facility] - red blood cell (erythrocyte) count, per high power field 0.0 10*3/UL [facility] - eosinophils as percent of blood leukocytes 1.7 % [facility] - neutrophils as percent of blood leukocytes 60.5 % [facility] - Absolute Neutrophils 7.8 CELLS/UL [employer] 1.5 - 7.8 basophils as percent of blood leukocytes 0.2 % [facility] Absolute Basophils 0.0 CELLS/UL [employer] 0.0 - 0.2 monocytes as percent of blood leukocytes 4.6 % [facility] Absolute Monocytes 0.6 CELLS/UL [employer] 0.2 - 1.0 lymphocytes as percent of blood leukocytes 32.7 % [facility] Absolute Lymphocytes 4.2 CELLS/UL [employer] 0.9 - 3.9 High mean platelet volume 11.3 (?) [facility] - platelet count 297.0 THOUSAND/ UL [employer] 100.0 - 400.0 mean corpuscular hemoglobin concentration, RBC 29.8 G/DL [employer] 31.0 - 38.0 Low mean corpuscular hemoglobin, RBC 28.6 pg [employer] 25.0 - 35.0 mean corpuscular volume, RBC 95.8 fL [employer] 75.0 - 100.0 hematocrit, blood 40.9 % [employer] 35.0 - 55.0 hemoglobin, blood 12.2 g/dL [employer] 11.5 - 16.5 erythrocyte count, whole blood 4.3 MILLION/U L [employer] 3.5 - 5.5 hemoglobin A1C, blood, as % of total hemoglobin 8.6 % [employer] 4.0 - 5.6 High HISTORY OF MEDICATION USE Medication Status Instructions Dates Provider Indications Com ments metaxalone 800 mg tablet active TAKE 1 TABLET BY MOUTH ONCE DAILY FOR PAIN Rolan Sinclair omeprazole 40 mg capsule,delayed release(DR/EC) completed TAKE 1 CAPSULE BY MOUTH ONCE A DAY TAKE 1 CAPSULE BY MOUTH EVERY DAY - Steve Oliveira metaxalone 800 mg tablet completed Take 1 tablet by mouth once a day for pain - Kirby Gaytan MD furosemide 20 mg tablet active TAKE 1 TABLET BY MOUTH EVERY DAY [facility] clop[facility]rel 75 mg tablet active TAKE 1 TABLET BY MOUTH EVERY DAY P[facility]an [facility] trazodone 50 mg tablet completed - Rolan Sinclair ursodiol 300 mg capsule completed - Steve Oliveira sumatriptan succinate 50 mg tablet active Kirby Gaytan MD pantoprazole 40 mg tablet,delayed release (DR/EC) completed TAKE 1 TABLET BY MOUTH EVERY DAY - Rolan Sinclair pantoprazole 40 mg tablet,delayed release (DR/EC) completed Take 1 tablet by mouth once a day - Pawan Nexletol 180 mg tablet active Take 1 tablet by mouth once a day Rolan Sinclair ranolazine 1,000 mg tablet extended release 12 hr completed TAKE ONE TABLET BY MOUTH TWICE DAILY - Kirby Gaytan MD omeprazole 40 mg capsule,delayed release(/EC) completed Take 1 capsule by mouth once a day - Kirby Gaytan MD ropinirole 2 mg tablet extended release 24 hr active PRN Steve Oliveira cyclobenzaprine 10 mg tablet completed TAKE 1 TABLET BY MOUTH 3 TIMES A DAY NEEDED - Rolan Sinclair nitroglycerin 0.4 mg tablet, sublingual active DISSOLVE 1 TAB UNDER TONGUE EVERY 5 MINS NEEDED FOR CHEST PAIN. MAX TOTAL OF 3 DOSES IN 15 MINS Yuliet Lira oxycodone 5 mg tablet completed Take 1 tablet by mouth twice a day for severe pain as needed - Kirby Gaytan MD oxycodone 5 mg tablet completed Take 1 tablet by mouth twice a day for severe pain as needed - Kirby Gaytan MD ropinirole 2 mg tablet extended release 24 hr completed Take 1 tablet by mouth once a day - [facility] mg tablet completed TAKE 1 TABLET BY MOUTH DAILY as needed for swelling - Rolan Sinclair losartan 50 mg tablet completed TAKE 1 TABLET BY MOUTH DAILY - Rolan Sinclair clopidogrel 75 mg tablet completed TAKE 1 TABLET BY MOUTH DAILY - [facility] nicotine 7 mg/24 hr patch 24 hour completed APPLY 1 PATCH TOPICALLY ONCE A DAY - Rolan Sinclair omeprazole 20 mg capsule,delayed release(/EC) completed - Rolan Sinclair Mounjaro 7.5 mg/0.5 mL pen injector completed - Rolan Sinclair cyclobenzaprine 10 mg tablet completed Take 1 tablet by mouth three times a day as needed - Pawan Sandoval tramadol 50 mg tablet completed TAKE 1 TABLET BY MOUTH TWICE A DAY NEEDED FOR FOR FOR PAIN - Rolan Sinclair clopidogrel 75 mg tablet completed TAKE 1 TABLET BY MOUTH ONCE A DAY - Lashay Quach isosorbide mononitrate 60 mg tablet extended release 24 hr completed TAKE 2 TABLETS BY MOUTH DAILY - Rolan Berthaallen isosorbide mononitrate 60 mg tablet extended release 24 hr completed TAKE 2 TABLETS BY MOUTH DAILY - Rolan Sinclair tramadol 50 mg tablet completed TAKE 1 TABLET BY MOUTH TWICE A DAY NEEDED FOR FOR PAIN - Kirby Gaytan MD losartan 50 mg tablet completed TAKE ONE TABLET BY MOUTH DAILY - Lashay Quach tramadol 50 mg tablet completed Take 1 tablet by mouth twice a day as needed for pain - Kirby Gaytan MD tramadol 50 mg tablet completed TAKE 1 TABLET (50 MG TOTAL) BY MOUTH EVERY 8 (EIGHT) HOURS NEEDED FOR FOR PAIN - Rolan Sinclair tramadol 50 mg tablet completed - Rolan Sinclair Lasix 20 mg tablet completed TAKE 1 TABLET BY MOUTH EVERY DAY - Merline Valle Low Dose Aspirin 81 mg tablet,delayed release (DR/EC) completed - Rolan Sinclair Fiasp FlexTouch U-100 Insulin 100 unit/mL (3 mL) insulin pen active Merline Weinstein trazodone 100 mg tablet completed Take 1 tablet by mouth at bedtime - Steve Oliveira metoprolol succinate 25 mg tablet extended release 24 hr completed Take 1 tablet by mouth once a day - Kirby Gaytan MD Tresiba FlexTouch U-100 100 unit/mL (3 mL) insulin pen active Kirby Gaytan MD clopidogrel 75 mg tablet completed TAKE 1 TABLET BY MOUTH EVERY DAY - Alfreda Garcia omeprazole 40 mg capsule,delayed release(DR/EC) completed Take 1 capsule by mouth once a day TAKE 1 CAPSULE BY MOUTH EVERY DAY - Rolan Sinclair meloxicam 15 mg tablet completed TAKE 1 TABLET BY MOUTH DAILY - Kirby Gaytan MD tizanidine 4 mg tablet completed TK 1 T PO Q 8 HOURS PRN - Kirby Gaytan MD gabapentin 300 mg capsule completed TAKE 1 CAPSULE BY MOUTH THREE TIMES DAILY - Kirby Gaytan MD Ozempic 1 mg/dose (4 mg/3 mL) pen injector completed - Kirby Gaytan MD glimepiride 4 mg tablet completed - Rolan Sinclair losartan 25 mg tablet completed TAKE 1 TABLET BY MOUTH DAILY - Kirby Gaytan MD hydrocodone-aceta minophen 7.5-325 mg tablet completed TK 1 T PO BID - Kirby Gaytan MD ranolazine 1,000 mg tablet extended release 12 hr completed 1 tablet by mouth twice a day - Rolan Sinclair Trulicity 0.75 mg/0.5 mL pen injector completed subcutaneously once a week - Gladis Johns XANAX 0.25 MG ORAL TABLET completed ONE TAB daily as needed for anxiety - Gladis Johns WELLBUTRIN SR 100 MG ORAL TABLET EXTENDED RELEASE 12 HOUR completed one tab by mouth daily, if not effective after 1 week may increase to twice daily - Gladis Johns HYDROCODONE-ACETA MINOPHEN 7.5-325 MG ORAL TABLET completed one tab twice daily - Gladis Johns RANEXA 1000 MG ORAL TABLET EXTENDED RELEASE 12 HOUR completed take one tablet bid - Gladis Johns NITROLINGUAL 0.4 MG/SPRAY TRANSLINGUAL SOLUTION completed apply one spray inside the mouth every 5 minutes for 3 total doses as needed for chest pain. If no relief after 3rd dose, go to ER - Gladis Johns RANOLAZINE ER 500 MG ORAL TABLET EXTENDED RELEASE 12 HOUR completed one tab by mouth twice daily - Tamiko Carrasco RN isosorbide mononitrate 60 mg tablet extended release 24 hr completed 2 tablet by mouth once a day - Genevieve Gomez METOPROLOL SUCCINATE ER 50 MG ORAL TABLET EXTENDED RELEASE 24 HOUR completed one tab. daily - Gladis Johns Nitrostat 0.4 mg tablet, sublingual completed DISSOLVE 1 TABLET UNDER THE TONGUE EVERY 5 MINUTES NEEDED FOR CHEST PAIN. DO NOT EXCEED A TOTAL OF 3 DOSES IN 15 MINUTES. - Yuliet Lira AMBIEN 5 MG ORAL TABLET completed ONE TAB. AT BEDTIME - Gladis Johns atorvastatin 40 mg tablet completed tablet by mouth - Rolan Sinclair losartan 50 mg tablet completed Take 1 tablet by mouth once a day - Gladis Johns CARVEDILOL 3.125 MG ORAL TABLET completed one tab twice daily - Ryan Payan Plavix 75 mg tablet completed Take 1 tablet by mouth once a day - Tamara Guido Vitamin B-12 1,000 mcg tablet active 1 tablet by mouth once a day Darek Dailey MD cholecalciferol (vitamin D3) 1,250 mcg (50,000 unit) capsule active 1 capsule by mouth once a week Darek Dailey MD FARXIGA 5 MG ORAL TABLET completed Take one tablet once daily - Kirby Gaytan MD DIFLUCAN 200 MG ORAL TABLET completed po daily - Bairon Alvarez JARDIANCE 10 MG ORAL TABLET completed po daily - Bairon Alvarez TYLENOL PM EXTRA STRENGTH completed take as needed - Bairon Alvarez MAGNESIUM OXIDE 400 (240 Mg) MG ORAL TABLET completed Take 1 Tablet Once a Day. - Gladis Johns RANEXA 1000 MG ORAL TABLET EXTENDED RELEASE 12 HOUR completed ONE TAB. TWICE DAILY for chronic angina - Gladis Johns LIPITOR 40 MG ORAL TABLET completed ONE TAB. DAILY - Ryan Payan ProAir HFA 90 mcg/actuation HFA aerosol inhaler active 2 puff every four to six hours as needed Bairon FLYNN NICOTINE 14 MG/24HR TRANSDERMAL PATCH 24 HOUR completed apply daily - Gladis Johns METFORMIN HCL 500 MG ORAL TABLET completed twice daily - Kirby Gaytan MD gabapentin 300 mg capsule completed 1 tablet by mouth once a day as needed - Bairon Alvarez RANITIDINE HCL 150 MG ORAL TABLET completed 1/2 TAB TWICE DAILY as needed - Gladis Johns Januvia 100 mg tablet completed tablet by mouth once a day - Bairon Alvarez METHOCARBAMOL 500 MG ORAL TABLET completed every 8 hours as needed - Bairon Alvarez glimepiride 4 mg tablet completed Take 1 tablet by mouth twice a day - Kirby Gaytan MD PLAVIX 75 MG ORAL TABLET completed ONE TAB. DAILY - Gladis Johns NITROSTAT 0.4 MG SUBLINGUAL TABLET SUBLINGUAL completed One tab. under tongue as needed. May repeat twice in 10 minutes. - Bairon Alvarez ISOSORBIDE MONONITRATE ER 30 MG ORAL TABLET EXTENDED RELEASE 24 HOUR completed one tab. daily - Kirby Gaytan MD aspirin 325 mg tablet completed 1 tablet by mouth once a day - Gladis Johns SOCIAL HISTORY Date Observation Value Provider smoking status Never smoker Steve Oliveira smoking status Never smoker Rolan Lizcelso smoking status Never smoker Rolan Sinclair smoking status Never smoker Rolan Sinclair smoking status Never smoker Rolan Sinclair smoking status Never smoker Rolan Sinclair social history reviewed E&M revi ewed - no changes required Rolanriley Lizcelso social history E&M S moking History: Elio florian has never smoked. Rolan Delunaayden smoking status Never smoker Zena Angel social history reviewed E&M revi ewed - no changes required Rolan Delunaayden social history reviewed E&M revi ewed - no changes required Rolan Lizcelso social history E&M S moking History: Elio florian currently smokes every day. Elio florian has been counseled to quit. Kirby Gaytan MD smoking/tobacco cess ation, patient education and counseling yes Yuliet Lira cigar use yes Yuliet Lira smoking, year quit 2016 Yuliet Cummins is number of years as a smoker 15 a Yuliet Lira smoking history, tot al pack/day 0.5 Yuliet Lira cigarette use yes Yuliet Lira smoking status Current every day smoker S robbi Lira social history reviewed E&M revi ewed - no changes required Kirby Gaytan MD smoking/tobacco cess ation, patient education and counseling yes Kirby Gaytan MD social history E&M S moking History: Elio florian currently smokes every day. Rolan Sinclair cigar use yes Nicole anna smoking status Current every day smoker R jeremy Mccord social history reviewed E&M revi ewed - no changes required Kirby Gaytan MD social history reviewed E&M revi ewed - no changes required Kirby Gaytan MD social history reviewed E&M revi ewed - no changes required Kirby Gaytan MD social history reviewed E&M revi ewed - no changes required Rolan Sinclair social history reviewed E&M revi ewed - no changes required Merline Weinstein social history E&M S moking History: P chiqui currently smokes every day. P chiqui has been counseled to quit. Rolan Sinclair social history reviewed E&M revi ewed - no changes required Rolan Sinclair smoking/tobacco cess ation, patient education and counseling yes Chelsi Franklyn cigar use yes Chelsi Be[place] smoking, year quit 2015 Chelsi Franklyn number of years as a smoker 15 a Chelsi [place] smoking history, tot al pack/day 0.5 Chelsi Franklyn cigarette use yes Chelsi Be[place] smoking status Current every day smoker C mejia Bealeton social history E&M S moking History: P chiqui currently smokes every day. P chiqui has been counseled to quit. Rolan Sinclair smoking/tobacco cess ation, patient education and counseling yes Bairon Alvarez cigar use yes Bairon g[place] smoking, year quit 2016 Bairon Amadoenson number of years as a smoker 15 a BaironAbida Amadoenson smoking history, tot al pack/day 0.5 Bairon Alvarez cigarette use yes Bairon christensenon smoking status Current every day smoker Alisha Alvarez social history reviewed E&M revi ewed - no changes required Rolan Sinclair social history E&M S moking History: P atindu currently smokes every day. Kirby Gaytan MD smoking status Current every day smoker Randy Stein social history reviewed E&M revi ewed - no changes required Kirby Gaytan MD social history E&M S moking History: P atindu currently smokes every day. P atient has been counseled to quit. Steve Oliveira social history reviewed E&M revi ewed - no changes required Steve Oliveira smoking/tobacco cess ation, patient education and counseling yes Maggi Rose cigar use yes Maggi mendoza smoking, year quit 2015 Nora Rose number of years as a smoker 15 a Maggi Rose smoking history, tot al pack/day 0.5 Maggi Rose cigarette use yes Maggi Arroyo alvazena smoking status Current every day smoker S eligio Rose social history E&M S moking History: P chiqui currently smokes every day. P atindu has been counseled to quit. Steve Oliveira social history reviewed E&M revi ewed - no changes required Steve Oliveira smoking/tobacco cess ation, patient education and counseling yes Gladis Johns cigar use yes Gladis escamilla smoking, year quit 2015 Gladis herring number of years as a smoker 15 a Gladis Nat smoking history, tot al pack/day 0.5 Gladis Nat cigarette use yes Gladis Omari martinez smoking status Current every day smoker Douglas laracelso Johns cigar use yes Karen Valdez smoking status Current every day smoker Jamil Valdez social history E&M S moking History: Elio florian currently smokes every day. Kirby Gaytan MD social history reviewed E&M revi ewed - no changes required Karen Valdez number of grandchildren Kenji Oden smoking status Former smoker Patrick Dakota mahoney social history E&M S moking History: Elio florian is a former smoker. Patrick Oden social history reviewed E&M revi ewed - no changes required Patrick Oden smoking, year quit 2015 Marce molina number of years as a smoker 15 a Marce Bates smoking history, tot al pack/day 0.5 Marce Bates cigarette use yes Marce Holly demarco social history E&M S moking History: Elio florian is a former smoker. Kirby Gaytan MD social history reviewed E&M revi ewed - no changes required Kirby Gaytan MD smoking, year quit 2015 Tonsha Mo ss number of years as a smoker 15 a Tonsha Fernandez smoking history, tot al pack/day 0.5 Tonsha Fernandez cigarette use yes Tonsha Fernandez smoking status Former smoker Tonsha Fernandez social history E&M S moking History: Elio florian is a former smoker. Steve Oliveira social history reviewed E&M revi ewed - no changes required Steve Oliveira smoking, year quit 2015 Tonsha Mo ss number of years as a smoker 15 a Tonsha Fernandez smoking history, tot al pack/day 0.5 Tonsha Fernandez cigarette use yes Tonsha Fernandez smoking status Former smoker Tonsha Fernandez social history E&M S moking History: P chiqui is a former smoker. Ryan Payan social history reviewed E&M revi ewed - no changes required Ryan Payan smoking, year quit 2015 Tonsha Mo ss number of years as a smoker 15 a Tonsha Fernandez smoking history, tot al pack/day 0.5 Tonsha Fernandez cigarette use yes Tonsha Fernandez smoking status Former smoker Tonsha Fernandez social history E&M S moking History: P chiqui is a former smoker. Kirby Gaytan MD social history reviewed E&M revi ewed - no changes required Kirby Gaytan MD smoking, year quit 2015 Tonsha Mo ss number of years as a smoker 15 a Tonsha Fernandez smoking history, tot al pack/day 0.5 Tonsha Fernandez cigarette use yes Tonsha Fernandez smoking status Former smoker Tonsha Fernandez social history reviewed E&M revi ewed - no changes required Kirby Gaytan MD smoking, year quit 2015 Gisela Yi s number of years as a smoker 15 a Gisela Arlene smoking history, tot al pack/day 0.5 Gisela Arlene cigarette use yes Gisela Arlene smoking status Former smoker Gisela Arlene number of grandchildren Kirby Gaytan MD T ashley Gaytan MD social history reviewed E&M revi ewed - no changes required Kirby Gaytan MD social history E&M S moking History: Elio florian is a former smoker. Kirby Gaytan MD smoking, year quit 2015 Bairon Alvarez number of years as a smoker 15 a Bairon Alvarez smoking history, tot al pack/day 0.5 Bairon Alvarez cigarette use yes Bairon bailey smoking status Former smoker Bairon Emery social history reviewed E&M revi ewed - no changes required Kirby Gaytan MD social history E&M S moking History: Elio florian is a former smoker. Kirby Gaytan MD smoking, year quit 2015 Bairon Alvarez number of years as a smoker 15 a Bairon Alvarez smoking history, tot al pack/day 0.5 Bairon Alvarez cigarette use yes Bairon bailey smoking status Former smoker Bairon Emery social history reviewed E&M revi ewed - no changes required Kirby Gaytan MD smoking, year quit 2015 Cristina bowman number of years as a smoker 15 a Cristina Harrington smoking history, tot al pack/day 0.5 Cristina Harrington cigarette use yes Cristina Harrington smoking status Former smoker Cristina Len smoking, year quit 2015 Gladis herring number of years as a smoker 15 a Gladis Johns smoking history, tot al pack/day 0.5 Gladis Johns cigarette use yes Gladis martinez smoking status Former smoker Gladis hernandez social history reviewed E&M revi ewed - no changes required Kirby Gaytan MD smoking, year quit 2015 Gladis herring number of years as a smoker 15 a Gladis Johns smoking history, tot al pack/day 0.5 Gladis Johns cigarette use yes Gladis martinez smoking status Former smoker Gladis hernandez social history reviewed E&M revi ewed - no changes required Kirby Gaytan MD smoking, year quit 2015 Bairon Alvarez number of years as a smoker 15 a Bairon Alvarez smoking history, tot al pack/day 0.5 aBiron Alvarez cigarette use yes Bairon bailey smoking status Former smoker Bairon Emery social history reviewed E&M revi ewed - no changes required Kirby Gaytan MD smoking status Former smoker Yoana Link smoking, year quit 2015 Yoana mcgowan number of years as a smoker 15 a Yoana Link smoking history, tot al pack/day 0.5 Yoana Link cigarette use yes Yoana Link social history reviewed E&M revi ewed - no changes required Kirby Gaytan MD smoking, year quit 2015 Bairon Alvarez number of years as a smoker 15 a Bairon Alvarez smoking history, tot al pack/day 0.5 Bairon Alvarez cigarette use yes Bairon bailey smoking status Former smoker Bairon Emery social history reviewed E&M revi ewed - no changes required Kirby Gaytan MD smoking/tobacco cess ation, patient education and counseling yes Yoana Pike number of years as a smoker 15 a Yoana Pike smoking history, tot al pack/day 0.5 Yoana Pike cigarette use yes Yoana Pike smoking status Current every day smoker Alisha medel Pike social history reviewed E&M revi ewed - no changes required Kirby Gaytan MD smoking/tobacco cess ation, patient education and counseling yes Nehal Chakraborty number of years as a smoker 15 a Nehal Chakraborty smoking history, tot al pack/day 0.5 Nehal Chakraborty cigarette use yes Nehal Chakraborty smoking status Current every day smoker B etsy Chakraborty social history reviewed E&M revi ewed - no changes required Kirby Gaytan MD number of years as a smoker 15 a Bairon Alvarez smoking history, tot al pack/day 0.5 Bairon Alvarez cigarette use yes Bairon bailey smoking status Current every day smoker Alisha Alvarez FUNCTIONAL STATUS Date Observation Value Provider HRA, CV Assess/Plan, Angina (inactive) Management Plan continue current therapy Steve Marylouapril HRA, CV Assess/Plan, Angina (inactive) Management Plan continue current therapy Rolan Ahmedzai HRA, CV Assess/Plan, Angina (inactive) Management Plan continue current therapy Rolan Ahmedzai HRA, CV Assess/Plan, Angina (inactive) Management Plan continue current therapy Rolan Ahmedzai HRA, CV Assess/Plan, Angina (inactive) Management Plan continue current therapy Rolan Ahmedzai HRA, CV Assess/Plan, Angina (inactive) Management Plan continue current therapy Rolan Ahmedzai HRA, CV Assess/Plan, Angina (inactive) Management Plan continue current therapy Rolan Ahmedzai HRA, CV Assess/Plan, Angina (inactive) Management Plan continue current therapy Rolan Ahmedzai HRA, CV Assess/Plan, Angina (inactive) Management Plan continue current therapy Rolan Ahmedzai HRA, CV Assess/Plan, Angina (inactive) Management Plan continue current therapy Rolan Ahmedzai HRA, CV Assess/Plan, Angina (inactive) Management Plan continue current therapy Rolan Ahmedzai HRA, CV Assess/Plan, Angina (inactive) Management Plan continue current therapy Rolan Ahmedzai HRA, CV Assess/Plan, Angina (inactive) Management Plan continue current therapy Merline Weinstein HRA, CV Assess/Plan, Angina (inactive) Management Plan continue current therapy Rolan Ahmedzai HRA, CV Assess/Plan, Angina (inactive) Management Plan continue current therapy Rolan Ahmedzai HRA, CV Assess/Plan, Angina (inactive) Management Plan continue current therapy Kirby Gaytan MD HRA, CV Assess/Plan, Angina (inactive) Management Plan continue current therapy Steve Hickmanapril HRA, CV Assess/Plan, Angina (inactive) Management Plan continue current therapy Steve Roxanne HRA, CV Assess/Plan, Angina (inactive) Management Plan antianginal therapy Karenelio TonyValdez HRA, CV Assess/Plan, Angina (inactive) Management Plan continue current therapy Steve Oliveira HRA, CV Assess/Plan, Angina (inactive) Management Plan continue current therapy Ryan Payan HRA, CV Assess/Plan, Angina (inactive) Management Plan continue current therapy Kirby Gaytan MD HRA, CV Assess/Plan, Angina (inactive) Management Plan continue current therapy Kirby Gaytan MD HRA, CV Assess/Plan, Angina (inactive) Management Plan continue current therapy Kirby Gaytan MD HRA, CV Assess/Plan, Angina (inactive) Management Plan continue current therapy Kirby Gaytan MD HRA, CV Assess/Plan, Angina (inactive) Management Plan continue current therapy Kirby Gaytan MD HRA, CV Assess/Plan, Angina (inactive) Management Plan continue current therapy Kirby Gaytan MD HRA, CV Assess/Plan, Angina (inactive) Management Plan continue current therapy Kirby Gaytan MD HRA, CV Assess/Plan, Angina (inactive) Management Plan continue current therapy Kirby Gaytan MD MENTAL STATUS Date Observation Value Provider energy level no Sylvia Jiménez energy level no Sylvia Jiménez energy level no Sylvia Jiménez FAMILY HISTORY Family Member Condition Full Brother Family History of Hy pertension: Full Brother Family History of Di abetes: Mother Family History of Co ronary Artery Disease: Mother Family History of Hy pertension: Mother Family History of Di abetes: INSURANCE PROVIDERS Payer name Policy type / Coverage type [facility] ID [employer] Choice Pos II [employer] insurance [employer] [id number] [facility] PPO Other [id number] ADVANCE DIRECTIVES Name Date DISCUSSED - NO DECISION MADE TREATMENT PLAN Date Name Performer [id number],S, Rolan Ahmedza i [id number],S, Rolan Ahmedza i [id number],S, Rolan Ahmedza i [id number],S, Rolan Ahmedza i [id number],S, Rolan Ahmedza i [id number],S, Rolan Ahmedza i [id number],S, Rolan Ahmedza i [id number],S, Rolan Ahmedza i [id number],S, Rolan Ahmedza i [id number],S, Rolan Ahmedza i [id number],S, Rolan Ahmedza i [id number],S, Rolan Ahmedza i [id number],S, Rolan Ahmedza i [id number],S, Rolan Ahmedza i [id number],S, Rolan Ahmedza i [id number],S, Rolan Ahmedza i [id number],S, Rolan Ahmedza i [id number],S, Rolan Ahmedza i [id number],S, Rolan Ahmedza i [id number],SKirby MD [id number],BKirby MD [id number],B, Kirby Gaytan MD [id number],B, Kirby Gaytan MD [id number],B, Kirby Gaytan MD [id number],S, Kirby Gaytan MD [id number],S, Rolan Ahmedza i [id number],S, Rolan Ahmedza i [id number],S, Rolan Ahmedza i [id number],S, Rolan Ahmedza i [id number],S, Rolan Ahmedza i [id number],B, Rolan Ahmedza i [id number],B, Rolan Ahmedza i [id number],S, Rolan Ahmedza i [id number],B, Rolan Ahmedza i [id number],S, Rolan Ahmedza i [id number],S, Rolan Ahmedza i [id number],S, Rolan Ahmedza i [id number],S, Rolan Ahmedza i [id number],S, Rolan Ahmedza i [id number],S, Rolan Ahmedza i [id number],S, Merline Weinstein [id number],S, Merline Weinstein [id number],S, Merline Weinstein [id number],S, Merline Weinstein [id number],S, Merline Weinstein [id number],S, Merline Weinstein [id number],S, Rolan Ahmedza i [id number],S, Rolan Ahmedza i [id number],S, Rolan Ahmedza i [id number],S, Rolan Ahmedza i [id number],S, Rolan Ahmedza i [id number],S, Rolan Ahmedza i [id number],B, Kirby Gaytan MD [id number],S, Rolan Ahmedza i [id number],S, Rolan Ahmedza i [id number],S, Rolan Ahmedza i [id number],S, Rolan Ahmedza i [id number],S, Rolan Ahmedza i [id number],S, Rolan Ahmedza i [id number],S, Rolan Ahmedza i [id number],W, Kirby Gaytan MD [id number],W, Kirby Gaytan MD [id number],S, Kirby Gaytan MD [id number],S, Kirby Gaytan MD [id number],S, Kirby Gaytan MD Cardiology:This visi t has been a part of the consistent, comprehensive, and ongoing management of the chronic medical condition(s) listed above for the patient. Kirby Gaytan MD Cardiology:This visi t has been a part of the consistent, comprehensive, and ongoing management of the chronic medical condition(s) listed above for the patient. H er updated medication list for this problem includes: Furosemide 20 Mg Tablet (Furosemide) ..... Take 1 tablet by mouth every day Kirby Gaytan MD Cardiology [facility] Cardiology: H er updated medication list for this problem includes: Nexletol 180 Mg Tablet (Bempedoic acid) ..... Take 1 tablet by mouth once a day [facility] Cardiology:This visi t has been a part of the consistent, comprehensive, and ongoing management of the chronic medical condition(s) listed above for the patient. Steve [facility]man Cardiology [facility] Cardiology:This visi t has been a part of the consistent, comprehensive, and ongoing management of the chronic medical condition(s) listed above for the patient. Kirby Gaytan MD Cardiology: H er updated medication list for this problem includes: Nexletol 180 Mg Tablet (Bempedoic acid) ..... Take 1 tablet by mouth once a day [facility]: Her updated medication list for this problem includes: Fiasp Flextouch U-100 Insulin 100 Unit/ml (3 Ml) Insulin Pen (Insulin aspart (niacinamide)) Tresiba Flextouch U-100 100 Unit/ml (3 Ml) Insulin Pen (Insulin degludec) [facility] Cardiology: H er updated medication list for this problem includes: Clopidogrel 75 Mg Tablet (Clopidogrel) ..... Take 1 tablet by mouth every day Nitroglycerin 0.4 Mg Tablet, Sublingual (Nitroglycerin) ..... Dissolve 1 tab under tongue every 5 mins as needed for chest pain. max total of 3 doses in 15 mins [facility] Cardiology: B P today: 123/82 P rior BP: 124/74 (07/23/2024) Labs Reviewed: C reat: 0.7 (05/09/2017) C hol: 98.0 (05/09/2017) HDL: 32.0 (05/09/2017) LDL: 52.0 (?) (05/09/2017) T.0 (05/09/2017) [facility] Cardiology:This visi t has been a part of the consistent, comprehensive, and ongoing management of the chronic medical condition(s) listed above for the patient. Kirby Gaytan MD Cardiology: H er updated medication list for this problem includes: Clopidogrel 75 Mg Tablet (Clopidogrel) ..... Take 1 tablet by mouth every day Nitroglycerin 0.4 Mg Tablet, Sublingual (Nitroglycerin) ..... Dissolve 1 tab under tongue every 5 mins as needed for chest pain. max total of 3 doses in 15 mins Isosorbide Mononitrate 60 Mg Tablet Extended Release 24 Hr (Isosorbide mononitrate) ..... Take 2 tablets by mouth daily [facility] Cardiology: H er updated medication list for this problem includes: Clopidogrel 75 Mg Tablet (Clopidogrel) ..... Take 1 tablet by mouth every day Nitroglycerin 0.4 Mg Tablet, Sublingual (Nitroglycerin) ..... Dissolve 1 tab under tongue every 5 mins as needed for chest pain. max total of 3 doses in 15 mins Isosorbide Mononitrate 60 Mg Tablet Extended Release 24 Hr (Isosorbide mononitrate) ..... Take 2 tablets by mouth daily [facility]: H er updated medication list for this problem includes: Furosemide 20 Mg Tablet (Furosemide) ..... Take 1 tablet by mouth every day Losartan 50 Mg Tablet (Losartan) ..... Take 1 tablet by mouth daily [facility] Cardiology: H er updated medication list for this problem includes: Clopidogrel 75 Mg Tablet (Clopidogrel) ..... Take 1 tablet by mouth every day Nitroglycerin 0.4 Mg Tablet, Sublingual (Nitroglycerin) ..... Dissolve 1 tab under tongue every 5 mins as needed for chest pain. max total of 3 doses in 15 mins Isosorbide Mononitrate 60 Mg Tablet Extended Release 24 Hr (Isosorbide mononitrate) ..... Take 2 tablets by mouth daily [facility] Cardiology: T he following medications were removed from the medication list: Mounjaro 7.5 Mg/0.5 Ml Pen Injector (Tirzepatide) Her updated medication list for this problem includes: Losartan 50 Mg Tablet (Losartan) ..... Take 1 tablet by mouth daily Fiasp Flextouch U-100 Insulin 100 Unit/ml (3 Ml) Insulin Pen (Insulin aspart (niacinamide)) Tresiba Flextouch U-100 100 Unit/ml (3 Ml) Insulin Pen (Insulin degludec) [facility] Cardiology: B P today: 124/74 P rior BP: 124/72 (04/22/2024) Labs Reviewed: C reat: 0.7 (05/09/2017) C hol: 98.0 (05/09/2017) HDL: 32.0 (05/09/2017) LDL: 52.0 (?) (05/09/2017) T.0 (05/09/2017) Her updated medication list for this problem includes: Furosemide 20 Mg Tablet (Furosemide) ..... Take 1 tablet by mouth every day Losartan 50 Mg Tablet (Losartan) ..... Take 1 tablet by mouth daily [facility] Cardiology:Patient w as advised to stop smoking. [facility] Cardiology [facility] Cardiology:The patie nt is using CPAP on a regular basis. The patient has been benefiting from therapy and should continue use. [facility] Cardiology: H er updated medication list for this problem includes: Nexletol 180 Mg Tablet (Bempedoic acid) ..... Take 1 tablet by mouth once a day [facility] Cardiology: H er updated medication list for this problem includes: Mounjaro 15 Mg/0.5 Ml Pen Injector (Tirzepatide) Losartan 50 Mg Tablet (Losartan) ..... Take 1 tablet by mouth daily Fiasp Flextouch U-100 Insulin 100 Unit/ml (3 Ml) Insulin Pen (Insulin aspart (niacinamide)) Tresiba Flextouch U-100 100 Unit/ml (3 Ml) Insulin Pen (Insulin degludec) [facility]: H er updated medication list for this problem includes: Ranolazine 1,000 Mg Tablet Extended Release 12 Hr (Ranolazine) ..... Take one tablet by mouth twice daily Nitroglycerin 0.4 Mg Tablet, Sublingual (Nitroglycerin) ..... Dissolve 1 tab under tongue every 5 mins as needed for chest pain. max total of 3 doses in 15 mins Isosorbide Mononitrate 60 Mg Tablet Extended Release 24 Hr (Isosorbide mononitrate) ..... Take 2 tablets by mouth daily Clopidogrel 75 Mg Tablet (Clopidogrel) ..... Take 1 tablet by mouth daily Metoprolol Succinate 25 Mg Tablet Extended Release 24 Hr (Metoprolol succinate) ..... Take 1 tablet by mouth once a day [facility]: B P today: 121/84 P rior BP: 119/78 (12/19/2023) Labs Reviewed: C reat: 0.7 (05/09/2017) C hol: 98.0 (05/09/2017) HDL: 32.0 (05/09/2017) LDL: 52.0 (?) (05/09/2017) T.0 (05/09/2017) Her updated medication list for this problem includes: Furosemide 20 Mg Tablet (Furosemide) ..... Take 1 tablet by mouth daily Losartan 50 Mg Tablet (Losartan) ..... Take 1 tablet by mouth daily Metoprolol Succinate 25 Mg Tablet Extended Release 24 Hr (Metoprolol succinate) ..... Take 1 tablet by mouth once a day [facility] Cardiology [facility]: H er updated medication list for this problem includes: Mounjaro 15 Mg/0.5 Ml Pen Injector (Tirzepatide) Losartan 50 Mg Tablet (Losartan) ..... Take 1 tablet by mouth daily Fiasp Flextouch U-100 Insulin 100 Unit/ml (3 Ml) Insulin Pen (Insulin aspart (niacinamide)) Tresiba Flextouch U-100 100 Unit/ml (3 Ml) Insulin Pen (Insulin degludec) [facility] Cardiology: B P today: 119/78 P rior BP: 136/73 (11/27/2023) Labs Reviewed: C reat: 0.7 (05/09/2017) C hol: 98.0 (05/09/2017) HDL: 32.0 (05/09/2017) LDL: 52.0 (?) (05/09/2017) T.0 (05/09/2017) H er updated medication list for this problem includes: Furosemide 20 Mg Tablet (Furosemide) ..... Take 1 tablet by mouth daily Losartan 50 Mg Tablet (Losartan) ..... Take 1 tablet by mouth daily Metoprolol Succinate 25 Mg Tablet Extended Release 24 Hr (Metoprolol succinate) ..... Take 1 tablet by mouth once a day [facility]: Her updated medication list for this problem includes: Nexletol 180 Mg Tablet (Bempedoic acid) ..... Take 1 tablet by mouth once a day [facility]ai Cardiology Rolan Ahmedzai Cardiology [facility]an [facility] Card[facility] Rolan Ahmedz[facility] Cardiology Rolan Ahmedzai Cardiology Rolan Ahmedzai Cardiology Rolan Ahmedzai Cardiology Rolan Ahmedzai Cardiology Rolan Ahmedzai Cardiology Rolan Ahmedzai Cardiology Rolan Ahmedzai Cardiology Rolan Ahmedzai Cardiology Rolan Ahmedzai Cardiology Rolan Ahmedzai Cardiology Rolan Ahmedzai Cardiology Rolan Ahmedzai Cardiology Rolan Ahmedzai Cardiology Rolan Ahmedzai Cardiology Rolan Ahmedzai Cardiology Rolan Ahmedzai Cardiology Kirby Gaytan MD Cardiology Kirby Gaytan MD Cardiology Kirby Gaytan MD Cardiology Kirby Gaytan MD Cardiology Kirby Gaytan MD Cardiology Kirby Gaytan MD Cardiology Rolan Ahmedzai Cardiology Rolan Ahmedzai Cardiology Rolan Ahmedzai Cardiology Rolan Ahmedzai Cardiology Rolan Ahmedzai Cardiology Rolan Ahmedzai Cardiology Rolan Ahmedzai Cardiology Rolan Ahmedzai Cardiology Rolan Ahmedzai Cardiology Rolan Ahmedzai Cardiology Rolan Ahmedzai Cardiology Rolan Ahmedzai Cardiology Rolan Ahmedzai Cardiology Rolan Ahmedzai Cardiology Rolan Ahmedzai Cardiology Merline Weinstein Cardiology Merline Weinstein Cardiology Merline Weinstein Cardiology Merline Weinstein Cardiology Merline Weinstein Cardiology Merline Weinstein Cardiology Rolan Ahmedzai Cardiology Rolan Ahmedzai Cardiology Rolan Ahmedzai Cardiology Rolan Ahmedzai Cardiology Rolan Ahmedzai Cardiology Rolan Ahmedzai Cardiology Kirby Gaytan MD Cardiology Rolan Ahmedzai Cardiology Rolan Ahmedzai Cardiology Rolan Ahmedzai Cardiology Rolan Ahmedzai Cardiology Rolan Ahmedzai Cardiology Rolan Ahmedzai Cardiology Rolan Ahmedzai Cardiology Kirby Gaytan MD Cardiology Kirby Gaytan MD Cardiology Kirby Gaytan MD Cardiology Kirby Gaytan MD Cardiology Kirby Gaytan MD Cardiology [facility] Follow up [facility] Follow up [facility] Follow up [facility] Follow up [facility] Follow up [facility] Follow up [facility] Follow up Steve [facility] Cardiology Follow up :LDL caculated 126 on 12/29/20. Continue on cholesterol -lowering therapy. Karen Valdez Cardiology Follow up :Continue on antihypertensive medications. Karen Valdez Cardiology Follow up :Reports bilateral entire leg pain and back pain. She is encouraged to take Tylenol Arthritis and discouraged from taking ibuprofen. Alternate heat and ice therapy for alleviation of sx. No leg swelling. Karen Tonylett Cardiology Follow up :A1C 9.1. She is scheduled with Endocrinology on 05/18/21. Karen Valdez Cardiology Follow up Karen Tonyfrantz etapril Telehealth Patrick Oden Telehealth: H er updated medication list for this problem includes: Aspirin 81 81 Mg Oral Tablet Delayed Release (Aspirin) ..... One tab by mouth daily Losartan Potassium 25 Mg Oral Tablet (Losartan potassium) ..... Take one tablet daily Glimepiride 4mg Tablets (Glimepiride) ..... Take 1 tablet by mouth twice daily Januvia 100 Mg Oral Tablet (Sitagliptin phosphate) ..... Once daily Patrick Oden Telehealth: H er updated medication list for this problem includes: Atorvastatin Calcium 40 Mg Oral Tablet (Atorvastatin calcium) Patrick Oden Telehealth: P rior BP: 101/66 (08/10/2020) Labs Reviewed: C reat: 0.7 (05/09/2017) C hol: 98.0 (05/09/2017) HDL: 32.0 (05/09/2017) T.0 (05/09/2017) Her updated medication list for this problem includes: Aspirin 81 81 Mg Oral Tablet Delayed Release (Aspirin) ..... One tab by mouth daily Metoprolol Succinate Er 50 Mg Oral Tablet Extended Release 24 Hour (Metoprolol succinate) ..... One tab. daily Losartan Potassium 25 Mg Oral Tablet (Losartan potassium) ..... Take one tablet daily [facility] Patrick Oden [facility] Oden [facility] Patrick [facility] Cardiology follow up :She is s/p successful PCI with TONY to OM1 on 07/03/20. . Cath also revealed preserved LVF with normal EF, known diffuse distal LAD disease, patent LAD stents, and mild RCA disease. Patient complains of chest discomfort, tried NTG it did not help. EKG showed anterior wall SC age undetermined, no acute changes. Had stent to OM in 06/2020. I recommend cardiac cath. I offered patient to have cardiac cath today but she does not want it today, will schedule cardiac cath. She will schedule cardiac cath to be done with Dr. Gaytan. Patrick Oden Cardiology follow up : B P today: 101/66 P rior BP: 121/74 (08/03/2020) Labs Reviewed: C reat: 0.7 (05/09/2017) C hol: 98.0 (05/09/2017) HDL: 32.0 (05/09/2017) T.0 (05/09/2017) Her updated medication list for this problem includes: Aspirin 81 81 Mg Oral Tablet Delayed Release (Aspirin) ..... One tab by mouth daily Metoprolol Succinate Er 50 Mg Oral Tablet Extended Release 24 Hour (Metoprolol succinate) ..... One tab. daily Losartan Potassium 25 Mg Oral Tablet (Losartan potassium) ..... Take one tablet daily Patrick Oden Cardiology follow up Patrick [facility] Cardiology Kirby Gaytan MD Cardiology Steve Oliveira Cardiology Steve Oliveira Cardiology Steve Oliveira Cardiology Steve Oliveira Cardiology Steve Oliveira Cardiology Steve Oliveira Cardiology Steve Oliveira Cardiology Steve [facility]ira Cardiology - cpoe, billing, shital er Kirby Gaytan MD Cardiology - cpoe, billing, shital er Kirby Gaytan MD Cardiology - cpoe, billing, shital er Kirby Gaytan MD Cardiology - cpoe, billing, shital er Kirby Gaytan MD Cardiology - cpoe, billing, shital er Kirby Gaytan MD Cardiology - cpoe, billing, shital anupama Gaytan MD Cardiology Kirby Gaytan MD Cardiology Kirby Gaytan MD Cardiology Kirby Gaytan MD Cardiology Kirby Gaytan MD Cardiology Kirby Gaytan MD Cardiology follow up Bashiriya Hua felton MD Cardiology follow up Toniya Sing jose francisco JUAN Cardiology follow up Toniya Sing jose francisco JUAN Cardiology follow up Toniya Sing jose francisco JUAN Cardiology follow up Toniya Hua felton MD Cardiology follow up Bashiriya Hua felton MD Cardiology Kirby Gaytan MD Cardiology:Increase Carvedilol to 6.25mg twice a day. Kirby Gaytan MD Cardiology:The Patie nt was reencouraged to stop smoking. Kirby Gaytan MD Cardiology: B P today: 116/77 P rior BP: 126/84 (02/27/2018) Labs Reviewed: C reat: 0.7 (05/09/2017) C hol: 98.0 (05/09/2017) HDL: 32.0 (05/09/2017) T.0 (05/09/2017) Kirby Gaytan MD Cardiology Kirby Gaytan MD Cardiology Kirby Gaytan MD Cardiology Kirby Gaytan MD Cardiology Kirby Gaytan MD Cardiology Kirby Gaytan MD Cardiology Kirby Gaytan MD Cardiology Kirby Gaytan MD Cardiology Kirby Gaytan MD Cardiology Kirby Gaytan MD Cardiology:check JAYJAY Kirby Gaytan MD Cardiology Kirby Gaytan MD Cardiology Follow up Toniya Sing jose francisco JUAN Cardiology Follow up Toniya Sing jose francisco JUAN Cardiology Follow up Toniya Sing jose francisco JUAN Cardiology Follow up Toniya Sing jose francisco JUAN Cardiology Follow up Toniya Sing h Cardiology Follow up Toniya Sing jose francisco JUAN Cardiology Follow up Toniya Sing h Cardiology Follow up Toniya Sing jose francisco JUAN Cardiology Follow up Toniya Sing h Cardiology Follow up Kirby felton MD Cardiology Follow up Kirby felton MD Cardiology Kirby Gaytan MD Cardiology Kirby Gaytan MD Cardiology Kirby Gaytan MD Cardiology Kirby Gaytan MD Cardiology Kirby Gaytan MD Cardiology Kirby Gaytan MD Cardiology Kirby Gaytan MD Cardiology Kirby Gaytan MD Cardiology Kirby Gaytan MD Cardiology Kirby Gaytan MD Cardiology Kirby Gaytan MD Cardiology Kirby Gaytan MD Cardiology Kirby Gaytan MD Cardiology Kirby Gaytan MD Cardiology Kirby Gaytan MD Cardiology Kirby Gaytan MD Cardiology Kirby Gaytan MD Cardiology Kirby Gaytan MD Cardiology Kirby Gaytan MD Cardiology Kirby Gaytan MD Cardiology Kirby Gaytan MD Cardiology Kirby Gaytan MD Cardiology Kirby Gaytan MD Cardiology Kirby Gaytan MD Cardiology Kirby Gaytan MD Cardiology Kirby Gaytan MD Cardiology Kirby Gaytan MD Date Name Stress Regadenoson Complete Echo Lipoprotein (a) ECP Commercial Arterial Duplex Bi-L ower EX Arterial Duplex Bi-L ower EX Stress Regadenoson Cardiac Cath - Left - GC Arterial Duplex to r /o pseudoanuerysm Stress Exercise Card iolite URINALYSIS, RANDOM, MICROALB/CREATININE TSH, 3RD GENERATION W/REFLEX TO FT4 HEMOGLOBIN A1c B TYPE NATRIURETIC P EPTIDE (BNP) LIPID PANEL COMPREHENSIVE METABO LIC PANEL, W/EGFR CBC (INCLUDES DIFF/P LT) HISTORY OF PROCEDURES Procedure Date Procedure Name Provider Procedure Notes S tatus Complex e/m visit add on Kirby Gaytan MD completed Complex e/m visit add on Kirby Gaytan MD completed EKG Kirby Gaytan MD completed Complex e/m visit add on Kirby Gaytan MD completed Complex e/m visit add on Kirby Gaytan MD completed EKG Kirby Gaytan MD completed EKG Kenji Bailey MD completed EKG Kirby Gaytan MD completed EKG Kirby Gaytan MD completed SNOMED-CT: 01344852 Physical Exam, Performed: Pulse Exam of Foot Kirby Gaytan MD completed Stress EKG Jarred Escamilla MD completed Regadenoson, 4 units Kirby Gaytan MD completed Cardiolite, 2 units Kirby Gaytan MD completed SPECT Images Kirby Gaytan MD complet ed SNOMED-CT: 978983654 Smoking Cessation Counseling Kirby Gaytan MD completed SNOMED-CT: 29432251 Physical Exam, Performed: Pulse Exam of Foot Kirby Gaytan MD completed SNOMED-CT: 961087347 902074 Current Medications Documented Kirby Gaytan MD completed EKG Kirby Gaytan MD completed SNOMED-CT: 213093390 298003 Current Medications Documented Kirby Gaytan MD completed SNOMED-CT: 69028024 Physical Exam, Performed: Pulse Exam of Foot Kirby Gaytan MD completed SNOMED-CT: 259762067 910994 Current Medications Documented Kirby Gaytan MD completed SNOMED-CT: 46842397 Physical Exam, Performed: Pulse Exam of Foot Kirby Gaytan MD completed SNOMED-CT: 322491944 219350 Current Medications Documented Kirby Gaytan MD completed Event Monitor Kirby Gaytan MD comple su SNOMED-CT: 63493259 Physical Exam, Performed: Pulse Exam of Foot Kirby Gaytan MD completed SNOMED-CT: 099245213 255467 Current Medications Documented Kirby Gaytan MD completed SNOMED-CT: 862640383 Smoking Cessation Counseling Kirby Gaytan MD completed SNOMED-CT: 87274181 Physical Exam, Performed: Pulse Exam of Foot Kirby Gaytan MD completed SNOMED-CT: 561988580 358114 Current Medications Documented Kirby Gaytan MD completed Stress EKG Kirby Gaytan MD completed Regadenoson, 4 units Kirby Gaytan MD completed Cardiolite, 2 units Kirby Gaytan MD completed SPECT Images Kirby Gaytan MD complet ed SNOMED-CT: 513843125 436733 Current Medications Documented Kirby Gaytan MD completed SNOMED-CT: 20965576 Physical Exam, Performed: Pulse Exam of Foot Kirby Gaytan MD completed SNOMED-CT: 056471462 405609 Current Medications Documented Kirby Gaytan MD completed SNOMED-CT: 84773391 Physical Exam, Performed: Pulse Exam of Foot Kirby Gaytan MD completed EKG Kirby Gaytan MD completed SNOMED-CT: 857251299 081574 Current Medications Documented Kirby Gaytan MD completed
== END 2025-05-07 10:15 | disposition home or self-care (01) ==
PROVIDERS: PCP Internal Medicine Gastroenterology; Visit Provider Nurse Practitioner Adult Health
DX: M47.27 Other spondylosis with radiculopathy, lumbosacral region (principal); M48.061 Spinal stenosis, lumbar region without neurogenic claudication
CPT/HCPCS: 72148

== ENCOUNTER 2025-05-29 10:31 | Inpatient (IN) | payer OTHER, SELFPAY ==
[2025-05-29] VITALS (15 sets, daily range): BP systolic 113–124; BP diastolic 62–82; PULSE 66–77; RESP 12–22; TEMP 36.4–36.6; O2SAT 95–100; BMI 26.4
--- NOTE | ~2025-05-29 | MR_ITS ---
EXAMINATION: MR cervical spine wo/w con DATE: 06/02/2025 11:57 INDICATION: Neck pain with radiculopathy TECHNIQUE: Magnetic resonance imaging (MRI) of the cervical spine was performed without and with 15 m L Multihance intravenous contrast. Sequences included sagittal T2-weighted FSE, sagittal T2-weighted FS FSE, sagittal T1-weighted FSE, axial T2-weighted FSE, and axial T1-weighted SE. Postcontrast seque nces included sagittal T1-weighted FS FSE, and axial T1-weighted FS SE. COMPARISON: CT dated 08/15/2022 FINDINGS: Straightening of the normal cervical lordosis. Vertebral body heights are normal. C5-C6 anterior spi nal fusion with interbody bone graft cage and suggestion of small amount of early central osseous madeline dging. Bone marrow signal is normal throughout. Mild disc height loss and annular fissures at the rem aining disc spaces from C2-C3 through C6-C7. Cord signal intensity is normal. No abnormally enhancing lesions identified. Cervical soft tissues are unremarkable. No abnormally enhancing lesions identifi ed. The following disc levels are specifically discussed: C2-C3: Disc is mildly bulging. There is no uncovertebral joint osteoarthritis. There is no facet join t osteoarthritis. There is no neural foraminal stenosis. There is no central canal stenosis. C3-C4: Annular fissure and mild central disc protrusion. There is minimal bilateral uncovertebral luiz nt osteoarthritis. There is mild bilateral facet joint osteoarthritis. There is no neural foraminal s tenosis. There is minimal central canal stenosis. C4-C5: Disc is bulging with annular fissure. There is mild bilateral uncovertebral joint osteoarthrit is. There is mild bilateral facet joint osteoarthritis. There is mild bilateral neural foraminal sten osis. There is mild central canal stenosis. C5-C6: Discectomy and anterior spinal fusion. There is moderate bilateral uncovertebral joint osteoar thritis. There is mild bilateral facet joint osteoarthritis. There is mild left neural foraminal sten osis. There is no central canal stenosis. C6-C7: Disc is bulging. There is mild bilateral uncovertebral joint osteoarthritis. There is mild octaviano ateral facet joint osteoarthritis. There is mild left neural foraminal stenosis. There is mild centra l canal stenosis. C7-T1: The disc does not extend beyond the endplate margin. There is no uncovertebral joint osteoarth ritis. There is mild bilateral facet joint osteoarthritis. There is no neural foraminal stenosis. The re is no central canal stenosis. IMPRESSION: 1. Mild cervical spondylosis. Reviewed, dictated and finalized at location A.
--- NOTE | ~2025-05-29 | CT_ITS ---
CTA chest PE protocol Ordering provider: Bonifacio Strickland MD History: 49 years Female with . Chest pain + sob . Comparison: March 30, 2023 Technique: CT angiogram chest was performed following timed intravenous injection of contrast. Thin s lice axial images and reformatted coronal images were obtained. Three dimensional reformatted images of the chest were also obtained using a [employer] workstation. . Automated exposure control and iterati ve reconstruction technique were employed. The dose-length product was 340.23 mGy-cm. 100 mL Omnipaqu e 350 was given IV. Findings: PULMONARY ARTERIES: No pulmonary embolus. VISUALIZED THORACIC INLET: Normal. Left axillary lymph nodes with the largest measuring 1.1 cm. MEDIASTINUM: Aorta/coronary arteries: The thoracic aorta is normal. Heart/other: The heart is not enlarged. Lymph nodes: No mediastinal or hilar adenopathy. LUNGS: No pulmonary nodules or masses. No infiltrates or effusions. No pneumothorax. VISUALIZED UPPER ABDOMEN: the visualized upper abdomen is normal. MUSCULOSKELETAL: Soft tissues: The superficial soft tissues are normal. Bones: Age appropriate degenerative changes of the spine. IMPRESSION: 1. No pulmonary embolism. 2. No acute cardiopulmonary pathology. Reviewed, dictated and finalized at location A.
--- NOTE | ~2025-05-29 | XR_ITS ---
EXAM/PROCEDURE: XR chest 1V - 05/29/2025 11:00 CDT HISTORY: 49 years old Female with b/l UE numbness/tingling TECHNIQUE: AP view(s) of the chest. COMPARISON: None available. FINDINGS: LUNGS/ PLEURA: No focal consolidation. No appreciable pneumothorax or large pleural effusion. HEART/ MEDIASTINUM: Heart appears normal in size. BONES: No acute osseous abnormality. OTHER: Visualized upper abdomen is unremarkable. IMPRESSION: No acute process. Reviewed, dictated and finalized at location A. IMPRESSION: No acute process.
--- NOTE | ~2025-05-29 | CT_ITS ---
Non-contrast Head CT History: Fracture Seizures Technique: Axial non-contrast imaging of the brain was performed. Dose reduction technique was used on this scan by utilizing automated exposure control and iterative reconstruction technique. The dose -length product (DLP) was 529.67 mGy-cm. Findings: There is no evidence of intracranial hemorrhage, mass lesion, or acute infarct. Brain par enchyma appears normal. The ventricles and subarachnoid spaces are normal in size. The calvarium ap pears normal. The visualized paranasal sinuses and mastoid air cells are clear. Impression: No significant abnormality seen. Reviewed, dictated and finalized at location . Impression: No significant abnormality seen.
--- NOTE | ~2025-05-29 | MR_ITS ---
MR brain/brain stem wo con Ordering provider: Ashley Martell MD History: 49 years Female with . numbness and tingling in hands . Comparison: None. Technique: MRI brain was performed without contrast. FINDINGS: Artifacts are seen in the frontal area and in some of the images in the skull base area. BONES: Normal. CRANIOCERVICAL JUNCTION: normal. PITUITARY: Normal. MAJOR INTRACRANIAL VESSELS: Normal flow void. OPTIC NERVES AND CRANIAL NERVES VII AND VIII COMPLEXES: Grossly normal. BRAIN PARENCHYMA AND CSF SPACES: No visible white matter disease. The brainstem and cerebellum are n ormal. No acute or chronic intracranial hemorrhage. No extra axial fluid collections. Diffusion weigh su and ADC mapping images reveal no recent ischemia. No midline shift or mass effect. PARANASAL SINUSES: Bilateral ethmoid and frontal sinus disease. Otherwise, Normal. MASTOIDS: Normal SUPERFICIAL/SURROUNDING SOFT TISSUES: Normal. IMPRESSION: 1. No evidence of acute infarct or hemorrhage seen. 2. Metallic Artifacts degraded the images. Reviewed, dictated and finalized at location A.
--- OUTSIDE RECORDS SUMMARY | 2025-05-29 10:35 | XMS_ITS | Continuity of Care Document ---
Author Organization [facility] Address [address] [place] [address] Phone Care Team Providers Care Heel Caser Name Role Phone Michelle Cao Unavailable Unavailable Toño RN, Mara Unavailable Unavailable Advance Directives Directive Yes / No Effective Date File Name No Information Encounters Encounter Description Practice Location Reason(s) For Visit Diagnoses Date Provider Providers [facility] [address], [place], [place], [id number], tel:[phone] [facility] No Information Gaurav Martinez. [address], [place], [place], [id number], . tel:[phone] Consulting Provider: Mara Lundberg, [address], [place], [address]. tel:[phone] Family History Family Member Type Diagnosis Age [...]
--- OUTSIDE RECORDS SUMMARY | 2025-05-29 10:35 | XMS_ITS | Clinical Summary ---
Author Organization [id number] Address [address] [place] [address] Care Team Providers Care Shuttle Repairer Name Role Phone Sara Chambers RN Unavailable [phone] Mara Buck MD Primary Care Provider [phone] Delmi Forrest MD Unavailable [phone] Kirby Gaytan MD Unavailable Source Comments [facility],non-owned Affiliates and Associated Physician Practices is amultiple site organization consisting of ambulatory clinics and hospital sitesin [place], [place], [place] and [place]. This disclosure is being madepursuant to the Care Everywhere program and may not contain all information available regarding this patient. Last updated 18.[facility] Allergies Active Allergy Reactions Criticality Noted Date [...] hyperglycemia, with long-term current use of insulin ([facility]) Use 1 Each every 10 days 3 Each 5 11/27/19 24 Active Lancets Micro Thin 33G MISCIndications :Type 2 diabetes mellitus with hyperglycemia, with long-term current use of insulin ([facility]) Use 1 Each 4 times daily 200 Each 02/05/20 24 Active Insulin Pen Needle 32G X 4 MM MISCIndications :Type 2 diabetes mellitus with hyperglycemia, with long-term current use of insulin ([facility]) 1 Each by Injection route 4 times daily 200 Each 02/05/20 24 Active blood glucose test stripIndication s:Type 2 diabetes mellitus with hyperglycemia, with long-term current use of insulin ([facility]) Use 1 (one) strip 4 times daily - before meals & nightly 200 strip 02/05/20 24 Active insulin aspart, w/Niacinamide, (Fiasp FlexTouch) penIndications: Type 2 diabetes mellitus with hyperglycemia, with long-term current use of insulin ([facility]) INJECT 62 UNITS SUBCUTANEOUSLY 3 TIMES A [...] hyperglycemia, with long-term current use of insulin ([facility]) Inject 25 (twenty five) Units subcutaneously at [...] fluticasone propionate (Flonase) 50 MCG/ACT nasal spray [place] 2 (two) sprays into each nostril once [...] H/o c/s x2 BOTH are LTCS at [facility] and first at [facility]. Both had vertical skin incisions. 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 Not on file Not on file Last Filed Vital Signs Vital Sign Reading Time Taken Comments Blood Pressure 132/74 02/03/2025 11:54 AM CDT Pulse 78 02/03/2025 11:54 AM CDT Temperature 36.7 C (98 F) 05/02/2022 11:52 AM CDT Respiratory Rate 20 01/21/2019 3:08 PM [employer] Oxygen Saturation 100% 02/03/2025 11:54 AM CDT Inhaled Oxygen Concentration 21% 11/22/2018 7 :40 AM [employer] Weight 81.6 kg (180 lb) 02/03/2025 11:54 AM CDT Height 165.1 cm (5' 5) 02/03/2025 11:54 AM CDT Body Mass Index 29.95 02/03/2025 11:54 AM CDT Plan of Treatment Upcoming Encounters Date Type Department Care Team (Late st Contact Info) Description 08/08/2025 11:20 AM CDT Office Visit [facility] - Endocrinology [address], [address] [place] [address] [place] [id number] [place] [address] [address] [place] [address] Health Maintenance [...] 07/31/2024, 11/27/2023, Additional history exists INFLUENZA VACCINE (#1) 2025 2019, 2016 DIABETES-HGB A1C 08/06/2025 02/03/2025, 10/2024, 07/31/2024, Additional [...] this topic Medical Devices Implanted Type Area Post Hole Digging Machine Operator Device Identifier Shelf Expiration Date Model / Serial / Lot Disha Vale Dbx Bone 1.0cc - [id number] Implanted:Qty : 1 on 03/03/2015 by Richard Mosquera MD at [facility] Spine Cervical Spinal [employer] 10/22/2017 [id number] / [id number] / Space Peek 7 X 16 X 14mm Implanted:Qty : 1 on 03/03/2015 by Richard Mosquera MD at [facility] Spine Cervical [employer] 12/05/2022 [id number] / / [id number] Kt Infs Bone [employer] Implanted:Qty : 1 on 03/03/2015 by Richard Mosquera MD at [facility] Spine Cervical Med[employer] [id number] / / Procedures Procedure Name Priority Date/Time Associated Diagnosis Comments HEMOGLOBIN A1C - POINT OF CARE (AMB) Routine 02/03/2025 Type 2 diabetes mellitus with hyperglycemia, with long-term current use of insulin MICROALB/CREAT RATIO URINE RANDOM PANEL Routine 10/31/2024 1:20 PM [employer] Type 2 diabetes mellitus with hyperglycemia, with long-term current use of insulin COMPREHENSIVE METABOLIC PANEL Routine 10/31/2024 1:20 PM [employer] Type 2 diabetes mellitus with hyperglycemia, with long-term current use of insulin HM DIABETES EYE EXAM Routine 10/31/2022 ENDOSCOPY, COLON, DIAGNOSTIC Routine 11/09/2018 12:04 PM [employer] HPV DETECTION HIGH RISK JAI Routine 10/24/2018 11:35 AM [employer] Screening for breast cancer from Last 3 Months or Most Recently Relevant to Health Maintenance Results * HEMOGLOBIN A1C - POINT OF CARE (HgbA1C) (02/03/2025) Hemoglobin A1c POCT 6.5 % Expiration Date 07/10/2026 Lot # [id number] QC Verified Yes Yes Blood BLOOD SPECIMEN / Unknown 02/03/2025 us Delmi Forrest MD LAB - POINT OF CARE RICKY CABRAL Final Result * MICROALB/CREAT RATIO URINE RANDOM PANEL (10/31/2024 1:20 PM [employer]) Creatinine Urine 184.87 mg/dL [facility] ACCOUNT BILL Microalbumin Urine 1.1 mg/dL [facility] ACCOUNT BILL Microalbumin/Crea tinine Ratio 5 <30 mg/g [facility] ACCOUNT BILL Urine URINE SPECIMEN OBTAINED BY CLEAN CATCH PROCEDURE / Unknown 10/31/2024 1:20 PM [employer] 10/31/2024 Narrative [facility] ACCOUNT BILL - 11/01/2024 12:06 AM [employer] Performed at: [address] [place] [address] [place] , [place], [place] [id number] Riprap Worker: Lima Pearson [facility], Phone: [phone] us Yuliet Martines APRN-HOME DELIVERY DRIVER LAB - URINE CHEMISTRY ORD ERABLES Final Result [facility] ACCOUNT BILL [address] [place] [address] * (ABNORMAL) COMPREHENSIVE METABOLIC PANEL (10/31/2024 1:20 PM [employer]) Glucose 87 70 - 99 mg/dL [facility] [...] BLOOD SPECIMEN / Unknown 10/31/2024 1:20 PM [employer] 10/31/2024 Narrative [facility] ACCOUNT BILL - 10/31/2024 11:06 PM [employer] Performed at: [address] [place] [address] [place], [place] [id number] Riprap Worker: Lima Pearson [facility], Phone: [phone] us Yuliet Martines RESPIRATORY CARE ASSISTANT-HOME DELIVERY DRIVER LAB - CHEMISTRY ORDERABLE S Final Result [facility] ACCOUNT BILL [address] [place] [address] * DIABETES EYE EXAM (10/31/2022) us Delmi Forrest MD HEALTH MAINTENANCE Final Result * ENDOSCOPY, COLON, DIAGNOSTIC (11/09/2018 12:04 PM [employer]) Report Endoscopy POC _ Patient Name: Annemarie Jordan Procedure Date: 11/09/2018 12:04 PM Date of : 1975 Admit Type: Outpatient Age: 43 Gender: Female Attending MD: Moon Summers MD _ Procedure: Colonoscopy Indications: Abdominal pain in the left lower quadrant Providers: Moon Summers MD (Doctor), Meli Garcia RN, Lyle Burris, Adventure Therapist Referring MD: Florentino Chakraborty MD (Referring MD), [...] bowel preparation was evaluated using the BBPS ([place] Bowel Preparation Scale) with scores of: Right [...] previously scheduled. Procedure Code(s): --- Professional --- 94393, Colonoscopy, flexible; with removal of tumor(s), polyp(s), or other lesion(s) by snare technique 84671, 59, Colonoscopy, flexible; with biopsy, single or multiple --- Technical --- 61285, Colonoscopy, flexible; with removal of tumor(s), polyp(s), or other lesion(s) by snare technique 06332, 59, Colonoscopy, flexible; with biopsy, single or multiple Diagnosis Code(s): --- Professional --- D12.3, Benign neoplasm of transverse colon (hepatic flexure or splenic flexure) K62.1, Rectal polyp R10.32, Left lower quadrant pain --- Technical --- D12.3, Benign neoplasm of transverse colon (hepatic flexure or splenic flexure) K62.1, Rectal polyp R10.32, Left lower quadrant pain CPT copyright 2017 [employer]. All rights reserved. The codes documented in this report are preliminary and upon meat dresser review may be revised to meet current compliance requirements. Moon Summers MD 11/09/2018 12:49:45 PM Number of Addenda: 0 Note Initiated On: 11/09/2018 12:04 PM [facility] ENDOSCOPY 11/09/2018 12:0 4 PM [employer] us Moon Summers MD GI PROCEDURE ORDERABLES Ed ited Result - Final [facility] ENDOSCOPY * HPV DETECTION HIGH RISK JAI (10/24/2018 11:35 AM [employer]) High Risk Human Papilloma Result Not Detected Not Detected 10/27/2018 12:26 PM [employer] [facility] High Risk Human Papilloma Interp 10/27/2018 12:26 PM [employer] [facility] PATHOLOGY LAB Comment:High Risk Human Kartik lloma Virus was Not Detected. Pathology/Cytolo gy MISCELLANEOUS SAMPLES / Unknown 10/24/2018 11:35 AM [employer] 10/25/2018 11:35 AM [employer] Narrative [facility] PATHOLOGY LAB - 10/27/2018 12:26 PM [employer] Nucleic acid isolated from the specimen was [...] LAB - MICROBIOLOGY ORDERABL ES Final Result [facility] PATHOLOGY LAB [address] [phone] from Last 3 Months or Most Recently Relevant to Health Maintenance Insurance MEDICAID AETNA [facility] AETNA [facility] SELF PAY NO INSURANCE Member Subscriber Plan / Payer (Ef fective for All Dates) Name:Annemarie Dubois Member ID:Not on file Relation to Subscriber:Self Name:Annemarie Dubois Subscriber ID:Not on file Payer ID:Not on file Group ID:Not on file Type:Self Pay Address: [place], [place] Advance Directives * Full Code (Latest [...] 12:36 PM 11/16/2018 12:36 PM Care Teams Shuttle Repairer Relationship Specialty Start Date End Date Mara Buck MD [address] [place] [address] PCP - General Family Medicine 03/17/21 Sara Chambers, RN Dental Claims Processor 03/03/15 [place] [address] [address] Endocrinology 05/31/21 Kirby Gaytan MD [address] [place] [address] Cardiovascular Disease 05/31/21
--- OUTSIDE RECORDS SUMMARY | 2025-05-29 10:35 | XMS_ITS | Clinical Summary ---
Author Organization [facility] Address [address] [place] [address] Care Team Providers Care Geoscience Specialist Name Role Phone Gregory Gaytan MD Unavailable [phone] Jose Alejandro Solomon MD Primary Care Provider Allergies Active Allergy Reactions Criticality Noted Date Comments Adhesive Rash Medium 09/07/2022 Adhesive Tape-Silicones Rash Medium 03/09/2018 Atorvastatin Muscle pain Medium 01/31/2023 Elevated CK Elevated CK Elevated CK Elevated CK Dermatitis Antigens Rash Medium 11/09/2018 Empagliflozin Other (See comments) Low 03/25/2021 uti recurrently Metformin Diarrhea,Stomach upset,Nausea And Vomiting Low 03/25/2021 Iyptrsz-Rcl-Dyv Reductase Inhibitors Muscle pain High 07/17/2023 Zucchini [...] 1 capsule (30 mg total) by mouth brass cutter before breakfast 10/02/20 23 Active rOPINIRole XL (REQUIP XL) 2 mg 24 hr tabletIndications: Restless Legs Syndrome Take 1 tablet (2 mg total) by mouth nightly Active SUMAtriptan (IMITREX) 50 mg tablet Take 1 tablet (50 mg total) by mouth brass cutter before breakfast 09/27/20 23 Active traZODone (DESYREL) [...] 1 tablet (75 mg total) by mouth brass cutter before breakfast Active oxyCODONE (ROXICODONE) 10 mg [...] (obstructive sleep apnea) 03/21/2024 No diagnosis on [place] I 06/26/2023 Lumbar radiculopathy 02/09/2023 Vitamin D [...] (11/06/2023): Added automatically from request for surgery [id number] Neck pain 01/26/2015 Maternal mitral valve prolapse, [...] Department Care Team Description 03/28/2025 Results Follow-Up [facility] [address] [place] [address] Medical Office Building [address] [place] [address] Lashay Jean NP Vitamin D 25 hydroxy, Vitamin B12, Vitamin B1, Additional followed-up results: 11 03/24/2025 10:25 AM CDT Lab [facility] [address] [address] H/O gastric bypass; Intestinal malabsorption, unspecified type; BMI 27.0-27.9,adult 03/24/2025 10:00 AM CDT Office Visit [facility] [address] [facility] Medical Office Building [address] [place] [address] Lashay Jean NP H/O gastric bypass (Primary Dx); Bariatric surgery status; Intestinal malabsorption, unspecified type; BMI 27.0-27.9,adult from Last 3 Months Surgical History Surgery Date Site/Laterality Comments JOINT REPLACEMENT BACK SURGERY ABDOMINAL SURGERY CARDIAC STENT PLACEMENT SECTION 1996, 2002, 2009 HYSTERECTOMY 2017 Medical History Medical History Date Comments Arthritis Asthma Coronary artery disease Diabetes mellitus (HCC) Sleep apnea Hypertension [place], old Type 2 diabetes mellitus (HCC) 1997 [...] on file 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 Gender Identity Female 03/14/2024 9:53 AM CDT [...] Ended) 2025 Medical Devices Implanted Type Area Stretcher Drier Operator Device Identifier Shelf Expiration Date Model / Serial / Lot [employer] Biological Bariatric Peristrip Non Crosslinked Bovine Pericardium For Endo Teri Thin [id number] - Sn/A - [id number] Implanted:Qty: 1 on 03/21/2024 by Jos Samuels MD at [facility] Other - see comments N/A: Abdomen [employer] [id number] 11/08/2025 [id number] ATHN / N/A / [id number]- [id number] Description:Elisabeth-Strips Dry Staple Line Reinforcement [employer] Biological Bariatric Peristrip Non Crosslinked Bovine Pericardium For Endo Teri Thin [id number] - Sn/A - [id number] Implanted:Qty: 1 on 03/21/2024 by Jos Samuels MD at [facility] Other - see comments N/A: Abdomen [employer] Dana[employer] [id number] 11/08/2025 [id number] ATHN / N/A / [id number]- [id number] Description:Elisabeth-Strips Dry Staple Line Reinforcement [employer] Biological Bariatric Peristrip Non Crosslinked Bovine Pericardium For Endo Teri Thin [id number] - [id number] Implanted:Qty: 1 on 03/21/2024 by Jos Samuels MD at [facility] Other - see comments N/A: Abdomen [employer] Dana[employer] [id number] 11/08/2025 [id number] ATHN / / [id number]- [id number] Description:Elisabeth-Strips Dry Staple Line Reinforcement System Coronary Stent Synergy Pebax Everolimus Eluting [place] Chromium Plga L12 Mm L144 Cm Od2.25 Mm Radiopaque 1 Access Port Inflation Lumen Accepts .014 In Guidewire - [id number] Implanted:Qty: 1 on 03/10/2018 by Darek Dailey MD at [facility] [employer] 12/13/2018 [id number] / / [id number] Procedures Procedure Name Priority Date/Time Associated Diagnosis [...] NP LAB BLOOD ORDERABLES Final Result [facility] [address] [facility] Department of [employer] [place] [address] * Differential, auto (03/24/2025 10:40 AM CDT) Neutrophil abs 5.18 1.50 - 6.50 K/cumm Imm gran abs 0.02 0.00 - 0.10 K/cumm [facility] Lymphocyte abs 3.23 0.80 - 3.30 K/cumm [facility] Monocyte abs 0.38 0.20 - 0.80 K/cumm [facility] Eosinophil abs 0.11 0.00 - 0.50 K/cumm [facility] Basophil abs 0.03 0.00 - 0.10 K/cumm [facility] Neutrophil pct 58.0 % [facility] Comment: Interpretive Data Percent cell count reference ranges are not reported, since discordance with absolute values may lead to misinterpretation of CBC data. Current Interpretive Data was last revised on 2018. Imm gran pct 0.2 % [facility] Comment: Interpretive Data Percent cell count reference ranges are not reported, since discordance with absolute values may lead to misinterpretation of CBC data. Current Interpretive Data was last revised on 2018. Lymphocyte pct 36.1 % [facility] Comment: Interpretive Data Percent cell count reference ranges are not reported, since discordance with absolute values may lead to misinterpretation of CBC data. Current Interpretive Data was last revised on 2018. Monocyte pct 4.2 % [facility] Comment: Interpretive Data Percent cell count reference ranges are not reported, since discordance with absolute values may lead to misinterpretation of CBC data. Current Interpretive Data was last revised on 2018. Eosinophil pct 1.2 % [facility] Comment: Interpretive Data Percent cell count reference ranges are not reported, since discordance with absolute values may lead to misinterpretation of CBC data. Current Interpretive Data was last revised on 2018. Basophil pct 0.3 % [facility] Comment: Interpretive Data Percent cell count reference ranges are not reported, since discordance with absolute values may lead to misinterpretation of CBC data. Current Interpretive Data was last revised on 2018. Blood 03/24/2025 10:4 0 AM CDT 03/24/2025 10:57 AM CDT us Lashay Jean NP LAB BLOOD ORDERABLES Final Result [facility] [address] [facility]. Department [place] [address] * Iron profile w/ IBC (03/24/2025 10:40 AM CDT) Iron 132 35 - 145 mcg/dL Comment:Testing performed by : [facility], [address] [place] [address]., [address] TIBC 331 250 - 400 mcg/dL [facility] Comment:Testing performed by : [facility], [address] [place] [address]., [address] Transferrin saturation 40 20 - 50 % [facility] Comment:Testing performed by : [facility], [address] [place] [address]., [address] Blood 03/24/2025 10:4 0 AM CDT 03/24/2025 12:25 PM CDT us Lashay Jean PLANNER INTERN LAB BLOOD ORDERABLES Final Result [facility] [address] [facility]. Department of Laboratories [place], [place] [id number] * (ABNORMAL) CBC with auto differential (03/24/2025 10:40 AM CDT) Pathologist [facility] WBC 8.95 3.80 - 9.90 K/cumm Hgb 13.7 11.9 - 15.5 g/dL [facility] Hct 44.7 35.6 - 45.5 % [facility] Plt 306 150 - 400 K/cumm [facility] MPV 9.9 9.1 - 12.3 fL [facility] RBC 4.85 3.90 - 5.20 M/cumm [facility] MCV 92.2 81.3 - 96.4 fL [facility] MCH 28.2 27.1 - 33.3 pg [facility] MCHC 30.6(L) 32.3 - 35.7 g/dL [facility] RDW CV 13.5 11.1 - 14.9 % [facility] RDW SD 45.7 35.7 - 48.1 fL [facility] NRBC abs 0.00 0.00 - 0.01 K/cumm [facility] Blood 03/24/2025 10:4 0 AM CDT 03/24/2025 10:57 AM CDT Lashay Jean NP LAB BLOOD ORDERABLES Final Result Performing Organization Address [facility] Co de Phone Number [facility] [address] [address] Department [employer] [place] [address] * Copper, serum (03/24/2025 10:40 AM CDT) Copper 129 77 - 206 mcg/dL [facility] Comment: ADDITIONAL INFORMATION This test was developed and its performance characteristics determined by [facility] in a manner consistent with CLIA requirements. This test has not been cleared or approved by the U.S. Food and Drug Administration. Test Performed by: [facility] [place] [address] Make Up Operator: Elijah Gardner Ph.D.; CLIA# [id number] Blood 03/24/2025 10:4 0 AM CDT 03/24/2025 10:57 AM CDT Lashay Kritsen Jean NP LAB BLOOD ORDERABLES Final Result Performing Organization Address [facility] de Phone Number [facility] [address] [address]. Department [place] [place] [address] [facility] * (ABNORMAL) Vitamin D 25 hydroxy (03/24/2025 10:40 AM CDT) Vitamin D 25-OH 25(L) 30 - 80 ng/mL Blood 03/24/2025 10:4 0 AM CDT 03/24/2025 10:57 AM CDT Lashay Jean NP LAB BLOOD ORDERABLES Edited Result - Final Performing Organization Address [facility] Co de Phone Number [facility] [address] [employer] [address] * Vitamin B1 (03/24/2025 10:40 AM CDT) Pathologist [facility] Thiamine (Vit B1) 105 70 - 180 nmol/L [facility] Lab Comment: ADDITIONAL INFORMATION This test was developed and its performance characteristics determined by [facility] in a manner consistent with CLIA requirements. This test has not been cleared or approved by the U.S. Food and Drug Administration. Test Performed by: [facility] [address] [place] [address] Make Up Operator: Elijah Gardner Ph.D.; CLIA# [id number] Blood 03/24/2025 10:4 0 AM CDT 03/24/2025 10:57 AM CDT Lashay Jean LAB BLOOD ORDERABLES Final Result [facility] [address] [employer]. [facility] [employer] [place] [address] [facility] Lab * PTH (03/24/2025 10:40 AM CDT) Pathologist [facility] PTH 36 15 - 65 pg/mL Blood 03/24/2025 10:4 0 AM CDT 03/24/2025 10:57 AM CDT Lashay Jean LAB BLOOD ORDERABLES Final Result [facility] [address] [employer]. [facility] [employer] [place] [address] * (ABNORMAL) Hemoglobin A1c (03/24/2025 10:40 AM CDT) Pathologist [facility] Hgb A1C 6.2(H) 4.0 - 5.6 % Estimated Average Glucose 131 mg/dL [facility] Comment: The ADA recommends reporting an estimated Average Glucose (eAG) with all Hemoglobin A1c results using the equation derived from a study of 507 normal and diabetic adults. Minority populations were underrepresented and children were not included. (Diabetes Care 31:2654-0026, 2008). The eAG is not equivalent to a fasting glucose. Blood 03/24/2025 10:4 0 AM CDT 03/24/2025 10:57 AM CDT Lashay Jean NP LAB BLOOD ORDERABLES Final Result Performing Organization Address [facility] de Phone Number [facility] [address] [facility] [place] [address] * Folate (03/24/2025 10:40 AM CDT) Folic acid 5.7 >=5.0 ng/mL Comment:Testing performed by : [facility], [address] [place] [address]., [address] Blood 03/24/2025 10:4 0 AM CDT 03/24/2025 12:25 PM CDT Lashay Jean NP LAB BLOOD ORDERABLES Final Result Performing Organization Address [facility] de Phone Number [facility] [address] [facility]. [facility] [place] [place] [address] * (ABNORMAL) Ferritin (03/24/2025 10:40 AM CDT) Ferritin 174(H) 15 - 150 ng/mL Comment:Testing performed by : [facility], [address] [place] [address]., [address] Blood 03/24/2025 10:4 0 AM CDT 03/24/2025 12:25 PM CDT Lashay Jean NP LAB BLOOD ORDERABLES Final Result Performing Organization Address [facility]/State/ZIP Co de Phone Number [facility] COE[facility] [address] [employer] [place] [employer]. Department [employer] [place] [address] * (ABNORMAL) Vitamin B12 (03/24/2025 10:40 AM CDT) Vitamin B12 1,344(H) 230 - 1,250 pg/mL Comment:Testing performed by : [facility], [facility], [place]., [address] Blood 03/24/2025 10:4 0 AM CDT 03/24/2025 12:25 PM CDT Lashay Jean NP LAB BLOOD ORDERABLES Final Result [facility] [address] [employer] Department [place] [employer] [place] [address] * Lipid panel (03/24/2025 10:40 AM CDT) [...] ORDERABLES Edited Result - Final [facility] [address] [facility]. Department [place] [address] * Comprehensive metabolic panel (03/24/2025 10:40 AM [...] ORDERABLES Edited Result - Final [facility] [address] [facility]. Department [place] [address] from Last 3 Months Insurance IDKY [facility] [id number] Member Subscriber Plan / Payer (Ef fective 2022-Present) Name:Page Dubois Member ID:[id number] Relation to Subscriber:Self Name:Page Dubois Subscriber ID:[id number] Payer ID:[id number] Type:SupportSpace HMO/O Address: [address] [place] [address] [facility] [id number] Member Subscriber Plan / Payer (Ef fective 2021-Present) Name:Page Dubois Member ID:[id number] Relation to Subscriber:Self Name:Page Dubois Subscriber ID:[id number] Payer ID:[id number] Type:HEALTH[employer] HMO/PPO Address: [address] [facility] Address: [facility] [id number] [place] [address] [facility] [id number] Advance Directives For more information, please contact: [phone] * Full Code (Latest Code Status on File) Date Activated Date Inactivated Comments 03/21/2024 7:12 PM 03/24/2024 6:20 PM * Full Code Date Activated Date Inactivated Comments 02/18/2022 1:39 PM 02/19/2022 5:14 PM * Full Code Date Activated Date Inactivated Comments 02/15/2022 8:29 PM 02/18/2022 1:39 PM * Full Code Date Activated Date Inactivated Comments 03/10/2018 12:26 PM 03/11/2018 3:44 PM Care Teams Geoscience Specialist Relationship Specialty Start [place] [address] [place] [id number] PCP - General Gastroenterology 01/05/24 Gregory Gaytan MD Referring Physician Cardiovascular Disease 03/11/18
--- OUTSIDE RECORDS SUMMARY | 2025-05-29 10:35 | XMS_ITS | Data Portability ---
[facility] Organization [facility] [address] [facility] [place] [address] Assessment No assessment recorded. Plan of Treatment Reminders Order Date Submit Date Provider Last Modified By Organization Details Last Modified Time Details Appointments NEW PATIENT 30 2024 08:30A M Sarita Perez MD Not available Not available Not available Lab drug screen, 14 drugs (detect imed), urine 2023 024 HIRAM Naqvi, [address], [place], [address], 07/03/2024 19:08:57 HbA1c (hemogl obin A1c), blood [address] [facility] Driss, [address], [place], [address], 11/14/2024 11:14:00 lipid panel, serum 2023 024 HIRAM Naqvi, [address], [address], [place], [address], 06/28/2024 07:16:50 CMP, serum or plasma 2023 024 HIRAM Naqvi, [address], [place], [address], 06/28/2024 07:16:51 CBC 2023 024 HIRAM Naqvi, [address], [address], [place], [address], 06/28/2024 07:16:51 Referral pain managem ent referra l - Pt to be seen at [facility] n 2024 HIRAM Miller MD, [address] [facility], [place], [address], 05/14/2025 04:28:18 Procedures None recorde d. Surgeries None recorde d. Imaging None recorde d. Medication Orders Linzess 145 mcg capsule 2024 025 [facility], [address], [place], [address], 01/22/2025 15:27:59 oxycodo ne-acet aminoph en 10 mg-325 mg tablet 2024 025 [facility], [address] , [place], [address], 01/22/2025 15:28:08 oxycodo ne-acet aminoph en 10 mg-325 mg tablet 2023 024 [facility], [address] , [place], [address], 09/24/2024 13:03:44 cetiriz ine 10 mg tablet 2023 024 [facility] [address], [address] , [place], [address], 09/24/2024 13:03:43 flutica sone propion ate 50 mcg/act uation nasal spray,s uspensi on 2023 024 [facility], [address] , [place], [address], 09/24/2024 13:03:41 oxycodo ne-acet aminoph en 10 mg-325 mg tablet 2023 024 HIRAM [facility] #[id number], [address], [place], [address], 12/20/2023 15:23:43 Patient TargetsNo targets recorded. Patient Instructions Encounter Date Encounter Id Patient Instructions Last Modified By Organization Details Last Modified Time 06/27/2024 [id number] gastroesophageal reflux disease (GERD): care instructions [email or web address] Not available 06/27/2024 15:51:25 09/24/2024 [id number] allergies: care instructions [email or web address] Not available 09/24/2024 13:03:36 A healthy lifest yle: care instructions [email or web address] Not available 09/24/2024 13:19:42 01/22/2025 [id number] heart attack: ca re instructions Not available 01/22/2025 15:27:49 04/24/2025 [id number] heart attack: ca re instructions [email or web address] Not available 04/24/2025 15:02:24 Reason for Referral Pain Management Referral for Chronic low back pain Pt to be seen at [facility] Referring Physician: Jose Alejandro Solomon, Internal Medicine, Encounter Date: 04/24/2025 Results Created Date Observation Date Name Description Value Unit Range Abnormal Flag Note LastModifiedBy Organization Detail LastModifiedTime 06/27/2006/28/2024 LIPID PANEL cholesterol, total 160 mg/dL 100-19 9 Not Available [facility] ([facility]) [address] [facility], [place], [address], 06/28/2024 07:16:50 06/27/2006/28/2024 LIPID PANEL triglyceride s 156 mg/dL 0-149 above high normal Not Available [facility] ([facility]) [address] [place], [address], 06/28/2024 07:16:50 06/27/20 24 06/28/2024 LIPID PANEL HDL cholesterol 43 mg/dL >39 Not Available [facility] ([facility]) [address] [place], [address], 06/28/2024 07:16:50 06/27/20 24 06/28/2024 LIPID PANEL VLDL cholesterol hansel 27 mg/dL 5-40 Not Available [facility] ([facility]) [address] [place], [address], 06/28/2024 07:16:50 06/27/20 24 06/28/2024 LIPID PANEL LDL chol calc ([facility]) 90 mg/dL 0-99 Not Available [facility] ([facility]) [address] [place], [address], 06/28/2024 07:16:50 06/27/20 24 06/28/2024 COMP. METAB OLIC PANEL (14) glucose 74 mg/dL 70-99 Not Available [facility] ([facility]) [address] [place], [address], 06/28/2024 07:16:51 06/27/20 24 06/28/2024 COMP. METAB OLIC PANEL (14) BUN 13 mg/dL 6-24 Not Available [facility] ([facility]) [address] [place], [address], 06/28/2024 07:16:51 06/27/20 24 06/28/2024 COMP. METAB OLIC PANEL (14) creatinine 0.68 mg/dL 0.57-1 .00 Not Available [facility] ([facility]) [address] [place], [address], 06/28/2024 07:16:51 06/27/20 24 06/28/2024 COMP. METAB OLIC PANEL (14) eGFR 107 mL/mi n/1.7 3 >59 Not Available [facility] ([facility]) [address] [place], [address], 06/28/2024 07:16:51 06/27/20 24 06/28/2024 COMP. METAB OLIC PANEL (14) BUN/creatini ne ratio 19 9-23 Not Available [facility] ([facility]) [address] [place], [address], 06/28/2024 07:16:51 06/27/20 24 06/28/2024 COMP. METAB OLIC PANEL (14) sodium 145 mmol/ L 134-14 4 above high normal Not Available [facility] ([facility]) [address] [place], [address], 06/28/2024 07:16:51 06/27/20 24 06/28/2024 COMP. METAB OLIC PANEL (14) potassium 3.9 mmol/ L 3.5-5. 2 Not Available [facility] ([facility]) [address] [place], [address], 06/28/2024 07:16:51 06/27/20 24 06/28/2024 COMP. METAB OLIC PANEL (14) chloride 104 mmol/ L 96-106 Not Available [facility] ([facility]) [address] [place], [address], 06/28/2024 07:16:51 06/27/20 24 06/28/2024 COMP. METAB OLIC PANEL (14) carbon dioxide, total 23 mmol/ L 20-29 Not Available [facility] ([facility]) [address] [place], [address], 06/28/2024 07:16:51 06/27/20 24 06/28/2024 COMP. METAB OLIC PANEL (14) calcium 9.3 mg/dL 8.7-10 .2 Not Available [facility] ([facility]) [address] [place], [address], 06/28/2024 07:16:51 06/27/20 24 06/28/2024 COMP. METAB OLIC PANEL (14) protein, total 6.8 g/dL 6.0-8. 5 Not Available [facility] ([facility]) [address] [place], [address], 06/28/2024 07:16:51 06/27/20 24 06/28/2024 COMP. METAB OLIC PANEL (14) albumin 4.1 g/dL 3.9-4. 9 Not Available [facility] ([facility]) [address] [facility], [place], [address], 06/28/2024 07:16:51 06/27/20 24 06/28/2024 COMP. METAB OLIC PANEL (14) globulin, total 2.7 g/dL 1.5-4. 5 Not Available [facility] ([facility]) [address] [facility], [place], [address], 06/28/2024 07:16:51 06/27/20 24 06/28/2024 COMP. METAB OLIC PANEL (14) bilirubin, total 0.2 mg/dL 0.0-1. 2 Not Available [facility] ([facility]) [address] [facility] [place], [address], 06/28/2024 07:16:51 06/27/20 24 06/28/2024 COMP. METAB OLIC PANEL (14) alkaline phosphatase 108 IU/L 44-121 Not Available [facility] ([facility]) [address] [facility], [place], [address], 06/28/2024 07:16:51 06/27/20 24 06/28/2024 COMP. METAB OLIC PANEL (14) AST (SGOT) 21 IU/L 0-40 Not Available [facility] ([facility]) [address] [facility], [place], [address], 06/28/2024 07:16:51 06/27/20 24 06/28/2024 COMP. METAB OLIC PANEL (14) ALT (SGPT) 17 IU/L 0-32 Not Available [facility] ([facility]) [address] [facility], [place], [address], 06/28/2024 07:16:51 06/27/20 24 06/28/2024 CBC, PLATE LET, NO DIFFE RENTI AL WBC 9.8 x10e3 /uL 3.4-10 .8 Not Available [facility] ([facility]) [address] [facility], [place], [address], 06/28/2024 07:16:51 06/27/20 24 06/28/2024 CBC, PLATE LET, NO DIFFE RENTI AL RBC 4.43 x10e6 /uL 3.77-5 .28 Not Available [facility] ([facility]) [address] [facility], [place], [address], 06/28/2024 07:16:51 06/27/2006/28/2024 CBC, PLATE LET, NO DIFFE RENTI AL hemoglobin 12.5 g/dL 11.1-1 5.9 Not Available [facility] ([facility]) [address] [facility], [place], [address], 06/28/2024 07:16:51 06/27/2006/28/2024 CBC, PLATE LET, NO DIFFE RENTI AL hematocrit 40.8 % 34.0-4 6.6 Not Available [facility] ([facility]) [address] [facility], [place], [address], 06/28/2024 07:16:51 06/27/2006/28/2024 CBC, PLATE LET, NO DIFFE RENTI AL MCV 92 fL 79-97 Not Available [facility] ([facility]) [address] [facility], [place], [address], 06/28/2024 07:16:51 06/27/2006/28/2024 CBC, PLATE LET, NO DIFFE RENTI AL MCH 28.2 pg 26.6-3 3.0 Not Available [facility] ([facility]) [address] [facility], [place], [address], 06/28/2024 07:16:51 08/08/20 24 06/28/2024 CBC, PLATE LET, NO DIFFE RENTI AL MCHC 30.6 g/dL 31.5-3 5.7 below low normal Not Available [facility] ([facility]) [address] [place], [address], 06/28/2024 07:16:51 06/27/20 24 06/28/2024 CBC, PLATE LET, NO DIFFE RENTI AL RDW 13.6 % 11.7-1 5.4 Not Available [facility] ([facility]) [address] [facility], [place], [address], 06/28/2024 07:16:51 06/27/20 24 06/28/2024 CBC, PLATE LET, NO DIFFE RENTI AL platelets 319 x10e3 /uL 150-45 0 Not Available [facility] ([facility]) [address] [place], [address], 06/28/2024 07:16:51 06/27/20 24 07/03/2024 COMPL IANCE [...] ===== ===== ===== === Not Available [facility] ([facility]) [address], [place], [address], 07/03/2024 19:08:57 06/27/20 24 07/03/2024 COMPL IANCE DRUG NOEL SIS, UR pdf . Not Available [facility] ([facility]) [address] [facility], [place], [address], 07/03/2024 19:08:57 07/31/20 24 08/01/2024 C pepti de [Mass /volu me] in Serum or Plasm a C-peptide 1.3 NG/mL low: 1.1NG/ mLhigh : 4.4NG/ mL C-Pep tide 1.3 1.1 - 4.4 ng/mL [facility] ACCOU NT BILL Not Available Not Available 02/05/2025 09:32:21 07/31/20 24 08/01/2024 C pepti de [Mass /volu me] in Serum or Plasm a Unknown Analyte Perfor [facility] at: 01 - [place] [id number] [facility] or: Jacki potter PhD, Not [...] 2000 panel - Serum or Plasm a potassium [...] 07/31/20 24 08/01/2024 Compr ehens candida metab ic 2000 panel - Serum or Plasm a protein total 6.9 g/dL low: 6g/dLh igh: 8.5g/d L Prote in Total 6.9 6.0 - 8.5 g/dL [facility] ACCOU NT BILL Not Available Not Available 02/05/2025 09:32:21 07/31/20 24 08/01/2024 Compr ens candida metab [facility] 2000 panel - Serum or Plasm a [...] Serum or Plasm a Unknown Analyte Perfor [facility] at: 01 - [facility] [place] [id number] [facility] or: Jacki potter PhD, [...] total in Blood lot or batch number [id number] Lot # [id number] Not Available Not Available 02/05/2025 09:32:21 [...] in Urine Unknown Analyte Perfor med at: - [facility] [address] , [place], [place] [id number] Lab Direct or: Lima Michel [facility], Not Available Not Available 12:50:57 10/31/20 24 [...] Available 12/31/2024 12:50:57 10/31/20 24 11/01/2024 Compr ens candida metab olic 2000 panel - Serum or Plasm a calcium 9.2 mg/dL low: 8.4mg/ dLhigh : 10.4mg /dL Calci um 9.2 8.4 - 10.4 mg/dL [facility] ACCOU NT BILL Not Available Not Available 12/31/2024 12:50:57 10/31/20 24 11/01/2024 [facility] candida metab olic 2000 panel - Serum or Plasm a protein total 6.8 text: 6.4 - 8.3 gm/dL Prote in Total 6.8 6.4 - 8.3 gm/dL [facility] ACCOU NT BILL Not Available Not Available 12/31/2024 12:50:57 10/31/20 24 11/01/2024 Compr ens candida metab olic 2000 panel - Serum or Plasm a albumin 4 text: 3.4 - 5.0 gm/dL Album in 4.0 3.4 - 5.0 gm/dL [facility] ACCOU NT BILL Not Available Not Available 12/31/2024 12:50:57 10/31/20 24 11/01/2024 [facility] candida metab olic 2000 panel - Serum or Plasm a bilirubin total 0.4 mg/dL low: 0.2mg/ dLhigh : 1.2mg/ dL Bilir ubin Total 0.4 0.2 - 1.2 mg/dL [facility] ACCOU NT BILL Not Available Not Available 12/31/2024 12:50:57 10/31/20 24 11/01/2024 Compr ens candida metab olic 2000 panel - Serum [...] Unknown Analyte Perfor med at: 01 - [facility] [address] , [place], [place] [id number] Lab Direct or: Jasonamytaya [facility], Not Available Not Available 12:50:57 10/31/20 24 11/01/2024 Compr ehens candida metab olic 2000 panel - Serum or Plasm a interpretati on and review of laboratory results Abnorm al Not Available Not Available 12:50:57 10/31/20 24 11/01/2024 Renal funct ion 2000 panel - Serum or Plasm a phosphorus 3.9 mg/dL low: 3mg/dL high: 4.3mg/ dL Phosp horus 3.9 3.0 - 4.3 mg/dL [facility] ACCOU NT BILL Not Available Not Available 12/31/2024 12:50:57 10/31/20 24 11/01/2024 Renal funct ion 2000 panel - Serum or Plasm a Unknown Analyte Perfor med at: 01 - [facility] [address] [phone] Lab Direct or: Jacki potter PhD, Not [...] Unknown Analyte Perfor med at: 01 - [facility] [address] , [place], [place] [id number] 996 Lab Direct or: Lima [facility], Not Available Not Available 12:50:57 10/31/20 24 11/01/2024 Lipid 1996 panel - Serum or Plasm a interpretati [...] Unknown Analyte Perfor med at: 01 - [address] [id number] [facility] Direct or: Jacki potter PhD, [...] 80NG/m L low Vitam in D, 25 [place] xy 24.6 (L) 30 - 80 ng/mL [facility] ACCOU NT BILL Not Available Not Available 12/31/2024 12:50:57 10/31/20 24 11/01/2024 25-hy droxy vitam in D3 [Mass /volu me] in Serum or Plasm a Unknown Analyte Perfor med at: 01 - [facility] [address] [facility] , [place], [place] [phone] Lab Direct or: Lima [facility], Not Available Not Available 12:50:57 10/31/20 24 [...] total in Blood lot or batch number [id number] Lot # [id number] Not Available Not Available 12/31/2024 12:50:57 [...] total in Blood lot or batch number [id number] Lot # [id number] Not Available Not Available 02/05/2025 09:32:17 02/04/20 25 02/03/2025 Hemog lobin A1c/H emogl obin. total in Blood QC verified Yes text: yes QC Verif ied Yes Yes Not Available Not Available 02/05/2025 09:32:17 09/06/20 24 09/06/2024 XR, chest No observ ation record ed. [place] [id number], [place], [address], 09/18/2024 02:01:00 09/09/20 24 09/09/2024 XR, chest , 2 view No observ ation record ed. [email or web address] Not Available 2023 17:41:13 05/06/20 25 05/06/2025 lab* No observ ation record ed. [email or web address] [facility] [address], [place], [address], 05/06/2025 11:18:39 05/07/20 25 05/07/2025 MRI, lumba r spine , w/o contr ast No observ ation record ed. [place] [id number], [place], [address], 05/10/2025 06:25:18 Result Notes None recorded. Problems Name Problem SNOMED Code Status Onset Date Resolution Date Notes Provider Name and Address Organization Details Recorded Time Pelvic abscess 069402551 Active 2018 Not Available [facility] 1 07:37:20 Lumbar radiculop athy 283004479 Active 2021 ALICE JOHNSON Attn: Accounting ,[address] [place], [address] , [place] - [facility] 2 13:20:15 Chronic neck pain 75948905075 07 Active 2021 C3-C7 replaced 2014 ALICE JOHNSON Attn: Accounting ,[address] [place], [address] , [place] [facility] 2 11:06:19 Chronic low back pain 623141477 Active 2021 ALICE JOHNSON Attn: Accounting ,[address] [place], [address] , [place] [facility] 2 20:14:35 Complaini ng of backache Active Not Available [facility] 1 07:37:19 Neck pain 20107086 Active ALICE JOHNSON Attn: Accounting ,[address] [place], [address] , [place] [facility] 2 10:41:23 Screening for malignant neoplasm of colon Active 2022 Jose Alejandro Solomon MD Attn: Accounting ,[address] [place], [address] , [place] [facility] 3 15:10:43 Insomnia 361596727 Active 2022 Jose Alejandro Solomon MD Attn: Accounting ,[address] [facility], [place], [address] , [place] [facility] 3 15:15:33 Migraine 89217159 Active 2022 Jose Alejandro Solomon MD Attn: Accounting ,[address] [facility], [place], [address] , [place] [facility] 3 16:09:49 Hearing disorder 186807186 Active 2022 Jose Alejandro Solomon MD Attn: Accounting ,[address] [facility], [place], [address] , [place] [facility] 3 16:51:18 Magnetic resonance imaging of cervical spine abnormal 190375886 Active Not Available [facility] 1 07:37:20 Furuncle 873940014 Active 2023 Jose Alejandro Solomon MD Attn: Accounting ,[address] [facility], [place], [address] , [place] [facility] 4 15:44:36 Medicatio n monitorin g Active 2023 Jose Alejandro Solomon MD Attn: Accounting ,[address] [facility], [place], [address] , [place] [facility] 4 15:52:14 Allergic rhinitis 44053643 Active 2023 Jose Alejandro Solomon MD Attn: Accounting ,[address] [facility], [place], [address] , [place] [facility] 4 12:57:09 Viral syndrome 034153687 Active 2024 Jose Alejandro Solomon MD Attn: Accounting ,[address] [facility], [place], [address] , [place] [facility] 5 16:25:46 Chronic constipat ion 777037118 Active 2024 Jose Alejandro Solomon MD Attn: Accounting ,[address] [facility], [place], [place], [address] [place] [address] , [place] 5 15:26:12 Gastroeso phageal reflux disease 226370036 Active ALICE JOHNSON Attn: Accounting ,[address] [place], [place], [address] [place] [address] , [facility] SI 2 10:41:15 Anxiety 23668742 Active Not Available [facility] 1 07:37:20 Myocardia l infarctio n 10870921 Active admitted [place] and had 5 stents placed. Rocío Johnson LPN null, [place] - [facility] 5 10:54:26 Coronary arteriosc lerosis 14046713 Active CARLOS to ALEXIA 06/2020 ALICE JOHNSON Attn: Accounting ,[address] [place], [place], [address] [place] [address] , [facility] 2 14:27:44 Diabetes mellitus 07221961 Active ALICE JOHNSON Attn: Accounting ,[address] [place], [place], [address] [place] [address] , [facility] - SI 2 10:41:03 Neuropath y due to diabetes mellitus 326449057 Active Not Available [facility] 1 07:37:19 Obesity 970981344 Active Not Available [facility] 1 07:37:19 Chronic back pain 867846861 Active ALICE JOHNSON Attn: Accounting ,[address] [place], [place], [address] [place] [address] , [facility] 2 10:41:10 Cramp in lower leg 194882116 Active out of Neurontin and Robaxin Not Available [facility] 1 07:37:20 Furunculo sis of skin AND/OR subcutane ous tissue Active Not Available [facility] 07:37:20 Problem Notes None recorded. Procedures Surgical History Date Name Laterality Status Provider Name and Address Organization Details Recorded Time 10/20/20 19 Date of Last Pap Smear completed Kate Yusuf MA [facility] 01/25/2021 11:11:17 10/20/20 19 Partial hysterectomy completed Kate Yusuf MA [facility] 07/03/2020 15:41:53 08/08/20 17 Diabetic Foot Exam completed Laura Byrd MA [facility] 08/08/2017 16:36:25 Imaging Results None recorded. Procedure Notes None recorded. Medical Equipment None Reported. Allergies Allergen ID Allergen Name Allergen Category Reaction Reaction Severity Criticality Documentation Date Start Date Code Code System Note Provider Name and Address Organization Details Recorded Time 838871 cyclobenz aprine medicatio n decreased blood pressure Not available Not available 07/03/2020 01181 RxNorm Kate Yusuf MA null, [facility] 0 15:39:15 964049 metformin medicatio n nausea moderate Not available 01/25/2021 6809 RxNorm Mara Buck MD Attn: Cori serrano,[address] [place], [address], [facility] 1 11:20:02 257649 Jardiance medicatio n other moderate Not available 01/25/2021 88426 59 RxNorm yeast infec tions despi te fluco nazol e Mara Buck MD Attn: Accountannetta g,[address] [facility], [place], [address], [facility] 1 11:21:53 Medications Name Sig Start Date [...] Inject 2 mL by intramus cular route. 05/03/ 2022 05/09 /2022 completed Not Available Not Available Not Available [...] Not Available Not Available No t Available [place] Calcium 200 mg-Vitami n D3 6.25 mcg [...] Not Available Not Available Not Available Dexcom G6 Transmitt er device USE 1 EACH [...] completed Not Available Not Available Not Available [employer] G7 Sensor device CHANGE SENSOR EVERY 10 DAYS active Not Available Not Available No t Available Vitals Date Recorded Body height Respiratory rate Body mass index (BMI) Body weight Heart rate Oxygen saturation Oxygen saturation in Arterial blood by Pulse oximetry Systolic And Diastolic Provider Name and Address Organization Details Last Updated DateTime 4 165.1 cm 18 /min 37.9 kg/m2 633013. 34 g 84 /min 98 % 98 % 115/80 mm[Hg] Reuben Mcadams MA [facility] 4 14:51:45 Date Recorded Body height Body mass index (BMI) Body weight Oxygen saturation Oxygen saturation in Arterial blood by Pulse oximetry Heart rate Systolic And Diastolic Provider Name and Address Organization Details Last Updated DateTime 5 165.1 cm 29.3 kg/m2 21579.6 9 g 99 % 99 % 66 /min 114/72 mm[Hg] Marielena Olsen MA [facility] 5 14:39:16 Date Recorded Body height Body mass index (BMI) Body weight Heart rate Oxygen saturation Oxygen saturation in Arterial blood by Pulse oximetry Systolic And Diastolic Provider Name and Address Organization Details Last Updated DateTime 5 165.1 cm 27.6 kg/m2 46996.3 3 g 74 /min 99 % 99 % 123/81 mm[Hg] Marielena Olsen MA [facility] 5 14:22:09 Date Recorded Body height Body mass index (BMI) Body weight Oxygen saturation Oxygen saturation in Arterial blood by Pulse oximetry Heart rate Systolic And Diastolic Provider Name and Address Organization Details Last Updated DateTime 165.1 cm 34.4 kg/m2 92125.6 2 g 98 % 98 % 80 /min 112/74 mm[Hg] Cait Lundberg MA [facility] 15:04:45 Date Recorded Body height Body mass index (BMI) Body weight Heart rate Systolic And Diastolic Provider Name and Address Organization Details Last Updated DateTime 09/24/2024 165.1 cm 32.3 kg/m2 49260.92 g 74 /min 110/60 mm[Hg] Marielena Olsen MA [facility] 09/24/2024 12:24:16 Social History Question Answer Notes LastModified by Organizat ion Details LastModified Time Tobacco Smoking Status Former Smoker Cigar Cait Lundberg MA [facility] 06/27/2024 15:04:14 Do You Have An Advance [...] anxious, or unable to sleep at night)? [id number] Information not available 03/11/2021 Family History Relationship Description Onset Age of this Age Resolved Age Notes LastModified by Organization Details LastModified Time Mother Malignant tumor of breast [email or web address] Not available 07/17 15:34:28 Maternal Grandmother Malignant tumor of breast [email or web address] Not available 07/17 15:34:28 Medical History Condition Response Coronary Artery Disease N Other N High Blood Pressure N Atrial Fibrillation N Thyroid Problems N Kidney or Bladder Problems N GI Problems N Depression N COPD N Blood Clots N Skin Problems N Eating Disorder N Anemia N Heart Attack (PR) N Anxiety Disorder N Diabetes N Muscle, Joint, or Bone Problems N Seizures/Epilepsy N Acid Reflux (GERD) N Cancer N Stroke N Asthma N Allergies N ADHD N Substance Abuse N High Cholesterol N Hepatitis N Liver Disease N Schizophrenia N Headaches N Heart Failure N Osteoporosis N Gynecological History Statement/Question Response Date of [...] 50 mcg/0.25mL dose 1 completed Not Available [facility] 10/05/2023 22:56:51 COVID-19, mRNA, LNP-S, PF, 100 mcg/0.5mL dose or 50 mcg/0.25mL dose 1 completed Not Available [facility] 10/05/2023 22:56:51 pneumococcal polysaccharide PPV23 5 completed Not Available [facility] 04/24/2025 14:07:52 COVID-19, mRNA, LNP-S, PF, 100 mcg/0.5mL dose or 50 mcg/0.25mL dose 2 completed Not Available [facility] 04/24/2025 14:07:52 Influenza, split virus, quadrivalent, PF 7 completed Not Available [facility] 12/07/2019 02:34:00 Influenza, split virus, quadrivalent, PF 9 completed Not Available [facility] 12/07/2019 02:38:43 Past Encounters Encounter ID Performer Location Encounter Start Date Encounter Closed Date Diagnosis/Indication Diagnosis SNOMED-CT Code Diagnosis ICD10 Code Diagnosis Note [id number] Florentino Chakraborty MD [facility] (Adult/Fa m Med) [address] [place] [address] 9 11/12/2014 12:06:23 11/12/2014 14:31:52 Diabetes mellitus 15846795 diet and exercises. check BS frequently smaples of Victoza 1.2 given Essential hypertension 22893062 Neuropathy due to diabetes mellitus 236111384 continue current meds change Neurontin to 300 mg at bedtime. Obesity 287521831 diet a nd exercises. Chronic back pain 294674652 History of asthma 833789615 [id number] Florentino Chakraborty MD [facility] (Adult/Fa m Med) [address] [place] [address]256[address]118 9 05/20/2015 16:16:02 05/20/2015 17:22:10 Diabetes mellitus 83280676 Neuropathy due to diabetes mellitus 429576116 Essential hypertension 18468962 Neck pain 61012370 had surgery at [facility] for c-spine [id number] Florentino Chakraborty MD [facility] (Adult/Fa m Med) [address] [place] [address]707[address] 9 07/22/2015 16:03:25 07/22/2015 17:09:36 Chronic back pain 861779414 Diabetes mellitus 57454058 Neuropathy due to diabetes mellitus 462533691 Essential hypertension 35831558 History of asthma 806002178 Gastroesop hageal reflux disease 232987293 Neck pain 07422058 had surgery at [facility] for c-spine Anxiety 76585282 admitte d to [facility] with altered LOC, place don Zoloft 50 mg po daily. [id number] Florentino Chakraborty MD [facility] (Adult/Fa m Med) [address] [place] [address]45[address] 9 12/08/2015 12:04:17 12/08/2015 17:59:06 Chronic back pain 214506339 R52 Diabetes mellitus 915394 09 E11.9 samples of Tanzium given to hold Ghislaine for now. Essential hypertension 28410183 I10 Coronary arteriosclerosis 66821726 I25.10 [id number] Florentino Chakraborty MD [facility] (Adult/Fa m Med) [address] [place] [address] 06/28/2016 11:40:24 06/28/2016 15:31:15 Diabetes mellitus 03723310 E11.9 labs next visit in 1 month Furunculos is of skin AND/OR subcutaneous tissue 90425291 L02.92 on scalp x 2 weeks. pt said that she used OTC Neosporin/ medicated shampoo but she is not getting any better. very tender small abscess at hair root/ follicles. will add Keflex 500 mg QID x 10 days / to wash her hair daily with Selsun Blue shampoo RTO in 1 month. [id number] Florentino Chakraborty MD [facility] (Adult/Fa m Med) [address] [place] [address] 9 07/26/2016 12:03:17 07/26/2016 17:29:23 Diabetes mellitus 19592098 E11.9 continue all home meds. repeat labs Furunculos is of skin AND/OR subcutaneous tissue 14959945 L02.92 on scalp x 6 weeks continue Keflex 500 mg QID x 10 days / to wash her hair daily with ketoconazo le shampoo Derm consult if not getting any better. RTO in 1 month. Cramp in lower leg 37812 8009 R25.2 [id number] Florentino Chakraborty MD [facility] (Adult/Fa m Med) [address] [place] [address] 09/29/2016 11:25:03 09/30/2016 10:28:47 Diabetes mellitus 23591395 E11.9 continue all home meds. repeat labs Furunculos is of skin AND/OR subcutaneous tissue 32256768 L02.92 on scalp x 6 weeks continue Keflex 500 mg QID x 10 days / to wash her hair daily with ketoconazo le shampoo Derm consult if not getting any better. RTO in 1 month. [id number] Florentino Chakraborty MD [facility] (Adult/Fa m Med) [address] [place] [address] 07/06/2017 15:44:29 07/13/2017 08:51:27 Diabetes mellitus 82870007 E11.9 continue all home meds. repeat labswas taken off metformin and given Jardiance 10 mg po daily Coronary arteriosclerosis 92903705 I25.10 Chronic back pain 886616 002 R52 Neuropathy due to diabetes mellitus 322447955 E11.40 Obesity 772104595 E66.9 diet and exercises. Essential hypertension 69467725 I10 [id number] Florentino Chakraborty MD [facility] (Adult/Fa m Med) [address] [place] [address] 9 08/08/2017 16:24:48 08/09/2017 10:39:45 Diabetes mellitus 76140379 E11.9 continue all home meds.alyssa nue Jardiance 10 mg po daily Coronary arteriosclerosis 20105312 I25.10 Chronic back pain 687579 002 R52 Gastroesop hageal reflux disease 234593941 K21.9 Infection of tooth 39907 8007 K04.7 [id number] Florentino Chakraborty MD [facility] (Adult/Fa m Med) [address] [place] [address] 9 02/27/2018 11:49:50 03/05/2018 10:21:39 Diabetes mellitus 91457462 E11.9 continue all home meds. Chronic back pain 032398 002 R52 Essential hypertension 70998533 I10 Anxiety 28957545 F41.9 admitted to [facility] with altered LOC, place don Zoloft 50 mg po daily. [id number] Florentino Chakraborty MD [facility] (Adult/Fa m Med) [address] [place] [address] 9 03/15/2018 11:01:16 03/19/2018 12:09:53 Coronary arteriosclerosis 77941653 I25.10 had CP . seen in the ER at [facility]. [facility]--> clotted 2 previous stents. had angioplast y and 2 new stentsback s on Plavix.koki landry obtain hospital records. [id number] Nabor Alicea DO [facility] (RUG RENOVATOR) [address] [place] [address] 07/19/2018 15:06:15 09/03/2018 17:35:00 Acute cervicitis 81157359 N72 History of urinary tract infection 1437063765 107 Z87.440 Family his tory of breast cancer 637666442 Z80.3 MOM has diabetes, breast cancer X 2 , first cousin only 32 y\o with breast cancer, Mat. G-MOM breast cancer. First mammograph y ordered today inquired r\t family Uncontroll ed type 2 diabetes mellitus 245800702 E11.65 Irregular periods 055634 07 N92.6 Discussed uncontroll ed diabetes & hyper androgenic states can cause irregular vaginal bleeding advised to f\u with PMD to get diabetes controlled will await U\S results from [facility] as directed to have sent to [facility] to r\o uterine fibroids r\t bleeding [id number] Florentino Chakraborty MD [facility] (Adult/Fa m Med) [address] [place] [address] 10/17/2018 12:01:24 10/17/2018 13:07:49 Coronary arteriosclerosis 97003087 I25.10 stable. F/U with cardiology Chronic back pain 796208 002 R52 stable Neuropathy due to diabetes mellitus 788050336 E11.40 Gastroesop hageal reflux disease 145901968 K21.9 Essential hypertension 17718096 I10 Diabetes mellitus 043658 09 E11.9 continue all home meds. Chronic pe lvic pain of female 544854775 R10.2 supposed to have surgery. needs clearance [id number] Florentino Chakraborty MD [facility] (Adult/Fa m Med) [address] [place] [address] 01/29/2019 11:52:30 01/29/2019 13:21:06 Diabetes mellitus 41865178 E11.9 meds changed. on insulin now Coronary arteriosclerosis 19347572 I25.10 stable. F/U with cardiology Essential hypertension 97687945 I10 not controlled . Anxiety 58527693 F41.9 stable Pelvic abscess 283960411 N73.8 complicati ons of hesterocto myhad surgeryon IV antibiotic s/ PICC line [id number] Florentino Chakraborty MD [facility] (Adult/Fa m Med) [address] [place] [address] 03/07/2019 11:20:55 03/07/2019 12:27:20 Diabetes mellitus 60207410 E11.9 meds changed. on insulin now Coronary arteriosclerosis 31485933 I25.10 stable. F/U with cardiology Chronic back pain 931500 002 R52 stable Gastroesop hageal reflux disease 077473350 K21.9 Essential hypertension 67083804 I10 not controlled . Anxiety 55513914 F41.9 stable Pelvic abscess 369467044 N73.8 complicati ons of hysterecto myhad surgeryoff antibiotic s [id number] Florentino Chakraborty MD [facility] (Adult/Fa m Med) [address] [place] [address] 2019 15:02:44 2019 16:15:00 Diabetes mellitus 16993233 E11.9 off insulin for nowadd steglatro 5 mg po daily x 4 weeks then go to 15 mg dailysampl es given Coronary arteriosclerosis 04950465 I25.10 stable. F/U with cardiology Essential hypertension 39365191 I10 not controlled . Anxiety 48257847 F41.9 stable Migraine 69107121 G43.90 9 seen in the [facility] neg work up Gastroesop hageal reflux disease 010980688 K21.9 Asthma 430091422 J45.90 9 [id number] Florentino Chakraborty MD [facility] (Adult/Fa m Med) [address] [place] [address] 01/21/2020 13:59:07 01/21/2020 16:07:59 Diabetes mellitus 62970795 E11.9 off insulin for nowadd steglatro 15 mg dailysampl es given Essential hypertension 03334522 I10 better Hyperglycemia 74996151 R 73.9 Anxiety 50088507 F41.9 stable Coronary arteriosclerosis 24508959 I25.10 stable. F/U with cardiology Gastroesop hageal reflux disease 630637594 K21.9 Asthma 381744511 J45.90 9 Upper resp iratory infection 34459900 J06.9 [id number] Mara Buck MD [facility] [address] [place] [address] 07/03/2020 10:59:32 07/09/2020 20:50:01 Coronary arteriosclerosis in kaibab artery 3738520303 107 I25.10 has had 3 stents in the heart. Type 2 ashley betes mellitus 18516305 E11.65 had been on Januvia Candidiasis of vagina 72 684876 B37.3 patient is at risk of vaginal yeast infections while on Jardiance, but it does decrease her cardiac risk factors. [id number] Mara Buck MD [facility] [address] [place] [address] 07/17/2020 15:01:44 07/20/2020 15:05:24 Chest pain on exertion 32726831 R07.89 To whom it may concern: Page stock may return to work but should not be exposed to high temperatur es, and she cannot do prolonged standing. She will need to take breaks and sit down several times a day. Yours truly, Mara Buck MD Persistent insomnia 1918003 G47.09 Coronary arteriosclerosis in kaib[place] artery 8267029800 107 I25.10 stents in 2017 and 2019 [id number] Mara Buck MD [facility] [address] [facility] [place] [address] 08/10/2020 09:29:24 08/11/2020 10:56:19 [id number] Mara Buck MD [facility] [address] [facility] [place] [address] 01/25/2021 11:04:02 02/01/2021 07:20:58 Type 2 diabetes mellitus 09151745 E11.65 had been on Januvia but it may no longer be covered on the 340b plan. Persistent insomnia 1919 16348 G47.09 uses melatonin gummies, 2-3 a night 5 mg each. Chronic back pain 565434 [address] is open on weekends Morbid obesity 838567759 E66.01 Patient advised on bariatric surgery and will check with her insurance plan to see what is available. BMI 39, comorbidit ies of diabetes and back pain. Adult heal th examination 663489914 Z00.00 [id number] Mara Buck MD [facility] [address] [facility] [place] [address] 03/11/2021 12:31:31 03/16/2021 13:37:06 Uncontrolled type 2 diabetes mellitus 304986964 E11.65 blood sugars in the 300s, nauseated, not eating much, can't lose weight, tired and weak Angina pectoris 87319444 0 I20.9 Screening mammography 24 276610 Z12.31 Diabetic p eripheral neuropathy 653155083 E11.40 Depression screening 171 573772 Z13.31 patient does not appear to be significan tly depressed. [id number] Mara Buck MD [facility] [address] [facility] [place] [address] 04/05/2021 09:54:02 04/06/2021 06:41:09 Adult health examination 743322300 Z00.00 [id number] [facility] [address] [place] [address] 08/02/2021 08:05:58 08/10/2021 12:19:08 Fracture of foot 69499140 S92.902A - RICE- f/u WITH podiatry- f/u here prn [id number] Reece roa MD [facility] [address] [place] [address] 12/07/2021 11:59:03 12/08/2021 07:34:51 Diabetes mellitus 06367357 E11.59 takes glimepirid e, ozempic, tresiba 36 units at night, fiasp 24 units + sliding scaleworki ng on diet and exercisefo llows with Dr. Delmi Forrest (Endocrine ), last visit 07/11 a1c 8.6 Suspected COVID-19 18427 4004 Z20.822 COVID positive at home test 11/23/21sinu s drainagequ aratined for 10 days per work protocol and needs return to work formasympt omatic throughout quaratine and no sx todaycompl eted RTW form and gave to pt Depression screening 171 317184 Z13.31 PHQ 2 [id number] Reece roa MD [facility] [address] [place] [address] 02/08/2022 08:56:46 02/09/2022 08:54:36 Vitamin deficiency 61031065 E56.9 Vit B12- 753, folate 4.3 lab work yesterday at [facility] Diabetes mellitus 777528 09 E11.59 02/08/22: hgb a1c 6.9, appt [...] visit 07/11 a1c 8.6 Chronic neck pain 811400 4191 107 M54.2 C3, C4 replaced 7 yrs agofeeling stiff w/ increased muscle tensionwou ld like to try muscle relaxertri ed flexeril in the past, caused low blood pressuretr ial tizanidine Numbness a nd tingling sensation of skin 5460944085 02 R20.2 z2orrjvsz and thighslose s sensation for 1-2 minutesno known causeVit B12 normalendo crine referred to neurology Depression screening 171 215119 Z13.31 PHQ 7 [id number] Reece roa MD [facility] [address] [place] [address] 02/23/2022 14:13:11 02/25/2022 08:04:27 Hospital inpatient stay within past 30 days 8854431560 106 Z76.89 Went to [facility] ED on 02/15/22 c/o radiating left sided [...] chronic gastritis, c/w omeprazole Chronic neck pain 594140 2163 107 M54.2 02/23/22: no relief with tizanidine or flexerilwo uld like to try different medication trial baclofen 02/08/22:C3 , C4 replaced 7 yrs agofeeling stiff w/ increased muscle tensionwou ld like to try muscle relaxertri ed flexeril in the past, caused low blood pressuretr ial tizanidine Depression screening 171 631596 Z13.31 PHQ 2 [id number] Reece roa MD [facility] [address] [place] [address] 03/22/2022 11:18:23 03/23/2022 09:27:40 Acute low back pain 807109260 M54.50 x3 daysno trauma or injuryno concerning sxusing heating pad and baclofenPE x- limited ROM of lumbar spine due to pain, TTP right sided lower paraspinal musclestor adol in officepred nisone x5 days, advised pt to take 24 hrs after toradol shotf/u in 1-2 wks if symptoms don't improvedis cussed exercises as tolerated after using heating padwork note until 03/24/22 [id number] Reece roa MD [facility] [address] [place] [address] 03/28/2022 11:04:41 03/29/2022 10:24:44 Acute low back pain 016787405 M54.50 03/28/22: no relief with toradol or [...] padwork note until 03/24/22 Depression screening 171 894668 Z13.31 PHQ 5 [id number] Reece roa MD [facility] [address] [place] [address] 04/11/2022 15:27:44 04/12/2022 16:22:38 Motion sickness 20710061 T75.3XXA going on cruise in 6 daysreques ting motion sickness medication trial scopolamin e Acute low back pain 2788 04115 M54.50 04/11/22: went to ED on 04/08/2022 [...] padwork note until 03/24/22 Depression screening 171 395787 Z13.31 PHQ 5 [id number] Reece roa MD [facility] [address] [place] [address] 04/29/2022 11:21:38 05/03/2022 09:17:36 Chronic back pain 472328527 M54.15 04/29/22: going to PT twice a [...] after using heating padwork note until 03/24/22 [id number] Reece roa MD [facility] [address] [place] [address] 06/06/2022 14:55:42 06/07/2022 14:42:53 Body mass index 40+ - severely obese 821651898 Z68.41 refer to bariatric surgerysta michelle she is unable to exercise due to chronic pain Chest pain 65773342 R07. 9 5 days agooccurre d while in MRI machinenot claustroph obicdescri bes as burning chest pain and tightness a/w headache, nausea, and dizziness, lasted 2-3 minwent to ED, EKG and echo normal, cardio consulted and not concernedp t had f/u with cardiologi today, lab work and imaging from ED normalrefe rred pt to neurosurge ry and started tramadolre fill nitro Neck pain 21422742 M54.2 cardio referred to neurosurge ry Dr. Goddard and started tramadol [id number] Reece roa MD [facility] [address] [place] [address] 06/20/2022 12:37:40 06/21/2022 10:40:16 Chronic back pain 861717944 M54.15 06/20/22:pt reports she cannot perform her job duties and needs extension until max 6 monthsretu rn to work 09/22/22fol lowing with PM, they want to do neck injections pt had recent MRI of C spine, PCP did not receive resultscar kaycee referred pt to neurosurge onwill fax paperwork to 04/29/22: going to PT [...] after using heating padwork note until 03/24/22 [id number] Reece roa MD [facility] [address] [place] [address] 08/12/2022 09:17:59 08/16/2022 09:20:06 Chronic back pain 333264014 M54.15 08/12/22:marissa selby with Dr. 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 they will not let her go back part timef/u before RTW on 09/22/22pt is going to [facility] for her birthday 09/19/22 06/20/22:pt reports [...] heating padwork note until 03/24/22 Allergic rhinitis 313264 04 J30.9 headache for dayswent to [facility]aking claritin during the day, benadryl at night Chronic low back pain 27 2655772 M54.50 max characters from chronic back pain [...] with restrictio nsshe spoke with personnel at [facility] during visit, told pt that she needs to write letter that PCP is no longer signing extension leave paperwork, can RTW with restrictio ns if [facility] signs off on itnext steroid injection d injection epidural 10/2022, follows up with Dr. Goddard after 3rd injectionD matthew Goddard note on 08/04/22, won't see him until done with injection seriesddx with sacroiliit is, pseudoarth ritis after fusion or arthrodesi s, may warrant ALIF, C4-7 ACDF, trial SI injections reports she is unsure if she is going to [place] due to sinus issues [id number] MD Rhona Kwan (Adult Med) [address] [place] [address] 06/28/2023 13:54:20 07/04/2023 14:55:14 Morbid obesity 936891900 E66.01 Screening for malignant neoplasm of colon 984071645 Z12.11 Diabetes mellitus 684445 09 E11.59 Coronary arteriosclerosis 13560081 I25.10 Chronic low back pain 27 7445481 M54.50 Insomnia 937276404 G47.0 0 [id number] MD Rhona Kwan (Adult Med) [address] [place] [address] 08/29/2023 15:15:46 09/04/2023 15:42:03 Morbid obesity 335141949 E66.01 Migraine 82410402 G43.90 9 Hearing disorder 1005637 05 H91.92 [id number] MD Rhona Kwan (Adult Med) [address] [place] [address] 09/27/2023 17:06:00 10/05/2023 16:43:39 Chronic low back pain 644521001 M54.50 Diabetes mellitus 878831 09 E11.59 [id number] MD Rhona Kwan (Adult Med) [address] [place] [address] 10/18/2023 16:07:09 10/20/2023 11:40:46 Chronic low back pain 317453377 M54.50 [id number] MD Rhona Kwan (Adult Med) [address] [place] [address] 12/20/2023 14:33:14 12/21/2023 16:03:58 Chronic low back pain 219814791 M54.50 Diabetes mellitus 713209 09 E11.59 Coronary arteriosclerosis 65299481 I25.10 [id number] Jose Alejandro Solomon [facility]) [address] [place] [address] 06/27/2024 14:54:56 06/28/2024 20:03:29 Furuncle 833204304 L02.92 Continue topical treatment Chronic low back pain 27 9020812 M54.50 Diabetes mellitus 458005 09 E11.59 Gastroesop hageal reflux disease 319397716 K21.9 Medication monitoring 39 0132729 Z51.81 [id number] Jose Alejandro Solomon [facility]) [address] [place] [address] 09/24/2024 11:53:57 09/26/2024 11:59:04 Obesity 979738381 E66.9 Allergic rhinitis 376246 04 J30.9 Chronic low back pain 27 6476961 M54.50 [id number] Jose Alejandro Solomon MD [facility] (Adult Med) [address] [place] [address] 01/22/2025 14:19:37 01/23/2025 13:11:31 Chronic low back pain 740599836 M54.50 Diabetes mellitus 451450 09 E11.59 Myocardial infarction 22 350774 I21.9 Chronic constipation 236 099006 K59.09 [id number] MD Rhona Kwan (Adult Med) [address] [place] [address] 04/24/2025 14:04:36 04/25/2025 12:36:27 Diabetes mellitus 59409234 E11.59 Coronary arteriosclerosis 62318228 I25.10 Myocardial infarction 22 768626 I21.9 Chronic low back pain 27 9325103 M54.50 Health Concerns Section Related Observation LastModified by Organization Detai ls LastModified Time None Recorded Concern Status LastModified by Organization Details LastModified Time None Recorded Advance Directives Directive N: Payers Insurance Date Sequence Insurance Name Policy Number Policy Salas Covered Member ID Salas Member ID Guarantor Name 10/25/2022 2 [facility] - DOS ON OR AFTER 21 (MEDICAID REPLACEMENT - HMO) Page chen [id number] Page Silvino 09/13/2022 1 [facility] - DOS ON OR AFTER 2020 - DUAL ELIGIBLE (MEDICARE REPLACEMENT/ ADVANTAGE - HMO) Page chen [id number] Page Silvino 03/11/2021 2 [employer] (POS II) [id number] Page chen [id number] Page Silvino 01/22/2025 2 [employer] [place] AFTER 2020 (MEDICAID REPLACEMENT - HMO) Page Mckinley [id number] Page Silvino 03/11/2021 1 [employer] (POS) [id number] Page chen [id number] Page Silvino 03/11/2021 1 [facility] (MEDICAID HMO) [id number] Page Elías [id number] Page Silvino 03/11/2021 1 [facility] - DOS PRIOR TO 2021 (MEDICAID REPLACEMENT - HMO) Page Elías [id number] Page Silvino 09/27/2023 1 [facility] BENEFITS PLAN (PPO) [id number] Page chen [id number] Page Silvino 08/29/2023 2 [place]PART[place] PUBLIC AID Page Elías [id number] Page Silvino 09/13/2022 1 [facility] BENEFITS PL[facility] (PPO) Page chen [id number] OI Page Silvino 04/24/2025 2 [employer] (POS II) [id number] Page Silvino [id number] Page Silvino 04/24/2025 2 [employer] [place] ON [place] AFTER 2020 (MEDICAID REPLACEMENT - HMO) Page Silvino [id number] Page Silvino 04/24/2025 1 [employer] SOLUTIONS - OPEN ACCESS [id number] Page Silvino [id number] OI Page Silvino 11/17/2021 1 [employer] - DOS PRIOR TO 21 - [facility] BENEFITS PLAN Page chen [id number] Page Silvino 12/20/2023 1 [facility] (MEDICAID HMO) [id number] Page Elías [id number] Page Silvino 12/20/2023 [facility] - DOS ON OR AFTER 21 (MEDICAID REPLACEMENT - HMO) Page Juradort [id number] Page Silvino 01/22/2025 2 [employer] (POS II) Christopher Silvino [id number] Page Silvino 04/24/2025 1 [place] A[place] Page Elías [id number] Page Silvino 01/22/2025 2 [employer] [place] AFTER 2020 (MEDICAID REPLACEMENT - HMO) Page Juradort [id number] Page Silvino Notes Date Note Type Note Provider Name and Address Organization Details Recorded Time 12/20/2023 text/html Recently admitte d for chest pain. Cardiac cath reportedly unremarkable. Scheduled to see bariatric surgeon in two weeks Jose Alejandro Solomon MD Attn: Accounting[address] [place], [address], [facility] 12/20/2023 15:35:57 06/27/2024 text/html Seen in urgent care for furuncles not related to sites of incision related to recent gastric bypass. Needs a letter for a emotional support animal. Jose Alejandro Solomon MD Attn: Accounting,[address] [facility], [place], [address], [facility] 06/27/2024 15:53:13 09/24/2024 text/html Seen in [...] the day. Occasional leg swelling Jose Alejandro Solomon MD Attn: Accounting,[address] [place], [address], [facility] 09/24/2024 13:07:03 01/22/2025 text/html Here for routine f/u. Had dental work in past week and increased her pain relief use. Has had problems with constipation Jose Alejandro Solomon MD Attn: Accounting,[address] [place], [address], [facility] 01/22/2025 15:28:36 04/24/2025 text/html Here for routine f/u. Needs new referral to PM. Jose Alejandro Solomon MD Attn: Accounting,[address] [place], [address], [facility] 04/24/2025 15:04:29 OBGyn Episode No OBEpisode recorded.
--- OUTSIDE RECORDS SUMMARY | 2025-05-29 10:35 | XMS_ITS | Referral Summary ---
Author Organization [facility] Address [address] [place] [address] Care Team Providers Care Technical Education Teacher Name Role Phone Gregory Gaytan MD Unavailable [phone] Jose Alejandro Solomon MD Primary Care Provider Encounters Date Type Department Care Team Description 03/28/2025 Results Follow-Up [facility] Minimally Invasive Surgery [address] [place] [address] Medical Office Building [address] [place] [address] Lashay Jean NP Vitamin D 25 hydroxy, Vitamin B12, Vitamin B1, Additional followed-up results: 11 03/24/2025 10:25 AM CDT Lab [facility] [address] [place] [address] H/O gastric bypass; Intestinal malabsorption, unspecified type; BMI 27.0-27.9,adult 03/24/2025 10:00 AM CDT Office Visit [facility] Minimally Invasive Surgery [address] [place] [address] Medical Office Building [address] [place] [address] Lashay Jean NP H/O gastric [...] Metformin Diarrhea,Stomach upset,Nausea And Vomiting Low 03/25/2021 Fxfxyux-Gmq-Lie Reductase Inhibitors Muscle pain High 07/17/2023 Zucchini [...] 1 capsule (30 mg total) by mouth malter operator before breakfast 10/02/20 23 Active rOPINIRole XL (REQUIP XL) 2 mg 24 hr tabletIndications: Restless Legs Syndrome Take 1 tablet (2 mg total) by mouth nightly Active SUMAtriptan (IMITREX) 50 mg tablet Take 1 tablet (50 mg total) by mouth malter operator before breakfast 09/27/20 23 Active traZODone (DESYREL) [...] 1 tablet (75 mg total) by mouth malter operator before breakfast Active oxyCODONE (ROXICODONE) 10 mg [...] (obstructive sleep apnea) 03/21/2024 No diagnosis on [place] 06/26/2023 Lumbar radiculopathy 02/09/2023 Vitamin D [...] (11/06/2023): Added automatically from request for surgery [id number] Neck pain 01/26/2015 Maternal mitral valve prolapse, [...] on file Legal Sex Female 2:34 PM MANDREL [employer] HAND Gender Identity Female 03/14/2024 9:53 AM CDT [...] on file Medical Devices Implanted Type Area Director Of Gift Planning Device Identifier Shelf Expiration Date Model / Serial / Lot [employer] Biological Bariatric Peristrip Non Crosslinked Bovine Pericardium For Endo Teri Thin [id number] - Sn/A - [id number] Implanted:Qty: 1 on 03/21/2024 by Jos Samuels MD at [facility] Other - see comments N/A: Abdomen [employer] [id number] 11/08/2025 [id number] ATHN / N/A / [id number] Description:Elisabeth-Strips Dry Staple Line Reinforcement [employer] Bariatric Peristrip Non Crosslinked Bovine Pericardium For Endo Teri Thin [id number] - Sn/A - [id number] Implanted:Qty: 1 on 03/21/2024 by Jos Samuels MD at [facility] Other - see comments N/A: Abdomen [employer] [id number] 11/08/2025 [id number] ATHN / N/A / [id number] Description:Elisabeth[employer]Strips Dry Staple Line Reinforcement [employer] Bariatric Peristrip Non Crosslinked Bovine Pericardium For Endo Teri Thin [id number] - [id number] Implanted:Qty: 1 on 03/21/2024 by Jos Samuels MD at [facility] Other - see comments N/A: Abdomen [employer] [id number] 11/08/2025 [id number] ATHN / / [id number] Description:Elisabeth[employer]ri[employer] Dry Staple Line Reinforcement System Coronary Stent Synergy Pebax Everolimus Eluting Reading Chromium Plga L12 Mm L144 Cm Od2.25 Mm Radiopaque 1 Access Port Inflation Lumen Accepts .014 In Guidewire - [id number] Implanted:Qty: 1 on 03/10/2018 by Darek Dailey MD at [facility] [employer] [facility] 12/13/2018 [id number] / / [id number] Procedures Procedure Name Priority Date/Time Associated Diagnosis [...] LAB BLOOD ORDERABLES Final Result LULI GAUTAM [address] [place] [address] * Differential, auto (03/24/2025 10:40 AM CDT) [...] CDT 03/24/2025 10:57 AM CDT Lashay Jean SIGNAL INTELLIGENCE/ELECTRONIC WARFARE LAB BLOOD ORDERABLES Final Result Performing Organization Address [facility] de Phone Number LULI GAUTAM [address] [facility] [email or web address] [place], [place] [id number] * Iron profile w/ IBC (03/24/2025 10:40 AM CDT) Iron 132 35 - 145 mcg/dL Comment:Testing performed by : [facility], [address] [place] [address]., [id number] TIBC 331 250 - 400 mcg/dL LULI BJW Comment:Testing performed by : [facility], [address] [place] [address]., [id number] Transferrin saturation 40 20 - 50 % LULI BJW Comment:Testing performed by : [facility], [address] [place] [address]., [id number] Blood 03/24/2025 10:4 0 AM CDT 03/24/2025 12:25 PM CDT Lashay Jean SIGNAL INTELLIGENCE/ELECTRONIC WARFARE LAB BLOOD ORDERABLES Final Result Performing Organization Address [facility] de Phone Number LULI KAURCH [address] [facility] [facility] [place] [address] * (ABNORMAL) CBC with auto differential (03/24/2025 [...] BLOOD ORDERABLES Final Result Performing Organization Address [facility] Co de Phone Number [facility] [address] [place] [address] * Copper, serum (03/24/2025 10:40 AM CDT) [facility] Copper 129 77 - 206 mcg/dL [facility] Comment: ADDITIONAL INFORMATION This test was developed and its performance characteristics determined by [facility] in a manner consistent with CLIA requirements. This test has not been cleared or approved by the U.S. Food and Drug Administration. Test Performed by: [facility] - [address] [address] Gum Scoring Machine Operator: Elijah Gardner Ph.D.; CLIA# [id number] Blood 03/24/2025 10:4 0 AM CDT 03/24/2025 10:57 AM CDT Lashay Jean NP LAB BLOOD ORDERABLES Final Result Performing Organization Address [facility] de Phone Number [facility] [address] [address] [address] [facility] * (ABNORMAL) Vitamin D 25 hydroxy (03/24/2025 10:40 AM CDT) [facility] Vitamin D 25-OH 25(L) 30 - 80 ng/mL Blood 03/24/2025 10:4 0 AM CDT 03/24/2025 10:57 AM CDT Lashay Jean SIGNAL INTELLIGENCE/ELECTRONIC WARFARE LAB BLOOD ORDERABLES Edited Result - Final Performing Organization Address City/[facility]/ZIP Co de Phone Number LULI BJWCH [address] [facility]. [facility] [email or web address] [address] * Vitamin B1 (03/24/2025 10:40 AM CDT) [facility] Thiamine (Vit B1) 105 70 - 180 nmol/L [facility] Comment: ADDITIONAL INFORMATION This test was developed and its performance characteristics determined by [facility] in a manner consistent with CLIA requirements. This test has not been cleared or approved by the U.S. Food and Drug Administration. Test Performed by: [facility] [id number] Gum Scoring Machine Operator: Elijah Gardner Ph.D.; CLIA# [id number] Blood 03/24/2025 10:4 0 AM CDT 03/24/2025 10:57 AM CDT Lashay Jean NP LAB BLOOD ORDERABLES Final Result [facility]I BJWCH [address] [facility]. [facility] [email or web address] [address] [facility] * PTH (03/24/2025 10:40 AM CDT) [facility] PTH 36 15 - 65 pg/mL Blood 03/24/2025 10:4 0 AM CDT 03/24/2025 10:57 AM CDT us Lashay Jean NP LAB BLOOD ORDERABLES Final Result Performing Organization Address City/State/[facility] Co de Phone Number LULI KAUR [address] [facility] [facility] [place] [address] * (ABNORMAL) Hemoglobin A1c (03/24/2025 10:40 AM CDT) Hgb A1C 6.2(H) 4.0 - 5.6 % Estimated Average Glucose 131 mg/dL LULI GAUTAM Comment: The ADA recommends reporting an estimated Average Glucose (eAG) with all Hemoglobin A1c results using the equation derived from a study of 507 normal and diabetic adults. Minority populations were underrepresented and children were not included. (Diabetes Care 31:7441-8543, 2008). The eAG is not equivalent to a fasting glucose. Blood 03/24/2025 10:4 0 AM CDT 03/24/2025 10:57 AM CDT us Lashay Jean NP LAB BLOOD ORDERABLES Final Result Performing Organization Address [facility] Co de Phone Number [facility] [address] [facility] [facility] [place] [address] * Folate (03/24/2025 10:40 AM CDT) Folic acid 5.7 >=5.0 ng/mL Comment:Testing performed by : [facility], [facility] [facility], [place]., [address] Blood 03/24/2025 10:4 0 AM CDT 03/24/2025 12:25 PM CDT us Lashay Jean NP LAB BLOOD ORDERABLES Final Result Performing Organization Address City/[facility]/ZIP Co de Phone Number L[facility]I [facility] [address] [facility]. Department [email or web address] [address] * (ABNORMAL) Ferritin (03/24/2025 10:40 AM CDT) Ferritin 174(H) 15 - 150 ng/mL Comment:Testing performed by : [facility], [address] [place] [address]., [id number] Blood 03/24/2025 10:4 0 AM CDT 03/24/2025 12:25 PM CDT us Lashay Jean NP LAB BLOOD ORDERABLES Final Result [facility] [address] [facility] [place] [address] * (ABNORMAL) Vitamin B12 (03/24/2025 10:40 AM CDT) Vitamin B12 1,344(H) 230 - 1,250 pg/mL Comment:Testing performed by : [facility], [address] [place] [address]., [id number] Blood 03/24/2025 10:4 0 AM CDT 03/24/2025 12:25 PM CDT us Lashay Jean NP LAB BLOOD ORDERABLES Final Result LULI BJCH [address] [facility] [email or web address] [address] * Lipid panel (03/24/2025 10:40 AM CDT) [...] revised on 2024. Non-HDL Cholesterol 115 mg/dL [facility] Comment: Interpretive Data Ages < or = [...] revised on 2018. Chol/HDL ratio 4 [facility] Blood 03/24/2025 10:4 0 AM CDT 03/24/2025 10:57 AM CDT us Lashay Jean NP LAB BLOOD ORDERABLES Edited Result - Final [facility] [address] [facility]. Department of Laboratories [place], [place] [id number] * Comprehensive metabolic panel (03/24/2025 10:40 AM CDT) Sodium 144 135 - 145 mmol/L Potassium, pl 4.6 3.3 - 4.9 mmol/L [facility] Chloride 107 97 - 110 mmol/L [facility] CO2 25 22 - 32 mmol/L [facility] Anion gap 12 2 - 15 mmol/L [facility] BUN 11 6 - 25 mg/dL [facility] Creatinine 0.70 0.60 - 1.10 mg/dL [facility] Glucose 81 70 - 199 mg/dL [facility] Comment: Interpretive Data Fasting glucose >/= [...] ORDERABLES Edited Result - Final LULI GAUTAM [address] [facility]. [place] [address] from Last 3 Months Insurance [employer] [facility] [id number] [facility] [id number] Member Subscriber Plan / Payer (Ef fective 2021-Present) Name:Page Dubois Member ID:[id number] Relation to Subscriber:Self Name:Page Dubois Subscriber ID:[id number] Payer ID:[id number] Type:[employer] HMO/PPO Address: [facility] [id number] [facility] [facility] [address] Advance Directives For more information, please contact: [phone] * Full Code (Latest Code Status on File) Date Activated Date Inactivated Comments 03/21/2024 7:12 PM 03/24/2024 6:20 PM * Full Code Date Activated Date Inactivated Comments 02/18/2022 1:39 PM 02/19/2022 5:14 PM * Full Code Date Activated Date Inactivated Comments 02/15/2022 8:29 PM 02/18/2022 1:39 PM * Full Code Date Activated Date Inactivated Comments 03/10/2018 12:26 PM 03/11/2018 3:44 PM Care Teams Technical Education Teacher Relationship Specialty Start Date End Date Jose Alejandro Solomon MD [address] [address] PCP - General Gastroenterology 01/05/24 Gregory Gaytan MD Referring Physician Cardiovascular Disease 03/11/18
--- NOTE | 2025-05-29 10:51 | ECG_ITS ---
Test Date: 2025-05-29 11:20:39 Measurements Intervals [place] Rate: 75 P: 43 AK: 162 QRS: -36 QRSD: 96 T: 26 QT: 375 QTc: 420 Interpretive Statements SINUS RHYTHM WITH OCCASIONAL VENTRICULAR PREMATURE COMPLEXES LEFT AXIS DEVIATION [QRS AXIS < -30] LOW QRS VOLTAGE IN PRECORDIAL LEADS [QRS DEFLECTION < 1.0 mV IN CHEST LEADS] POSSIBLE ANTERIOR MYOCARDIAL INFARCTION , OF INDETERMINATE AGE [30 ms Q WAVE IN V3/V4, OR R < 0.2 mV IN V4] No previous ECG available for comparison Electronically Signed On 05-29-2025 13:16:04 CDT by Anupam Briones M.D.
[2025-05-29 11:29] LABS: Hematocrit 43.1 % (37.0-47.0); Hemoglobin 12.8 g/dL (12.0-15.0); Immature Granulocyte Percent A 0.2 % (0-0.5); Lymphocytes Absolute Auto 4.51 K/mm3 (0.9-3.2); Mean Corpuscular HGB Conc 29.7 g/dl (32-36); Mean Corpuscular Hemoglobin 27.9 pg (26-34); Mean Corpuscular Volume 94.1 fl (80-100); Nucleated Red Blood Cells Absolute Auto 0.000 K/mm3 (0.0-0.012); Nucleated Red Blood Cells Perc 0.0 % (0.0-0.2); Platelet Count Result 219 k/mm3 (150-375); Red Blood Count 4.58 M/mm3 (4.2-5.4); White Blood Count 9.5 K/mm3 (4.5-10.0)
[2025-05-29 11:50] LABS: Alanine Aminotransferase 27 U/L (6-35); Albumin Level 4.2 g/dL (3.5-5.1); Alkaline Phosphatase 85 U/L (38-126); Anion Gap 5 mmol/L (4-12); Aspartate Amino Transferase 40 U/L (14-36); Bilirubin,Total 0.3 mg/dL (0.2-1.3); Blood Urea Nitrogen 14 mg/dL (7-17); Calcium 9.1 mg/dL (8.4-10.2); Carbon Dioxide 31 mmol/L (22-30); Chloride 108 mmol/L (98-107); Estimated CRCL calculation 82 ml/min; Estimated Glomerular Filt Rate > 60; Glucose 76 mg/dL (65-110); Potassium 4.0 mmol/L (3.4-5.0); Sodium 144 mmol/L (137-145); Total Protein 7.0 g/dL (6.3-8.2)
[2025-05-29 11:52] LABS: INR 1.0; Partial Thromboplastin Time 29.6 Seconds (22.3-36.8); Prothrombin Time 13.3 Seconds (11.1-14.7)
[2025-05-29 12:02] LABS: Troponin I < 0.012 ng/mL (0.000-0.034)
--- OUTSIDE RECORDS SUMMARY | 2025-05-29 12:11 | XMS_ITS | Referral Summary ---
Author Organization [facility] Address [address] [place] [address] Care Team Providers Care Security Chief Museum Name Role Phone Gregory Gaytan MD Unavailable [phone] Jose Alejandro Solomon MD Primary Care Provider Encounters Date Type Department Care Team Description 03/28/2025 Results Follow-Up [facility] Minimally Invasive Surgery [address] [place] [address] Medical Office Building [address] [place] [address] Lashay Jean NP Vitamin D 25 hydroxy, Vitamin B12, Vitamin B1, Additional followed-up results: 11 03/24/2025 10:25 AM CDT Lab [facility] [address] [place] [address] H/O gastric bypass; Intestinal malabsorption, unspecified type; BMI 27.0-27.9,adult 03/24/2025 10:00 AM CDT Office Visit [facility] Minimally Invasive Surgery [address] [place] [address] Medical Office Building [address] [place] [address] Lashay Jean NP H/O gastric [...] Metformin Diarrhea,Stomach upset,Nausea And Vomiting Low 03/25/2021 Mugqrgm-Tnj-Mtx Reductase Inhibitors Muscle pain High 07/17/2023 Zucchini [...] 1 capsule (30 mg total) by mouth operations support professionals before breakfast 10/02/20 23 Active rOPINIRole XL (REQUIP XL) 2 mg 24 hr tabletIndications: Restless Legs Syndrome Take 1 tablet (2 mg total) by mouth nightly Active SUMAtriptan (IMITREX) 50 mg tablet Take 1 tablet (50 mg total) by mouth operations support professionals before breakfast 09/27/20 23 Active traZODone (DESYREL) [...] 1 tablet (75 mg total) by mouth operations support professionals before breakfast Active oxyCODONE (ROXICODONE) 10 mg [...] (obstructive sleep apnea) 03/21/2024 No diagnosis on Clothier I 06/26/2023 Lumbar radiculopathy 02/09/2023 Vitamin D [...] (11/06/2023): Added automatically from request for surgery [id number] Neck pain 01/26/2015 Maternal mitral valve prolapse, [...] on file 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 Gender Identity Female 03/14/2024 9:53 AM CDT [...] on file Medical Devices Implanted Type Area Workforce Advisor Device Identifier Shelf Expiration Date Model / Serial / Lot [employer] Biological Bariatric Peristrip Non Crosslinked Bovine Pericardium For Endo Teri Thin [id number] - Sn/A - [id number] Implanted:Qty: 1 on 03/21/2024 by Jos Samuels MD at [facility] Other - see comments N/A: Abdomen [employer] [id number] 11/08/2025 [id number] ATHN / N/A / [id number] Description:Elisabeth-Strips Dry Staple Line Reinforcement [employer] Bariatric Peristrip Non Crosslinked Bovine Pericardium For Endo Teri Thin [id number] - Sn/A - [id number] Implanted:Qty: 1 on 03/21/2024 by Jos Samuels MD at [facility] Other - see comments N/A: Abdomen [employer] [id number] 11/08/2025 [id number] ATHN / N/A / [id number] Description:Elisabeth-Strips Dry Staple Line Reinforcement [employer] Biological Bariatric Peristrip Non Crosslinked Bovine Pericardium For Endo Teri Thin [id number] - [id number] Implanted:Qty: 1 on 03/21/2024 by Jos Samuels MD at [facility] Other - see comments N/A: Abdomen [employer] [id number] 11/08/2025 [id number] ATHN / / [id number] Description:Elisabeth-Strips Dry Staple Line Reinforcement System Coronary Stent Synergy Pebax Everolimus Eluting [place] Chromium Plga L12 Mm L144 Cm Od2.25 Mm Radiopaque 1 Access Port Inflation Lumen Accepts .014 In Guidewire - [id number] Implanted:Qty: 1 on 03/10/2018 by Darek Dailey MD at [facility] [employer] [facility] 12/13/2018 [id number] / / [id number] Procedures Procedure Name Priority Date/Time Associated Diagnosis [...] LAB BLOOD ORDERABLES Final Result LULI GAUTAM [address] Department [place] [address] * Differential, auto (03/24/2025 10:40 AM CDT) [...] CDT 03/24/2025 10:57 AM CDT Lashay Jean FIRESETTER LAB BLOOD ORDERABLES Final Result Performing Organization Address [facility] de Phone Number LULI GAUTAM [address] [facility] [address] [place], [place] [id number] * Iron profile w/ IBC (03/24/2025 10:40 AM CDT) Iron 132 35 - 145 mcg/dL Comment:Testing performed by : [facility], [address] [place] [address]., [address] TIBC 331 250 - 400 mcg/dL LULI BJW Comment:Testing performed by : [facility], [address] [place] [address]., [address] Transferrin saturation 40 20 - 50 % LULI BJW Comment:Testing performed by : [facility], [address] [place] [address]., [address] Blood 03/24/2025 10:4 0 AM CDT 03/24/2025 12:25 PM CDT Lashay Jean FIRESETTER LAB BLOOD ORDERABLES Final Result Performing Organization Address [facility] de Phone Number LULI KAURCH [address] [facility]. [facility] [place] [address] * (ABNORMAL) CBC with auto differential (03/24/2025 [...] BLOOD ORDERABLES Final Result Performing Organization Address [facility] Co de Phone Number [facility] [address] [address] [place] [address] * Copper, serum (03/24/2025 10:40 AM CDT) [facility] Copper 129 77 - 206 mcg/dL [facility] Lab Comment: ADDITIONAL INFORMATION This test was developed and its performance characteristics determined by [facility] in a manner consistent with CLIA requirements. This test has not been cleared or approved by the U.S. Food and Drug Administration. Test Performed by: [facility] Laboratories - [address] [address] [employer]ert: Elijah Gardner Ph.D.; CLIA# [id number] Blood 03/24/2025 10:4 0 AM CDT 03/24/2025 10:57 AM CDT Lashay Jean NP LAB BLOOD ORDERABLES Final Result Performing Organization Address [facility] de Phone Number [facility] [address] [address] [place] [address] [place] ref [facility] * (ABNORMAL) Vitamin D 25 hydroxy (03/24/2025 10:40 AM CDT) [facility] Vitamin D 25-OH 25(L) 30 - 80 ng/mL Blood 03/24/2025 10:4 0 AM CDT 03/24/2025 10:57 AM CDT Lashay Jean FIRESETTER LAB BLOOD ORDERABLES Edited Result - Final Performing Organization Address City/[facility]/ZIP Co de Phone Number LULI BJWCH [address] [facility]. [facility] [place] [address] * Vitamin B1 (03/24/2025 10:40 AM CDT) [facility] Thiamine (Vit B1) 105 70 - 180 nmol/L [place] [facility] Comment: ADDITIONAL INFORMATION This test was developed and its performance characteristics determined by [facility] in a manner consistent with CLIA requirements. This test has not been cleared or approved by the U.S. Food and Drug Administration. Test Performed by: [facility] [place] [id number] [employer]: Elijah Gardner Ph.D.; CLIA# [id number] Blood 03/24/2025 10:4 0 AM CDT 03/24/2025 10:57 AM CDT Lashay Jean NP LAB BLOOD ORDERABLES Final Result LULI BJWCH [address] [facility]. [facility] [place] [address] [place] [facility] * PTH (03/24/2025 10:40 AM CDT) [facility] PTH 36 15 - 65 pg/mL Blood 03/24/2025 10:4 0 AM CDT 03/24/2025 10:57 AM CDT us Lashay Jean NP LAB BLOOD ORDERABLES Final Result Performing Organization Address City/State/[facility] Co de Phone Number LULI KAUR [address] [facility]. [facility] [place] [address] * (ABNORMAL) Hemoglobin A1c (03/24/2025 10:40 AM CDT) Hgb A1C 6.2(H) 4.0 - 5.6 % Estimated Average Glucose 131 mg/dL LULI GAUTAM Comment: The ADA recommends reporting an estimated Average Glucose (eAG) with all Hemoglobin A1c results using the equation derived from a study of 507 normal and diabetic adults. Minority populations were underrepresented and children were not included. (Diabetes Care 31:8821-7478, 2008). The eAG is not equivalent to a fasting glucose. Blood 03/24/2025 10:4 0 AM CDT 03/24/2025 10:57 AM CDT us Lashay Jean NP LAB BLOOD ORDERABLES Final Result Performing Organization Address [facility] Co de Phone Number [facility] [address] [facility]. [facility] [place] [address] * Folate (03/24/2025 10:40 AM CDT) Folic acid 5.7 >=5.0 ng/mL Comment:Testing performed by : [facility], [facility], [place]., [address] Blood 03/24/2025 10:4 0 AM CDT 03/24/2025 12:25 PM CDT us Lashay Jean NP LAB BLOOD ORDERABLES Final Result Performing Organization Address City/[facility]/ZIP Co de Phone Number [facility] [address] [facility]. [place] [address] * (ABNORMAL) Ferritin (03/24/2025 10:40 AM CDT) Ferritin 174(H) 15 - 150 ng/mL Comment:Testing performed by : [facility], [address] [place] [address]., [address] Blood 03/24/2025 10:4 0 AM CDT 03/24/2025 12:25 PM CDT us Lashay Jean NP LAB BLOOD ORDERABLES Final Result [facility]I [facility]JCH [address] [facility] [place] [address] * (ABNORMAL) Vitamin B12 (03/24/2025 10:40 AM CDT) Vitamin B12 1,344(H) 230 - 1,250 pg/mL Comment:Testing performed by : [facility], [address] [place] [address]., [address] Blood 03/24/2025 10:4 0 AM CDT 03/24/2025 12:25 PM CDT us Lashay Jean NP LAB BLOOD ORDERABLES Final Result LULI BJCH [address] [employer] [facility] [place] [address] * Lipid panel (03/24/2025 10:40 AM CDT) [...] revised on 2024. Non-HDL Cholesterol 115 mg/dL [facility] Comment: Interpretive Data Ages < or = [...] revised on 2018. Chol/HDL ratio 4 [facility] Blood 03/24/2025 10:4 0 AM CDT 03/24/2025 10:57 AM CDT us Lashay Jean NP LAB BLOOD ORDERABLES Edited Result - Final [facility] [address] [facility]. Department of Laboratories [place], [place] [address] * Comprehensive metabolic panel (03/24/2025 10:40 AM CDT) Sodium 144 135 - 145 mmol/L Potassium, pl 4.6 3.3 - 4.9 mmol/L [facility] Chloride 107 97 - 110 mmol/L [facility] CO2 25 22 - 32 mmol/L [facility] Anion gap 12 2 - 15 mmol/L [facility] BUN 11 6 - 25 mg/dL [facility] Creatinine 0.70 0.60 - 1.10 mg/dL [facility] Glucose 81 70 - 199 mg/dL [facility] Comment: Interpretive Data Fasting glucose >/= [...] ORDERABLES Edited Result - Final LULI GAUTAM [address] [facility]. Department [place] [address] from Last 3 [place] [address] [facility] [id number] [facility] [id number] Member Subscriber Plan / Payer (Ef fective 2021-Present) Name:Page Dubois Member ID:[id number] Relation to Subscriber:Self Name:Page Dubois Subscriber ID:[id number] Payer ID:[id number] Type:HEALTHLINK HMO/PPO Address: [facility] [id number] [facility] [address] Advance Directives For more information, please contact: [phone] * Full Code (Latest Code Status on File) Date Activated Date Inactivated Comments 03/21/2024 7:12 PM 03/24/2024 6:20 PM * Full Code Date Activated Date Inactivated Comments 02/18/2022 1:39 PM 02/19/2022 5:14 PM * Full Code Date Activated Date Inactivated Comments 02/15/2022 8:29 PM 02/18/2022 1:39 PM * Full Code Date Activated Date Inactivated Comments 03/10/2018 12:26 PM 03/11/2018 3:44 PM Care Teams Security Chief Museum Relationship Specialty Start Date End Date Jose Alejandro Solomon MD [address] [address] PCP - General Gastroenterology 01/05/24 Gregory Gaytan MD Referring Physician Cardiovascular Disease 03/11/18
--- OUTSIDE RECORDS SUMMARY | 2025-05-29 12:11 | XMS_ITS | Clinical Summary ---
Author Organization [facility] [place] Address [address] [facility] [place] [address] Care Team Providers Care Cnc Grinder Name Role Phone Sara Chambers RN Unavailable [phone] Mara Buck MD Primary Care Provider [phone] Delmi Forrest MD Unavailable [phone] Kirby Gaytan MD Unavailable Source Comments [facility],non-owned Affiliates and Associated Physician Practices is amultiple site organization consisting of ambulatory clinics and hospital sitesin [place], [place], [place] and [place]. This disclosure is being madepursuant to the Care Everywhere program and may not contain all information available regarding this patient. Last updated 18.[facility] Allergies Active Allergy Reactions Criticality Noted Date [...] hyperglycemia, with long-term current use of insulin ([facility]) Use 1 Each every 10 days 3 Each 5 11/27/19 24 Active Lancets Micro Thin 33G MISCIndications :Type 2 diabetes mellitus with hyperglycemia, with long-term current use of insulin ([facility]) Use 1 Each 4 times daily 200 Each 02/05/20 24 Active Insulin Pen Needle 32G X 4 MM MISCIndications :Type 2 diabetes mellitus with hyperglycemia, with long-term current use of insulin ([facility]) 1 Each by Injection route 4 times daily 200 Each 02/05/20 24 Active blood glucose test stripIndication s:Type 2 diabetes mellitus with hyperglycemia, with long-term current use of insulin ([facility]) Use 1 (one) strip 4 times daily - before meals & nightly 200 strip 02/05/20 24 Active insulin aspart, w/Niacinamide, (Fiasp FlexTouch) penIndications: Type 2 diabetes mellitus with hyperglycemia, with long-term current use of insulin ([facility]) INJECT 62 UNITS SUBCUTANEOUSLY 3 TIMES A [...] hyperglycemia, with long-term current use of insulin ([facility]) Inject 25 (twenty five) Units subcutaneously at [...] fluticasone propionate (Flonase) 50 MCG/ACT nasal spray [place] 2 (two) sprays into each nostril once [...] H/o c/s x2 BOTH are LTCS at [facility] and first at [facility]. Both had vertical skin incisions. 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 Not on file Not on file Not on file Last Filed Vital Signs Vital Sign Reading Time Taken Comments Blood Pressure 132/74 02/03/2025 11:54 AM CDT Pulse 78 02/03/2025 11:54 AM CDT Temperature 36.7 C (98 F) 05/02/2022 11:52 AM CDT Respiratory Rate 20 01/21/2019 3:08 PM RETREAD BUILDER Oxygen Saturation 100% 02/03/2025 11:54 AM CDT Inhaled Oxygen Concentration 21% 11/22/2018 7 :40 AM RETREAD BUILDER Weight 81.6 kg (180 lb) 02/03/2025 11:54 AM CDT Height 165.1 cm (5' 5) 02/03/2025 11:54 AM CDT Body Mass Index 29.95 02/03/2025 11:54 AM CDT Plan of Treatment Upcoming Encounters Date Type Department Care Team (Late st Contact Info) Description 08/08/2025 11:20 AM CDT Office Visit [facility] - Endocrinology [address] [address], [address] [place] [address] [place] [id number] [place] [address] [address] [place] [address] Health Maintenance Due Date Last [...] this topic Medical Devices Implanted Type Area Fill Manager Device Identifier Shelf Expiration Date Model / Serial / Lot Disha Vale Dbx Bone 1.0cc - [id number] Implanted:Qty : 1 on 03/03/2015 by Richard Mosquera MD at [facility] Cervical Spinal [employer] 10/22/2017 [id number] / [id number] / Space Peek 7 X 16 X 14mm Implanted:Qty : 1 on 03/03/2015 by Richard Mosquera MD at [facility] Cervical Med[employer] 12/05/2022 [id number] / / [id number] Kt Infs Bone [employer] Implanted:Qty : 1 on 03/03/2015 by Richard Mosquera MD at [facility] Cervical Med[employer]onic [employer] [id number] / / Procedures Procedure Name Priority Date/Time Associated Diagnosis Comments HEMOGLOBIN A1C - POINT OF CARE (AMB) Routine 02/03/2025 Type 2 diabetes mellitus with hyperglycemia, with long-term current use of insulin MICROALB/CREAT RATIO URINE RANDOM PANEL Routine 10/31/2024 1:20 PM RETREAD BUILDER Type 2 diabetes mellitus with hyperglycemia, with long-term current use of insulin COMPREHENSIVE METABOLIC PANEL Routine 10/31/2024 1:20 PM RETREAD BUILDER Type 2 diabetes mellitus with hyperglycemia, with long-term current use of insulin HM DIABETES EYE EXAM Routine 10/31/2022 ENDOSCOPY, COLON, DIAGNOSTIC Routine 11/09/2018 12:04 PM RETREAD BUILDER HPV DETECTION HIGH RISK JAI Routine 10/24/2018 11:35 AM RETREAD BUILDER Screening for breast cancer from Last 3 Months or Most Recently Relevant to Health Maintenance Results * HEMOGLOBIN A1C - POINT OF CARE (HgbA1C) (02/03/2025) Hemoglobin A1c POCT 6.5 % Expiration Date 07/10/2026 Lot # [id number] QC Verified Yes Yes Blood BLOOD SPECIMEN / Unknown 02/03/2025 us Delmi Forrest MD LAB - POINT OF CARE RICKY CABRAL Final Result * MICROALB/CREAT RATIO URINE RANDOM PANEL (10/31/2024 1:20 PM RETREAD BUILDER) Creatinine Urine 184.87 mg/dL [facility] ACCOUNT BILL Microalbumin Urine 1.1 mg/dL [facility] ACCOUNT BILL Microalbumin/Crea tinine Ratio 5 <30 mg/g [facility] ACCOUNT BILL Urine URINE SPECIMEN OBTAINED BY CLEAN CATCH PROCEDURE / Unknown 10/31/2024 1:20 PM RETREAD BUILDER 10/31/2024 Narrative [facility] ACCOUNT BILL - 11/01/2024 12:06 AM RETREAD BUILDER Performed at: [address] [place] [address] [place] , [place], [place] [id number] Copy Center Associate: Lima Pearson [facility], Phone: [phone] us Yuliet Martines APRN-RUFFLING MACHINE OPERATOR LAB - URINE CHEMISTRY ORD ERABLES Final Result [facility] ACCOUNT BILL [address] [place] [address] * (ABNORMAL) COMPREHENSIVE METABOLIC PANEL (10/31/2024 1:20 PM RETREAD BUILDER) Glucose 87 70 - 99 mg/dL [facility] [...] BLOOD SPECIMEN / Unknown 10/31/2024 1:20 PM RETREAD BUILDER 10/31/2024 Narrative [facility] ACCOUNT BILL - 10/31/2024 11:06 PM RETREAD BUILDER Performed at: [address] [place] [address] [address] [place], [place] [id number] Copy Center Associate: Lima Pearson [facility], Phone: [phone] us Yuliet Martines HOUSE WORKER GENERAL-RUFFLING MACHINE OPERATOR LAB - CHEMISTRY ORDERABLE S Final Result [facility] ACCOUNT BILL [address] [place] [address] * DIABETES EYE EXAM (10/31/2022) us Delmi Forrest MD HEALTH MAINTENANCE Final Result * ENDOSCOPY, COLON, DIAGNOSTIC (11/09/2018 12:04 PM RETREAD BUILDER) Report Endoscopy POC _ Patient Name: Annemarie Jordan Procedure Date: 11/09/2018 12:04 PM Date of : 1975 Admit Type: Outpatient Age: 43 Gender: Female Attending MD: Moon Summers MD _ Procedure: Colonoscopy Indications: Abdominal pain in the left lower quadrant Providers: Moon Summers MD (Doctor), Meli Garcia RN, Lyle Burris, Talent Acquisition Sourcer Referring MD: Florentino Chakraborty MD (Referring MD), Clinton Micthell MD (Referring MD) Medicines: Propofol per Anesthesia [...] bowel preparation was evaluated using the BBPS (Elbert Bowel Preparation Scale) with scores of: Right [...] previously scheduled. Procedure Code(s): --- Professional --- 29239, Colonoscopy, flexible; with removal of tumor(s), polyp(s), or other lesion(s) by snare technique 98669, 59, Colonoscopy, flexible; with biopsy, single or multiple --- Technical --- 58223, Colonoscopy, flexible; with removal of tumor(s), polyp(s), or other lesion(s) by snare technique 96110, 59, Colonoscopy, flexible; with biopsy, single or multiple Diagnosis Code(s): --- Professional --- D12.3, Benign neoplasm of transverse colon (hepatic flexure or splenic flexure) K62.1, Rectal polyp R10.32, Left lower quadrant pain --- Technical --- D12.3, Benign neoplasm of transverse colon (hepatic flexure or splenic flexure) K62.1, Rectal polyp R10.32, Left lower quadrant pain CPT copyright 2017 [employer]. All rights reserved. The codes documented in this report are preliminary and upon butcher head review may be revised to meet current compliance requirements. Moon Summers MD 11/09/2018 12:49:45 PM Number of Addenda: 0 Note Initiated On: 11/09/2018 12:[address] [facility] ENDOSCOPY 11/09/2018 12:0 4 PM RETREAD BUILDER us Moon Summers MD GI PROCEDURE ORDERABLES Ed ited Result - Final [facility] ENDOSCOPY * HPV DETECTION HIGH RISK JAI (10/24/2018 11:35 AM RETREAD BUILDER) High Risk Human Papilloma Result Not Detected Not Detected 10/27/2018 12:26 PM RETREAD BUILDER [facility] High Risk Human Papilloma Interp 10/27/2018 12:26 PM RETREAD BUILDER [facility] PATHOLOGY LAB Comment:High Risk Human Kartik lloma Virus was Not Detected. Pathology/Cytolo gy MISCELLANEOUS SAMPLES / Unknown 10/24/2018 11:35 AM RETREAD BUILDER 10/25/2018 11:35 AM RETREAD BUILDER Narrative [facility] PATHOLOGY LAB - 10/27/2018 12:26 PM RETREAD BUILDER Nucleic acid isolated from the specimen was [...] LAB - MICROBIOLOGY ORDERABL ES Final Result [facility] PATHOLOGY LAB [address] [phone] from Last 3 Months or Most Recently Relevant to Health Maintenance Insurance MEDICAID [employer] [facility] [facility] SELF PAY NO INSURANCE Member Subscriber Plan / Payer (Ef fective for All Dates) Name:Annemarie Dubois Member ID:Not on file Relation to Subscriber:Self Name:Annemarie Dubois Subscriber ID:Not on file Payer ID:Not on file Group ID:Not on file Type:Self Pay Address: [place], [place] Advance Directives * Full Code (Latest [...] 12:36 PM 11/16/2018 12:36 PM Care Teams Cnc Grinder Relationship Specialty Start Date End Date Mara Buck MD [address] [place] [address] PCP - General Family Medicine 03/17/21 Sara Chambers, RN Pick Up 03/03/15 [place] [address] [address] Endocrinology 05/31/21 Kirby Gaytan MD [address] [place] [address] Cardiovascular Disease 05/31/21
--- OUTSIDE RECORDS SUMMARY | 2025-05-29 12:11 | XMS_ITS | Clinical Summary ---
Author Organization [facility] Address [address] [place] [address] Care Team Providers Care Spare Hand Name Role Phone Gregory Gaytan MD Unavailable [phone] Jose Alejandro Solomon MD Primary Care Provider Allergies Active Allergy Reactions Criticality Noted Date Comments Adhesive Rash Medium 09/07/2022 Adhesive Tape-Silicones Rash Medium 03/09/2018 Atorvastatin Muscle pain Medium 01/31/2023 Elevated CK Elevated CK Elevated CK Elevated CK Dermatitis Antigens Rash Medium 11/09/2018 Empagliflozin Other (See comments) Low 03/25/2021 uti recurrently Metformin Diarrhea,Stomach upset,Nausea And Vomiting Low 03/25/2021 Esmthwk-Hmx-Pso Reductase Inhibitors Muscle pain High 07/17/2023 Zucchini [...] 1 capsule (30 mg total) by mouth water and gas helper before breakfast 10/02/20 23 Active rOPINIRole XL (REQUIP XL) 2 mg 24 hr tabletIndications: Restless Legs Syndrome Take 1 tablet (2 mg total) by mouth nightly Active SUMAtriptan (IMITREX) 50 mg tablet Take 1 tablet (50 mg total) by mouth water and gas helper before breakfast 09/27/20 23 Active traZODone (DESYREL) [...] 1 tablet (75 mg total) by mouth water and gas helper before breakfast Active oxyCODONE (ROXICODONE) 10 mg [...] (obstructive sleep apnea) 03/21/2024 No diagnosis on [place] I 06/26/2023 Lumbar radiculopathy 02/09/2023 Vitamin D [...] (11/06/2023): Added automatically from request for surgery [id number] Neck pain 01/26/2015 Maternal mitral valve prolapse, [...] Department Care Team Description 03/28/2025 Results Follow-Up [facility] Minimally Invasive Surgery [address] [place] [address] Medical Office Building [address] [place] [address] Lashay Jean NP Vitamin D 25 hydroxy, Vitamin B12, Vitamin B1, Additional followed-up results: 11 03/24/2025 10:25 AM CDT Lab [facility] [address] [address] [address] H/O gastric bypass; Intestinal malabsorption, unspecified type; BMI 27.0-27.9,adult 03/24/2025 10:00 AM CDT Office Visit [facility] Minimally Invasive Surgery [address] [facility] Medical Office Building [address] [place] [address] Lashay Jean NP H/O gastric bypass (Primary Dx); Bariatric surgery status; Intestinal malabsorption, unspecified type; BMI 27.0-27.9,adult from Last 3 Months Surgical History Surgery Date Site/Laterality Comments JOINT REPLACEMENT BACK SURGERY ABDOMINAL SURGERY CARDIAC STENT PLACEMENT SECTION 1996, 2002, 2009 HYSTERECTOMY 2017 Medical History Medical History Date Comments Arthritis Asthma Coronary artery disease Diabetes mellitus (HCC) Sleep apnea Hypertension [place], old Type 2 diabetes mellitus (HCC) 1997 GERD (gastroesophageal reflux disease) 2022 Low back pain 2019 Hypercholesteremia Awareness under anesthesia Family History Medical History Relation Name Comments Diabetes Brother Bonifacio Griedr Hypertension Brother Bonifacio Grider Breast cancer Maternal [...] on file Legal Sex Female 2:34 PM DISPATCHER CHIEF OIL Gender Identity Female 03/14/2024 9:53 AM CDT [...] Vaccine (1 of 2) 2024 Influenza Vaccine (#1) 2025 Medical Devices Implanted Type Area Open End Spinning Operator Device Identifier Shelf Expiration Date Model / Serial / Lot [employer] Biological Bariatric Peristrip Non Crosslinked Bovine Pericardium For Endo Teri Thin [id number] - Sn/A - [id number] Implanted:Qty: 1 on 03/21/2024 by Jos Samuels MD at [facility] Other - see comments N/A: Abdomen [employer] [id number] 11/08/2025 [id number] ATHN / N/A / [id number] Description:Elisabeth-Strips Dry Staple Line Reinforcement [employer] Biological Bariatric Peristrip Non Crosslinked Bovine Pericardium For Endo Teri Thin [id number] - Sn/A - [id number] Implanted:Qty: 1 on 03/21/2024 by Jos Samuels MD at [facility] Other - see comments N/A: Abdomen [email or web address] [email or web address] [id number] 11/08/2025 [id number] ATHN / N/A / [id number] Description:Elisabeth-Strips Dry Staple Line Reinforcement [employer] Biological Bariatric Peristrip Non Crosslinked Bovine Pericardium For Endo Teri Thin [id number] - [id number] Implanted:Qty: 1 on 03/21/2024 by Jos Samuels MD at [facility] Other - see comments N/A: Abdomen [email or web address] [email or web address] Dana[employer] [id number] 11/08/2025 [id number] ATHN / / [id number]- [id number] Description:Elisabeth-Strips Dry Staple Line Reinforcement System Coronary Stent Synergy Pebax Everolimus Eluting Windber Chromium Plga L12 Mm L144 Cm Od2.25 Mm Radiopaque 1 Access Port Inflation Lumen Accepts .014 In Guidewire - [id number] Implanted:Qty: 1 on 03/10/2018 by Darek Dailey MD at [facility] [employer] 12/13/2018 [id number] / / [id number] Procedures Procedure Name Priority Date/Time Associated Diagnosis [...] NP LAB BLOOD ORDERABLES Final Result [facility] [address] [facility] [place] [place] [address] * Differential, auto (03/24/2025 10:40 AM CDT) Neutrophil abs 5.18 1.50 - 6.50 K/cumm Imm gran abs 0.02 0.00 - 0.10 K/cumm [facility] Lymphocyte abs 3.23 0.80 - 3.30 K/cumm [facility] Monocyte abs 0.38 0.20 - 0.80 K/cumm [facility] Eosinophil abs 0.11 0.00 - 0.50 K/cumm [facility] Basophil abs 0.03 0.00 - 0.10 K/cumm [facility] Neutrophil pct 58.0 % [facility] Comment: Interpretive Data Percent cell count reference ranges are not reported, since discordance with absolute values may lead to misinterpretation of CBC data. Current Interpretive Data was last revised on 2018. Imm gran pct 0.2 % [facility] Comment: Interpretive Data Percent cell count reference ranges are not reported, since discordance with absolute values may lead to misinterpretation of CBC data. Current Interpretive Data was last revised on 2018. Lymphocyte pct 36.1 % [facility] Comment: Interpretive Data Percent cell count reference ranges are not reported, since discordance with absolute values may lead to misinterpretation of CBC data. Current Interpretive Data was last revised on 2018. Monocyte pct 4.2 % [facility] Comment: Interpretive Data Percent cell count reference ranges are not reported, since discordance with absolute values may lead to misinterpretation of CBC data. Current Interpretive Data was last revised on 2018. Eosinophil pct 1.2 % [facility] Comment: Interpretive Data Percent cell count reference ranges are not reported, since discordance with absolute values may lead to misinterpretation of CBC data. Current Interpretive Data was last revised on 2018. Basophil pct 0.3 % [facility] Comment: Interpretive Data Percent cell count reference ranges are not reported, since discordance with absolute values may lead to misinterpretation of CBC data. Current Interpretive Data was last revised on 2018. Blood 03/24/2025 10:4 0 AM CDT 03/24/2025 10:57 AM CDT us Lashay Jean NP LAB BLOOD ORDERABLES Final Result [facility] [address] [facility]. Department [place] [address] * Iron profile w/ IBC (03/24/2025 10:40 AM CDT) Iron 132 35 - 145 mcg/dL Comment:Testing performed by : [facility], [address] [place] [address]., [address] TIBC 331 250 - 400 mcg/dL [facility] Comment:Testing performed by : [facility], [address] [place] [address]., [address] Transferrin saturation 40 20 - 50 % [facility] Comment:Testing performed by : [facility], [address] [place] [address]., [address] Blood 03/24/2025 10:4 0 AM CDT 03/24/2025 12:25 PM CDT us Lashay Jean FILAMENT WELDER LAB BLOOD ORDERABLES Final Result [facility] [address] [facility]. Department of Laboratories [place], [place] [id number] * (ABNORMAL) CBC with auto differential (03/24/2025 10:40 AM CDT) Pathologist [facility] WBC 8.95 3.80 - 9.90 K/cumm Hgb 13.7 11.9 - 15.5 g/dL [facility] Hct 44.7 35.6 - 45.5 % [facility] Plt 306 150 - 400 K/cumm [facility] MPV 9.9 9.1 - 12.3 fL [facility] RBC 4.85 3.90 - 5.20 M/cumm [facility] MCV 92.2 81.3 - 96.4 fL [facility] MCH 28.2 27.1 - 33.3 pg [facility] MCHC 30.6(L) 32.3 - 35.7 g/dL [facility] RDW CV 13.5 11.1 - 14.9 % [facility] RDW SD 45.7 35.7 - 48.1 fL [facility] NRBC abs 0.00 0.00 - 0.01 K/cumm [facility] Blood 03/24/2025 10:4 0 AM CDT 03/24/2025 10:57 AM CDT Lashay Jean NP LAB BLOOD ORDERABLES Final Result Performing Organization Address [facility] Co de Phone Number [facility] [address] [address]. [place] [address] * Copper, serum (03/24/2025 10:40 AM CDT) Copper 129 77 - 206 mcg/dL [place] [facility] Comment: ADDITIONAL INFORMATION This test was developed and its performance characteristics determined by [facility] in a manner consistent with CLIA requirements. This test has not been cleared or approved by the U.S. Food and Drug Administration. Test Performed by: [facility] [place] [address] Musculoskeletal Physician: Elijah Gardner Ph.D.; CLIA# [id number] Blood 03/24/2025 10:4 0 AM CDT 03/24/2025 10:57 AM CDT Lashay Kristen Jean NP LAB BLOOD ORDERABLES Final Result Performing Organization Address [facility] de Phone Number [facility] [address] [address]. [place] [address] [place] [facility] * (ABNORMAL) Vitamin D 25 hydroxy (03/24/2025 10:40 AM CDT) Vitamin D 25-OH 25(L) 30 - 80 ng/mL Blood 03/24/2025 10:4 0 AM CDT 03/24/2025 10:57 AM CDT Lashay Jean NP LAB BLOOD ORDERABLES Edited Result - Final Performing Organization Address [facility] Co de Phone Number [facility] [address] [employer] [address] * Vitamin B1 (03/24/2025 10:40 AM CDT) Pathologist [facility] Thiamine (Vit B1) 105 70 - 180 nmol/L [facility] Comment: ADDITIONAL INFORMATION This test was developed and its performance characteristics determined by [facility] in a manner consistent with CLIA requirements. This test has not been cleared or approved by the U.S. Food and Drug Administration. Test Performed by: [facility] [address] [place] [address] Musculoskeletal Physician: Elijah Gardner Ph.D.; CLIA# [id number] Blood 03/24/2025 10:4 0 AM CDT 03/24/2025 10:57 AM CDT Lashay Jean LAB BLOOD ORDERABLES Final Result [facility] [address] [email or web address]. [facility] [place] [address] [facility] * PTH (03/24/2025 10:40 AM CDT) Pathologist [facility] PTH 36 15 - 65 pg/mL Blood 03/24/2025 10:4 0 AM CDT 03/24/2025 10:57 AM CDT Lashay Jean LAB BLOOD ORDERABLES Final Result [facility] [address] [employer]. [facility] [place] [address] * (ABNORMAL) Hemoglobin A1c (03/24/2025 10:40 AM CDT) Pathologist [facility] Hgb A1C 6.2(H) 4.0 - 5.6 % Estimated Average Glucose 131 mg/dL [facility] Comment: The ADA recommends reporting an estimated Average Glucose (eAG) with all Hemoglobin A1c results using the equation derived from a study of 507 normal and diabetic adults. Minority populations were underrepresented and children were not included. (Diabetes Care 31:6946-4048, 2008). The eAG is not equivalent to a fasting glucose. Blood 03/24/2025 10:4 0 AM CDT 03/24/2025 10:57 AM CDT Lashay Jean NP LAB BLOOD ORDERABLES Final Result Performing Organization Address [facility] de Phone Number [facility] [address] [facility]ane[facility]InImage[facility] [place] [address] * Folate (03/24/2025 10:40 AM CDT) Folic acid 5.7 >=5.0 ng/mL Comment:Testing performed by : [facility], [address] [place] [address]., [address] Blood 03/24/2025 10:4 0 AM CDT 03/24/2025 12:25 PM CDT Lashay Jean NP LAB BLOOD ORDERABLES Final Result Performing Organization Address [facility] de Phone Number [facility] [address] [facility]ane[facility]. [facility] [place] [address] * (ABNORMAL) Ferritin (03/24/2025 10:40 AM CDT) Ferritin 174(H) 15 - 150 ng/mL Comment:Testing performed by : [facility], [address] [place] [address]., [address] Blood 03/24/2025 10:4 0 AM CDT 03/24/2025 12:25 PM CDT Lashay Jean NP LAB BLOOD ORDERABLES Final Result Performing Organization Address [facility]/State/ZIP Co de Phone Number [facility] [address] [place] [employer] [address] * (ABNORMAL) Vitamin B12 (03/24/2025 10:40 AM CDT) Vitamin B12 1,344(H) 230 - 1,250 pg/mL Comment:Testing performed by : [facility], [facility] [facility], [place]., [address] Blood 03/24/2025 10:4 0 AM CDT 03/24/2025 12:25 PM CDT Lashay Jean NP LAB BLOOD ORDERABLES Final Result [facility] [address] [employer] [place] [address] * Lipid panel (03/24/2025 10:40 AM CDT) [...] ORDERABLES Edited Result - Final [facility] [address] [facility]. [place] [address] * Comprehensive metabolic panel (03/24/2025 10:40 AM [...] ORDERABLES Edited Result - Final [facility] [address] [facility]. Department [place] [address] from Last 3 Months Insurance IDDC [facility] [id number] [facility] [id number] Member Subscriber Plan / Payer (Ef fective 2021-Present) Name:Page Dubois Member ID:[id number] Relation to Subscriber:Self Name:Page Dubois Subscriber ID:[id number] Payer ID:[id number] Type:[employer] HMO/PPO Address: [address] [facility] [id number] Advance Directives For more information, please contact: [phone] * Full Code (Latest Code Status on File) Date Activated Date Inactivated Comments 03/21/2024 7:12 PM 03/24/2024 6:20 PM * Full Code Date Activated Date Inactivated Comments 02/18/2022 1:39 PM 02/19/2022 5:14 PM * Full Code Date Activated Date Inactivated Comments 02/15/2022 8:29 PM 02/18/2022 1:39 PM * Full Code Date Activated Date Inactivated Comments 03/10/2018 12:26 PM 03/11/2018 3:44 PM Care Teams Spare Hand Relationship Specialty Start [place] [address] [place] [address] PCP - General Gastroenterology 01/05/24 Gregory Gaytan MD Referring Physician Cardiovascular Disease 03/11/18
--- OUTSIDE RECORDS SUMMARY | 2025-05-29 12:11 | XMS_ITS | Continuity of Care Document ---
Author Organization [facility] Address [address] [place] [address] Phone Care Team Providers Care Animal Pathology Teacher Name Role Phone Michelle Cao Unavailable Unavailable Toño RN, Mara Unavailable Unavailable Advance Directives Directive Yes / No Effective Date File Name No Information Encounters Encounter Description Practice Location Reason(s) For Visit Diagnoses Date Provider Providers [facility] [address], [place], [place], [id number], tel:[phone] [facility] No Information Gaurav Martinez. [address], [place], [place], [id number], . tel:[phone] Consulting Provider: Mara Lundberg, [address], [place], [address]. tel:[phone] Family History Family Member Type Diagnosis Age [...]
--- NOTE | 2025-05-29 12:34 | ECG_ITS ---
Test Date: 2025-05-29 12:37:21 Measurements Intervals [place] Rate: 66 P: 42 AR: 162 QRS: -22 QRSD: 90 T: 14 QT: 390 QTc: 409 Interpretive Statements SINUS RHYTHM BORDERLINE LEFT AXIS DEVIATION [QRS AXIS < -20] LOW QRS VOLTAGE IN PRECORDIAL LEADS [QRS DEFLECTION < 1.0 mV IN CHEST LEADS] Compared to ECG 05/29/2025 11:20:39 Ventricular premature complex(es) no longer present Myocardial infarct finding no longer present Electronically Signed On 05-29-2025 13:17:35 CDT by Kandace Flood M.D.
--- NOTE | 2025-05-29 12:58 | ED.GENADULT ---
HPI - General Adult General Chief complaint: Weakness Stated complaint: numbness in fingertips, weakness, back/neck pain Time Seen by Provider: 05/29/25 12:01 History of Present Illness HPI narrative: This is a 49-year-old female history of chronic pain, neck surgery and HI x2 presenting for chest pain, shortness of breath and tingling in her fingertips. Patient says she woke up at 6:00 a.m. and had some mild chest pain and shortness of breath. This improved and she went to work. However at 8:00 a.m. she developed pins and needles in her left hand tracing at the ulnar side of her forearm and in the fingertips of her right hand. She then redeveloped chest pain in the center of her chest that is 6/10 intensity and constant. She describes it as a heaviness or pulling sensation. She has been taking nitroglycerin in the emergency department some improvement. Patient denies diaphoresis, exertional component or vomiting. No lower extremity edema. Patient says this feels similar to when she has required previous stenting. Related Data Home Medications ?Medication ?Instructions ?Recorded ?Confirmed ?Last Taken ?Type clopidogrel 75 mg tablet 75 mg PO HS 10/31/19 06/16/24 05/31/22 History insulin degludec 100 unit/mL (3 45 unit subcut HS 04/09/21 06/16/24 05/31/22 History mL) subcutaneous pen (Tresiba FlexTouch U-100 insulin) ranolazine 500 mg tablet,extended 1,000 mg PO BID 04/09/21 06/16/24 05/31/22 History release,12 hr blood-glucose sensor (Dexcom G6 07/01/21 06/16/24 Unknown History Sensor device) insulin aspart See Rx Instructions .Route .COMPLEX 04/08/22 06/16/24 06/01/22 History (niacinamide)(U-100) 100 unit/mL(3 mL) subcutaneous pen (Fiasp FlexTouch U-100 Insulin) cholecalciferol (vitamin D3) 50 50 mcg PO HS 06/01/22 06/16/24 05/31/22 History mcg (2,000 unit) capsule (Vitamin D3) folic acid 1 mg tablet 1 mg PO HS 06/01/22 06/16/24 05/31/22 History isosorbide mononitrate 60 mg 60 mg PO BID 06/01/22 06/16/24 05/31/22 History tablet,extended release 24 hr mecobalamin (vitamin B12) 1,000 1,000 mcg PO HS 06/01/22 06/16/24 05/31/22 History mcg chewable tablet metoprolol succinate 25 mg 25 tablet PO HS 06/01/22 06/16/24 05/31/22 History tablet,extended release 24 hr omeprazole 40 mg capsule,delayed 40 mg PO HS 06/01/22 06/16/24 05/31/22 History release trazodone 50 mg tablet 50 mg PO HS 06/01/22 06/16/24 05/31/22 History furosemide 20 mg tablet 20 mg PO DAILY 02/16/23 06/16/24 Unknown History insulin aspart 5 unit subcut DAILY 02/16/23 06/16/24 Unknown History (niacinamide)(U-100) 100 unit/mL(3 mL) subcutaneous pen (Fiasp FlexTouch U-100 Insulin) nitroglycerin 0.4 mg sublingual 0.4 mg sublingual DAILY 02/16/23 06/16/24 Unknown History tablet tirzepatide 12.5 mg/0.5 mL 12.5 mg subcut WEEKLY 02/16/23 06/16/24 Unknown History subcutaneous pen injector (Kanwal) losartan 50 mg tablet 50 mg PO DAILY 08/21/23 06/16/24 Unknown History ropinirole 2 mg tablet,extended 2 mg PO DAILY 08/21/23 06/16/24 Unknown History release 24 hr Allergies Allergy/AdvReac Type Severity Reaction Status Date / Time adhesive tape Allergy Unknown Verified 05/29/25 10:57 cyclobenzaprine (From Allergy Unknown Verified 05/29/25 10:57 Flexeril) semaglutide (From Ozempic) Allergy Itching Verified 05/29/25 10:57 [facility] Past Medical History Medical History Asthma Bronchitis CAD (coronary artery disease) Hyperlipidemia Hypertension Myocardial infarction Peripheral neuropathy Diabetes Cigar smoker Cervical vertebral fusion delivery delivered Obesity Surgical History Surgical History H/O gastric bypass H/O: hysterectomy Hx of heart artery stent History of hysterectomy History of tonsillectomy History of neck surgery cervical fusion H/O section X3 History of coronary artery stent placement Family History Family History Mother Diabetes mellitus Hypertension Family history of malignant neoplasm of breast in first degree relative Sibling Diabetes mellitus Hypertension Grandparent Family history of malignant neoplasm of breast in first degree relative Social History Social History Smoking status: Current every day smoker Tobacco type: cigars Second hand tobacco smoke exposure: Yes Additional smoking assessment comments: 14-1 cigar per day Alcohol intake: current Substance use: never Substance use type: does not use Other substance usage details: drinks alcohol three times a month Living arrangements: with family Occupation/Education: occupation Gender identity (if verbalized by the patient): Female Sexual Orientation (if Verbalized by the Patient): Straight or Heterosexual Spiritual care concerns: Yes (prayer request) Exam Narrative: APPEARANCE: No apparent distress. Head: atraumatic. EYES: EOMI, NOSE: Atraumatic NECK: Trachea midline RESPIRATORY: No increased rate of breathing clear to auscultation CARDIOVASCULAR: RRR, no peripheral edema ABDOMINAL: Non-distended soft nontender MUSCULOSKELETAl: No obvious deformities NEURO: Alert. Cranial nerves 2-12 grossly intact. Sensation light touch, motor function cerebellar function intact for 4 extremities. Gait exam was normal. SKIN:: Warm, dry. Normal color PSYCHIATRIC: Normal affect Course Vital Signs Vital signs: Vital Signs Temperature 97.6 F 05/29/25 10:37 Pulse Rate 77 05/29/25 10:37 Respiratory Rate 16 05/29/25 10:37 Blood Pressure 113/71 05/29/25 10:37 Pulse Oximetry 100 05/29/25 10:37 Oxygen Delivery Room Air 05/29/25 10:37 Temperature 97.9 F 05/29/25 10:53 Pulse Rate 71 05/29/25 19:35 Respiratory Rate 14 05/29/25 19:35 Blood Pressure 116/71 05/29/25 19:35 Pulse Oximetry 100 05/29/25 17:25 Oxygen Delivery Room Air 05/29/25 10:53 Medical Decision Making [facility] Narrative Medical decision making narrative: -Course: 49-year-old female history of coronary artery disease presenting for chest pain and tingling her hands, left worse than right. Chest pain workup including EKG x2, troponin x2, CT PE and chest x-ray was unremarkable. However despite this the patient is still having persistent chest pain. She has been treating herself with nitroglycerin from her purse which she says is helping her symptoms. Patient was given morphine and oxygen and nitropaste. On re-evaluation patient's chest pain is still present. She will be admitted the hospital for Cardiology evaluation. -DDX includes but is not limited to: ACS, PE, pneumonia, bronchitis, chest wall pain, pericarditis primary aortic dissection -Co-morbidities complicating care: Coronary artery disease, hypertension, diabetes -Independent interpretation of studies: Independent EKG interpretation: Rhythm [sinus], Rate [75], [place] -[normal], [place] -[normal], QRS [narrow], QTC [normal], T waves -[negative for concerning inversions], ST Segments - [Negative for concerning elevations] Final interpretations: [Normal Sinus Rhythm] Vital Signs Vital Signs: Vital Signs Temperature 97.6 F 05/29/25 10:37 Pulse Rate 77 05/29/25 10:37 Respiratory Rate 16 05/29/25 10:37 Blood Pressure 113/71 05/29/25 10:37 Pulse Oximetry 100 05/29/25 10:37 Oxygen Delivery Room Air 05/29/25 10:37 Temperature 97.9 F 05/29/25 10:53 Pulse Rate 71 05/29/25 19:35 Respiratory Rate 14 05/29/25 19:35 Blood Pressure 116/71 05/29/25 19:35 Pulse Oximetry 100 05/29/25 17:25 Oxygen Delivery Room Air 05/29/25 10:53 Lab Data 05/29/25 11:23 05/29/25 11:23 Labs: Lab Results 05/29/25 05/29/25 05/29/25 Range/Units 11:23 15:56 16:22 WBC 9.5 (4.5-10.0) K/mm3 RBC 4.58 (4.2-5.4) M/mm3 Hgb 12.8 (12.0-15.0) g/dL Hct 43.1 (37.0-47.0) % MCV 94.1 (80-100) fl MCH 27.9 (26-34) pg MCHC 29.7 L (32-36) g/dl RDW 14.0 (11.5-14.5) % Plt Count 219 (150-375) k/mm3 MPV 10.1 (7.4-10.4) fl Immature Gran % (Auto) 0.2 (0-0.5) % Neut % (Auto) 46.1 (45.5-73.1) % Lymph % (Auto) 47.4 H (18.3-44.2) % Bennett % (Auto) 5.0 (2.6-8.5) % Eos % (Auto) 0.9 (0-4.4) % Baso % (Auto) 0.4 (0.2-1.2) % Lymph # (Auto) 4.51 H (0.9-3.2) K/mm3 Bennett # (Auto) 0.5 (0.1-0.6) K/mm3 Eos # (Auto) 0.1 (0-0.3) K/mm3 Baso # (Auto) 0.0 (0.0-0.1) K/mm3 Abs Immat Gran (auto) 0.02 (0.00-0.031) K/mm3 Absolute Neuts (auto) 4.4 (1.3-6.7) K/mm3 Absolute Nucleated RBC 0.000 (0.0-0.012) K/mm3 Nucleated RBC % 0.0 (0.0-0.2) % PT 13.3 (11.1-14.7) Seconds INR 1.0 APTT 29.6 (22.3-36.8) Seconds D-Dimer 1.51 H (<0.48) ug/mL Sodium 144 (137-145) mmol/L Potassium 4.0 (3.4-5.0) mmol/L Chloride 108 H (98-107) mmol/L Carbon Dioxide 31 H (22-30) mmol/L Anion Gap 5 (4-12) mmol/L BUN 14 (7-17) mg/dL Creatinine 0.63 L (0.7-1.0) mg/dL Estim Creat Clear Calc 82 ml/min Estimated GFR > 60 (59 - ) Glucose 76 (65-110) mg/dL Calcium 9.1 (8.4-10.2) mg/dL Total Bilirubin 0.3 (0.2-1.3) mg/dL AST 40 H (14-36) U/L ALT 27 (6-35) U/L Alkaline Phosphatase 85 (38-126) U/L Troponin I < 0.012 < 0.012 (0.000-0.034) ng/mL Total Protein 7.0 (6.3-8.2) g/dL Albumin 4.2 (3.5-5.1) g/dL Discharge Plan Discharge Clinical Impression: Chest pain, Paresthesia Patient Disposition: Still a Patient Condition: Stable Patient Language: [place] Prescriptions: No Action albuterol sulfate 2.5 mg /3 mL (0.083 %) solution for nebulization 2.5 mg INHALATION Q4H PRN (Reason: shortness of breath or wheezing) Qty: 75 0RF clopidogrel 75 mg tablet 75 mg PO HS (DME) Dexcom G6 Sensor Device MISCELLANEOUS fluticasone propionate [Flonase Allergy Relief] 50 mcg/actuation spray,suspension 2 spray intranasal DAILY Qty: 16 0RF Rx Instructions: administer into each nostril losartan 50 mg tablet 50 mg PO DAILY ropinirole 2 mg tablet extended release 24 hr 2 mg PO DAILY ranolazine 500 mg tablet extended release 12 hr 1,000 mg PO BID insulin degludec [Tresiba FlexTouch U-100] 100 unit/mL (3 mL) insulin pen 45 unit SUBCUT HS nitroglycerin 0.4 mg tablet, sublingual 0.4 mg sublingual DAILY furosemide 20 mg tablet 20 mg PO DAILY Fiasp FlexTouch U-100 Insulin 100 unit/mL (3 mL) insulin pen 5 unit SUBCUT DAILY Mounjaro 12.5 mg/0.5 mL pen injector 12.5 mg SUBCUT WEEKLY albuterol sulfate 0.63 mg/3 mL solution for nebulization 0.63 mg inhalation Q6H Qty: 75 0RF methylprednisolone [Medrol (Tang)] 4 mg tablets,dose pack See Rx Instructions PO .COMPLEX Qty: 21 0RF Rx Instructions: orally per package directions prednisone 20 mg tablet 40 mg PO DAILY 5 Days Qty: 10 0RF cephalexin 500 mg capsule 500 mg PO Q6H 10 Days Qty: 40 0RF Fiasp FlexTouch U-100 Insulin 100 unit/mL (3 mL) insulin pen See Rx Instructions .ROUTE .COMPLEX Rx Instructions: 24 units SUBQ with breakfast and lunch, 28 units SUBQ with dinner trazodone 50 mg tablet 50 mg PO HS omeprazole 40 mg capsule,delayed release(DR/EC) 40 mg PO HS isosorbide mononitrate 60 mg tablet extended release 24 hr 60 mg PO BID folic acid 1 mg tablet 1 mg PO HS metoprolol succinate 25 mg tablet extended release 24 hr 25 tablet PO HS cholecalciferol (vitamin D3) [Vitamin D3] 50 mcg (2,000 unit) Capsule 50 mcg PO HS mecobalamin (vitamin B12) 1,000 mcg Tablet,Chewable 1,000 mcg PO HS guaifenesin 100 mg/5 mL liquid 200 mg PO Q4H PRN (Reason: congestion) Qty: 473 0RF Follow-up/Referrals: Juanito,Jose Alejandro Cuellar MD [Primary Care Provider] - Quality HEART score for chest pain patients History: moderately suspicious ECG: normal Age: > 45 and < 65 years Risk factors: > or = to 3 risk factors of atherosclerotic disease Troponin: < or = to 1x normal limit Heart score: 4
--- NOTE | 2025-05-29 14:26 | ECG_ITS ---
Test Date: 2025-05-29 14:35:41 Measurements Intervals [place] Rate: 57 P: 66 [place]: 157 QRS: -28 QRSD: 89 T: 42 QT: 397 QTc: 389 Interpretive Statements SINUS BRADYCARDIA BORDERLINE LEFT AXIS DEVIATION [QRS AXIS < -20] Compared to ECG 05/29/2025 12:37:21 Sinus rhythm no longer present Electronically Signed On 05-30-2025 07:14:56 CDT by Kandace Flood M.D.
--- NOTE | 2025-05-29 14:50 | PC.NURSE ---
Pt reported that she took 2 x Nitro of her own pills, made aware.
--- NOTE | 2025-05-29 14:51 | PC.NURSE ---
Pt is difficult stick for blood, nurse and medical lab director unable to obtain blood. ED charge nurse made awake, phlebotomy called.
--- NOTE | 2025-05-29 14:57 | PC.NURSE ---
Phlebotomy here to draw blood and not able to obtain blood for 3 hour trop.
[2025-05-29] MEDS: MORPHINE SULFATE (*CRX) 4 MG/ML INJ IV PUSH ×2 (15:58→19:49)
[2025-05-29 16:43] LABS: Troponin I < 0.012 ng/mL (0.000-0.034)
--- NOTE | 2025-05-29 19:36 | PC.NURSE ---
Received report from SHAILESH Ash for cont. of care. Pt lying on stretcher, respirations even and unlabored. Pt c/o 04/29 non radiating chest pain, denies n/v.
[2025-05-29] MEDS: NITROGLYCERIN OINTMENT 1 INCH DOSE TRANSDERM (20:15)
--- NOTE | 2025-05-29 21:28 | PC.NURSE ---
Attempted to call report to IMU at this time. Placed on hold for x5 minutes. Charge Bambi made aware.
--- NOTE | 2025-05-29 21:54 | ADMGEN ---
This patient, Page Dubois, was admitted to IMU Room 203-01 with one tech, via bed and no issues. Patient/family oriented to hospital policies and general routines including ID bracelet, bed and alarms, visiting hours, pain management, procedures, bathroom and other care routines, personal items, smoking policy, room service/diet, and visiting hours. Information on how to activate the Rapid Response Team has been discussed. Patient/Family are encouraged to report perceived risks to care and to ask questions if they do not understand what they are told or what they should do.
--- NOTE | 2025-05-29 22:55 | PM.IMHP ---
H&P: HPI History of Present Illness Date/Time: 05/29/25 23:45 Chief Complaint: Chest pain. Narrative: This is a 49-year-old female with coronary artery disease status post stent, hypertension, hyperlipidemia, and insulin-dependent type 2 diabetes mellitus who presented to the emergency department with complaints of chest pain. She woke up at about 06:00 with a heaviness sensation in the left anterior chest associated with mild shortness of breath which improved without intervention. She then went to work and while sitting at her desk she developed tingling in her fingers and felt as though they were extremely cold. The tingling on the left side progressed up the arm and she wants again developed heaviness and pressure in the left side of her chest with occasional stabbing pains and mild shortness of breath. She took nitroglycerin x2 which seemed to help somewhat. Symptoms are similar to though she had prior to previous stenting. She denies syncope, near syncope, pleuritic pain, abdominal pain, vomiting, lower extremity edema, and focal weakness. In the ED: Vital signs were stable on arrival. CMP and CBC were pretty unremarkable. Initial troponin was negative and EKG was without concerning ST segment changes. Chest CTA was negative for pulmonary embolism. Given her cardiac history she is being admitted for close monitoring and Cardiology consultation. Review of Systems Review of Systems: 12 systems were reviewed and are negative except for as per HPI. [facility] Past Medical History Medical History (Updated 05/29/25 @ 22:58 by Sonia Willis PA-C) Insulin dependent type 2 diabetes mellitus Coronary artery disease Asthma Bronchitis Hyperlipidemia Hypertension Myocardial infarction Peripheral neuropathy Cigar smoker Obesity Surgical History Surgical History (Updated 05/29/25 @ 22:57 by Sonia Willis PA-C) History of section x3 History of fusion of cervical spine History of gastric bypass History of hysterectomy History of tonsillectomy History of coronary artery stent placement Family History Family History Mother Diabetes mellitus Hypertension Family history of malignant neoplasm of breast in first degree relative Sibling Diabetes mellitus Hypertension Grandparent Family history of malignant neoplasm of breast in first degree relative Social History Social History (Updated 05/30/25 @ 04:36 by Sonia Willis PA-C) Social History: Surrogate medical decision maker: Christopher Silvino, spouse. Code status: Full code. Years smoked: 4 Smoking status: Current every day smoker Tobacco type: cigars Second hand tobacco smoke exposure: Yes Additional smoking assessment comments: 1 cigar per day Alcohol intake: never Substance use: never Substance use type: does not use Other substance usage details: drinks alcohol three times a month Do You Feel Safe in your Home?: Yes Lack of Transportation: No Lack of Food: Never True Current Housing: I Have Housing Concerned About Future Housing: No Difficulty Paying Gas/Electric Bills: No Difficulty Paying for Meds: No Currently Unemployed: No Education: High School Diploma/GED Difficulty w/ Childcare or Family Care: No Living arrangements: with family Occupation/Education: occupation Spiritual care concerns: No Meds Home Medications and Allergies Home Medications ?Medication ?Instructions ?Recorded ?Confirmed ?Type clopidogrel 75 mg tablet 75 mg PO HS 10/31/19 05/29/25 History insulin degludec 100 unit/mL (3 45 unit subcut HS 04/09/21 05/29/25 History mL) subcutaneous pen (Tresiba FlexTouch U-100 insulin) ranolazine 500 mg tablet,extended 1,000 mg PO BID 04/09/21 05/29/25 History release,12 hr blood-glucose sensor (Dexcom G6 07/01/21 05/29/25 History Sensor device) insulin aspart See Rx Instructions .Route .COMPLEX 04/08/22 05/29/25 History (niacinamide)(U-100) 100 unit/mL(3 mL) subcutaneous pen (Fiasp FlexTouch U-100 Insulin) cholecalciferol (vitamin D3) 50 50 mcg PO HS 06/01/22 05/29/25 History mcg (2,000 unit) capsule (Vitamin D3) folic acid 1 mg tablet 1 mg PO HS 06/01/22 05/29/25 History mecobalamin (vitamin B12) 1,000 1,000 mcg PO HS 06/01/22 05/29/25 History mcg chewable tablet trazodone 50 mg tablet 50 mg PO HS 06/01/22 05/29/25 History furosemide 20 mg tablet 20 mg PO DAILY 02/16/23 05/29/25 History nitroglycerin 0.4 mg sublingual 0.4 mg sublingual DAILY 02/16/23 05/29/25 History tablet tirzepatide 12.5 mg/0.5 mL 12.5 mg subcut WEEKLY 02/16/23 05/29/25 History subcutaneous pen injector (Kanwal) guaifenesin 100 mg/5 mL oral liquid 200 mg (10 mL) PO Q4H PRN 09/06/24 05/29/25 Rx congestion #473 mL albuterol sulfate 0.63 mg/3 mL 0.63 mg inhalation Q6H PRN 05/29/25 05/29/25 History solution for nebulization shortness of breath or wheezing duloxetine 30 mg capsule,delayed 30 mg PO BID 05/29/25 05/29/25 History release fluoride (sodium) 1.1 % dental 1 applic dental Q24H 05/29/25 05/29/25 History cream (Denta 5000 Plus) fluticasone propionate 50 2 spray intranasal DAILY PRN 05/29/25 05/29/25 History mcg/actuation nasal allergy symptoms spray,suspension (Flonase Allergy Relief) glimepiride 1 mg tablet 1 mg PO DAILY 05/29/25 05/29/25 History metaxalone 800 mg tablet 800 mg PO DAILY 05/29/25 05/29/25 History multivitamin 2 tablet PO DAILY 05/29/25 05/29/25 History oxycodone-acetaminophen 10 mg-325 1 tablet PO BID PRN pain 05/29/25 05/29/25 History mg tablet pregabalin 150 mg capsule 150 mg PO HS 05/29/25 05/29/25 History Allergies Allergy/AdvReac Type Severity Reaction Status Date / Time adhesive tape Allergy Unknown Verified 05/29/25 10:57 cyclobenzaprine (From Allergy Unknown Verified 05/29/25 10:57 Flexeril) semaglutide (From Ozempic) Allergy Itching Verified 05/29/25 10:57 Vital Signs Vital Signs - 24 hr 05/29/25 10:37 05/29/25 10:53 05/29/25 10:57 Temperature 97.6 F 97.9 F Pulse Rate 77 74 74 Respiratory Rate 16 18 Blood Pressure 113/71 120/70 Pulse Oximetry 100 100 Oxygen Delivery Room Air Room Air 05/29/25 11:53 05/29/25 12:08 05/29/25 12:38 Temperature Pulse Rate 71 71 70 Respiratory Rate 16 17 22 H Blood Pressure Pulse Oximetry 100 100 100 Oxygen Delivery 05/29/25 12:45 05/29/25 12:46 05/29/25 13:05 Temperature Pulse Rate 71 68 69 Respiratory Rate 18 12 12 Blood Pressure 124/72 Pulse Oximetry 95 100 100 Oxygen Delivery 05/29/25 13:15 05/29/25 13:16 05/29/25 17:25 Temperature Pulse Rate 70 71 66 Respiratory Rate 19 13 15 Blood Pressure 119/66 124/68 Pulse Oximetry 100 100 100 Oxygen Delivery 05/29/25 19:35 05/29/25 21:35 05/29/25 21:50 Temperature 97.7 F Pulse Rate 71 69 71 Respiratory Rate 14 16 18 Blood Pressure 116/71 114/62 117/82 Pulse Oximetry 100 100 Oxygen Delivery Exam Narrative: General: Nontoxic-appearing female in the semi-Angulo position in bed in no distress. Weight: 71.9 kg. BMI: 26.4. HEENT: PERRL, EOMI. Sclera anicteric. Oral mucosa moist. Neck: Supple. Respiratory: Lungs are clear to auscultation bilaterally. Chest: No tenderness to palpation over the chest wall. Cardiovascular: Regular rate and rhythm with S1-S2. Gastrointestinal: Abdomen is soft, nontender, and nondistended with positive bowel sounds. Skin: Warm and dry. No rash or lesions on limited exam. Extremities: No cyanosis, clubbing, or edema. Radial and pedal pulses intact. Negative Connor sign bilaterally. Neurological: Alert. Cranial nerves 2-12 are grossly intact. No gross focal deficits to casual conversation. Psychiatric: Pleasant and cooperative with normal mood and affect. Judgment and insight intact. H&P: Results Labs Labs: Short CBC 05/29/25 Range/Units 11:23 WBC 9.5 (4.5-10.0) K/mm3 Hgb 12.8 (12.0-15.0) g/dL Hct 43.1 (37.0-47.0) % Plt Count 219 (150-375) k/mm3 [facility] 05/29/25 11:23 Sodium 144 Potassium 4.0 Chloride 108 H Carbon Dioxide 31 H BUN 14 Creatinine 0.63 L Glucose 76 Calcium 9.1 Cardiac Enzymes 05/29/25 05/29/25 Range/Units 11:23 15:56 Troponin I < 0.012 < 0.012 (0.000-0.034) ng/mL Liver Function 05/29/25 Range/Units 11:23 Total Bilirubin 0.3 (0.2-1.3) mg/dL AST 40 H (14-36) U/L ALT 27 (6-35) U/L Alkaline Phosphatase 85 (38-126) U/L Albumin 4.2 (3.5-5.1) g/dL Imaging Head CT 05/29/25 11:31 Impression: No significant abnormality seen. Chest X-Ray 05/29/25 11:53 IMPRESSION: No acute process. Chest CTA 05/29/25 19:41 IMPRESSION: 1. No pulmonary embolism. 2. No acute cardiopulmonary pathology. 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 Labs, imaging, EKG, and all reports were personally reviewed. Her initial troponin was within normal limits an EKG is without acute ST segment changes. She continues to have intermittent chest discomfort however in given her cardiac history she was admitted to the IMU to rule out acute coronary syndrome. The patient has been in touch with her urban planning teacher, Dr. Moon Gaytan, however she is out of town thus will ask the on-call urban planning teacher to see her in consultation for their opinion. Continue clopidogrel and ranolazine. Glucose this evening was 54 which is attributed to the fact that she has not had anything to eat or drink since 10:00. Initiate sliding scale insulin, Accu-Cheks, and hypoglycemic protocol. Resume long-acting insulin tomorrow evening. Blood pressures were reviewed and they are stable. Her home medications will be reviewed and resumed as appropriate. Findings and treatment plan were discussed with the patient. Questions were solicited and answered to satisfaction. The patient's medical management will be taken over by the hospitalist team in a.m. Quality VTE Prophylaxis VTE prophylaxis: pharmacologic ordered The patient has been admitted under observation status. Hospitalist MIPS Advance Care Plan I have confirmed that the patient's Advanced Care Plan is present, code status is documented, or surrogate decision maker is listed in patient medical record.: Yes Medication Reconciliation I have utilized all available resources to obtain, update and review the patients current medications (includes all prescriptions, OTC, herbals, cannabis, and nutritional supplements).: Yes
[2025-05-29] MEDS: oxyCODONE/ACETAMINOPHEN (*CRX) 10-325 MG TABLET 1 TAB PO (23:17)
[2025-05-29 23:55] LABS: Hemoglobin A1C 5.6 % (<5.7)
[2025-05-30] VITALS (20 sets, daily range): BP systolic 99–116; BP diastolic 51–72; PULSE 65–76; RESP 12–20; TEMP 36.4–36.9; O2SAT 98–100
--- NOTE | 2025-05-30 | ECHO_ITS ---
Patient Info Name: Page Dubois Age: 49 years : 1975 Gender: Female Ht: 65 in Wt: 158 lbs BSA: 1.83 m2 HR: 71 bpm BP: 105 / 51 mmHg Heart Rhythm: Sinus Rhythm Technical Quality: Good Exam Date: 05/30/2025 3:08 PM Patient Status: O Admit Date: 05/29/2025 Exam Type: CA echo doppler color flow Complete two-dimensional, color flow and Doppler transthoracic echocardiogram is performed. Staff Referring Physician: Bonifacio Strickland Corporate Safety Manager: Nai Gaytan Attending Provider: Yuan Gale Summary 1. Complete two-dimensional, color flow and Doppler transthoracic echocardiogram is performed. 2. Left ventricular chamber dimension is normal. 3. Left ventricular systolic function is normal, estimated at 65-70. 4. There is no increased left ventricular wall thickness. 5. The left ventricular diastolic function is normal. 6. Left atrial chamber dimension is mildly enlarged. 7. There is mild mitral valve regurgitation. 8. There is mild tricuspid valve regurgitation. 9. There is mild pulmonic regurgitation. Left Ventricle Left ventricular chamber dimension is normal. Left ventricular systolic function is normal, estimated at 65-70. There is no increased left ventricular wall thickness. The left ventricular diastolic function is normal. Right Ventricle Right ventricular chamber dimension is normal. Right ventricular systolic function is normal. Left Atria Left atrial chamber dimension is mildly enlarged. Right Atria Right atrial chamber dimension is normal. Atrial Septum Intact interatrial septum visualized by color flow imaging. Aortic Valve The aortic valve is trileaflet. There is mild aortic valve sclerosis. There is no aortic valve stenosis. There is trace aortic valve regurgitation. Pulmonic Valve The pulmonic valve is normal. There is no pulmonic valve stenosis. There is mild pulmonic regurgitation. Mitral Valve The mitral valve has normal leaflets. There is no mitral valve stenosis. There is mild mitral valve regurgitation. Tricuspid Valve The tricuspid valve leaflets are normal. There is no significant tricuspid valve stenosis. There is mild tricuspid valve regurgitation. No pulmonary hypertension, estimated pulmonary arterial systolic pressure is 21 mmHg. Pericardium/Pleural The pericardium appears normal. There is trivial pericardial effusion. Inferior Vena Cava Normal inferior vena cava with >50% collapse upon inspiration consistent with normal right atrial pressure, 5 mmHg. Aorta The aortic root size at the sinus of Valsalva is normal. Left Ventricular Outflow Tract Name Value Normal LVOT 2D LVOT Diameter 1.8 cm LVOT Doppler LVOT Peak Velocity 106 cm/s LVOT Peak Gradient 5 mmHg LVOT Mean Gradient 2 mmHg LVOT VTI 24 cm LVOT Stroke Volume 62 ml LVOT CO 4.4 l/min LVOT CI 2.4 l/min/m2 Pulmonic Valve Name Value Normal RVOT Doppler RVOT Peak Velocity 67 cm/s RVOT Peak Gradient 2 mmHg PV Doppler PV Peak Velocity 87 cm/s PV Peak Gradient 3 mmHg PV Regurgitation Doppler VA Peak End Diastolic Velocity 83 cm/s Mitral Valve Name Value Normal MV Diastolic Function MV E Peak Velocity 79 cm/s MV A Peak Velocity 62 cm/s MV E/A 1.3 MV Decel Time (PW) 160 ms MV Annular TDI MV E/e' (Septal) 7.3 MV E/e' (Lateral) 6.5 MV E/e' (Average) 6.9 Tricuspid Valve Name Value Normal TV Regurgitation Doppler TR Peak Velocity 200 cm/s TR Peak Gradient 16 mmHg Estimated PAP/RSVP RA Pressure 5 mmHg <=5 PA Systolic Pressure 21 mmHg <36 RV Systolic Pressure 21 mmHg <36 Aortic Valve Name Value Normal AV Doppler AV Peak Velocity 149 cm/s AV Peak Gradient 9 mmHg AV Area (Cont Eq Chris) 1.9 cm2 AV DI (Chris) 0.71 AV Regurgitation 2D LVOT Area 2.6 cm2 Ventricles Name Value Normal LV Dimensions 2D/MM IVS Diastolic Thickness (2D) 0.9 cm 0.6-1.0 LVID Diastole (2D) 4.2 cm 3.8-5.2 LVIW Diastolic Thickness (2D) 1.0 cm 0.6-0.9 LVID Systole (2D) 2.6 cm 2.2-3.5 LVOT Diameter 1.8 cm LV Mass (2D Cubed) 129.30 g 67.00-162.00 LV Mass Index (2D Cubed) 71 g/m2 43-95 Relative Wall Thickness (2D) 0.49 <=0.42 LV Fractional Shortening/Ejection Fraction 2D/MM LV Fractional Shortening (2D) 38 % 27-45 LV EF (2D Teichholz) 68 % LV Diastolic Volume (4C MOD) 95 ml LV EF (4C MOD) 61 % LV Diastolic Volume (2C MOD) 90 ml LV EF (2C MOD) 65 % LV Diastolic Volume (BP MOD) 93 ml 46-106 LV Diastolic Volume Index (BP MOD) 51 ml/m2 29-61 LV Systolic Volume (BP MOD) 35 ml 14-42 LV Systolic Volume Index (BP MOD) 19 ml/m2 8-24 LV EF (BP MOD) 63 % 54-74 LV Diastolic Length (4C) 7.4 cm LV Systolic Length (4C) 6.0 cm LV Stroke Volume (4C MOD) 58 ml Atria Name Value Normal LA Dimensions LA Volume (4C A-L) 35 ml LA Volume (BP A-L) 36 ml RA Dimensions RA Systolic Major [place] Length (4C) 5.2 cm 2.2-2.8 RA Area (4C) 11.3 cm2 <=18.0 Report Signatures
[2025-05-30 00:08] LABS: Lipase 120 U/L (23-300)
[2025-05-30 00:19] LABS: Troponin I < 0.012 ng/mL (0.000-0.034)
[2025-05-30] MEDS: diphenhydrAMINE HCl CAP 25 MG CAPSULE 50 MG PO (00:56)
[2025-05-30] MEDS: MORPHINE SULFATE (*CRX) 2 MG/ML INJ IV PUSH ×4 (01:08→21:09)
[2025-05-30 04:26] LABS: Hematocrit 40.0 % (37.0-47.0); Hemoglobin 11.8 g/dL (12.0-15.0); Mean Corpuscular HGB Conc 29.5 g/dl (32-36); Mean Corpuscular Hemoglobin 27.7 pg (26-34); Mean Corpuscular Volume 93.9 fl (80-100); Platelet Count Result 199 k/mm3 (150-375); Red Blood Count 4.26 M/mm3 (4.2-5.4); White Blood Count 9.5 K/mm3 (4.5-10.0)
[2025-05-30 04:44] LABS: Alanine Aminotransferase 21 U/L (6-35); Albumin Level 3.7 g/dL (3.5-5.1); Alkaline Phosphatase 75 U/L (38-126); Anion Gap 6 mmol/L (4-12); Aspartate Amino Transferase 35 U/L (14-36); Bilirubin,Total 0.2 mg/dL (0.2-1.3); Blood Urea Nitrogen 15 mg/dL (7-17); Calcium 8.6 mg/dL (8.4-10.2); Carbon Dioxide 26 mmol/L (22-30); Chloride 107 mmol/L (98-107); Estimated CRCL calculation 82 ml/min; Estimated Glomerular Filt Rate > 60; Glucose 56 mg/dL (65-110); Magnesium 2.2 mg/dL (1.6-2.3); Potassium 4.2 mmol/L (3.4-5.0); Sodium 139 mmol/L (137-145); Total Protein 6.2 g/dL (6.3-8.2)
[2025-05-30] MEDS: ONDANSETRON INJ 4 MG/2 ML VIAL IV PUSH (05:35)
[2025-05-30] MEDS: oxyCODONE/ACETAMINOPHEN (*CRX) 10-325 MG TABLET 1 TAB PO (08:07)
[2025-05-30] MEDS: MULTIVITAMINS THERAPEUTIC TAB (*BKC) 2 TABLET PO (08:10)
[2025-05-30] MEDS: FUROSEMIDE 20 MG TABLET PO (08:25)
[2025-05-30] MEDS: METAXALONE 800 MG TABLET PO (09:00)
[2025-05-30] MEDS: ENOXAPARIN 40 MG/0.4 ML SYRINGE SUB-Q (09:00)
--- NOTE | 2025-05-30 09:34 | P.CONCA_ITS ---
Assessment and Plan Assessment and plan (1) Chest pain: Code(s): R07.9 - Chest pain, unspecified Status: Acute (2) Coronary artery disease: Code(s): I25.10 - Atherosclerotic heart disease of [place] coronary artery without angina pectoris Status: Acute Plan Chest pain at rest - there is some atypical component to the chest pain with increase in pain as she takes deep breaths; possible etiologies include CCS class IV angina vs unstable angina CAD status post PCI x 5 in the past Hypertension Hyperlipidemia Type 2 diabetes mellitus Obesity Peripheral neuropathy Plan: Troponin x3 negative, EKG shows sinus bradycardia without any significant ST T wave changes. Given her expensive cardiac history of 5 stents and similarity of symptoms to her symptoms before she had stents, will treat with heparin x 48 hours, given asa 325 mg once followed by 81 mg daily, plavix 75 mg daily, and ranolazine at home dose. No beta-kat given bradycardia Monitor on telemetry Sublingual nitroglycerin 0.4 mg p.r.n. x3 for chest pain EKG p.r.n. for chest pain TTE today. If any drop in EF or RWMA, then plan for cardiac cath, otherwise will continue medical management and get an outpatient stress test Check and replace electrolytes to keep potassium greater than 4 and magnesium greater than 2 History of Present Illness History of Present Illness Consult date/time: 05/30/25 09:34 Reason For Visit: Chest Pain Narrative: 49-year-old female with medical history of CAD status post PCI (per patient she had 4 or 5 stents in the past), hypertension, hyperlipidemia, current smoker, type 2 diabetes mellitus, peripheral neuropathy, asthma, bronchitis, obesity presents with chief complaints of chest pain. She woke up around 6:00 a.m. yesterday morning with left-sided chest heaviness associated with shortness of breath which improved spontaneously. She went to work and was sitting at her desk when she started having tingling in her fingers. The tingling in her left hand went up the arm followed by pressure and heaviness in the left side of her chest. She also describes some sharp pains that increase with deep breaths associated with shortness of breath. She presented to the ER for further evaluation. She states that she took sublingual nitroglycerin x2 in the ER which helped her symptoms to some extent but did not resolve them completely. She states that symptoms are similar to those she had prior to her stent. No presyncope, syncope, palpitations, dizziness, lightheadedness, recent weight gain, lower extremity swelling, orthopnea, PND. Troponin x 3 negative. EKG shows sinus bradycardia and no significant ST elevations or depressions. CT chest negative for PE. Cardiology is consulted given her extensive history of CAD. Workup: Hemoglobin: 11.8 Troponin: Negative x3 EKG: Sinus bradycardia with rate of 57, left axis deviation Chest x-ray: No acute cardiopulmonary pathology CT chest: No PE, no acute cardiopulmonary pathology prior cardiac workup: TTE in 2021: Normal LV systolic function of 65-70%, grade 1 diastolic dysfunction, no significant valvular pathology Review of Systems 2 Review of Systems: A complete review of systems was performed and pertinent positives are mentioned in the [facility] Past Medical History Medical History (Updated 05/29/25 @ 22:58 by Sonia Willis PA-C) Insulin dependent type 2 diabetes mellitus Coronary artery disease Asthma Bronchitis Hyperlipidemia Hypertension Myocardial infarction Peripheral neuropathy Cigar smoker Obesity Surgical History Surgical History (Updated 05/29/25 @ 22:57 by Sonia Willis PA-C) History of section x3 History of fusion of cervical spine History of gastric bypass History of hysterectomy History of tonsillectomy History of coronary artery stent placement Family History Family History Mother Diabetes mellitus Hypertension Family history of malignant neoplasm of breast in first degree relative Sibling Diabetes mellitus Hypertension Grandparent Family history of malignant neoplasm of breast in first degree relative Social History Social History (Updated 05/30/25 @ 04:36 by Sonia Willis PA-C) Social History: Surrogate medical decision maker: Benedict Silvino, spouse. Code status: Full code. Years smoked: 4 Smoking status: Current every day smoker Tobacco type: cigars Second hand tobacco smoke exposure: Yes Additional smoking assessment comments: 1 cigar per day Alcohol intake: never Substance use: never Substance use type: does not use Other substance usage details: drinks alcohol three times a month Do You Feel Safe in your Home?: Yes Lack of Transportation: No Lack of Food: Never True Current Housing: I Have Housing Concerned About Future Housing: No Difficulty Paying Gas/Electric Bills: No Difficulty Paying for Meds: No Currently Unemployed: No Education: High School Diploma/GED Difficulty w/ Childcare or Family Care: No Living arrangements: with family Occupation/Education: occupation Spiritual care concerns: No Meds Home Medications and Allergies Home Medications ?Medication ?Instructions ?Recorded ?Confirmed ?Type clopidogrel 75 mg tablet 75 mg PO HS 10/31/19 05/29/25 History insulin degludec 100 unit/mL (3 45 unit subcut HS 04/09/21 05/29/25 History mL) subcutaneous pen (Tresiba FlexTouch U-100 insulin) ranolazine 500 mg tablet,extended 1,000 mg PO BID 04/09/21 05/29/25 History release,12 hr blood-glucose sensor (Dexcom G6 07/01/21 05/29/25 History Sensor device) insulin aspart See Rx Instructions .Route .COMPLEX 04/08/22 05/29/25 History (niacinamide)(U-100) 100 unit/mL(3 mL) subcutaneous pen (Fiasp FlexTouch U-100 Insulin) cholecalciferol (vitamin D3) 50 50 mcg PO HS 06/01/22 05/29/25 History mcg (2,000 unit) capsule (Vitamin D3) folic acid 1 mg tablet 1 mg PO HS 06/01/22 05/29/25 History mecobalamin (vitamin B12) 1,000 1,000 mcg PO HS 06/01/22 05/29/25 History mcg chewable tablet trazodone 50 mg tablet 50 mg PO HS 06/01/22 05/29/25 History furosemide 20 mg tablet 20 mg PO DAILY 02/16/23 05/29/25 History nitroglycerin 0.4 mg sublingual 0.4 mg sublingual DAILY 02/16/23 05/29/25 History tablet tirzepatide 12.5 mg/0.5 mL 12.5 mg subcut WEEKLY 02/16/23 05/29/25 History subcutaneous pen injector (Mounjaro) guaifenesin 100 mg/5 mL oral liquid 200 mg (10 mL) PO Q4H PRN 09/06/24 05/29/25 Rx congestion #473 mL albuterol sulfate 0.63 mg/3 mL 0.63 mg inhalation Q6H PRN 05/29/25 05/29/25 History solution for nebulization shortness of breath or wheezing duloxetine 30 mg capsule,delayed 30 mg PO BID 05/29/25 05/29/25 History release fluoride (sodium) 1.1 % dental 1 applic dental Q24H 05/29/25 05/29/25 History cream (Denta 5000 Plus) fluticasone propionate 50 2 spray intranasal DAILY PRN 05/29/25 05/29/25 History mcg/actuation nasal allergy symptoms spray,suspension (Flonase Allergy Relief) glimepiride 1 mg tablet 1 mg PO DAILY 05/29/25 05/29/25 History metaxalone 800 mg tablet 800 mg PO DAILY 05/29/25 05/29/25 History multivitamin 2 tablet PO DAILY 05/29/25 05/29/25 History oxycodone-acetaminophen 10 mg-325 1 tablet PO BID PRN pain 05/29/25 05/29/25 History mg tablet pregabalin 150 mg capsule 150 mg PO HS 05/29/25 05/29/25 History Allergies Allergy/AdvReac Type Severity Reaction Status Date / Time adhesive tape Allergy Unknown Verified 05/29/25 10:57 cyclobenzaprine (From Allergy Unknown Verified 05/29/25 10:57 Flexeril) semaglutide (From Ozempic) Allergy Itching Verified 05/29/25 10:57 Vital Signs Vital Signs - 24 hr 05/29/25 10:37 05/29/25 10:53 05/29/25 10:57 Temperature 36.4 C 36.6 C Pulse Rate 77 74 74 Respiratory Rate 16 18 Blood Pressure 113/71 120/70 Pulse Oximetry 100 100 Oxygen Delivery Room Air Room Air 05/29/25 11:53 05/29/25 12:08 05/29/25 12:38 Temperature Pulse Rate 71 71 70 Respiratory Rate 16 17 22 H Blood Pressure Pulse Oximetry 100 100 100 Oxygen Delivery 05/29/25 12:45 05/29/25 12:46 05/29/25 13:05 Temperature Pulse Rate 71 68 69 Respiratory Rate 18 12 12 Blood Pressure 124/72 Pulse Oximetry 95 100 100 Oxygen Delivery 05/29/25 13:15 05/29/25 13:16 05/29/25 17:25 Temperature Pulse Rate 70 71 66 Respiratory Rate 19 13 15 Blood Pressure 119/66 124/68 Pulse Oximetry 100 100 100 Oxygen Delivery 05/29/25 19:35 05/29/25 21:35 05/29/25 21:50 Temperature 36.5 C Pulse Rate 71 69 71 Respiratory Rate 14 16 18 Blood Pressure 116/71 114/62 117/82 Pulse Oximetry 100 100 Oxygen Delivery 05/30/25 00:00 05/30/25 00:05 05/30/25 02:00 Temperature 36.5 C Pulse Rate 72 71 68 Respiratory Rate 18 Blood Pressure 108/53 L Pulse Oximetry 100 Oxygen Delivery 05/30/25 03:20 05/30/25 04:00 05/30/25 06:00 Temperature 36.4 C Pulse Rate 70 66 71 Respiratory Rate 18 Blood Pressure 108/72 Pulse Oximetry 100 Oxygen Delivery 05/30/25 07:56 05/30/25 08:44 Temperature 36.8 C Pulse Rate 65 Respiratory Rate 12 Blood Pressure 111/57 L Pulse Oximetry 100 100 Oxygen Delivery Room Air Exam 2 Narrative: General: Alert oriented x3, no acute distress Neck: Supple, no JVD Chest: Bilaterally clear to auscultation, no rales or rhonchi Cardiac: S1, S2 +, regular rate, regular rhythm, no murmurs or rubs Extremities: No pedal edema, no skin rash Neurologic: Alert and oriented x3, no focal neurological deficits Results Labs and Meds 05/30/25 03:40 05/30/25 03:40 Lab results: Cardiac Enzymes 05/29/25 05/29/25 05/29/25 Range/Units 11:23 15:56 23:37 AST 40 H (14-36) U/L Troponin I < 0.012 < 0.012 < 0.012 (0.000-0.034) ng/mL 05/30/25 Range/Units 03:40 AST 35 (14-36) U/L Troponin I (0.000-0.034) ng/mL Coagulation 05/29/25 Range/Units 11:23 PT 13.3 (11.1-14.7) Seconds APTT 29.6 (22.3-36.8) Seconds CBC 05/29/25 05/30/25 Range/Units 11:23 03:40 WBC 9.5 9.5 (4.5-10.0) K/mm3 RBC 4.58 4.26 (4.2-5.4) M/mm3 Hgb 12.8 11.8 L (12.0-15.0) g/dL Hct 43.1 40.0 (37.0-47.0) % Plt Count 219 199 (150-375) k/mm3 Lymph # (Auto) 4.51 H (0.9-3.2) K/mm3 [place] # (Auto) 0.5 (0.1-0.6) K/mm3 Eos # (Auto) 0.1 (0-0.3) K/mm3 Baso # (Auto) 0.0 (0.0-0.1) K/mm3 Comprehensive Metabolic Panel 05/29/25 05/30/25 Range/Units 11:23 03:40 Sodium 144 139 (137-145) mmol/L Potassium 4.0 4.2 (3.4-5.0) mmol/L Chloride 108 H 107 (98-107) mmol/L Carbon Dioxide 31 H 26 (22-30) mmol/L BUN 14 15 (7-17) mg/dL Creatinine 0.63 L 0.63 L (0.7-1.0) mg/dL Glucose 76 56 L* (65-110) mg/dL Calcium 9.1 8.6 (8.4-10.2) mg/dL AST 40 H 35 (14-36) U/L ALT 27 21 (6-35) U/L Alkaline Phosphatase 85 75 (38-126) U/L Total Protein 7.0 6.2 L (6.3-8.2) g/dL Albumin 4.2 3.7 (3.5-5.1) g/dL Intake and Output 05/29/25 05/30/25 05/30/25 23:59 07:59 15:59 Intake Total 222 Balance 222 Intake: Oral 222 Other: # Unmeasured Voids 1 1 Patient Weight 05/30/25 23:59 Weight 71.9 kg
[2025-05-30 13:36] LABS: Hematocrit 38.4 % (37.0-47.0); Hemoglobin 11.8 g/dL (12.0-15.0); Immature Granulocyte Percent A 0.2 % (0-0.5); Lymphocytes Absolute Auto 4.65 K/mm3 (0.9-3.2); Mean Corpuscular HGB Conc 30.7 g/dl (32-36); Mean Corpuscular Hemoglobin 28.1 pg (26-34); Mean Corpuscular Volume 91.4 fl (80-100); Nucleated Red Blood Cells Absolute Auto 0.000 K/mm3 (0.0-0.012); Nucleated Red Blood Cells Perc 0.0 % (0.0-0.2); Platelet Count Result 209 k/mm3 (150-375); Red Blood Count 4.20 M/mm3 (4.2-5.4); White Blood Count 9.0 K/mm3 (4.5-10.0)
[2025-05-30] MEDS: RANOLAZINE 500 MG TAB.ER.12H PO ×2 (13:40→21:00)
[2025-05-30 13:49] LABS: INR 1.0; Partial Thromboplastin Time 35.5 Seconds (22.3-36.8); Prothrombin Time 12.7 Seconds (11.1-14.7)
[2025-05-30] MEDS: HEPARIN SOD/D5W 100 UNITS/ML 25,000 UNITS/250 ML BAG 8 UNITS IV CONT (14:05)
[2025-05-30] MEDS: PHARMACIST COMMUNICATION ORDER 1 EACH XX (14:05)
--- NOTE | 2025-05-30 15:55 | P.PNIM_ITS ---
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 Status: Acute (4) Hypertension: Code(s): I10 - Essential (primary) hypertension Status: Acute Plan Chest pain at rest Troponin negative ECHO pending Contineu Aspirin, Plavix , Ranolazine, No BB due to Bradycardia Heparin infusion Cardiology following CAD s/p 5 stents contineu above care HTN continue jyoti meds DM2 SSI with accucheks, adjust with clinical course DVT prophylaxis on Heparin infusion Subjective Date/time seen: 05/30/25 15:55 Interval history: Still having chest pain, described as pressure Review of Systems Review of Systems: 12 systems were reviewed and are negativ e except for as per HPI. Exam Narrative: General: Nontoxic-appearing female in the semi-Angulo position in bed in no distress. Weight: 71.9 kg. BMI: 26.4. HEENT: PERRL, EOMI. Sclera anicteric. Oral mucosa moist. Neck: Supple. Respiratory: Lungs are clear to auscultation bilaterally. Chest: No tenderness to palpation over the chest wall. Cardiovascular: Regular rate and rhythm with S1-S2. Gastrointestinal: Abdomen is soft, nontender, and nondistended with positive bowel sounds. Skin: Warm and dry. No rash or lesions on limited exam. Extremities: No cyanosis, clubbing, or edema. Radial and pedal pulses intact. Negative Connor sign bilaterally. Neurological: Alert. Cranial nerves 2-12 are grossly intact. No gross focal deficits to casual conversation. Psychiatric: Pleasant and cooperative with normal mood and affect. Judgment and insight intact. Objective Data Vital Signs Vital Signs: Vital Signs - 24 hr 05/29/25 17:25 05/29/25 19:35 05/29/25 21:35 Temperature Pulse Rate 66 71 69 Respiratory Rate 15 14 16 Blood Pressure 124/68 116/71 114/62 Pulse Oximetry 100 100 Oxygen Delivery 05/29/25 21:50 05/30/25 00:00 05/30/25 00:05 Temperature 97.7 F 97.7 F Pulse Rate 71 72 71 Respiratory Rate 18 18 Blood Pressure 117/82 108/53 L Pulse Oximetry 100 100 Oxygen Delivery 05/30/25 02:00 05/30/25 03:20 05/30/25 04:00 Temperature 97.6 F Pulse Rate 68 70 66 Respiratory Rate 18 Blood Pressure 108/72 Pulse Oximetry 100 Oxygen Delivery 05/30/25 06:00 05/30/25 07:56 05/30/25 08:44 Temperature 98.2 F Pulse Rate 71 65 Respiratory Rate 12 Blood Pressure 111/57 L Pulse Oximetry 100 100 Oxygen Delivery Room Air 05/30/25 11:26 05/30/25 15:35 Temperature 97.8 F 97.9 F Pulse Rate 68 73 Respiratory Rate 12 14 Blood Pressure 110/65 105/51 L Pulse Oximetry 100 99 Oxygen Delivery Intake/Output Intake/Output: Intake & Output 05/27/25 05/28/25 05/29/25 05/30/25 23:59 23:59 23:59 23:59 Intake Total 462 Output Total 500 Balance -38 Meds/Results Medications: Active Medications Generic Name Dose Route Start Last Admin Trade Name Freq PRN Reason Stop Dose Admin Acetaminophen 650 mg 05/29/25 22:59 Acetaminophen 325 Mg Tablet PO Q6H PRN Mild Pain (1-3) or Fever Albuterol 2.5 mg 05/29/25 23:31 Albuterol Sulfate Neb 2.5 Mg/3 Ml Inh INHALATION Q6H PRN shortness of breath or wheezing Clopidogrel Bisulfate 75 mg 05/30/25 21:00 Clopidogrel Bisulfate 75 Mg Tablet PO HS ANGEL Cyanocobalamin 1,000 mcg 05/30/25 21:00 Cyanocobalamin 1,000 Mcg Tablet PO HS ANGEL Dextrose 12.5 gm 05/29/25 22:59 Dextrose 50% 25 Gm/50 Ml Syringe IV PUSH PRN PRN Hypoglycemia Protocol Duloxetine HCl 30 mg 05/30/25 09:00 05/30/25 08:09 Duloxetine Hcl 30 Mg Capsule.Dr PO 30 mg BID ANGEL Administration Fluticasone Propionate 2 spray 05/29/25 23:01 Fluticasone Propionate 0.05% Na Spr 16 Gm Btl (*Bkc) NASAL DAILY PRN allergy symptoms Folic Acid 1 mg 05/30/25 21:00 Folic Acid 1 Mg Tablet PO HS ANGEL Furosemide 20 mg 05/30/25 09:00 05/30/25 08:25 Furosemide 20 Mg Tablet PO 20 mg DAILY ANGEL Administration Glimepiride 1 mg 05/30/25 09:00 Glimepiride 1 Mg Tablet PO DAILY ANGEL Glucagon 1 mg 05/29/25 22:59 Glucagon For Inj 1 Mg Vial IM PRN PRN Hypoglycemia Protocol Glucose 15 gm 05/29/25 22:59 Glucose Oral Gel 15 Gm Of Glucse In 37.5 Gm Tube PO PRN PRN Hypoglycemia Protocol Heparin Sodium (Porcine) 4,000 units 05/30/25 12:42 Heparin Sodium 5,000 Units/Ml Vial IV PUSH PRN PRN aPTT less than 55 seconds Heparin Sodium (Porcine) 2,500 units 05/30/25 12:42 Heparin Sodium 5,000 Units/Ml Vial IV PUSH PRN PRN aPTT 55 - 70 seconds Dextrose 1,000 mls @ 100 mls/hr 05/29/25 22:59 Dextrose 5% 1,000 Ml IVPB PRN PRN Hypoglycemia Protocol Heparin Sodium/Dextrose 25,000 units in 250 mls @ 8 mls/hr 05/30/25 12:45 05/30/25 14:05 Heparin Sodium/D5w 100 Units/Ml IV CONT 800 units/hr .Q24H ANGEL 8 mls/hr Administration Protocol 800 UNITS/HR Insulin Aspart 3 - 6 units 05/30/25 08:00 05/30/25 13:38 Insulin Aspart (*Bkc) 100 Units/Ml SUB-Q Not Given TIDWM [facility] Protocol Insulin Aspart 1 - 3 units 05/30/25 21:00 Insulin Aspart (*Bkc) 100 Units/Ml SUB-Q HS [facility] Protocol Insulin Glargine 45 units 05/30/25 21:00 Insulin Glargine (*Bkc) 100 Units/Ml SUB-Q HS [facility] Metaxalone 800 mg 05/30/25 09:00 05/30/25 09:00 Metaxalone 800 Mg Tablet PO 800 mg DAILY ANGEL Administration Morphine Sulfate 2 mg 05/30/25 00:50 05/30/25 13:40 Morphine Sulfate (*Crx) 2 Mg/Ml Inj IV PUSH 2 mg Q4H PRN Administration Chest Pain Multivitamins Therapeutic 2 tablet 05/30/25 09:00 05/30/25 08:10 Multivitamins Therapeutic Tab (*Bkc) PO 2 tablet DAILY ANGEL Administration Nitroglycerin 0.4 mg 05/29/25 22:59 Nitroglycerin Sl 0.4 Mg Tablet SUBLINGUAL Q5MIN PRN Chest Pain Ondansetron HCl 4 mg 05/30/25 05:21 05/30/25 05:35 Ondansetron Inj 4 Mg/2 Ml Vial IV PUSH 4 mg Q6H PRN Administration Nausea And Vomiting Oxycodone/Acetaminophen 1 tab 05/29/25 23:01 05/30/25 08:07 Oxycodone/Acetaminophen (*Crx) 10-325 Mg Tablet PO 1 tab BID PRN Administration pain 7-10 Perflutren Lipid Microsphere 0 ml 05/30/25 12:41 Perflutren Lipid Microspheres 1.5 Ml Vial Diluted To 10 Ml Total Volume IV PUSH 06/02/25 12:41 ONCE PRN adequate visualization Protocol Pregabalin 150 mg 05/30/25 21:00 Pregabalin (*Crx) 75 Mg Capsule PO [facility] Ranolazine 500 mg 05/30/25 13:35 05/30/25 13:40 Ranolazine 500 Mg Tab.Er.12h PO 500 mg Q12HR ANGEL Administration Trazodone HCl 50 mg 05/30/25 21:00 Trazodone Hcl 50 Mg Tablet PO [facility] Vitamin D 50 mcg 05/30/25 21:00 Cholecalciferol (Vitamin D3) 25 Mcg (1,000 Units) Tablet PO [facility] Radiology Results: ITS Impressions Head CT 05/29/25 11:31 Impression: No significant abnormality seen. Chest X-Ray 05/29/25 11:53 IMPRESSION: No acute process. Chest CTA 05/29/25 19:41 IMPRESSION: 1. No pulmonary embolism. 2. No acute cardiopulmonary pathology. Labs Labs: Laboratory Results - last 24 hr 05/29/25 05/29/25 05/29/25 15:56 16:22 22:02 WBC RBC Hgb Hct MCV MCH MCHC RDW Plt Count MPV Immature Gran % (Auto) Neut % (Auto) Lymph % (Auto) [place] % (Auto) Eos % (Auto) Baso % (Auto) Lymph # (Auto) [place] # (Auto) Eos # (Auto) Baso # (Auto) Abs Immat Gran (auto) Absolute Neuts (auto) Absolute Nucleated RBC Nucleated RBC % PT INR APTT D-Dimer 1.51 H Sodium Potassium Chloride Carbon Dioxide Anion Gap BUN Creatinine Estim Creat Clear Calc Estimated GFR Glucose POC Capillary Glucose 57 L* Hemoglobin A1c Calcium Magnesium Total Bilirubin AST ALT Alkaline Phosphatase Troponin I < 0.012 Total Protein Albumin Lipase 05/29/25 05/29/25 05/29/25 22:42 23:37 23:52 WBC RBC Hgb Hct MCV MCH MCHC RDW Plt Count MPV Immature Gran % (Auto) Neut % (Auto) Lymph % (Auto) [place] % (Auto) Eos % (Auto) Baso % (Auto) Lymph # (Auto) [place] # (Auto) Eos # (Auto) Baso # (Auto) Abs Immat Gran (auto) Absolute Neuts (auto) Absolute Nucleated RBC Nucleated RBC % PT INR APTT D-Dimer Sodium Potassium Chloride Carbon Dioxide Anion Gap BUN Creatinine Estim Creat Clear Calc Estimated GFR Glucose POC Capillary Glucose 144 H 99 Hemoglobin A1c 5.6 Calcium Magnesium Total Bilirubin AST ALT Alkaline Phosphatase Troponin I < 0.012 Total Protein Albumin Lipase 120 05/30/25 05/30/25 05/30/25 03:40 05:16 05:48 WBC 9.5 RBC 4.26 Hgb 11.8 L Hct 40.0 MCV 93.9 MCH 27.7 MCHC 29.5 L RDW 13.9 Plt Count 199 MPV 10.9 H Immature Gran % (Auto) Neut % (Auto) Lymph % (Auto) [place] % (Auto) Eos % (Auto) Baso % (Auto) Lymph # (Auto) [place] # (Auto) Eos # (Auto) Baso # (Auto) Abs Immat Gran (auto) Absolute Neuts (auto) Absolute Nucleated RBC Nucleated RBC % PT INR APTT D-Dimer Sodium 139 Potassium 4.2 Chloride 107 Carbon Dioxide 26 Anion Gap 6 BUN 15 Creatinine 0.63 L Estim Creat Clear Calc 82 Estimated GFR > 60 Glucose 56 L* POC Capillary Glucose 72 185 H Hemoglobin A1c Calcium 8.6 Magnesium 2.2 Total Bilirubin 0.2 AST 35 ALT 21 Alkaline Phosphatase 75 Troponin I Total Protein 6.2 L Albumin 3.7 Lipase 05/30/25 05/30/25 05/30/25 07:25 08:42 11:19 WBC RBC Hgb Hct MCV MCH MCHC RDW Plt Count MPV Immature Gran % (Auto) Neut % (Auto) Lymph % (Auto) [place] % (Auto) Eos % (Auto) Baso % (Auto) Lymph # (Auto) [place] # (Auto) Eos # (Auto) Baso # (Auto) Abs Immat Gran (auto) Absolute Neuts (auto) Absolute Nucleated RBC Nucleated RBC % PT INR APTT D-Dimer Sodium Potassium Chloride Carbon Dioxide Anion Gap BUN Creatinine Estim Creat Clear Calc Estimated GFR Glucose POC Capillary Glucose 64 L 82 81 Hemoglobin A1c Calcium Magnesium Total Bilirubin AST ALT Alkaline Phosphatase Troponin I Total Protein Albumin Lipase 05/30/25 13:26 WBC 9.0 RBC 4.20 Hgb 11.8 L Hct 38.4 MCV 91.4 MCH 28.1 MCHC 30.7 L RDW 14.0 Plt Count 209 MPV 10.2 Immature Gran % (Auto) 0.2 Neut % (Auto) 40.2 L Lymph % (Auto) 51.8 H [place] % (Auto) 6.5 Eos % (Auto) 1.1 Baso % (Auto) 0.2 Lymph # (Auto) 4.65 H [place] # (Auto) 0.6 Eos # (Auto) 0.1 Baso # (Auto) 0.0 Abs Immat Gran (auto) 0.02 Absolute Neuts (auto) 3.6 Absolute Nucleated RBC 0.000 Nucleated RBC % 0.0 PT 12.7 INR 1.0 APTT 35.5 D-Dimer Sodium Potassium Chloride Carbon Dioxide Anion Gap BUN Creatinine Estim Creat Clear Calc Estimated GFR Glucose POC Capillary Glucose Hemoglobin A1c Calcium Magnesium Total Bilirubin AST ALT Alkaline Phosphatase Troponin I Total Protein Albumin Lipase Quality VTE Prophylaxis VTE prophylaxis: pharmacologic ordered
--- NOTE | 2025-05-30 20:20 | ECG_ITS ---
Test Date: 2025-05-30 20:39:10 Measurements Intervals [place] Rate: 67 P: 49 NV: 165 QRS: -21 QRSD: 92 T: 20 QT: 395 QTc: 419 Interpretive Statements SINUS RHYTHM LEFTWARD AXIS Electronically Signed On 05-31-2025 08:11:59 CDT by Jourdan Barlow D.O
[2025-05-30] MEDS: CHOLECALCIFEROL (VITAMIN D3) 25 MCG (1,000 UNITS) TABLET 50 MCG PO (20:58)
[2025-05-30] MEDS: CYANOCOBALAMIN 1,000 MCG TABLET 1000 MCG PO (20:59)
[2025-05-30] MEDS: CLOPIDOGREL BISULFATE 75 MG TABLET PO (20:59)
[2025-05-30] MEDS: PREGABALIN (*CRX) 75 MG CAPSULE 150 MG PO (21:01)
[2025-05-30 21:33] LABS: Partial Thromboplastin Time 90.2 Seconds (22.3-36.8)
[2025-05-31] VITALS (17 sets, daily range): BP systolic 74–109; BP diastolic 31–62; PULSE 66–80; RESP 16–18; TEMP 36.4–36.8; O2SAT 97–100
[2025-05-31] MEDS: oxyCODONE/ACETAMINOPHEN (*CRX) 10-325 MG TABLET 1 TAB PO ×3 (00:02→18:54)
[2025-05-31 03:04] LABS: Hematocrit 37.2 % (37.0-47.0); Hemoglobin 11.2 g/dL (12.0-15.0); Immature Granulocyte Percent A 0.3 % (0-0.5); Lymphocytes Absolute Auto 3.93 K/mm3 (0.9-3.2); Mean Corpuscular HGB Conc 30.1 g/dl (32-36); Mean Corpuscular Hemoglobin 28.2 pg (26-34); Mean Corpuscular Volume 93.7 fl (80-100); Nucleated Red Blood Cells Absolute Auto 0.000 K/mm3 (0.0-0.012); Nucleated Red Blood Cells Perc 0.0 % (0.0-0.2); Platelet Count Result 191 k/mm3 (150-375); Red Blood Count 3.97 M/mm3 (4.2-5.4); White Blood Count 7.6 K/mm3 (4.5-10.0)
[2025-05-31 03:23] LABS: Partial Thromboplastin Time 112.7 Seconds (22.3-36.8)
[2025-05-31 03:27] LABS: Alanine Aminotransferase 21 U/L (6-35); Albumin Level 3.5 g/dL (3.5-5.1); Alkaline Phosphatase 72 U/L (38-126); Anion Gap 3 mmol/L (4-12); Aspartate Amino Transferase 32 U/L (14-36); Bilirubin,Total 0.2 mg/dL (0.2-1.3); Blood Urea Nitrogen 13 mg/dL (7-17); Calcium 8.3 mg/dL (8.4-10.2); Carbon Dioxide 29 mmol/L (22-30); Chloride 105 mmol/L (98-107); Estimated CRCL calculation 68 ml/min; Estimated Glomerular Filt Rate > 60; Glucose 82 mg/dL (65-110); Magnesium 2.1 mg/dL (1.6-2.3); Potassium 3.8 mmol/L (3.4-5.0); Sodium 137 mmol/L (137-145); Total Protein 5.8 g/dL (6.3-8.2)
[2025-05-31] MEDS: ACETAMINOPHEN 325 MG TABLET 650 MG PO (03:54)
[2025-05-31] MEDS: METAXALONE 800 MG TABLET PO (09:00)
[2025-05-31] MEDS: MULTIVITAMINS THERAPEUTIC TAB (*BKC) 2 TABLET PO (09:00)
[2025-05-31] MEDS: FUROSEMIDE 20 MG TABLET PO (09:01)
[2025-05-31] MEDS: RANOLAZINE 500 MG TAB.ER.12H PO ×2 (09:01→21:19)
[2025-05-31 10:03] LABS: Partial Thromboplastin Time 75.7 Seconds (22.3-36.8)
--- NOTE | 2025-05-31 12:23 | P.PNCA_ITS ---
Progress Note: A&P Assessment and Plan (1) Chest pain: Code(s): R07.9 - Chest pain, unspecified Status: Acute Assessment and Plan: Ongoing. On heparin drip. Chest pain is better however. Will repeat a tropon in now. Continue heparin another 24 hours (2) Coronary artery disease: Code(s): I25.10 - Atherosclerotic heart disease of [place] coronary artery without angina pectoris Status: Acute Assessment and Plan: Continue aspirin, clopidogrel, Ranexa. No beta-kat secondary to bradycardia. Will add some isosorbide mononitrate 30 mg daily (3) Hypertension associated with type 2 diabetes mellitus: Code(s): E11.59 - Type 2 diabetes mellitus with other circulatory complications; I15.2 - Hypertension secondary to endocrine disorders Status: Acute (4) Mixed diabetic hyperlipidemia associated with type 2 diabetes mellitus: Code(s): E11.69 - Type 2 diabetes mellitus with other specified complication; E78.2 - M ixed hyperlipidemia Status: Acute Assessment and Plan: Uncertain why she is not on a cholesterol medicine. Unless s contraindicated, will add rosuvastatin 20 mg daily Plan Chest pain at rest - there is some atypical component to the chest pain with inc rease in pain as she takes deep breaths; possible etiologies include CCS class IV angina vs unstable angina CAD status post PCI x 5 in the past Hypertension Hyperlipidemia Type 2 diabetes mellitus Obesity Peripheral neuropathy Given her expensive cardiac history of 5 stents and similarity of symptoms to her symptoms before she had stents, will treat with heparin x 48 hours, given asa 325 mg once followed by 81 mg daily, plavix 75 mg daily, and ranolazine at home dose. No beta-kat given bradycardia Monitor on telemetry Sublingual nitroglycerin 0.4 mg p.r.n. x3 for chest pain EKG p.r.n. for chest pain Subjective Date/time seen: 05/31/25 12:23 Interval history: 49-year-old with known CAD admitted for chest pain Date of service 05/31/2025: She still has some chest pain although better. No shortness of breath Review of Systems Review of Systems: All systems reviewed & are unremarkable except as noted in HPI and below Constitutional: Constitutional: Denies body ache(s) Eyes: Eyes: Denies blurry vision ENT: Reports Normal hearing present Cardiovascular: Cardiovascular: Reports chest pain Respiratory: Respiratory: Denies hemoptysis Gastrointestinal: Gastrointestinal: Denies abdominal pain Genitourinary: Genitourinary: Denies hematuria Musculoskeletal: Musculoskeletal: Denies back pain Integumentary/Breasts: Skin/Breast: Denies pruritus Neurologic: Denies Abnormal speech present Psychiatric: Psychiatric: Denies confusion Endocrine: Endocrine: Denies excessive sweating Hematologic/Lymphatic: Hematologic/Lymphatic: Denies easy bleeding Allergic/Immunologic: Allergic/Immunologic: Denies GI upset with certain foods Exam Narrative: Appears stated age Const: General: comfortable and no acute distress HENMT: Face/Nose/Sinus: Normal nares present Mouth: Yes moist mucous membranes Eyes: General: appearance normal, both eyes and all related structures Sclera: sclerae normal Neck: Neck: supple Carotids: no bruits Resp: Effort & Inspection: normal respiratory effort Auscultation: clear to auscultation bilaterally Cardio: Rate: regular rate Rhythm: regular rhythm GI: Inspection: non-distended GI Palp: Yes Soft to palpation Skin: General skin exam: normal color Neuro: Speech: normal speech Extrem: General: normal to inspection Psych: Mental Status: mental status grossly normal Affect: normal affect Objective Data Vital Signs Vital Signs: Vital Signs - 24 hr 05/30/25 14:00 05/30/25 15:35 05/30/25 16:00 Temperature 36.6 C Pulse Rate 76 73 71 Respiratory Rate 14 Blood Pressure 105/51 L Pulse Oximetry 99 Oxygen Delivery 05/30/25 17:10 05/30/25 20:00 05/30/25 20:00 Temperature Pulse Rate 69 Respiratory Rate Blood Pressure 109/53 L Pulse Oximetry Oxygen Delivery Room Air 05/30/25 20:04 05/30/25 22:00 05/30/25 23:58 Temperature 36.9 C 36.7 C Pulse Rate 69 75 70 Respiratory Rate 20 18 Blood Pressure 116/64 99/58 L Pulse Oximetry 100 98 Oxygen Delivery 05/31/25 00:00 05/31/25 00:00 05/31/25 02:00 Temperature Pulse Rate 73 71 Respiratory Rate Blood Pressure Pulse Oximetry Oxygen Delivery Room Air 05/31/25 03:57 05/31/25 04:00 05/31/25 04:00 Temperature 36.8 C Pulse Rate 73 71 Respiratory Rate 18 Blood Pressure 107/61 Pulse Oximetry 100 Oxygen Delivery Room Air 05/31/25 06:00 05/31/25 08:00 05/31/25 08:00 Temperature 36.6 C Pulse Rate 66 76 79 Respiratory Rate 16 Blood Pressure 107/55 L Pulse Oximetry 99 Oxygen Delivery 05/31/25 10:00 Temperature Pulse Rate 73 Respiratory Rate Blood Pressure Pulse Oximetry Oxygen Delivery Intake/Output Intake/Output: Intake & Output 05/28/25 05/29/25 05/30/25 05/31/25 23:59 23:59 23:59 23:59 Intake Total 1034.1 869.0 Output Total 1200 Balance -165.9 869.0 Meds/Results Medications: Active Medications Generic Name Dose Route Start Last Admin Trade Name Freq PRN Reason Stop Dose Admin Acetaminophen 650 mg 05/29/25 22:59 05/31/25 03:54 Acetaminophen 325 Mg Tablet PO 650 mg Q6H PRN Administration Mild Pain (1-3) or Fever Albuterol 2.5 mg 05/29/25 23:31 Albuterol Sulfate Neb 2.5 Mg/3 Ml Inh INHALATION Q6H PRN shortness of breath or wheezing Clopidogrel Bisulfate 75 mg 05/30/25 21:00 05/30/25 20:59 Clopidogrel Bisulfate 75 Mg Tablet PO 75 mg HS ANGEL Administration Cyanocobalamin 1,000 mcg 05/30/25 21:00 05/30/25 20:59 Cyanocobalamin 1,000 Mcg Tablet PO 1,000 mcg HS ANGEL Administration Dextrose 12.5 gm 05/29/25 22:59 Dextrose 50% 25 Gm/50 Ml Syringe IV PUSH PRN PRN Hypoglycemia Protocol Duloxetine HCl 30 mg 05/30/25 09:00 05/31/25 09:00 Duloxetine Hcl 30 Mg Capsule.Dr PO 30 mg BID ANGEL Administration Fluticasone Propionate 2 spray 05/29/25 23:01 Fluticasone Propionate 0.05% Na Spr 16 Gm Btl (*Bkc) NASAL DAILY PRN allergy symptoms Folic Acid 1 mg 05/30/25 21:00 05/30/25 21:00 Folic Acid 1 Mg Tablet PO Not Given HS ANGEL Furosemide 20 mg 05/30/25 09:00 05/31/25 09:01 Furosemide 20 Mg Tablet PO 20 mg DAILY ANGEL Administration Glimepiride 1 mg 05/30/25 09:00 Glimepiride 1 Mg Tablet PO DAILY ANGEL Glucagon 1 mg 05/29/25 22:59 Glucagon For Inj 1 Mg Vial IM PRN PRN Hypoglycemia Protocol Glucose 15 gm 05/29/25 22:59 Glucose Oral Gel 15 Gm Of Glucse In 37.5 Gm Tube PO PRN PRN Hypoglycemia Protocol Heparin Sodium (Porcine) 4,000 units 05/30/25 12:42 Heparin Sodium 5,000 Units/Ml Vial IV PUSH PRN PRN aPTT less than 55 seconds Heparin Sodium (Porcine) 2,500 units 05/30/25 12:42 Heparin Sodium 5,000 Units/Ml Vial IV PUSH PRN PRN aPTT 55 - 70 seconds Dextrose 1,000 mls @ 100 mls/hr 05/29/25 22:59 Dextrose 5% 1,000 Ml IVPB PRN PRN Hypoglycemia Protocol Heparin Sodium/Dextrose 25,000 units in 250 mls @ 7 mls/hr 05/30/25 12:45 11/13 09:45 Heparin Sodium/D5w 100 Units/Ml IV CONT 700 units/hr .Q24H ANGEL 7 mls/hr Titration Protocol 700 UNITS/HR Insulin Aspart 3 - 6 units 05/30/25 08:00 05/31/25 12:09 Insulin Aspart (*Bkc) 100 Units/Ml SUB-Q Not Given TIDWM [facility] Protocol Insulin Aspart 1 - 3 units 05/30/25 21:00 05/30/25 21:03 Insulin Aspart (*Bkc) 100 Units/Ml SUB-Q Not Given HS [facility] Protocol Insulin Glargine 45 units 05/30/25 21:00 05/30/25 21:05 Insulin Glargine (*Bkc) 100 Units/Ml SUB-Q Not Given HS [facility] Metaxalone 800 mg 05/30/25 09:00 05/31/25 09:00 Metaxalone 800 Mg Tablet PO 800 mg DAILY ANGEL Administration Morphine Sulfate 2 mg 05/30/25 00:50 05/30/25 21:09 Morphine Sulfate (*Crx) 2 Mg/Ml Inj IV PUSH 2 mg Q4H PRN Administration Chest Pain Multivitamins Therapeutic 2 tablet 05/30/25 09:00 05/31/25 09:00 Multivitamins Therapeutic Tab (*Bkc) PO 2 tablet DAILY ANGEL Administration Nitroglycerin 0.4 mg 05/29/25 22:59 Nitroglycerin Sl 0.4 Mg Tablet SUBLINGUAL Q5MIN PRN Chest Pain Ondansetron HCl 4 mg 05/30/25 05:21 05/30/25 05:35 Ondansetron Inj 4 Mg/2 Ml Vial IV PUSH 4 mg Q6H PRN Administration Nausea And Vomiting Oxycodone/Acetaminophen 1 tab 05/29/25 23:01 05/31/25 09:01 Oxycodone/Acetaminophen (*Crx) 10-325 Mg Tablet PO 1 tab BID PRN Administration pain 7-10 Perflutren Lipid Microsphere 0 ml 05/30/25 12:41 Perflutren Lipid Microspheres 1.5 Ml Vial Diluted To 10 Ml Total Volume IV PUSH 06/02/25 12:41 ONCE PRN adequate visualization Protocol Pregabalin 150 mg 05/30/25 21:00 05/30/25 21:01 Pregabalin (*Crx) 75 Mg Capsule PO 150 mg HS ANGEL Administration Ranolazine 500 mg 05/30/25 13:35 05/31/25 09:01 Ranolazine 500 Mg Tab.Er.12h PO 500 mg Q12HR ANGEL Administration Trazodone HCl 50 mg 05/30/25 21:00 05/30/25 21:01 Trazodone Hcl 50 Mg Tablet PO 50 mg HS ANGEL Administration Vitamin D 50 mcg 05/30/25 21:00 05/30/25 20:58 Cholecalciferol (Vitamin D3) 25 Mcg (1,000 Units) Tablet PO 50 mcg HS ANGEL Administration Radiology Results: ITS Impressions Head CT 05/29/25 11:31 Impression: No significant abnormality seen. Chest X-Ray 05/29/25 11:53 IMPRESSION: No acute process. Chest CTA 05/29/25 19:41 IMPRESSION: 1. No pulmonary embolism. 2. No acute cardiopulmonary pathology. Labs Labs: Laboratory Results - last 24 hr 05/30/25 05/30/25 05/30/25 13:26 16:10 20:09 WBC 9.0 RBC 4.20 Hgb 11.8 L Hct 38.4 MCV 91.4 MCH 28.1 MCHC 30.7 L RDW 14.0 Plt Count 209 MPV 10.2 Immature Gran % (Auto) 0.2 Neut % (Auto) 40.2 L Lymph % (Auto) 51.8 H [place] % (Auto) 6.5 Eos % (Auto) 1.1 Baso % (Auto) 0.2 Lymph # (Auto) 4.65 H [place] # (Auto) 0.6 Eos # (Auto) 0.1 Baso # (Auto) 0.0 Abs Immat Gran (auto) 0.02 Absolute Neuts (auto) 3.6 Absolute Nucleated RBC 0.000 Nucleated RBC % 0.0 PT 12.7 INR 1.0 APTT 35.5 Sodium Potassium Chloride Carbon Dioxide Anion Gap BUN Creatinine Estim Creat Clear Calc Estimated GFR Glucose POC Capillary Glucose 91 85 Lactic Acid Calcium Magnesium Total Bilirubin AST ALT Alkaline Phosphatase Total Protein Albumin 05/30/25 05/31/25 05/31/25 20:36 00:05 02:56 WBC 7.6 RBC 3.97 L Hgb 11.2 L Hct 37.2 MCV 93.7 MCH 28.2 MCHC 30.1 L RDW 13.9 Plt Count 191 MPV 10.2 Immature Gran % (Auto) 0.3 Neut % (Auto) 41.3 L Lymph % (Auto) 51.8 H [place] % (Auto) 5.1 Eos % (Auto) 1.2 Baso % (Auto) 0.3 Lymph # (Auto) 3.93 H [place] # (Auto) 0.4 Eos # (Auto) 0.1 Baso # (Auto) 0.0 Abs Immat Gran (auto) 0.02 Absolute Neuts (auto) 3.1 Absolute Nucleated RBC 0.000 Nucleated RBC % 0.0 PT INR APTT 90.2 H 112.7 H Sodium 137 Potassium 3.8 Chloride 105 Carbon Dioxide 29 Anion Gap 3 L BUN 13 Creatinine 0.77 Estim Creat Clear Calc 68 Estimated GFR > 60 Glucose 82 POC Capillary Glucose 107 H Lactic Acid Calcium 8.3 L Magnesium 2.1 Total Bilirubin 0.2 AST 32 ALT 21 Alkaline Phosphatase 72 Total Protein 5.8 L Albumin 3.5 05/31/25 05/31/25 05/31/25 06:03 08:06 09:46 WBC RBC Hgb Hct MCV MCH MCHC RDW Plt Count MPV Immature Gran % (Auto) Neut % (Auto) Lymph % (Auto) [place] % (Auto) Eos % (Auto) Baso % (Auto) Lymph # (Auto) [place] # (Auto) Eos # (Auto) Baso # (Auto) Abs Immat Gran (auto) Absolute Neuts (auto) Absolute Nucleated RBC Nucleated RBC % PT INR APTT 75.7 H Sodium Potassium Chloride Carbon Dioxide Anion Gap BUN Creatinine Estim Creat Clear Calc Estimated GFR Glucose POC Capillary Glucose 79 69 Lactic Acid 1.1 Calcium Magnesium Total Bilirubin AST ALT Alkaline Phosphatase Total Protein Albumin 05/31/25 11:31 WBC RBC Hgb Hct MCV MCH MCHC RDW Plt Count MPV Immature Gran % (Auto) Neut % (Auto) Lymph % (Auto) [place] % (Auto) Eos % (Auto) Baso % (Auto) Lymph # (Auto) [place] # (Auto) Eos # (Auto) Baso # (Auto) Abs Immat Gran (auto) Absolute Neuts (auto) Absolute Nucleated RBC Nucleated RBC % PT INR APTT Sodium Potassium Chloride Carbon Dioxide Anion Gap BUN Creatinine Estim Creat Clear Calc Estimated GFR Glucose POC Capillary Glucose 70 Lactic Acid Calcium Magnesium Total Bilirubin AST ALT Alkaline Phosphatase Total Protein Albumin ECHO 2. Left ventricular chamber dimension is normal. 3. Left ventricular systolic function is normal, estimated at 65-70. 4. There is no increased left ventricular wall thickness. 5. The left ventricular diastolic function is normal. 6. Left atrial chamber dimension is mildly enlarged. 7. There is mild mitral valve regurgitation. 8. There is mild tricuspid valve regurgitation. 9. There is mild pulmonic regurgitation.
--- NOTE | 2025-05-31 12:53 | P.PNIM_ITS ---
Progress Note: A&P Assessment and Plan (1) Chest pain: Code(s): R07.9 - Chest pain, unspecified Status: Acute (2) Coronary artery disease: Code(s): I25.10 - Atherosclerotic heart disease of [place] coronary artery without angina pectoris Status: Acute (3) Insulin dependent type 2 diabetes mellitus: Code(s): E11.9 - Type 2 diabetes mellitus without complications; Z79.4 - exterminator helper termite (current) use of insulin Status: Acute (4) Hypertension: Code(s): I10 - Essential (primary) hypertension Status: Acute Plan Chest pain at rest Troponin negative ECHO pending Contineu Aspirin, Plavix , Ranolazine, No BB due to Bradycardia Heparin infusion Cardiology following Cardiac cath monday CAD s/p 5 stents contineu above care HTN continue jyoti meds DM2 SSI with accucheks, adjust with clinical course DVT prophylaxis on Heparin infusion Subjective Date/time seen: 05/31/25 12:53 Interval history: Comfortable at bedside Review of Systems Review of Systems: 12 systems were reviewed and are negativ e except for as per HPI. Exam Narrative: General: Nontoxic-appearing female in the semi-Angulo position in bed in no distress. Weight: 71.9 kg. BMI: 26.4. HEENT: PERRL, EOMI. Sclera anicteric. Oral mucosa moist. Neck: Supple. Respiratory: Lungs are clear to auscultation bilaterally. Chest: No tenderness to palpation over the chest wall. Cardiovascular: Regular rate and rhythm with S1-S2. Gastrointestinal: Abdomen is soft, nontender, and nondistended with positive bowel sounds. Skin: Warm and dry. No rash or lesions on limited exam. Extremities: No cyanosis, clubbing, or edema. Radial and pedal pulses intact. Negative Connor sign bilaterally. Neurological: Alert. Cranial nerves 2-12 are grossly intact. No gross focal deficits to casual conversation. Psychiatric: Pleasant and cooperative with normal mood and affect. Judgment and insight intact. Objective Data Vital Signs Vital Signs: Vital Signs - 24 hr 05/30/25 14:00 05/30/25 15:35 05/30/25 16:00 Temperature 97.9 F Pulse Rate 76 73 71 Respiratory Rate 14 Blood Pressure 105/51 L Pulse Oximetry 99 Oxygen Delivery 05/30/25 17:10 05/30/25 20:00 05/30/25 20:00 Temperature Pulse Rate 69 Respiratory Rate Blood Pressure 109/53 L Pulse Oximetry Oxygen Delivery Room Air 05/30/25 20:04 05/30/25 22:00 05/30/25 23:58 Temperature 98.4 F 98.1 F Pulse Rate 69 75 70 Respiratory Rate 20 18 Blood Pressure 116/64 99/58 L Pulse Oximetry 100 98 Oxygen Delivery 05/31/25 00:00 05/31/25 00:00 05/31/25 02:00 Temperature Pulse Rate 73 71 Respiratory Rate Blood Pressure Pulse Oximetry Oxygen Delivery Room Air 05/31/25 03:57 05/31/25 04:00 05/31/25 04:00 Temperature 98.3 F Pulse Rate 73 71 Respiratory Rate 18 Blood Pressure 107/61 Pulse Oximetry 100 Oxygen Delivery Room Air 05/31/25 06:00 05/31/25 08:00 05/31/25 08:00 Temperature 97.8 F Pulse Rate 66 76 79 Respiratory Rate 16 Blood Pressure 107/55 L Pulse Oximetry 99 Oxygen Delivery 05/31/25 10:00 Temperature Pulse Rate 73 Respiratory Rate Blood Pressure Pulse Oximetry Oxygen Delivery Intake/Output Intake/Output: Intake & Output 05/28/25 05/29/25 05/30/25 05/31/25 23:59 23:59 23:59 23:59 Intake Total 1034.1 869.0 Output Total 1200 Balance -165.9 869.0 Meds/Results Medications: Active Medications Generic Name Dose Route Start Last Admin Trade Name Freq PRN Reason Stop Dose Admin Acetaminophen 650 mg 05/29/25 22:59 05/31/25 03:54 Acetaminophen 325 Mg Tablet PO 650 mg Q6H PRN Administration Mild Pain (1-3) or Fever Albuterol 2.5 mg 05/29/25 23:31 Albuterol Sulfate Neb 2.5 Mg/3 Ml Inh INHALATION Q6H PRN shortness of breath or wheezing Aspirin 81 mg 06/01/25 09:00 Aspirin 81 Mg Enteric Tablet PO QAM ANGEL Clopidogrel Bisulfate 75 mg 05/30/25 21:00 05/30/25 20:59 Clopidogrel Bisulfate 75 Mg Tablet PO 75 mg HS ANGEL Administration Cyanocobalamin 1,000 mcg 05/30/25 21:00 05/30/25 20:59 Cyanocobalamin 1,000 Mcg Tablet PO 1,000 mcg HS ANGEL Administration Dextrose 12.5 gm 05/29/25 22:59 Dextrose 50% 25 Gm/50 Ml Syringe IV PUSH PRN PRN Hypoglycemia Protocol Duloxetine HCl 30 mg 05/30/25 09:00 05/31/25 09:00 Duloxetine Hcl 30 Mg Capsule.Dr PO 30 mg BID ANGEL Administration Fluticasone Propionate 2 spray 05/29/25 23:01 Fluticasone Propionate 0.05% Na Spr 16 Gm Btl (*Bkc) NASAL DAILY PRN allergy symptoms Folic Acid 1 mg 05/30/25 21:00 05/30/25 21:00 Folic Acid 1 Mg Tablet PO Not Given HS ANGEL Furosemide 20 mg 05/30/25 09:00 05/31/25 09:01 Furosemide 20 Mg Tablet PO 20 mg DAILY ANGEL Administration Glimepiride 1 mg 05/30/25 09:00 Glimepiride 1 Mg Tablet PO DAILY ANGEL Glucagon 1 mg 05/29/25 22:59 Glucagon For Inj 1 Mg Vial IM PRN PRN Hypoglycemia Protocol Glucose 15 gm 05/29/25 22:59 Glucose Oral Gel 15 Gm Of Glucse In 37.5 Gm Tube PO PRN PRN Hypoglycemia Protocol Heparin Sodium (Porcine) 4,000 units 05/30/25 12:42 Heparin Sodium 5,000 Units/Ml Vial IV PUSH PRN PRN aPTT less than 55 seconds Heparin Sodium (Porcine) 2,500 units 05/30/25 12:42 Heparin Sodium 5,000 Units/Ml Vial IV PUSH PRN PRN aPTT 55 - 70 seconds Dextrose 1,000 mls @ 100 mls/hr 05/29/25 22:59 Dextrose 5% 1,000 Ml IVPB PRN PRN Hypoglycemia Protocol Heparin Sodium/Dextrose 25,000 units in 250 mls @ 7 mls/hr 05/30/25 12:45 05/31/25 09:45 Heparin Sodium/D5w 100 Units/Ml IV CONT 700 units/hr .Q24H ANGEL 7 mls/hr Titration Protocol 700 UNITS/HR Insulin Aspart 3 - 6 units 05/30/25 08:00 05/31/25 12:09 Insulin Aspart (*Bkc) 100 Units/Ml SUB-Q Not Given TIDWM ANGEL Protocol Insulin Aspart 1 - 3 units 05/30/25 21:00 05/30/25 21:03 Insulin Aspart (*Bkc) 100 Units/Ml SUB-Q Not Given HS [facility] Protocol Insulin Glargine 45 units 05/30/25 21:00 05/30/25 21:05 Insulin Glargine (*Bkc) 100 Units/Ml SUB-Q Not Given HS [facility] Isosorbide Mononitrate 30 mg 05/31/25 12:35 Isosorbide Mononitrate 30 Mg Tab.Er.24h PO QAM ANGEL Metaxalone 800 mg 05/30/25 09:00 05/31/25 09:00 Metaxalone 800 Mg Tablet PO 800 mg DAILY ANGEL Administration Morphine Sulfate 2 mg 05/30/25 00:50 05/30/25 21:09 Morphine Sulfate (*Crx) 2 Mg/Ml Inj IV PUSH 2 mg Q4H PRN Administration Chest Pain Multivitamins Therapeutic 2 tablet 05/30/25 09:00 05/31/25 09:00 Multivitamins Therapeutic Tab (*Bkc) PO 2 tablet DAILY ANGEL Administration Nitroglycerin 0.4 mg 05/29/25 22:59 Nitroglycerin Sl 0.4 Mg Tablet SUBLINGUAL Q5MIN PRN Chest Pain Ondansetron HCl 4 mg 05/30/25 05:21 05/30/25 05:35 Ondansetron Inj 4 Mg/2 Ml Vial IV PUSH 4 mg Q6H PRN Administration Nausea And Vomiting Oxycodone/Acetaminophen 1 tab 05/29/25 23:01 05/31/25 09:01 Oxycodone/Acetaminophen (*Crx) 10-325 Mg Tablet PO 1 tab BID PRN Administration pain 7-10 Perflutren Lipid Microsphere 0 ml 05/30/25 12:41 Perflutren Lipid Microspheres 1.5 Ml Vial Diluted To 10 Ml Total Volume IV PUSH 06/02/25 12:41 ONCE PRN adequate visualization Protocol Pregabalin 150 mg 05/30/25 21:00 05/30/25 21:01 Pregabalin (*Crx) 75 Mg Capsule PO 150 mg HS ANGEL Administration Ranolazine 500 mg 05/30/25 13:35 05/31/25 09:01 Ranolazine 500 Mg Tab.Er.12h PO 500 mg Q12HR ANGEL Administration Rosuvastatin Calcium 20 mg 06/01/25 09:00 Rosuvastatin 20 Mg Tablet PO QAM ANGEL Trazodone HCl 50 mg 05/30/25 21:00 05/30/25 21:01 Trazodone Hcl 50 Mg Tablet PO 50 mg HS ANGEL Administration Vitamin D 50 mcg 05/30/25 21:00 05/30/25 20:58 Cholecalciferol (Vitamin D3) 25 Mcg (1,000 Units) Tablet PO 50 mcg HS ANGEL Administration Radiology Results: ITS Impressions Head CT 05/29/25 11:31 Impression: No significant abnormality seen. Chest X-Ray 05/29/25 11:53 IMPRESSION: No acute process. Chest CTA 05/29/25 19:41 IMPRESSION: 1. No pulmonary embolism. 2. No acute cardiopulmonary pathology. Labs Labs: Laboratory Results - last 24 hr 05/30/25 05/30/25 05/30/25 13:26 16:10 20:09 WBC 9.0 RBC 4.20 Hgb 11.8 L Hct 38.4 MCV 91.4 MCH 28.1 MCHC 30.7 L RDW 14.0 Plt Count 209 MPV 10.2 Immature Gran % (Auto) 0.2 Neut % (Auto) 40.2 L Lymph % (Auto) 51.8 H Richardson % (Auto) 6.5 Eos % (Auto) 1.1 Baso % (Auto) 0.2 Lymph # (Auto) 4.65 H Richardson # (Auto) 0.6 Eos # (Auto) 0.1 Baso # (Auto) 0.0 Abs Immat Gran (auto) 0.02 Absolute Neuts (auto) 3.6 Absolute Nucleated RBC 0.000 Nucleated RBC % 0.0 PT 12.7 INR 1.0 APTT 35.5 Sodium Potassium Chloride Carbon Dioxide Anion Gap BUN Creatinine Estim Creat Clear Calc Estimated GFR Glucose POC Capillary Glucose 91 85 Lactic Acid Calcium Magnesium Total Bilirubin AST ALT Alkaline Phosphatase Total Protein Albumin 05/30/25 05/31/25 05/31/25 20:36 00:05 02:56 WBC 7.6 RBC 3.97 L Hgb 11.2 L Hct 37.2 MCV 93.7 MCH 28.2 MCHC 30.1 L RDW 13.9 Plt Count 191 MPV 10.2 Immature Gran % (Auto) 0.3 Neut % (Auto) 41.3 L Lymph % (Auto) 51.8 H Richardson % (Auto) 5.1 Eos % (Auto) 1.2 Baso % (Auto) 0.3 Lymph # (Auto) 3.93 H Richardson # (Auto) 0.4 Eos # (Auto) 0.1 Baso # (Auto) 0.0 Abs Immat Gran (auto) 0.02 Absolute Neuts (auto) 3.1 Absolute Nucleated RBC 0.000 Nucleated RBC % 0.0 PT INR APTT 90.2 H 112.7 H Sodium 137 Potassium 3.8 Chloride 105 Carbon Dioxide 29 Anion Gap 3 L BUN 13 Creatinine 0.77 Estim Creat Clear Calc 68 Estimated GFR > 60 Glucose 82 POC Capillary Glucose 107 H Lactic Acid Calcium 8.3 L Magnesium 2.1 Total Bilirubin 0.2 AST 32 ALT 21 Alkaline Phosphatase 72 Total Protein 5.8 L Albumin 3.5 05/31/25 05/31/25 05/31/25 06:03 08:06 09:46 WBC RBC Hgb Hct MCV MCH MCHC RDW Plt Count MPV Immature Gran % (Auto) Neut % (Auto) Lymph % (Auto) Richardson % (Auto) Eos % (Auto) Baso % (Auto) Lymph # (Auto) Richardson # (Auto) Eos # (Auto) Baso # (Auto) Abs Immat Gran (auto) Absolute Neuts (auto) Absolute Nucleated RBC Nucleated RBC % PT INR APTT 75.7 H Sodium Potassium Chloride Carbon Dioxide Anion Gap BUN Creatinine Estim Creat Clear Calc Estimated GFR Glucose POC Capillary Glucose 79 69 Lactic Acid 1.1 Calcium Magnesium Total Bilirubin AST ALT Alkaline Phosphatase Total Protein Albumin 05/31/25 11:31 WBC RBC Hgb Hct MCV MCH MCHC RDW Plt Count MPV Immature Gran % (Auto) Neut % (Auto) Lymph % (Auto) Richardson % (Auto) Eos % (Auto) Baso % (Auto) Lymph # (Auto) Richardson # (Auto) Eos # (Auto) Baso # (Auto) Abs Immat Gran (auto) Absolute Neuts (auto) Absolute Nucleated RBC Nucleated RBC % PT INR APTT Sodium Potassium Chloride Carbon Dioxide Anion Gap BUN Creatinine Estim Creat Clear Calc Estimated GFR Glucose POC Capillary Glucose 70 Lactic Acid Calcium Magnesium Total Bilirubin AST ALT Alkaline Phosphatase Total Protein Albumin Quality VTE Prophylaxis VTE prophylaxis: pharmacologic ordered
[2025-05-31] MEDS: ISOSORBIDE MONONITRATE 30 MG TAB.ER.24H PO (13:50)
[2025-05-31 15:58] LABS: Partial Thromboplastin Time 58.3 Seconds (22.3-36.8)
[2025-05-31 16:06] LABS: Troponin I < 0.012 ng/mL (0.000-0.034)
[2025-05-31] MEDS: diphenhydrAMINE HCl CAP 25 MG CAPSULE 50 MG PO (18:54)
[2025-05-31] MEDS: PREGABALIN (*CRX) 75 MG CAPSULE 150 MG PO (21:16)
[2025-05-31] MEDS: CHOLECALCIFEROL (VITAMIN D3) 25 MCG (1,000 UNITS) TABLET 50 MCG PO (21:17)
[2025-05-31] MEDS: CYANOCOBALAMIN 1,000 MCG TABLET 1000 MCG PO (21:18)
[2025-05-31] MEDS: CLOPIDOGREL BISULFATE 75 MG TABLET PO (21:18)
[2025-05-31 22:04] LABS: Partial Thromboplastin Time 154.2 Seconds (22.3-36.8)
[2025-05-31] MEDS: HEPARIN SOD/D5W 100 UNITS/ML 25,000 UNITS/250 ML BAG 8 UNITS IV CONT (22:25)
[2025-05-31] MEDS: SODIUM CHLORIDE 0.9% IV 500 ML 999 ML IV CONT (23:05)
[2025-06-01] VITALS (18 sets, daily range): BP systolic 100–110; BP diastolic 48–60; PULSE 67–80; RESP 12–20; TEMP 36.5–36.8; O2SAT 92–100
[2025-06-01 05:43] LABS: Partial Thromboplastin Time 64.5 Seconds (22.3-36.8)
[2025-06-01] MEDS: MORPHINE SULFATE (*CRX) 2 MG/ML INJ IV PUSH ×2 (06:11→10:31)
[2025-06-01 08:32] LABS: Hematocrit 36.5 % (37.0-47.0); Hemoglobin 10.9 g/dL (12.0-15.0); Immature Granulocyte Percent A 0.2 % (0-0.5); Lymphocytes Absolute Auto 3.25 K/mm3 (0.9-3.2); Mean Corpuscular HGB Conc 29.9 g/dl (32-36); Mean Corpuscular Hemoglobin 27.7 pg (26-34); Mean Corpuscular Volume 92.9 fl (80-100); Nucleated Red Blood Cells Absolute Auto 0.000 K/mm3 (0.0-0.012); Nucleated Red Blood Cells Perc 0.0 % (0.0-0.2); Platelet Count Result 196 k/mm3 (150-375); Red Blood Count 3.93 M/mm3 (4.2-5.4); White Blood Count 6.0 K/mm3 (4.5-10.0)
[2025-06-01 08:36] LABS: Alanine Aminotransferase 17 U/L (6-35); Albumin Level 3.2 g/dL (3.5-5.1); Alkaline Phosphatase 73 U/L (38-126); Anion Gap 4 mmol/L (4-12); Aspartate Amino Transferase 37 U/L (14-36); Bilirubin,Total 0.3 mg/dL (0.2-1.3); Blood Urea Nitrogen 13 mg/dL (7-17); Calcium 8.4 mg/dL (8.4-10.2); Carbon Dioxide 28 mmol/L (22-30); Chloride 107 mmol/L (98-107); Estimated CRCL calculation 81 ml/min; Estimated Glomerular Filt Rate > 60; Glucose 82 mg/dL (65-110); Magnesium 2.0 mg/dL (1.6-2.3); Potassium 3.9 mmol/L (3.4-5.0); Sodium 139 mmol/L (137-145); Total Protein 5.6 g/dL (6.3-8.2)
[2025-06-01 08:59] LABS: Hypochromasia 1+; Schistocytes None Seen
[2025-06-01] MEDS: MULTIVITAMINS THERAPEUTIC TAB (*BKC) 2 TABLET PO (09:42)
[2025-06-01] MEDS: ASPIRIN 81 MG ENTERIC TABLET PO (09:42)
[2025-06-01] MEDS: RANOLAZINE 500 MG TAB.ER.12H PO ×2 (09:42→21:06)
[2025-06-01] MEDS: METAXALONE 800 MG TABLET PO (09:42)
--- NOTE | 2025-06-01 10:23 | P.PNCA_ITS ---
Progress Note: A&P Assessment and Plan (1) Chest pain: Code(s): R07.9 - Chest pain, unspecified Status: Acute Assessment and Plan: Ongoing. On heparin drip. Chest pain is better however. Due to ongoing pain, will keep NPO after midnight for planned cardiac catheterization tomorrow (2) Coronary artery disease: Code(s): I25.10 - Atherosclerotic heart disease of [place] coronary artery without angina pectoris Status: Acute Assessment and Plan: Continue aspirin, clopidogrel, Ranexa. No beta-kat secondary to bradycardia. Blood pressure lowered with isosorbide. Will discontinue isosorbide (3) Hypertension associated with type 2 diabetes mellitus: Code(s): E11.59 - Type 2 diabetes mellitus with other circulatory complications; I15.2 - Hypertension secondary to endocrine disorders Status: Acute Assessment and Plan: At goal (4) Mixed diabetic hyperlipidemia associated with type 2 diabetes mellitus: Code(s): E11.69 - Type 2 diabetes mellitus with other specified complication; E78.2 - Mixed hyperlipidemia Status: Acute Assessment and Plan: Uncertain why she is not on a cholesterol medicine. Unless s contraindicated, will add rosuvastatin 20 mg daily Plan Chest pain at rest - there is some atypical component to the chest pain with increase in pain as she takes deep breaths; possible etiologies include CCS class IV angina vs unstable angina CAD status post PCI x 5 in the past Hypertension Hyperlipidemia Type 2 diabetes mellitus Obesity Peripheral neuropathy Given her expensive cardiac history of 5 stents and similarity of symptoms to her symptoms before she had stents, continue heparin, aspirin and clopidogrel, and ranolazine at home dose. No beta-kat given bradycardia Monitor on telemetry Sublingual nitroglycerin 0.4 mg p.r.n. x3 for chest pain EKG p.r.n. for chest pain. It did not tolerate isosorbide and will discontinue. Plan for cardiac catheterization tomorrow Subjective Date/time seen: 06/01/25 10:23 Interval history: 49-year-old with known CAD admitted for chest pain Date of service 05/31/2025: She still has some chest pain although better. No shortness of breath Date of service 06/01/2025: Still with chest pain that is worsened with exertion she states. No shortness of breath. Review of Systems Cardiovascular: Cardiovascular: Reports chest pain Respiratory: Respiratory: Denies hemoptysis Exam Narrative: Appears stated age Const: General: comfortable and no acute distress; No confusion Or ientation/consciousness: No confusion HENMT: Face/Nose/Sinus: Normal nares present Mouth: Yes moist mucous membranes Eyes: General: appearance normal, both eyes and all related structures Sclera: sclerae normal Neck: Neck: supple Carotids: no bruits Resp: Effort & Inspection: normal respiratory effort Auscultation: clear to auscultation bilaterally Cardio: Rate: regular rate Rhythm: regular rhythm GI: Inspection: non-distended Skin: General skin exam: normal color Neuro: General: No confusion Cranial nerves: Yes Normal hearing present Speech: normal speech and No Abnormal speech present Extrem: General: normal to inspection Psych: Mental Status: mental status grossly normal Affect: normal affect Objective Data Vital Signs Vital Signs: Vital Signs - 24 hr 05/31/25 12:00 05/31/25 12:00 05/31/25 14:00 Temperature Pulse Rate 69 78 80 Respiratory Rate 16 Blood Pressure 109/62 Pulse Oximetry 100 05/31/25 16:00 05/31/25 16:10 05/31/25 17:28 Temperature 36.7 C Pulse Rate 72 72 Respiratory Rate 16 Blood Pressure 100/55 L 102/58 L Pulse Oximetry 100 05/31/25 18:00 05/31/25 20:00 05/31/25 20:00 Temperature 36.8 C Pulse Rate 73 76 77 Respiratory Rate 18 Blood Pressure 96/44 L Pulse Oximetry 100 05/31/25 22:00 05/31/25 22:40 05/31/25 22:40 Temperature Pulse Rate 69 Respiratory Rate Blood Pressure 88/50 L 74/31 L Pulse Oximetry 05/31/25 22:40 05/31/25 23:46 06/01/25 00:00 Temperature 36.4 C Pulse Rate 70 67 Respiratory Rate 16 Blood Pressure 81/48 L 85/47 L Pulse Oximetry 97 06/01/25 02:00 06/01/25 04:00 06/01/25 05:36 Temperature 36.6 C 36.6 C Pulse Rate 68 69 69 Respiratory Rate 20 20 Blood Pressure 102/52 L Pulse Oximetry 100 100 06/01/25 06:00 06/01/25 08:00 Temperature 36.8 C Pulse Rate 69 73 Respiratory Rate 14 Blood Pressure 100/48 L Pulse Oximetry 98 Intake/Output Intake/Output: Intake & Output 05/29/25 05/30/25 05/31/25 06/01/25 23:59 23:59 23:59 23:59 Intake Total 1034.1 2044.8 589.4 Output Total 1200 1300 650 Balance -165.9 744.8 -60.6 Meds/Results Medications: Active Medications Generic Name Dose Route Start Last Admin Trade Name Freq PRN Reason Stop Dose Admin Acetaminophen 650 mg 05/29/25 22:59 05/31/25 03:54 Acetaminophen 325 Mg Tablet PO 650 mg Q6H PRN Administration Mild Pain (1-3) or Fever Albuterol 2.5 mg 05/29/25 23:31 Albuterol Sulfate Neb 2.5 Mg/3 Ml Inh INHALATION Q6H PRN shortness of breath or wheezing Aspirin 81 mg 06/01/25 09:00 06/01/25 09:42 Aspirin 81 Mg Enteric Tablet PO 81 mg QAM ANGEL Administration Clopidogrel Bisulfate 75 mg 05/30/25 21:00 05/31/25 21:18 Clopidogrel Bisulfate 75 Mg Tablet PO 75 mg HS ANGEL Administration Cyanocobalamin 1,000 mcg 05/30/25 21:00 05/31/25 21:18 Cyanocobalamin 1,000 Mcg Tablet PO 1,000 mcg HS ANGEL Administration Dextrose 12.5 gm 05/29/25 22:59 Dextrose 50% 25 Gm/50 Ml Syringe IV PUSH PRN PRN Hypoglycemia Protocol Diphenhydramine HCl 50 mg 05/31/25 18:40 05/31/25 18:54 Diphenhydramine Hcl Cap 25 Mg Capsule PO 50 mg Q6H PRN Administration Itching Duloxetine HCl 30 mg 05/30/25 09:00 06/01/25 09:42 Duloxetine Hcl 30 Mg Capsule.Dr PO 30 mg BID ANGEL Administration Fluticasone Propionate 2 spray 05/29/25 23:01 Fluticasone Propionate 0.05% Na Spr 16 Gm Btl (*Bkc) NASAL DAILY PRN allergy symptoms Folic Acid 1 mg 05/30/25 21:00 05/31/25 22:59 Folic Acid 1 Mg Tablet PO Not Given HS ANGEL Furosemide 20 mg 05/30/25 09:00 05/31/25 09:01 Furosemide 20 Mg Tablet PO 20 mg DAILY ANGEL Administration Glimepiride 1 mg 05/30/25 09:00 Glimepiride 1 Mg Tablet PO DAILY ANGEL Glucagon 1 mg 05/29/25 22:59 Glucagon For Inj 1 Mg Vial IM PRN PRN Hypoglycemia Protocol Glucose 15 gm 05/29/25 22:59 Glucose Oral Gel 15 Gm Of Glucse In 37.5 Gm Tube PO PRN PRN Hypoglycemia Protocol Heparin Sodium (Porcine) 4,000 units 05/30/25 12:42 Heparin Sodium 5,000 Units/Ml Vial IV PUSH PRN PRN aPTT less than 55 seconds Heparin Sodium (Porcine) 2,500 units 05/30/25 12:42 06/01/25 06:10 Heparin Sodium 5,000 Units/Ml Vial IV PUSH 2,500 units PRN PRN Administration aPTT 55 - 70 seconds Dextrose 1,000 mls @ 100 mls/hr 05/29/25 22:59 Dextrose 5% 1,000 Ml IVPB PRN PRN Hypoglycemia Protocol Heparin Sodium/Dextrose 25,000 units in 250 mls @ 7 mls/hr 05/30/25 12:45 06/01/25 06:15 Heparin Sodium/D5w 100 Units/Ml IV CONT 700 units/hr .Q24H ANGEL 7 mls/hr Titration Protocol 700 UNITS/HR Insulin Aspart 3 - 6 units 05/30/25 08:00 06/01/25 08:20 Insulin Aspart (*Bkc) 100 Units/Ml SUB-Q Not Given TIDWM [facility] Protocol Insulin Aspart 1 - 3 units 05/30/25 21:00 05/31/25 23:00 Insulin Aspart (*Bkc) 100 Units/Ml SUB-Q Not Given HS [facility] Protocol Insulin Glargine 45 units 05/30/25 21:00 05/31/25 23:00 Insulin Glargine (*Bkc) 100 Units/Ml SUB-Q Not Given HS [facility] Isosorbide Mononitrate 30 mg 05/31/25 12:35 05/31/25 13:50 Isosorbide Mononitrate 30 Mg Tab.Er.24h PO 30 mg QAM ANGEL Administration Metaxalone 800 mg 05/30/25 09:00 06/01/25 09:42 Metaxalone 800 Mg Tablet PO 800 mg DAILY ANGEL Administration Morphine Sulfate 2 mg 05/30/25 00:50 06/01/25 06:11 Morphine Sulfate (*Crx) 2 Mg/Ml Inj IV PUSH 2 mg Q4H PRN Administration Chest Pain Multivitamins Therapeutic 2 tablet 05/30/25 09:00 06/01/25 09:42 Multivitamins Therapeutic Tab (*Bkc) PO 2 tablet DAILY ANGEL Administration Nitroglycerin 0.4 mg 05/29/25 22:59 Nitroglycerin Sl 0.4 Mg Tablet SUBLINGUAL Q5MIN PRN Chest Pain Ondansetron HCl 4 mg 05/30/25 05:21 05/30/25 05:35 Ondansetron Inj 4 Mg/2 Ml Vial IV PUSH 4 mg Q6H PRN Administration Nausea And Vomiting Oxycodone/Acetaminophen 1 tab 05/29/25 23:01 05/31/25 18:54 Oxycodone/Acetaminophen (*Crx) 10-325 Mg Tablet PO 1 tab BID PRN Administration pain 7-10 Perflutren Lipid Microsphere 0 ml 05/30/25 12:41 Perflutren Lipid Microspheres 1.5 Ml Vial Diluted To 10 Ml Total Volume IV PUSH 06/02/25 12:41 ONCE PRN adequate visualization Protocol Pregabalin 150 mg 05/30/25 21:00 05/31/25 21:16 Pregabalin (*Crx) 75 Mg Capsule PO 150 mg HS ANGEL Administration Ranolazine 500 mg 05/30/25 13:35 06/01/25 09:42 Ranolazine 500 Mg Tab.Er.12h PO 500 mg Q12HR ANGEL Administration Rosuvastatin Calcium 20 mg 06/01/25 09:00 06/01/25 09:46 Rosuvastatin 20 Mg Tablet [facility] T[facility] HCl 50 mg 05/30/25 21:00 05/31/25 21:16 Trazodone Hcl 50 Mg Tablet PO 50 mg HS ANGEL Administration Vitamin D 50 mcg 05/30/25 21:00 05/31/25 21:17 Cholecalciferol (Vitamin D3) 25 Mcg (1,000 Units) Tablet PO 50 mcg HS ANGEL Administration Radiology Results: ITS Impressions Head CT 05/29/25 11:31 Impression: No significant abnormality seen. Chest X-Ray 05/29/25 11:53 IMPRESSION: No acute process. Chest CTA 05/29/25 19:41 IMPRESSION: 1. No pulmonary embolism. 2. No acute cardiopulmonary pathology. Labs Labs: Laboratory Results - last 24 hr 05/31/25 05/31/25 05/31/25 09:46 11:31 15:28 WBC RBC Hgb Hct MCV MCH MCHC RDW Plt Count MPV Immature Gran % (Auto) Neut % (Auto) Lymph % (Auto) [place] % (Auto) Eos % (Auto) Baso % (Auto) Lymph # (Auto) [place] # (Auto) Eos # (Auto) Baso # (Auto) Abs Immat Gran (auto) Absolute Neuts (auto) Absolute Nucleated RBC Band Neutrophils % Nucleated RBC % Platelet Estimate Hypochromasia Schistocytes APTT 58.3 H Sodium Potassium Chloride Carbon Dioxide Anion Gap BUN Creatinine Estim Creat Clear Calc Estimated GFR Glucose POC Capillary Glucose 70 Lactic Acid 1.1 Calcium Magnesium Total Bilirubin AST ALT Alkaline Phosphatase Troponin I < 0.012 Total Protein Albumin 05/31/25 05/31/25 05/31/25 16:02 20:27 21:25 WBC RBC Hgb Hct MCV MCH MCHC RDW Plt Count MPV Immature Gran % (Auto) Neut % (Auto) Lymph % (Auto) [place] % (Auto) Eos % (Auto) Baso % (Auto) Lymph # (Auto) [place] # (Auto) Eos # (Auto) Baso # (Auto) Abs Immat Gran (auto) Absolute Neuts (auto) Absolute Nucleated RBC Band Neutrophils % Nucleated RBC % Platelet Estimate Hypochromasia Schistocytes APTT 154.2 H Sodium Potassium Chloride Carbon Dioxide Anion Gap BUN Creatinine Estim Creat Clear Calc Estimated GFR Glucose POC Capillary Glucose 76 220 H Lactic Acid Calcium Magnesium Total Bilirubin AST ALT Alkaline Phosphatase Troponin I Total Protein Albumin 06/01/25 06/01/25 05:21 07:20 WBC 6.0 RBC 3.93 L Hgb 10.9 L Hct 36.5 L MCV 92.9 MCH 27.7 MCHC 29.9 L RDW 13.9 Plt Count 196 MPV 10.8 H Immature Gran % (Auto) 0.2 Neut % (Auto) 36.9 L Lymph % (Auto) 54.3 H [place] % (Auto) 6.5 Eos % (Auto) 1.8 Baso % (Auto) 0.3 Lymph # (Auto) 3.25 H [place] # (Auto) 0.4 Eos # (Auto) 0.1 Baso # (Auto) 0.0 Abs Immat Gran (auto) 0.01 Absolute Neuts (auto) 2.2 Absolute Nucleated RBC 0.000 Band Neutrophils % Not Reportable Nucleated RBC % 0.0 Platelet Estimate Adequate Hypochromasia 1+ Schistocytes None seen APTT 64.5 H Sodium 139 Potassium 3.9 Chloride 107 Carbon Dioxide 28 Anion Gap 4 BUN 13 Creatinine 0.73 Estim Creat Clear Calc 81 Estimated GFR > 60 Glucose 82 POC Capillary Glucose 105 Lactic Acid Calcium 8.4 Magnesium 2.0 Total Bilirubin 0.3 AST 37 H ALT 17 Alkaline Phosphatase 73 Troponin I Total Protein 5.6 L Albumin 3.2 L
--- NOTE | 2025-06-01 11:25 | ECG_ITS ---
Test Date: 2025-06-01 11:56:18 Measurements Intervals [place] Rate: 69 P: 53 NC: 174 QRS: -26 QRSD: 84 T: 29 QT: 374 QTc: 402 Interpretive Statements SINUS RHYTHM BORDERLINE LEFT AXIS DEVIATION [QRS AXIS < -20] Nonspecific ST abnormality Abnormal ECG Compared to ECG 05/30/2025 20:39:10 No significant changes Electronically Signed On 06-01-2025 12:02:30 CDT by Perico Amaya M.D.
[2025-06-01 12:49] LABS: Partial Thromboplastin Time 88.7 Seconds (22.3-36.8)
--- NOTE | 2025-06-01 13:11 | ECG_ITS ---
Test Date: 2025-06-01 13:36:14 Measurements Intervals [place] Rate: 78 P: 50 [place]: 164 QRS: -29 QRSD: 99 T: 30 QT: 384 QTc: 439 Interpretive Statements SINUS RHYTHM BORDERLINE LEFT AXIS DEVIATION [QRS AXIS < -20] Compared to ECG 06/01/2025 11:56:18 NO SIGNIFICANT CHANGES Electronically Signed On 06-02-2025 15:48:16 CDT by Anupam Briones M.D.
[2025-06-01] MEDS: ONDANSETRON INJ 4 MG/2 ML VIAL IV PUSH (13:15)
[2025-06-01] MEDS: oxyCODONE/ACETAMINOPHEN (*CRX) 10-325 MG TABLET 1 TAB PO ×2 (13:21→21:22)
[2025-06-01] MEDS: HEPARIN SOD/D5W 100 UNITS/ML 25,000 UNITS/250 ML BAG 7 UNITS IV CONT (13:22)
[2025-06-01 14:16] LABS: Troponin I < 0.012 ng/mL (0.000-0.034)
--- NOTE | 2025-06-01 14:44 | P.PNIM_ITS ---
Progress Note: A&P Assessment and Plan (1) Chest pain: Code(s): R07.9 - Chest pain, unspecified Status: Acute (2) Coronary artery disease: Code(s): I25.10 - Atherosclerotic heart disease of [place] coronary artery without angina pectoris Status: Acute (3) Insulin dependent type 2 diabetes mellitus: Code(s): E11.9 - Type 2 diabetes mellitus without complications; Z79.4 - superintendent terminal (current) use of insulin Status: Acute (4) Hypertension: Code(s): I10 - Essential (primary) hypertension Status: Acute Plan Chest pain at rest Troponin negative ECHO normal biventricular function Contineu Aspirin, Plavix , Ranolazine, No BB due to Bradycardia Heparin infusion Cardiology following Cardiac cath tomorrow CAD s/p 5 stents continue above care HTN continue home meds DM2 SSI with accucheks, adjust with clinical course DVT prophylaxis on Heparin infusion Subjective Date/time seen: 06/01/25 14:44 Interval history: Comfortable at bedside Review of Systems Review of Systems: 12 systems were reviewed and are negativ e except for as per HPI. Exam Narrative: General: Nontoxic-appearing female in the semi-Angulo position in bed in no distress. Weight: 71.9 kg. BMI: 26.4. HEENT: PERRL, EOMI. Sclera anicteric. Oral mucosa moist. Neck: Supple. Respiratory: Lungs are clear to auscultation bilaterally. Chest: No tenderness to palpation over the chest wall. Cardiovascular: Regular rate and rhythm with S1-S2. Gastrointestinal: Abdomen is soft, nontender, and nondistended with positive bowel sounds. Skin: Warm and dry. No rash or lesions on limited exam. Extremities: No cyanosis, clubbing, or edema. Radial and pedal pulses intact. Negative Connor sign bilaterally. Neurological: Alert. Cranial nerves 2-12 are grossly intact. No gross focal deficits to casual conversation. Psychiatric: Pleasant and cooperative with normal mood and affect. Judgment and insight intact. Objective Data Vital Signs Vital Signs: Vital Signs - 24 hr 05/31/25 16:00 05/31/25 16:10 05/31/25 17:28 Temperature 98.1 F Pulse Rate 72 72 Respiratory Rate 16 Blood Pressure 100/55 L 102/58 L Pulse Oximetry 100 05/31/25 18:00 05/31/25 20:00 05/31/25 20:00 Temperature 98.2 F Pulse Rate 73 76 77 Respiratory Rate 18 Blood Pressure 96/44 L Pulse Oximetry 100 05/31/25 22:00 05/31/25 22:40 05/31/25 22:40 Temperature Pulse Rate 69 Respiratory Rate Blood Pressure 88/50 L 74/31 L Pulse Oximetry 05/31/25 22:40 05/31/25 23:46 06/01/25 00:00 Temperature 97.6 F Pulse Rate 70 67 Respiratory Rate 16 Blood Pressure 81/48 L 85/47 L Pulse Oximetry 97 06/01/25 02:00 06/01/25 04:00 06/01/25 05:36 Temperature 97.9 F 97.9 F Pulse Rate 68 69 69 Respiratory Rate 20 20 Blood Pressure 102/52 L Pulse Oximetry 100 100 06/01/25 06:00 06/01/25 08:00 06/01/25 08:00 Temperature 98.3 F Pulse Rate 69 73 77 Respiratory Rate 14 Blood Pressure 100/48 L Pulse Oximetry 98 06/01/25 09:30 06/01/25 10:00 06/01/25 11:38 Temperature 98.2 F Pulse Rate 71 67 Respiratory Rate 12 Blood Pressure 105/55 L 102/53 L Pulse Oximetry 100 06/01/25 12:00 Temperature Pulse Rate 72 Respiratory Rate Blood Pressure Pulse Oximetry Intake/Output Intake/Output: Intake & Output 05/29/25 05/30/25 05/31/25 06/01/25 23:59 23:59 23:59 23:59 Intake Total 1034.1 2044.8 639.2 Output Total 1200 1300 650 Balance -165.9 744.8 -10.8 Meds/Results Medications: Active Medications Generic Name Dose Route Start Last Admin Trade Name Freq PRN Reason Stop Dose Admin Acetaminophen 650 mg 05/29/25 22:59 05/31/25 03:54 Acetaminophen 325 Mg Tablet PO 650 mg Q6H PRN Administration Mild Pain (1-3) or Fever Albuterol 2.5 mg 05/29/25 23:31 Albuterol Sulfate Neb 2.5 Mg/3 Ml Inh INHALATION Q6H PRN shortness of breath or wheezing Aspirin 81 mg 06/01/25 09:00 06/01/25 09:42 Aspirin 81 Mg Enteric Tablet PO 81 mg QAM ANGEL Administration Clopidogrel Bisulfate 75 mg 05/30/25 21:00 05/31/25 21:18 Clopidogrel Bisulfate 75 Mg Tablet PO 75 mg HS ANGEL Administration Cyanocobalamin 1,000 mcg 05/30/25 21:00 05/31/25 21:18 Cyanocobalamin 1,000 Mcg Tablet PO 1,000 mcg HS ANGEL Administration Dextrose 12.5 gm 05/29/25 22:59 Dextrose 50% 25 Gm/50 Ml Syringe IV PUSH PRN PRN Hypoglycemia Protocol Diphenhydramine HCl 50 mg 05/31/25 18:40 05/31/25 18:54 Diphenhydramine Hcl Cap 25 Mg Capsule PO 50 mg Q6H PRN Administration Itching Duloxetine HCl 30 mg 05/30/25 09:00 06/01/25 09:42 Duloxetine Hcl 30 Mg Capsule.Dr PO 30 mg BID ANGEL Administration Fluticasone Propionate 2 spray 05/29/25 23:01 Fluticasone Propionate 0.05% Na Spr 16 Gm Btl (*Bkc) NASAL DAILY PRN allergy symptoms Folic Acid 1 mg 05/30/25 21:00 05/31/25 22:59 Folic Acid 1 Mg Tablet PO Not Given HS ANGEL Furosemide 20 mg 05/30/25 09:00 05/31/25 09:01 Furosemide 20 Mg Tablet PO 20 mg DAILY ANGEL Administration Glimepiride 1 mg 05/30/25 09:00 Glimepiride 1 Mg Tablet PO DAILY ANGEL Glucagon 1 mg 05/29/25 22:59 Glucagon For Inj 1 Mg Vial IM PRN PRN Hypoglycemia Protocol Glucose 15 gm 05/29/25 22:59 Glucose Oral Gel 15 Gm Of Glucse In 37.5 Gm Tube PO PRN PRN Hypoglycemia Protocol Heparin Sodium (Porcine) 4,000 units 05/30/25 12:42 Heparin Sodium 5,000 Units/Ml Vial IV PUSH PRN PRN aPTT less than 55 seconds Heparin Sodium (Porcine) 2,500 units 05/30/25 12:42 06/01/25 06:10 Heparin Sodium 5,000 Units/Ml Vial IV PUSH 2,500 units PRN PRN Administration aPTT 55 - 70 seconds Dextrose 1,000 mls @ 100 mls/hr 05/29/25 22:59 Dextrose 5% 1,000 Ml IVPB PRN PRN Hypoglycemia Protocol Heparin Sodium/Dextrose 25,000 units in 250 mls @ 7 mls/hr 05/30/25 12:45 06/01/25 13:22 Heparin Sodium/D5w 100 Units/Ml IV CONT 700 units/hr .Q24H ANGEL 7 mls/hr Administration Protocol 700 UNITS/HR Insulin Aspart 3 - 6 units 05/30/25 08:00 06/01/25 11:42 Insulin Aspart (*Bkc) 100 Units/Ml SUB-Q Not Given TIDWM [facility] Protocol Insulin Aspart 1 - 3 units 05/30/25 21:00 05/31/25 23:00 Insulin Aspart (*Bkc) 100 Units/Ml SUB-Q Not Given HS [facility] Protocol Insulin Glargine 45 units 05/30/25 21:00 05/31/25 23:00 Insulin Glargine (*Bkc) 100 Units/Ml SUB-Q Not Given HS [facility] Metaxalone 800 mg 05/30/25 09:00 06/01/25 09:42 Metaxalone 800 Mg Tablet PO 800 mg DAILY [facility] Administration Morphine Sulfate 2 mg 05/30/25 00:50 06/01/25 10:31 Morphine Sulfate (*Crx) 2 Mg/Ml Inj IV PUSH 2 mg Q4H PRN Administration Chest Pain Multivitamins Therapeutic 2 tablet 05/30/25 09:00 06/01/25 09:42 Multivitamins Therapeutic Tab (*Bkc) PO 2 tablet DAILY [facility] Administration Nitroglycerin 0.4 mg 05/29/25 22:59 Nitroglycerin Sl 0.4 Mg Tablet SUBLINGUAL Q5MIN PRN Chest Pain Ondansetron HCl 4 mg 05/30/25 05:21 06/01/25 13:15 Ondansetron Inj 4 Mg/2 Ml Vial IV PUSH 4 mg Q6H PRN Administration Nausea And Vomiting Oxycodone/Acetaminophen 1 tab 05/29/25 23:01 06/01/25 13:21 Oxycodone/Acetaminophen (*Crx) 10-325 Mg Tablet PO 1 tab BID PRN Administration pain 7-10 Perflutren Lipid Microsphere 0 ml 05/30/25 12:41 Perflutren Lipid Microspheres 1.5 Ml Vial Diluted To 10 Ml Total Volume IV PUSH 06/02/25 12:41 ONCE PRN adequate visualization Protocol Pregabalin 150 mg 05/30/25 21:00 05/31/25 21:16 Pregabalin (*Crx) 75 Mg Capsule PO 150 mg HS ANGEL Administration Ranolazine 500 mg 05/30/25 13:35 06/01/25 09:42 Ranolazine 500 Mg Tab.Er.12h PO 500 mg Q12HR ANGEL Administration Rosuvastatin Calcium 20 mg 06/01/25 09:00 06/01/25 09:46 Rosuvastatin 20 Mg Tablet PO Not Given QAM ANGEL Trazodone HCl 50 mg 05/30/25 21:00 05/31/25 21:16 Trazodone Hcl 50 Mg Tablet PO 50 mg HS ANGEL Administration Vitamin D 50 mcg 05/30/25 21:00 05/31/25 21:17 Cholecalciferol (Vitamin D3) 25 Mcg (1,000 Units) Tablet PO 50 mcg HS ANGEL Administration Radiology Results: ITS Impressions Head CT 05/29/25 11:31 Impression: No significant abnormality seen. Chest X-Ray 05/29/25 11:53 IMPRESSION: No acute process. Chest CTA 05/29/25 19:41 IMPRESSION: 1. No pulmonary embolism. 2. No acute cardiopulmonary pathology. Labs Labs: Laboratory Results - last 24 hr 05/31/25 05/31/25 05/31/25 15:28 16:02 20:27 WBC RBC Hgb Hct MCV MCH MCHC RDW Plt Count MPV Immature Gran % (Auto) Neut % (Auto) Lymph % (Auto) [place] % (Auto) Eos % (Auto) Baso % (Auto) Lymph # (Auto) [place] # (Auto) Eos # (Auto) Baso # (Auto) Abs Immat Gran (auto) Absolute Neuts (auto) Absolute Nucleated RBC Band Neutrophils % Nucleated RBC % Platelet Estimate Hypochromasia Schistocytes APTT 58.3 H Sodium Potassium Chloride Carbon Dioxide Anion Gap BUN Creatinine Estim Creat Clear Calc Estimated GFR Glucose POC Capillary Glucose 76 220 H Calcium Magnesium Total Bilirubin AST ALT Alkaline Phosphatase Troponin I < 0.012 Total Protein Albumin 05/31/25 06/01/25 06/01/25 21:25 05:21 07:20 WBC 6.0 RBC 3.93 L Hgb 10.9 L Hct 36.5 L MCV 92.9 MCH 27.7 MCHC 29.9 L RDW 13.9 Plt Count 196 MPV 10.8 H Immature Gran % (Auto) 0.2 Neut % (Auto) 36.9 L Lymph % (Auto) 54.3 H [place] % (Auto) 6.5 Eos % (Auto) 1.8 Baso % (Auto) 0.3 Lymph # (Auto) 3.25 H [place] # (Auto) 0.4 Eos # (Auto) 0.1 Baso # (Auto) 0.0 Abs Immat Gran (auto) 0.01 Absolute Neuts (auto) 2.2 Absolute Nucleated RBC 0.000 Band Neutrophils % Not Reportable Nucleated RBC % 0.0 Platelet Estimate Adequate Hypochromasia 1+ Schistocytes None seen APTT 154.2 H 64.5 H Sodium 139 Potassium 3.9 Chloride 107 Carbon Dioxide 28 Anion Gap 4 BUN 13 Creatinine 0.73 Estim Creat Clear Calc 81 Estimated GFR > 60 Glucose 82 POC Capillary Glucose 105 Calcium 8.4 Magnesium 2.0 Total Bilirubin 0.3 AST 37 H ALT 17 Alkaline Phosphatase 73 Troponin I Total Protein 5.6 L Albumin 3.2 L 06/01/25 06/01/25 06/01/25 11:20 12:13 12:40 WBC RBC Hgb Hct MCV MCH MCHC RDW Plt Count MPV Immature Gran % (Auto) Neut % (Auto) Lymph % (Auto) [place] % (Auto) Eos % (Auto) Baso % (Auto) Lymph # (Auto) [place] # (Auto) Eos # (Auto) Baso # (Auto) Abs Immat Gran (auto) Absolute Neuts (auto) Absolute Nucleated RBC Band Neutrophils % Nucleated RBC % Platelet Estimate Hypochromasia Schistocytes APTT 88.7 H Sodium Potassium Chloride Carbon Dioxide Anion Gap BUN Creatinine Estim Creat Clear Calc Estimated GFR Glucose POC Capillary Glucose 65 85 Calcium Magnesium Total Bilirubin AST ALT Alkaline Phosphatase Troponin I Total Protein Albumin 06/01/25 13:27 WBC RBC Hgb Hct MCV MCH MCHC RDW Plt Count MPV Immature Gran % (Auto) Neut % (Auto) Lymph % (Auto) [place] % (Auto) Eos % (Auto) Baso % (Auto) Lymph # (Auto) [place] # (Auto) Eos # (Auto) Baso # (Auto) Abs Immat Gran (auto) Absolute Neuts (auto) Absolute Nucleated RBC Band Neutrophils % Nucleated RBC % Platelet Estimate Hypochromasia Schistocytes APTT Sodium Potassium Chloride Carbon Dioxide Anion Gap BUN Creatinine Estim Creat Clear Calc Estimated GFR Glucose POC Capillary Glucose Calcium Magnesium Total Bilirubin AST ALT Alkaline Phosphatase Troponin I < 0.012 Total Protein Albumin Quality VTE Prophylaxis VTE prophylaxis: pharmacologic ordered
[2025-06-01 19:23] LABS: Partial Thromboplastin Time 66.2 Seconds (22.3-36.8)
[2025-06-01] MEDS: CHOLECALCIFEROL (VITAMIN D3) 25 MCG (1,000 UNITS) TABLET 50 MCG PO (21:05)
[2025-06-01] MEDS: CLOPIDOGREL BISULFATE 75 MG TABLET PO (21:05)
[2025-06-01] MEDS: CYANOCOBALAMIN 1,000 MCG TABLET 1000 MCG PO (21:06)
[2025-06-01] MEDS: PREGABALIN (*CRX) 75 MG CAPSULE 150 MG PO (21:06)
[2025-06-02] VITALS (33 sets, daily range): BP systolic 92–124; BP diastolic 51–86; PULSE 63–77; RESP 10–18; TEMP 36.6–36.8; O2SAT 98–100
[2025-06-02 02:26] LABS: Partial Thromboplastin Time 111.8 Seconds (22.3-36.8)
[2025-06-02 04:29] LABS: Vitamin B12 > 1000.0 pg/mL (239-931)
[2025-06-02 09:46] LABS: Partial Thromboplastin Time 82.6 Seconds (22.3-36.8)
[2025-06-02] MEDS: RANOLAZINE 500 MG TAB.ER.12H PO ×2 (10:08→20:46)
[2025-06-02] MEDS: SODIUM CHLORIDE 0.9% IV 1,000 ML 75 ML IV CONT (10:09)
[2025-06-02] MEDS: oxyCODONE/ACETAMINOPHEN (*CRX) 10-325 MG TABLET 1 TAB PO ×2 (10:13→18:05)
[2025-06-02] MEDS: ASPIRIN 81 MG ENTERIC TABLET PO (10:13)
[2025-06-02] MEDS: MULTIVITAMINS THERAPEUTIC TAB (*BKC) 2 TABLET PO (10:16)
--- NOTE | 2025-06-02 11:56 | WPDHPUPDATE1 ---
History and Physical Update Update Date/Time: 06/02/25 10:16 History and Physical has been reviewed, including an updated exam of the patient. There are NO changes in the patient's condition. Risks, benefits, and alternatives have been discussed and questions answered. Patient agrees to proceed with procedure.
--- NOTE | 2025-06-02 11:56 | WPDMODSED ---
Moderate Sedation Note-Pt Data Patient Data Allergies Allergy/AdvReac Type Severity Reaction Status Date / Time adhesive tape Allergy Unknown Verified 05/29/25 10:57 cyclobenzaprine (From Allergy Unknown Verified 05/29/25 10:57 Flexeril) semaglutide (From Ozempic) Allergy Itching Verified 05/29/25 10:57 Home Medications ?Medication ?Instructions ?Recorded ?Confirmed ?Type clopidogrel 75 mg tablet 75 mg PO HS 10/31/19 05/29/25 History insulin degludec 100 unit/mL (3 45 unit subcut HS 04/09/21 05/29/25 History mL) subcutaneous pen (Tresiba FlexTouch U-100 insulin) ranolazine 500 mg tablet,extended 1,000 mg PO BID 04/09/21 05/29/25 History release,12 hr blood-glucose sensor (Dexcom G6 07/01/21 05/29/25 History Sensor device) insulin aspart See Rx Instructions .Route .COMPLEX 04/08/22 05/29/25 History (niacinamide)(U-100) 100 unit/mL(3 mL) subcutaneous pen (Fiasp FlexTouch U-100 Insulin) cholecalciferol (vitamin D3) 50 50 mcg PO HS 06/01/22 05/29/25 History mcg (2,000 unit) capsule (Vitamin D3) folic acid 1 mg tablet 1 mg PO HS 06/01/22 05/29/25 History mecobalamin (vitamin B12) 1,000 1,000 mcg PO HS 06/01/22 05/29/25 History mcg chewable tablet trazodone 50 mg tablet 50 mg PO HS 06/01/22 05/29/25 History furosemide 20 mg tablet 20 mg PO DAILY 02/16/23 05/29/25 History nitroglycerin 0.4 mg sublingual 0.4 mg sublingual DAILY 02/16/23 05/29/25 History tablet tirzepatide 12.5 mg/0.5 mL 12.5 mg subcut WEEKLY 02/16/23 05/29/25 History subcutaneous pen injector (Kanwal) guaifenesin 100 mg/5 mL oral liquid 200 mg (10 mL) PO Q4H PRN 09/06/24 05/29/25 Rx congestion #473 mL albuterol sulfate 0.63 mg/3 mL 0.63 mg inhalation Q6H PRN 05/29/25 05/29/25 History solution for nebulization shortness of breath or wheezing duloxetine 30 mg capsule,delayed 30 mg PO BID 05/29/25 05/29/25 History release fluoride (sodium) 1.1 % dental 1 applic dental Q24H 05/29/25 05/29/25 History cream (Denta 5000 Plus) fluticasone propionate 50 2 spray intranasal DAILY PRN 05/29/25 05/29/25 History mcg/actuation nasal allergy symptoms spray,suspension (Flonase Allergy Relief) glimepiride 1 mg tablet 1 mg PO DAILY 05/29/25 05/29/25 History metaxalone 800 mg tablet 800 mg PO DAILY 05/29/25 05/29/25 History multivitamin 2 tablet PO DAILY 05/29/25 05/29/25 History oxycodone-acetaminophen 10 mg-325 1 tablet PO BID PRN pain 05/29/25 05/29/25 History mg tablet pregabalin 150 mg capsule 150 mg PO HS 05/29/25 05/29/25 History Current Medications: Active Medications Acetaminophen (Acetaminophen 325 Mg Tablet) 650 mg PO Q6H PRN PRN Reason: Mild Pain (1-3) or Fever Last Admin: 05/31/25 03:54 Dose: 650 mg Albuterol (Albuterol Sulfate Neb 2.5 Mg/3 Ml Inh) 2.5 mg INHALATION Q6H PRN PRN Reason: shortness of breath or wheezing Aspirin (Aspirin 81 Mg Enteric Tablet) 81 mg PO [facility] Last Admin: 06/02/25 10:13 Dose: 81 mg Clopidogrel Bisulfate (Clopidogrel Bisulfate 75 Mg Tablet) 75 mg PO [facility] Last Admin: 06/01/25 21:05 Dose: 75 mg Cyanocobalamin (Cyanocobalamin 1,000 Mcg Tablet) 1,000 mcg PO [facility] Last Admin: 06/01/25 21:06 Dose: 1,000 mcg Dextrose (Dextrose 50% 25 Gm/50 Ml Syringe) 12.5 gm IV PUSH PRN PRN; Protocol PRN Reason: Hypoglycemia Diphenhydramine HCl (Diphenhydramine Hcl Cap 25 Mg Capsule) 50 mg PO Q6H PRN PRN Reason: Itching Last Admin: 05/31/25 18:54 Dose: 50 mg Duloxetine HCl (Duloxetine Hcl 30 Mg Capsule.Dr) 30 mg PO BID [facility] Last Admin: 06/02/25 10:08 Dose: 30 mg Fluticasone Propionate (Fluticasone Propionate 0.05% Na Spr 16 Gm Btl (*Bkc)) 2 spray NASAL DAILY PRN PRN Reason: allergy symptoms Folic Acid (Folic Acid 1 Mg Tablet) 1 mg PO HS ANGEL Last Admin: 06/01/25 21:07 Dose: Not Given Furosemide (Furosemide 20 Mg Tablet) 20 mg PO DAILY AN[facility] Last Admin: 05/31/25 09:01 Dose: 20 mg Glimepiride (Glimepiride 1 Mg Tablet) 1 mg PO DAILY ANGEL Glucagon (Glucagon For Inj 1 Mg Vial) 1 mg IM PRN PRN; Protocol PRN Reason: Hypoglycemia Glucose (Glucose Oral Gel 15 Gm Of Glucse In 37.5 Gm Tube) 15 gm PO PRN PRN; Protocol PRN Reason: Hypoglycemia Heparin Sodium (Porcine) (Heparin Sodium 5,000 Units/Ml Vial) 4,000 units IV PUSH PRN PRN PRN Reason: aPTT less than 55 seconds Heparin Sodium (Porcine) (Heparin Sodium 5,000 Units/Ml Vial) 2,500 units IV PUSH PRN PRN PRN Reason: aPTT 55 - 70 seconds Last Admin: 06/01/25 19:32 Dose: 2,500 units Dextrose (Dextrose 5% 1,000 Ml) 1,000 mls @ 100 mls/hr IVPB PRN PRN; Protocol PRN Reason: Hypoglycemia Heparin Sodium/Dextrose (Heparin Sodium/D5w 100 Units/Ml) 25,000 units in 250 mls @ 7 mls/hr IV CONT .Q24H ANGEL; Protocol Last Titration: 06/02/25 02:39 Dose: 700 units/hr, 7 mls/hr Sodium Chloride (Normal Saline Iv) 1,000 mls @ 75 mls/hr IV CONT .[id number] ONE Stop: 06/02/25 22:54 Last Admin: 06/02/25 10:09 Dose: 75 mls/hr Insulin Aspart (Insulin Aspart (*Bkc) 100 Units/Ml) 3 - 6 units SUB-Q TIDWM ANGEL; Protocol Last Admin: 06/02/25 09:57 Dose: Not Given Insulin Aspart (Insulin Aspart (*Bkc) 100 Units/Ml) 1 - 3 units SUB-Q HS ANGEL; Protocol Last Admin: 06/01/25 21:06 Dose: Not Given Insulin Glargine (Insulin Glargine (*Bkc) 100 Units/Ml) 45 units SUB-Q HS [facility] Last Admin: 06/01/25 21:14 Dose: Not Given Metaxalone (Metaxalone 800 Mg Tablet) 800 mg PO DAILY [facility] Last Admin: 06/01/25 09:42 Dose: 800 mg Morphine Sulfate (Morphine Sulfate (*Crx) 2 Mg/Ml Inj) 2 mg IV PUSH Q4H PRN PRN Reason: Chest Pain Last Admin: 06/01/25 10:31 Dose: 2 mg Multivitamins Therapeutic (Multivitamins Therapeutic Tab (*Bkc)) 2 tablet PO DAILY [facility] Last Admin: 06/02/25 10:16 Dose: 2 tablet Nitroglycerin (Nitroglycerin Sl 0.4 Mg Tablet) 0.4 mg SUBLINGUAL Q5MIN PRN PRN Reason: Chest Pain Ondansetron HCl (Ondansetron Inj 4 Mg/2 Ml Vial) 4 mg IV PUSH Q6H PRN PRN Reason: Nausea And Vomiting Last Admin: 06/01/25 13:15 Dose: 4 mg Oxycodone/Acetaminophen (Oxycodone/Acetaminophen (*Crx) 10-325 Mg Tablet) 1 tab PO BID PRN PRN Reason: pain 7-10 Last Admin: 06/02/25 10:13 Dose: 1 tab Perflutren Lipid Microsphere (Perflutren Lipid Microspheres 1.5 Ml Vial Diluted To 10 Ml Total Volume) 0 ml IV PUSH ONCE PRN; Protocol PRN Reason: adequate visualization Stop: 06/02/25 12:41 Pregabalin (Pregabalin (*Crx) 75 Mg Capsule) 150 mg PO HS [facility] Last Admin: 06/01/25 21:06 Dose: 150 mg Ranolazine (Ranolazine 500 Mg Tab.Er.12h) 500 mg PO Q12HR [facility] Last Admin: 06/02/25 10:08 Dose: 500 mg Rosuvastatin Calcium (Rosuvastatin 20 Mg Tablet) 20 mg PO QAM [facility] Last Admin: 06/02/25 10:15 Dose: Not Given Trazodone HCl (Trazodone Hcl 50 Mg Tablet) 50 mg PO HS [facility] Last Admin: 06/01/25 21:06 Dose: 50 mg Vitamin D (Cholecalciferol (Vitamin D3) 25 Mcg (1,000 Units) Tablet) 50 mcg PO HS [facility] Last Admin: 06/01/25 21:05 Dose: 50 mcg Sedation/Anesthesia: No previous sedation/anesthesia problems (including family history). [facility] Past Medical History Medical History (Updated 05/29/25 @ 22:58 by Sonia Willis PA-C) Insulin dependent type 2 diabetes mellitus Coronary artery disease Asthma Bronchitis Hyperlipidemia Hypertension Myocardial infarction Peripheral neuropathy Cigar smoker Obesity Surgical History Surgical History (Updated 05/29/25 @ 22:57 by Sonia Willis PA-C) History of section x3 History of fusion of cervical spine History of gastric bypass History of hysterectomy History of tonsillectomy History of coronary artery stent placement Family History Family History Mother Diabetes mellitus Hypertension Family history of malignant neoplasm of breast in first degree relative Sibling Diabetes mellitus Hypertension Grandparent Family history of malignant neoplasm of breast in first degree relative Social History Social History (Updated 05/30/25 @ 04:36 by Sonia Willis PA-C) Social History: Surrogate medical decision maker: Benedict Silvino, spouse. Code status: Full code. Years smoked: 4 Smoking status: Current every day smoker Tobacco type: cigars Second hand tobacco smoke exposure: Yes Additional smoking assessment comments: 1 cigar per day Alcohol intake: never Substance use: never Substance use type: does not use Other substance usage details: drinks alcohol three times a month Do You Feel Safe in your Home?: Yes Lack of Transportation: No Lack of Food: Never True Current Housing: I Have Housing Concerned About Future Housing: No Difficulty Paying Gas/Electric Bills: No Difficulty Paying for Meds: No Currently Unemployed: No Education: High School Diploma/GED Difficulty w/ Childcare or Family Care: No Living arrangements: with family Occupation/Education: occupation Spiritual care concerns: No Mod Sed Physical Exam Physical Exam Pre Procedural Exam: Normal: Lungs, Heart Rate and Heart Rhythm Hours since solid foods: 12 Hours since liquid intake: 12 Mallampati Classification: class II Internal Medicine - PN: Obj Da Vital Signs Vital Signs: Vital Signs - 24 hr 06/01/25 12:00 06/01/25 14:00 06/01/25 15:26 Temperature 36.7 C Pulse Rate 72 80 73 Respiratory Rate 14 Blood Pressure 102/50 L Pulse Oximetry 100 Oxygen Delivery 06/01/25 16:00 06/01/25 18:00 06/01/25 19:44 Temperature 36.8 C Pulse Rate 69 75 78 Respiratory Rate 20 Blood Pressure 110/57 L Pulse Oximetry 92 Oxygen Delivery 06/01/25 20:00 06/01/25 20:00 06/01/25 22:00 Temperature Pulse Rate 74 76 Respiratory Rate Blood Pressure Pulse Oximetry Oxygen Delivery Room Air 06/01/25 23:38 06/02/25 00:00 06/02/25 00:00 Temperature 36.5 C Pulse Rate 75 71 Respiratory Rate 18 Blood Pressure 108/60 Pulse Oximetry 100 Oxygen Delivery Room Air 06/02/25 02:00 06/02/25 04:00 06/02/25 04:00 Temperature Pulse Rate 66 72 Respiratory Rate Blood Pressure Pulse Oximetry Oxygen Delivery Room Air 06/02/25 04:04 06/02/25 06:00 06/02/25 08:00 Temperature 36.6 C 36.6 C Pulse Rate 67 71 68 Respiratory Rate 18 16 Blood Pressure 102/66 120/66 Pulse Oximetry 100 100 Oxygen Delivery Intake/Output Intake/Output: Intake & Output 05/30/25 05/31/25 06/01/25 06/02/25 23:59 23:59 23:59 23:59 Intake Total 1034.1 2044.8 1232.7 356.5 Output Total 1200 1300 1250 400 Balance -165.9 744.8 -17.3 -43.5 Meds/Results Medications: Active Medications Generic Name Dose Route Start Last Admin Trade Name Freq PRN Reason Stop Dose Admin Acetaminophen 650 mg 05/29/25 22:59 05/31/25 03:54 Acetaminophen 325 Mg Tablet PO 650 mg Q6H PRN Administration Mild Pain (1-3) or Fever Albuterol 2.5 mg 05/29/25 23:31 Albuterol Sulfate Neb 2.5 Mg/3 Ml Inh INHALATION Q6H PRN shortness of breath or wheezing Aspirin 81 mg 06/01/25 09:00 06/02/25 10:13 Aspirin 81 Mg Enteric Tablet PO 81 mg QAM ANGEL Administration Clopidogrel Bisulfate 75 mg 05/30/25 21:00 06/01/25 21:05 Clopidogrel Bisulfate 75 Mg Tablet PO 75 mg HS ANGEL Administration Cyanocobalamin 1,000 mcg 05/30/25 21:00 06/01/25 21:06 Cyanocobalamin 1,000 Mcg Tablet PO 1,000 mcg HS ANGEL Administration Dextrose 12.5 gm 05/29/25 22:59 Dextrose 50% 25 Gm/50 Ml Syringe IV PUSH PRN PRN Hypoglycemia Protocol Diphenhydramine HCl 50 mg 05/31/25 18:40 05/31/25 18:54 Diphenhydramine Hcl Cap 25 Mg Capsule PO 50 mg Q6H PRN Administration Itching Duloxetine HCl 30 mg 05/30/25 09:00 06/02/25 10:08 Duloxetine Hcl 30 Mg Capsule.Dr PO 30 mg BID ANGEL Administration Fluticasone Propionate 2 spray 05/29/25 23:01 Fluticasone Propionate 0.05% Na Spr 16 Gm Btl (*Bkc) NASAL DAILY PRN allergy symptoms Folic Acid 1 mg 05/30/25 21:00 06/01/25 21:07 Folic Acid 1 Mg Tablet PO Not Given HS ANGEL Furosemide 20 mg 05/30/25 09:00 05/31/25 09:01 Furosemide 20 Mg Tablet PO 20 mg DAILY ANGEL Administration Glimepiride 1 mg 05/30/25 09:00 Glimepiride 1 Mg Tablet PO DAILY ANGEL Glucagon 1 mg 05/29/25 22:59 Glucagon For Inj 1 Mg Vial IM PRN PRN Hypoglycemia Protocol Glucose 15 gm 05/29/25 22:59 Glucose Oral Gel 15 Gm Of Glucse In 37.5 Gm Tube PO PRN PRN Hypoglycemia Protocol Heparin Sodium (Porcine) 4,000 units 05/30/25 12:42 Heparin Sodium 5,000 Units/Ml Vial IV PUSH PRN PRN aPTT less than 55 seconds Heparin Sodium (Porcine) 2,500 units 05/30/25 12:42 06/01/25 19:32 Heparin Sodium 5,000 Units/Ml Vial IV PUSH 2,500 units PRN PRN Administration aPTT 55 - 70 seconds Dextrose 1,000 mls @ 100 mls/hr 05/29/25 22:59 Dextrose 5% 1,000 Ml IVPB PRN PRN Hypoglycemia Protocol Heparin Sodium/Dextrose 25,000 units in 250 mls @ 7 mls/hr 05/30/25 12:45 06/02/25 02:39 Heparin Sodium/D5w 100 Units/Ml IV CONT 700 units/hr .Q24H ANGEL 7 mls/hr Titration Protocol 700 UNITS/HR Sodium Chloride 1,000 mls @ 75 mls/hr 06/02/25 09:35 06/02/25 10:09 Normal Saline Iv IV CONT 06/02/25 22:54 75 mls/hr .[id number] ONE Administration Insulin Aspart 3 - 6 units 05/30/25 08:00 06/02/25 09:57 Insulin Aspart (*Bkc) 100 Units/Ml SUB-Q Not Given TIDWM [facility] Protocol Insulin Aspart 1 - 3 units 05/30/25 21:00 06/01/25 21:06 Insulin Aspart (*Bkc) 100 Units/Ml SUB-Q Not Given HS [facility] Protocol Insulin Glargine 45 units 05/30/25 21:00 06/01/25 21:14 Insulin Glargine (*Bkc) 100 Units/Ml SUB-Q Not Given HS [facility] Metaxalone 800 mg 05/30/25 09:00 06/01/25 09:42 Metaxalone 800 Mg Tablet PO 800 mg DAILY [facility] Administration Morphine Sulfate 2 mg 05/30/25 00:50 06/01/25 10:31 Morphine Sulfate (*Crx) 2 Mg/Ml Inj IV PUSH 2 mg Q4H PRN Administration Chest Pain Multivitamins Therapeutic 2 tablet 05/30/25 09:00 06/02/25 10:16 Multivitamins Therapeutic Tab (*Bkc) PO 2 tablet DAILY ANGEL Administration Nitroglycerin 0.4 mg 05/29/25 22:59 Nitroglycerin Sl 0.4 Mg Tablet SUBLINGUAL Q5MIN PRN Chest Pain Ondansetron HCl 4 mg 05/30/25 05:21 06/01/25 13:15 Ondansetron Inj 4 Mg/2 Ml Vial IV PUSH 4 mg Q6H PRN Administration Nausea And Vomiting Oxycodone/Acetaminophen 1 tab 05/29/25 23:01 06/02/25 10:13 Oxycodone/Acetaminophen (*Crx) 10-325 Mg Tablet PO 1 tab BID PRN Administration pain 7-10 Perflutren Lipid Microsphere 0 ml 05/30/25 12:41 Perflutren Lipid Microspheres 1.5 Ml Vial Diluted To 10 Ml Total Volume IV PUSH 06/02/25 12:41 ONCE PRN adequate visualization Protocol Pregabalin 150 mg 05/30/25 21:00 06/01/25 21:06 Pregabalin (*Crx) 75 Mg Capsule PO 150 mg HS [facility]EL Administration Ranolazine 500 mg 05/30/25 13:35 06/02/25 10:08 Ranolazine 500 Mg Tab.Er.12h PO 500 mg Q12HR [facility] Administration Rosuvastatin Calcium 20 mg 06/01/25 09:00 06/02/25 10:15 Rosuvastatin 20 Mg Tablet PO Not Given QAM [facility] Trazodone HCl 50 mg 05/30/25 21:00 06/01/25 21:06 Trazodone Hcl 50 Mg Tablet PO 50 mg HS AN[facility]EL Administration Vitamin D 50 mcg 05/30/25 21:00 06/01/25 21:05 Cholecalciferol (Vitamin D3) 25 Mcg (1,000 Units) Tablet PO 50 mcg HS ANGEL Administration Radiology Results: ITS Impressions Head CT 05/29/25 11:31 Impression: No significant abnormality seen. Chest X-Ray 05/29/25 11:53 IMPRESSION: No acute process. Chest CTA 05/29/25 19:41 IMPRESSION: 1. No pulmonary embolism. 2. No acute cardiopulmonary pathology. Labs 06/01/25 05:21 06/01/25 05:21 Labs: Laboratory Results - last 24 hr 06/01/25 06/01/25 06/01/25 12:13 12:40 13:27 APTT 88.7 H POC Capillary Glucose 85 Troponin I < 0.012 Vitamin B12 Folate 06/01/25 06/01/25 06/01/25 16:06 18:59 19:48 APTT 66.2 H POC Capillary Glucose 147 H 97 Troponin I Vitamin B12 Folate 06/02/25 06/02/25 06/02/25 02:05 02:06 08:26 APTT 111.8 H POC Capillary Glucose 87 Troponin I Vitamin B12 > 1000.0 H Folate 5.2 06/02/25 08:32 APTT 82.6 H POC Capillary Glucose Troponin I Vitamin B12 Folate ASA Classification/Sedation ASA Classification/Sedation ASA Class: III Emergent: No Risks: Risks, benefits and alternatives explained and patient/family accepted plan for sedation. Patient re-evaluated immediately prior to sedation.
--- NOTE | 2025-06-02 12:38 | PC.NURSE ---
1230 - to [facility] [employer] [employer] for procedure
--- NOTE | 2025-06-02 13:14 | P.PCNCC_ITS ---
Cardiac Cath Procedure Note Date of procedure:: 06/02/25 Performing physician:: CATHETERIZATION LABORATORY REPORT Procedure Date: 06/02/2025 Referring Physician: Dr. Gale Anesthesia: Versed and Fentanyl were ordered and given in my presence at 1257, procedure ended at 1311. Supervision of nurse, Melissa Beasley monitored moderate sedation with 2mg Versed and 100mcg Fentanyl was provided for 14 minutes. Pre-op Diagnosis: Unstable angina Post-op Diagnosis: Chest pain Procedure(s): Left heart catheterization with coronary angiography Access Site: Right radial artery Brief History and Clinical Indications: 49-year-old woman with history of CAD status post PCI of the entire mid LAD and proximal OM1 presents with chest pain whose clinical presentation was concerning for unstable angina for which medical therapy was initiated and a cardiac catheterization with possible PCI was planned. All risks, benefits and alternatives to left heart catheterization with or without percutaneous coronary intervention was discussed at length with the patient. Risk of complications including but not limited to bleeding, infection, arrhythmia, stroke, worsening kidney function, blood loss, groin hematoma, limb loss, emergency coronary artery bypass grafting, and even were discussed with the patient and all questions were answered. The patient understood and wished to proceed. Time out called, patient name, date of , medical record number, allergies, procedure performed, identify Foley Artist, patient and staff member concurred with accurate data, procedure carried on. Findings: LEFT HEART CATHETERIZATION FINDINGS: 1. Left main: The left main coronary artery is very short and widely patent without any significant obstructive disease. 2. Left anterior descending: The proximal LAD has 40-50% stenosis. The entire mid LAD is covered with stents and leads into the distal LAD that tapers into a small caliber vessel. There is 20-30% in stent restenoses. The distal vessel has diffuse 10-20% stenosis. The diagonal branches are free of angiographic high-grade stenosis. 3. Left circumflex: The left circumflex artery and the main marginal branches have mild luminal irregularities without any significant obstructive angiographic disease. There is a patent stent in the OM1 branch. 4. Right coronary artery: The RCA is a moderate caliber vessel with 30% proximal stenosis followed by 50% stenosis in the distal vessel. The right PDA and right PL branches are small caliber vessels that are not suitable for PCI. The right PL branch has a 70% proximal stenosis. The right PDA has diffuse 10-20% stenosis. 5. Left ventricle: A. End-diastolic pressure 18 mmHg. B. LV gram deferred. C. No significant gradient across aortic valve on catheter pullback. 6. Opening AO pressure 87/66 and closing AO pressure 98/59 Description of Procedure: Informed consent signed and placed in the chart. Patient transferred to laboratory apparatus glass grinder room. Prepped and draped in usual sterile fashion. 2% lidocaine injected subcutaneously in right wrist area. 22-gauge venipuncture catheter used to access the right radial artery with the Seldinger technique. 6-FR slender sheath placed in right radial artery. Nitroglycerin 200mcg, Verapamil 2.5mg, and Heparin 5000U was given intraarterial through the sheath. J wire advanced under fluoroscopy 5F TIG diagnostic catheter engaged Left Main Coronary Artery. 5F TIG diagnostic catheter engaged Right Coronary Artery Multiple orthogonal angiogram obtained and reviewed 5F TIG diagnostic catheter crossed aortic valve to obtain LVEDP, LV angiogram deferred. Hemostasis was achieved by application of TR band. Assessment: Stable coronary artery disease. Post Operative Condition: Stable No significant blood loss Disposition: Home Plan: The patient will be monitored in the recovery area. Continue aggressive medical therapy. Her systolic blood pressure is unable to tolerate additional antianginals this time. Can re-evaluate outpatient and consider adding metoprolol succinate 25 mg p.o. daily Patient can be discharged from cardiac perspective. Anupam Briones Interventional Cardiology
--- NOTE | 2025-06-02 14:40 | P.PNIM_ITS ---
Progress Note: A&P Assessment and Plan (1) Chest pain: Code(s): R07.9 - Chest pain, unspecified Status: Acute (2) Coronary artery disease: Code(s): I25.10 - Atherosclerotic heart disease of [place] coronary artery without angina pectoris Status: Acute (3) Insulin dependent type 2 diabetes mellitus: Code(s): E11.9 - Type 2 diabetes mellitus without complications; Z79.4 - technician terminal and repeater (current) use of insulin Status: Acute (4) Hypertension: Code(s): I10 - Essential (primary) hypertension Status: Acute Plan Chest pain at rest Troponin negative ECHO normal biventricular function Contineu Aspirin, Plavix , Ranolazine, No BB due to Bradycardia Heparin infusion Cardiology following Cardiac cath today Neck pain wiht radiculopathy reported neck pain with tingling in hands and feet MRI neck pending further plans per MRI cervical spine CAD s/p 5 stents continue above care HTN continue home meds DM2 SSI with accucheks, adjust with clinical course DVT prophylaxis on Heparin infusion Subjective Date/time seen: 06/02/25 14:40 Interval history: Comfortable at bedside Review of Systems Review of Systems: 12 systems were reviewed and are negativ e except for as per HPI. Exam Narrative: General: Nontoxic-appearing female in the semi-Angulo position in bed in no distress. Weight: 71.9 kg. BMI: 26.4. HEENT: PERRL, EOMI. Sclera anicteric. Oral mucosa moist. Neck: Supple. Respiratory: Lungs are clear to auscultation bilaterally. Chest: No tenderness to palpation over the chest wall. Cardiovascular: Regular rate and rhythm with S1-S2. Gastrointestinal: Abdomen is soft, nontender, and nondistended with positive bowel sounds. Skin: Warm and dry. No rash or lesions on limited exam. Extremities: No cyanosis, clubbing, or edema. Radial and pedal pulses intact. Negative Connor sign bilaterally. Neurological: Alert. Cranial nerves 2-12 are grossly intact. No gross focal deficits to casual conversation. Psychiatric: Pleasant and cooperative with normal mood and affect. Judgment and insight intact. Objective Data Vital Signs Vital Signs: Vital Signs - 24 hr 06/01/25 15:26 06/01/25 16:00 06/01/25 18:00 Temperature 98.1 F Pulse Rate 73 69 75 Respiratory Rate 14 Blood Pressure 102/50 L Pulse Oximetry 100 Oxygen Delivery 06/01/25 19:44 06/01/25 20:00 06/01/25 20:00 Temperature 98.2 F Pulse Rate 78 74 Respiratory Rate 20 Blood Pressure 110/57 L Pulse Oximetry 92 Oxygen Delivery Room Air 06/01/25 22:00 06/01/25 23:38 06/02/25 00:00 Temperature 97.7 F Pulse Rate 76 75 Respiratory Rate 18 Blood Pressure 108/60 Pulse Oximetry 100 Oxygen Delivery Room Air 06/02/25 00:00 06/02/25 02:00 06/02/25 04:00 Temperature Pulse Rate 71 66 Respiratory Rate Blood Pressure Pulse Oximetry Oxygen Delivery Room Air 06/02/25 04:00 06/02/25 04:04 06/02/25 06:00 Temperature 97.8 F Pulse Rate 72 67 71 Respiratory Rate 18 Blood Pressure 102/66 Pulse Oximetry 100 Oxygen Delivery 06/02/25 08:00 06/02/25 08:15 06/02/25 12:00 Temperature 98 F 98.1 F Pulse Rate 68 70 68 Respiratory Rate 16 16 Blood Pressure 120/66 107/64 Pulse Oximetry 100 100 Oxygen Delivery 06/02/25 12:00 06/02/25 13:30 06/02/25 13:45 Temperature Pulse Rate 74 66 66 Respiratory Rate 11 L 10 L Blood Pressure 113/86 114/67 Pulse Oximetry 99 98 Oxygen Delivery Room Air Room Air 06/02/25 14:00 06/02/25 14:15 06/02/25 14:30 Temperature Pulse Rate 63 72 70 Respiratory Rate 12 18 11 L Blood Pressure 99/83 L 100/73 92/59 L Pulse Oximetry 100 99 100 Oxygen Delivery Room Air Room Air Room Air Intake/Output Intake/Output: Intake & Output 05/30/25 05/31/25 06/01/25 06/02/25 23:59 23:59 23:59 23:59 Intake Total 1034.1 2044.8 1232.7 425.5 Output Total 1200 1300 1250 400 Balance -165.9 744.8 -17.3 25.5 Meds/Results Medications: Active Medications Generic Name Dose Route Start Last Admin Trade Name Freq PRN Reason Stop Dose Admin Acetaminophen 650 mg 05/29/25 22:59 05/31/25 03:54 Acetaminophen 325 Mg Tablet PO 650 mg Q6H PRN Administration Mild Pain (1-3) or Fever Albuterol 2.5 mg 05/29/25 23:31 Albuterol Sulfate Neb 2.5 Mg/3 Ml Inh INHALATION Q6H PRN shortness of breath or wheezing Aspirin 81 mg 06/01/25 09:00 06/02/25 10:13 Aspirin 81 Mg Enteric Tablet PO 81 mg QAM ANGEL Administration Clopidogrel Bisulfate 75 mg 05/30/25 21:00 06/01/25 21:05 Clopidogrel Bisulfate 75 Mg Tablet PO 75 mg HS ANGEL Administration Cyanocobalamin 1,000 mcg 05/30/25 21:00 06/01/25 21:06 Cyanocobalamin 1,000 Mcg Tablet PO 1,000 mcg HS ANGEL Administration Dextrose 12.5 gm 05/29/25 22:59 Dextrose 50% 25 Gm/50 Ml Syringe IV PUSH PRN PRN Hypoglycemia Protocol Diphenhydramine HCl 50 mg 05/31/25 18:40 05/31/25 18:54 Diphenhydramine Hcl Cap 25 Mg Capsule PO 50 mg Q6H PRN Administration Itching Duloxetine HCl 30 mg 05/30/25 09:00 06/02/25 10:08 Duloxetine Hcl 30 Mg Capsule.Dr PO 30 mg BID ANGEL Administration Fluticasone Propionate 2 spray 05/29/25 23:01 Fluticasone Propionate 0.05% Na Spr 16 Gm Btl (*Bkc) NASAL DAILY PRN allergy symptoms Folic Acid 1 mg 05/30/25 21:00 06/01/25 21:07 Folic Acid 1 Mg Tablet PO Not Given HS ANGEL Furosemide 20 mg 05/30/25 09:00 05/31/25 09:01 Furosemide 20 Mg Tablet PO 20 mg DAILY ANGEL Administration Glimepiride 1 mg 05/30/25 09:00 Glimepiride 1 Mg Tablet PO DAILY ANGEL Glucagon 1 mg 05/29/25 22:59 Glucagon For Inj 1 Mg Vial IM PRN PRN Hypoglycemia Protocol Glucose 15 gm 05/29/25 22:59 Glucose Oral Gel 15 Gm Of Glucse In 37.5 Gm Tube PO PRN PRN Hypoglycemia Protocol Heparin Sodium (Porcine) 4,000 units 05/30/25 12:42 Heparin Sodium 5,000 Units/Ml Vial IV PUSH PRN PRN aPTT less than 55 seconds Heparin Sodium (Porcine) 2,500 units 05/30/25 12:42 06/01/25 19:32 Heparin Sodium 5,000 Units/Ml Vial IV PUSH 2,500 units PRN PRN Administration aPTT 55 - 70 seconds Dextrose 1,000 mls @ 100 mls/hr 05/29/25 22:59 Dextrose 5% 1,000 Ml IVPB PRN PRN Hypoglycemia Protocol Heparin Sodium/Dextrose 25,000 units in 250 mls @ 7 mls/hr 05/30/25 12:45 06/02/25 12:30 Heparin Sodium/D5w 100 Units/Ml IV CONT Infused .Q24H ANGEL Titration Protocol 700 UNITS/HR Sodium Chloride 1,000 mls @ 75 mls/hr 06/02/25 09:35 06/02/25 10:09 Normal Saline Iv IV CONT 06/02/25 22:54 75 mls/hr .[id number] ONE Administration Sodium Chloride 1,000 mls @ 125 mls/hr 06/02/25 13:14 Normal Saline Iv IV CONT 06/02/25 21:13 .Q8H ONE Insulin Aspart 3 - 6 units 05/30/25 08:00 06/02/25 13:07 Insulin Aspart (*Bkc) 100 Units/Ml SUB-Q Not Given TIDWM [facility] Protocol Insulin Aspart 1 - 3 units 05/30/25 21:00 06/01/25 21:06 Insulin Aspart (*Bkc) 100 Units/Ml SUB-Q Not Given HS [facility] Protocol Insulin Glargine 45 units 05/30/25 21:00 06/01/25 21:14 Insulin Glargine (*Bkc) 100 Units/Ml SUB-Q Not Given HS [facility] Metaxalone 800 mg 05/30/25 09:00 06/01/25 09:42 Metaxalone 800 Mg Tablet PO 800 mg DAILY ANGEL Administration Morphine Sulfate 2 mg 05/30/25 00:50 06/01/25 10:31 Morphine Sulfate (*Crx) 2 Mg/Ml Inj IV PUSH 2 mg Q4H PRN Administration Chest Pain Multivitamins Therapeutic 2 tablet 05/30/25 09:00 06/02/25 10:16 Multivitamins Therapeutic Tab (*Bkc) PO 2 tablet DAILY ANGEL Administration Nitroglycerin 0.4 mg 05/29/25 22:59 Nitroglycerin Sl 0.4 Mg Tablet SUBLINGUAL Q5MIN PRN Chest Pain Ondansetron HCl 4 mg 05/30/25 05:21 06/01/25 13:15 Ondansetron Inj 4 Mg/2 Ml Vial IV PUSH 4 mg Q6H PRN Administration Nausea And Vomiting Oxycodone/Acetaminophen 1 tab 05/29/25 23:01 06/02/25 10:13 Oxycodone/Acetaminophen (*Crx) 10-325 Mg Tablet PO 1 tab BID PRN Administration pain 7-10 Pregabalin 150 mg 05/30/25 21:00 06/01/25 21:06 Pregabalin (*Crx) 75 Mg Capsule PO 150 mg HS ANGEL Administration Ranolazine 500 mg 05/30/25 13:35 06/02/25 10:08 Ranolazine 500 Mg Tab.Er.12h PO 500 mg Q12HR ANGEL Administration Rosuvastatin Calcium 20 mg 06/01/25 09:00 06/02/25 10:15 Rosuvastatin 20 Mg Tablet PO Not Given QAM ANGEL Trazodone HCl 50 mg 05/30/25 21:00 06/01/25 21:06 Trazodone Hcl 50 Mg Tablet PO 50 mg HS ANGEL Administration Vitamin D 50 mcg 05/30/25 21:00 06/01/25 21:05 Cholecalciferol (Vitamin D3) 25 Mcg (1,000 Units) Tablet PO 50 mcg HS ANGEL Administration Radiology Results: ITS Impressions Head CT 05/29/25 11:31 Impression: No significant abnormality seen. Chest X-Ray 05/29/25 11:53 IMPRESSION: No acute process. Chest CTA 05/29/25 19:41 IMPRESSION: 1. No pulmonary embolism. 2. No acute cardiopulmonary pathology. Cervical Spine MRI 06/02/25 12:16 IMPRESSION: 1. Mild cervical spondylosis. Labs Labs: Laboratory Results - last 24 hr 06/01/25 06/01/25 06/01/25 16:06 18:59 19:48 APTT 66.2 H POC Capillary Glucose 147 H 97 Vitamin B12 Folate 06/02/25 06/02/25 06/02/25 02:05 02:06 08:26 APTT 111.8 H POC Capillary Glucose 87 Vitamin B12 > 1000.0 H Folate 5.2 06/02/25 06/02/25 08:32 12:07 APTT 82.6 H POC Capillary Glucose 84 Vitamin B12 Folate Quality VTE Prophylaxis VTE prophylaxis: pharmacologic ordered
[2025-06-02] MEDS: SODIUM CHLORIDE 0.9% IV 1,000 ML 125 ML IV CONT (14:43)
[2025-06-02] MEDS: METAXALONE 800 MG TABLET PO (18:00)
[2025-06-02] MEDS: CLOPIDOGREL BISULFATE 75 MG TABLET PO (20:44)
[2025-06-02] MEDS: PREGABALIN (*CRX) 75 MG CAPSULE 150 MG PO (20:44)
[2025-06-02] MEDS: CYANOCOBALAMIN 1,000 MCG TABLET 1000 MCG PO (20:45)
[2025-06-02] MEDS: CHOLECALCIFEROL (VITAMIN D3) 25 MCG (1,000 UNITS) TABLET 50 MCG PO (20:46)
[2025-06-03] VITALS (8 sets, daily range): BP systolic 103–118; BP diastolic 54–70; PULSE 64–78; RESP 12–18; TEMP 36.8–37.2; O2SAT 99–100
[2025-06-03] MEDS: oxyCODONE/ACETAMINOPHEN (*CRX) 10-325 MG TABLET 1 TAB PO ×2 (04:54→11:06)
[2025-06-03] MEDS: MORPHINE SULFATE (*CRX) 2 MG/ML INJ IV PUSH (07:03)
[2025-06-03 07:15] LABS: NT Pro B Type Natriuretic Pept 21 pg/mL (19.9-100)
[2025-06-03 07:34] LABS: Hematocrit 37.8 % (37.0-47.0); Hemoglobin 11.3 g/dL (12.0-15.0); Mean Corpuscular HGB Conc 29.9 g/dl (32-36); Mean Corpuscular Hemoglobin 28.0 pg (26-34); Mean Corpuscular Volume 93.6 fl (80-100); Platelet Count Result 194 k/mm3 (150-375); Red Blood Count 4.04 M/mm3 (4.2-5.4); White Blood Count 5.8 K/mm3 (4.5-10.0)
--- NOTE | 2025-06-03 07:49 | P.PNCA_ITS ---
Progress Note: A&P Assessment and Plan (1) Chest pain: Code(s): R07.9 - Chest pain, unspecified Status: Acute (2) CAD (coronary artery disease): Code(s): I25.10 - Atherosclerotic heart disease of [place] coronary artery without angina pectoris Status: Acute Time Spent With Patient Time: 49-year-old lady with coronary artery disease with chest pain. Appears to be noncardiac given no objective evidence of acute coronary syndrome or myocardial necrosis despite ongoing symptoms and angiography yesterday fails to demonstrate significant stenotic lesion. From our perspective she is stable for discharge and will be following up with her established calciminer, Dr. Gaytan. Joel Zamora MD [facility] Subjective Date/time seen: Date of service: 06/03/25 07:49 Interval history: Follow-up visit in this 49-year-old lady with: Coronary artery disease with previous PCI to a long segment of her LAD and OM circumflex branch now. She presents with concerning chest pain but no objective evidence of ACS. Repeat angiography yesterday performed by did not demonstrate any significant coronary stenotic lesions. She feels relatively well this morning and does not have any additional significant complaints at this time Exam Const: General: comfortable and no acute distress Other: Pleasant black female appearing her stated age no distress of any kind HENMT: Mouth: Yes moist mucous membranes Eyes: Sclera: sclerae normal Pupils: Equal, round and reactive pupils present Neck: Neck: supple and no JVD Resp: Effort & Inspection: normal respiratory effort Auscultation: clear to auscultation bilaterally Cardio: Rate: regular rate Rhythm: regular rhythm Other: No murmur no gallop GI: GI Palp: Yes Soft to palpation Auscultation: normal bowel sounds Skin: General skin exam: normal color Neuro: Other: Alert and oriented x3 Extrem: Other: No edema good perfusion Objective Data Vital Signs Vital Signs: Vital Signs - 24 hr 06/02/25 08:00 06/02/25 08:15 06/02/25 12:00 Temperature 36.6 C 36.7 C Pulse Rate 68 70 68 Pulse Rate [Right Radial Palpation] Respiratory Rate 16 16 Blood Pressure 120/66 107/64 Pulse Oximetry 100 100 Oxygen Delivery 06/02/25 12:00 06/02/25 13:30 06/02/25 13:45 Temperature Pulse Rate 74 66 66 Pulse Rate [Right Radial Palpation] Respiratory Rate 11 L 10 L Blood Pressure 113/86 114/67 Pulse Oximetry 99 98 Oxygen Delivery Room Air Room Air 06/02/25 14:00 06/02/25 14:15 06/02/25 14:30 Temperature Pulse Rate 63 72 70 Pulse Rate [Right Radial Palpation] Respiratory Rate 12 18 11 L Blood Pressure 99/83 L 100/73 92/59 L Pulse Oximetry 100 99 100 Oxygen Delivery Room Air Room Air Room Air 06/02/25 14:45 06/02/25 15:00 06/02/25 15:15 Temperature Pulse Rate 69 69 67 Pulse Rate [Right Radial Palpation] Respiratory Rate 12 10 L 12 Blood Pressure 102/53 L 100/54 L 99/62 L Pulse Oximetry 100 99 99 Oxygen Delivery Room Air Room Air Room Air 06/02/25 15:30 06/02/25 15:45 06/02/25 16:00 Temperature Pulse Rate 71 67 66 Pulse Rate [Right Radial Palpation] Respiratory Rate 13 15 12 Blood Pressure 100/63 100/64 109/64 Pulse Oximetry 99 100 100 Oxygen Delivery Room Air Room Air Room Air 06/02/25 16:15 06/02/25 16:30 06/02/25 16:30 Temperature Pulse Rate 75 74 Pulse Rate [Right Radial Palpation] 74 Respiratory Rate 11 L 14 Blood Pressure 119/69 111/60 Pulse Oximetry 100 100 Oxygen Delivery Room Air Room Air 06/02/25 16:45 06/02/25 17:00 06/02/25 17:00 Temperature Pulse Rate 71 70 Pulse Rate [Right Radial Palpation] 70 Respiratory Rate 15 12 Blood Pressure 118/68 117/66 Pulse Oximetry 100 100 Oxygen Delivery Room Air Room Air 06/02/25 17:30 06/02/25 17:30 06/02/25 17:59 Temperature Pulse Rate 66 73 Pulse Rate [Right Radial Palpation] 66 Respiratory Rate 13 Blood Pressure 117/68 Pulse Oximetry 100 Oxygen Delivery Room Air 06/02/25 17:59 06/02/25 18:00 06/02/25 19:00 Temperature 36.8 C 36.6 C Pulse Rate 73 77 Pulse Rate [Right Radial Palpation] 66 Respiratory Rate 16 16 Blood Pressure 98/60 L 124/60 Pulse Oximetry 100 100 Oxygen Delivery 06/02/25 19:33 06/02/25 20:00 06/02/25 20:00 Temperature 36.7 C Pulse Rate 73 74 Pulse Rate [Right Radial Palpation] Respiratory Rate 18 Blood Pressure 117/59 L Pulse Oximetry 100 Oxygen Delivery Room Air 06/02/25 20:52 06/02/25 22:00 06/02/25 22:10 Temperature 36.7 C 36.6 C Pulse Rate 74 70 71 Pulse Rate [Right Radial Palpation] Respiratory Rate 18 18 Blood Pressure 102/53 L 103/58 L Pulse Oximetry 100 100 Oxygen Delivery 06/02/25 23:36 06/03/25 00:00 06/03/25 00:00 Temperature 36.6 C Pulse Rate 69 67 Pulse Rate [Right Radial Palpation] Respiratory Rate 16 Blood Pressure 94/51 L Pulse Oximetry 100 Oxygen Delivery Room Air 06/03/25 02:00 06/03/25 04:00 06/03/25 04:00 Temperature Pulse Rate 66 64 Pulse Rate [Right Radial Palpation] Respiratory Rate Blood Pressure Pulse Oximetry Oxygen Delivery Room Air 06/03/25 05:00 06/03/25 06:00 Temperature 37.2 C Pulse Rate 78 70 Pulse Rate [Right Radial Palpation] Respiratory Rate 18 Blood Pressure 103/54 L Pulse Oximetry 100 Oxygen Delivery Intake/Output Intake/Output: Intake & Output 05/31/25 06/01/25 06/02/25 06/03/25 23:59 23:59 23:59 23:59 Intake Total 2044.8 1232.7 2815.5 Output Total 1300 1250 1850 300 Balance 744.8 -17.3 965.5 -300 Meds/Results Medications: Active Medications Generic Name Dose Route Start Last Admin Trade Name Reyesq PRN Reason Stop Dose Admin Acetaminophen 650 mg 05/29/25 22:59 05/31/25 03:54 Acetaminophen 325 Mg Tablet PO 650 mg Q6H PRN Administration Mild Pain (1-3) or Fever Albuterol 2.5 mg 05/29/25 23:31 Albuterol Sulfate Neb 2.5 Mg/3 Ml Inh INHALATION Q6H PRN shortness of breath or wheezing Aspirin 81 mg 06/01/25 09:00 06/02/25 10:13 Aspirin 81 Mg Enteric Tablet PO 81 mg QAM ANGEL Administration Clopidogrel Bisulfate 75 mg 05/30/25 21:00 06/02/25 20:44 Clopidogrel Bisulfate 75 Mg Tablet PO 75 mg HS ANGEL Administration Cyanocobalamin 1,000 mcg 05/30/25 21:00 06/02/25 20:45 Cyanocobalamin 1,000 Mcg Tablet PO 1,000 mcg HS ANGEL Administration Dextrose 12.5 gm 05/29/25 22:59 Dextrose 50% 25 Gm/50 Ml Syringe IV PUSH PRN PRN Hypoglycemia Protocol Diphenhydramine HCl 50 mg 05/31/25 18:40 05/31/25 18:54 Diphenhydramine Hcl Cap 25 Mg Capsule PO 50 mg Q6H PRN Administration Itching Duloxetine HCl 30 mg 05/30/25 09:00 06/02/25 17:59 Duloxetine Hcl 30 Mg Capsule.Dr PO 30 mg BID ANGEL Administration Fluticasone Propionate 2 spray 05/29/25 23:01 Fluticasone Propionate 0.05% Na Spr 16 Gm Btl (*Bkc) NASAL DAILY PRN allergy symptoms Folic Acid 1 mg 05/30/25 21:00 06/02/25 20:48 Folic Acid 1 Mg Tablet PO Not Given HS [facility] Furosemide 20 mg 05/30/25 09:00 05/31/25 09:01 Furosemide 20 Mg Tablet PO 20 mg DAILY ANGEL Administration Glimepiride 1 mg 05/30/25 09:00 Glimepiride 1 Mg Tablet PO DAILY ANGEL Glucagon 1 mg 05/29/25 22:59 Glucagon For Inj 1 Mg Vial IM PRN PRN Hypoglycemia Protocol Glucose 15 gm 05/29/25 22:59 Glucose Oral Gel 15 Gm Of Glucse In 37.5 Gm Tube PO PRN PRN Hypoglycemia Protocol Dextrose 1,000 mls @ 100 mls/hr 05/29/25 22:59 Dextrose 5% 1,000 Ml IVPB PRN PRN Hypoglycemia Protocol Insulin Aspart 3 - 6 units 05/30/25 08:00 06/02/25 18:05 Insulin Aspart (*Bkc) 100 Units/Ml SUB-Q Not Given TIDWM [facility] Protocol Insulin Aspart 1 - 3 units 05/30/25 21:00 06/02/25 20:48 Insulin Aspart (*Bkc) 100 Units/Ml SUB-Q Not Given HS [facility] Protocol Insulin Glargine 45 units 05/30/25 21:00 06/02/25 20:48 Insulin Glargine (*Bkc) 100 Units/Ml SUB-Q Not Given HS [facility] Metaxalone 800 mg 05/30/25 09:00 06/02/25 18:00 Metaxalone 800 Mg Tablet PO 800 mg DAILY ANGEL Administration Morphine Sulfate 2 mg 05/30/25 00:50 06/03/25 07:03 Morphine Sulfate (*Crx) 2 Mg/Ml Inj IV PUSH 2 mg Q4H PRN Administration Chest Pain Multivitamins Therapeutic 2 tablet 05/30/25 09:00 06/02/25 10:16 Multivitamins Therapeutic Tab (*Bkc) PO 2 tablet DAILY ANGEL Administration Nitroglycerin 0.4 mg 05/29/25 22:59 Nitroglycerin Sl 0.4 Mg Tablet SUBLINGUAL Q5MIN PRN Chest Pain Ondansetron HCl 4 mg 05/30/25 05:21 06/01/25 13:15 Ondansetron Inj 4 Mg/2 Ml Vial IV PUSH 4 mg Q6H PRN Administration Nausea And Vomiting Oxycodone/Acetaminophen 1 tab 05/29/25 23:01 06/03/25 04:54 Oxycodone/Acetaminophen (*Crx) 10-325 Mg Tablet PO 1 tab BID PRN Administration pain 7-10 Pregabalin 150 mg 05/30/25 21:00 06/02/25 20:44 Pregabalin (*Crx) 75 Mg Capsule PO 150 mg HS [facility] Administration Ranolazine 500 mg 05/30/25 13:35 06/02/25 20:46 Ranolazine 500 Mg Tab.Er.12h PO 500 mg Q12HR [facility] Administration Rosuvastatin Calcium 20 mg 06/01/25 09:00 06/02/25 10:15 Rosuvastatin 20 Mg Tablet PO Not Given QAM [facility] Trazodone HCl 50 mg 05/30/25 21:00 06/02/25 20:47 Trazodone Hcl 50 Mg Tablet PO 50 mg HS [facility] Administration Vitamin D 50 mcg 05/30/25 21:00 06/02/25 20:46 Cholecalciferol (Vitamin D3) 25 Mcg (1,000 Units) Tablet PO 50 mcg HS [facility] Administration Radiology Results: ITS Impressions Head CT 05/29/25 11:31 Impression: No significant abnormality seen. Chest X-Ray 05/29/25 11:53 IMPRESSION: No acute process. Chest CTA 05/29/25 19:41 IMPRESSION: 1. No pulmonary embolism. 2. No acute cardiopulmonary pathology. Cervical Spine MRI 06/02/25 12:16 IMPRESSION: 1. Mild cervical spondylosis. Labs Labs: Laboratory Results - last 24 hr 06/02/25 06/02/25 06/02/25 08:26 08:32 12:07 WBC RBC Hgb Hct MCV MCH MCHC RDW Plt Count MPV APTT 82.6 H POC Capillary Glucose 87 84 NT-Pro-B Natriuret Pep 06/02/25 06/02/25 06/03/25 18:04 20:47 06:47 WBC RBC Hgb Hct MCV MCH MCHC RDW Plt Count MPV APTT POC Capillary Glucose 111 H 79 NT-Pro-B Natriuret Pep 21 06/03/25 07:20 WBC 5.8 RBC 4.04 L Hgb 11.3 L Hct 37.8 MCV 93.6 MCH 28.0 MCHC 29.9 L RDW 13.8 Plt Count 194 MPV 10.4 APTT POC Capillary Glucose NT-Pro-B Natriuret Pep
[2025-06-03] MEDS: MULTIVITAMINS THERAPEUTIC TAB (*BKC) 2 TABLET PO (09:40)
[2025-06-03] MEDS: RANOLAZINE 500 MG TAB.ER.12H PO (09:40)
[2025-06-03] MEDS: ASPIRIN 81 MG ENTERIC TABLET PO (09:40)
[2025-06-03] MEDS: METAXALONE 800 MG TABLET PO (09:40)
[2025-06-03 11:19] LABS: Add Urine Microscopic? NO; Appearance Urine Clear (Clear); Glucose Urine UA Negative (Negative); Leukocyte Esterase Ur Negative LEU/UL (Negative); Nitrate Urine Negative (Negative); Specific Grav Ur 1.031 (1.001-1.035)
--- NOTE | 2025-06-03 12:22 | PM.DS ---
DS: Admitting Diagnosis Discharge Date 06/03/25 Admitting Diagnosis chest pain, Tingling numbness DS: Discharge Diagnosis Discharge Diagnosis (1) Chest pain: Code(s): R07.9 - Chest pain, unspecified Status: Acute (2) Coronary artery disease: Code(s): I25.10 - Atherosclerotic heart disease of [place] coronary artery without angina pectoris Status: Acute (3) Insulin dependent type 2 diabetes mellitus: Code(s): E11.9 - Type 2 diabetes mellitus without complications; Z79.4 - nursing specialist (current) use of insulin Status: Acute (4) Hypertension: Code(s): I10 - Essential (primary) hypertension Status: Acute Plan Chest pain at rest Troponin negative ECHO normal biventricular function Contineu Aspirin, Plavix , Ranolazine, No BB due to Bradycardia Cardiology following Cardiac cath unremarkable Neck pain with radiculopathy reported neck pain with tingling in hands and feet MRI neck and brain unremarkable for acute abnormality further plans per MRI cervical spine CAD s/p 5 stents continue above care HTN continue home meds 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 She woke up at about 06:00 with a heaviness sensation in the left anterior chest associated with mild shortness of breath which improved without intervention. She then went to work and while sitting at her desk she developed tingling in her fingers and felt as though they were extremely cold. The tingling on the left side progressed up the arm and she wants again developed heaviness and pressure in the left side of her chest with occasional stabbing pains and mild shortness of breath. She took nitroglycerin x2 which seemed to help somewhat. Symptoms are similar to though she had prior to previous stenting. She denies syncope, near syncope, pleuritic pain, abdominal pain, vomiting, lower extremity edema, and focal weakness. In the ED: Vital signs were stable on arrival. CMP and CBC were pretty unremarkable. Initial troponin was negative and EKG was without concerning ST segment changes. Chest CTA was negative for pulmonary embolism. Given her cardiac history she is being admitted for close monitoring and Cardiology consultation 06/03/25 Patient was seen examined at bedside. She is feeling fine. Denies any chest pain, shortness off breath, abdominal pain, nausea vomiting. Complained of tingling of left hand which is improving. Cardiac cath unremarkable. MRI of her neck and brain unremarkable. Cardiology team recommended follow-up with the environmental research project manager as outpatient. Follow-up with neurology clinic as outpatient Time Spent with Patient Time attestation: Total time spent providing and/or coordinating discharge services: Exam Narrative: General: Nontoxic-appearing female in the semi-Angulo position in bed in no distress. Weight: 71.9 kg. BMI: 26.4. HEENT: PERRL, EOMI. Sclera anicteric. Oral mucosa moist. Neck: Supple. Respiratory: Lungs are clear to auscultation bilaterally. Chest: No tenderness to palpation over the chest wall. Cardiovascular: Regular rate and rhythm with S1-S2. Gastrointestinal: Abdomen is soft, nontender, and nondistended with positive bowel sounds. Skin: Warm and dry. No rash or lesions on limited exam. Extremities: No cyanosis, clubbing, or edema. Radial and pedal pulses intact. Negative Connor sign bilaterally. Neurological: Alert. Cranial nerves 2-12 are grossly intact. No gross focal deficits to casual conversation. Psychiatric: Pleasant and cooperative with normal mood and affect. Judgment and insight intact. DS: Data Data Completed and Pending Labs on day of discharge: Labs from last 24 hours 06/03/25 06/03/25 06/03/25 11:35 11:09 10:03 WBC RBC Hgb Hct MCV MCH MCHC RDW Plt Count MPV POC Capillary Glucose 101 168 H NT-Pro-B Natriuret Pep Urine Color Yellow Urine Appearance Clear Urine pH 6.0 Ur Specific [place] 1.031 Urine Protein Negative Urine Glucose (UA) Negative Urine Ketones Trace H Ur Blood (Man) Negative Urine Nitrate Negative Urine Bilirubin Negative Urine Urobilinogen 1.0 Ur Leukocyte Esterase Negative 06/03/25 06/03/25 06/03/25 08:10 07:20 06:47 WBC 5.8 RBC 4.04 L Hgb 11.3 L Hct 37.8 MCV 93.6 MCH 28.0 MCHC 29.9 L RDW 13.8 Plt Count 194 MPV 10.4 POC Capillary Glucose 67 NT-Pro-B Natriuret Pep 21 Urine Color Urine Appearance Urine pH Ur Specific [place] Urine Protein Urine Glucose (UA) Urine Ketones Ur Blood (Man) Urine Nitrate Urine Bilirubin Urine Urobilinogen Ur Leukocyte Esterase 06/02/25 06/02/25 20:47 18:04 WBC RBC Hgb Hct MCV MCH MCHC RDW Plt Count MPV POC Capillary Glucose 79 111 H NT-Pro-B Natriuret Pep Urine Color Urine Appearance Urine pH Ur Specific [place] Urine Protein Urine Glucose (UA) Urine Ketones Ur Blood (Man) Urine Nitrate Urine Bilirubin Urine Urobilinogen Ur Leukocyte Esterase Discharge Plan Discharge Attending physician on discharge: Ashley Martell Consulting providers: Caitlyn Butler; Ashley Martell Discharging Clinician: Ashley Martell Anticipated Discharge Date/Time: 06/03/25 12:25 Patient Disposition: Home Activity: as tolerated Diet: diabetic Discharge Instructions: [facility] [address] [place], [place] [id number] DISCHARGE INSTRUCTIONS - POST RADIAL CATH Activity 1. No driving for 24 hours. 2. No lifting more than 5 lb with affected arm for 1 week. 3. May shower ( tomorrow) but no excessive soaking of affected hand/wrist (such as washing dishes), swimming pool or hot tub for 5 days. Wound Care 1. May remove arm board in the morning. 2. May remove gauze dressing in the morning and put Band-Aid over affected radial site. Keep site covered for 3 days. 3. Observe for redness, drainage, swelling or bleeding. Medications DO NOT STOP YOUR MEDICATIONS ONLY YOUR SAFETY TRAINER CAN STOP THE FOLLOWING MEDICATIONS - PLEASE CALL THE OFFICE WITH QUESTIONS. *Aspirin *Rosuvastatin *Clopidogrel (Plavix) Important Reminders 1. Keep your stent card in your wallet at all times 2. Follow a heart healthy diet paying extra attention to cholesterol and fats. 3. Stay hydrated. 4. If you have chest pain unrelieved by rest or nitroglycerin (if prescribed) call 911 immediately. 5. If you miss one dose of Brilinta (if prescribed) take a tablet at the next time due. If you miss 2 doses take a tablet when you remember and resume at the next time due. *For any other questions please call the office at [phone]. Office hours are 8AM 4:30PM Monday through Monday. follow with PCP in one week. following up with her established environmental research project manager, Dr. Gaytan. Patient Instructions: Antibiotic Form Patient Language: Nepalese Stand Alone Forms: General Discharge Information, Work/School Release IP Follow-up/Referrals: Chris,Sarita Valentin MD [Primary Care Provider] - 1 Week Rolan Joyce MD [Physician] - 4 Weeks Kirby Gaytan MD [Physician] - Call for Appointment Discharge Medications: New aspirin 81 mg Tablet,Delayed Release (Dr/Ec) 81 mg PO QAM Qty: 30 0RF metoprolol succinate 25 mg capsule,sprinkle,ER 24hr 25 mg PO DAILY Qty: 30 0RF Continued clopidogrel 75 mg tablet 75 mg PO HS (DME) Dexcom G6 Sensor Device MISCELLANEOUS ranolazine 500 mg tablet extended release 12 hr 1,000 mg PO BID insulin degludec [Tresiba FlexTouch U-100] 100 unit/mL (3 mL) insulin pen 45 unit SUBCUT HS nitroglycerin 0.4 mg tablet, sublingual 0.4 mg sublingual DAILY furosemide 20 mg tablet 20 mg PO DAILY Mounjaro 12.5 mg/0.5 mL pen injector 12.5 mg SUBCUT WEEKLY Fiasp FlexTouch U-100 Insulin 100 unit/mL (3 mL) insulin pen See Rx Instructions .ROUTE .COMPLEX Rx Instructions: 24 units SUBQ with breakfast and lunch, 28 units SUBQ with dinner trazodone 50 mg tablet 50 mg PO HS folic acid 1 mg tablet 1 mg PO HS cholecalciferol (vitamin D3) [Vitamin D3] 50 mcg (2,000 unit) Capsule 50 mcg PO HS mecobalamin (vitamin B12) 1,000 mcg Tablet,Chewable 1,000 mcg PO HS duloxetine 30 mg capsule,delayed release(DR/EC) 30 mg PO BID oxycodone-acetaminophen 10-325 mg tablet 1 tablet PO BID PRN (Reason: pain) pregabalin 150 mg capsule 150 mg PO HS multivitamin Tablet 2 tablet PO DAILY glimepiride 1 mg tablet 1 mg PO DAILY metaxalone 800 mg tablet 800 mg PO DAILY fluoride (sodium) [Denta 5000 Plus] 1.1 % cream 1 applic dental Q24H albuterol sulfate 0.63 mg/3 mL solution for nebulization 0.63 mg inhalation Q6H PRN (Reason: shortness of breath or wheezing) fluticasone propionate [Flonase Allergy Relief] 50 mcg/actuation spray,suspension 2 spray intranasal DAILY PRN (Reason: allergy symptoms) Rx Instructions: administer into each nostril guaifenesin 100 mg/5 mL liquid 200 mg PO Q4H PRN (Reason: congestion) Qty: 473 0RF Date of admission: 05/31/25 12:14 Primary Care Provider: Chris,Sarita Valentin Admitting Provider: Yuan Gale Attending physician on admission: Yuan Gale Condition: Stable Quality VTE Prophylaxis VTE prophylaxis: pharmacologic ordered
== END 2025-06-03 13:21 | disposition home or self-care (01) | DRG 287 ==
LOC: ANHED 20:10 → ANHIMU 21:03
PROVIDERS: Emergency Medicine; General Practice; Internal Medicine; Internal Medicine Cardiovascular Disease; Internal Medicine Interventional Cardiology; Physician Assistant; Admitting Provider Internal Medicine; Emergency Provider Emergency Medicine; PCP Emergency Medicine; Visit Provider Internal Medicine
PROC: 4A023N7 Measurement of Cardiac Sampling and Pressure, Left Heart, Percutaneous Approach (ICD-10-PCS; CPT 93452; principal; 2025-06-02 14:00)
DX: I25.10 Atherosclerotic heart disease of native coronary artery without angina pectoris (principal); R07.9 Chest pain, unspecified; I25.2 Old myocardial infarction; Z95.5 Presence of coronary angioplasty implant and graft; E78.5 Hyperlipidemia, unspecified; I10 Essential (primary) hypertension; E66.9 Obesity, unspecified; E11.42 Type 2 diabetes mellitus with diabetic polyneuropathy; F17.290 Nicotine dependence, other tobacco product, uncomplicated; J45.909 Unspecified asthma, uncomplicated; Z79.4 Long term (current) use of insulin; Z98.1 Arthrodesis status; Z98.84 Bariatric surgery status; Z79.82 Long term (current) use of aspirin; Z79.02 Long term (current) use of antithrombotics/antiplatelets; Z79.84 Long term (current) use of oral hypoglycemic drugs; Z68.26 Body mass index [BMI] 26.0-26.9, adult
CPT/HCPCS: 36415; 70450; 70551; 71045; 71275; 72156; 80053; 81003; 82607; 82746; 82948; 83036; 83605; 83690; 83735; 83880; 84484; 85025; 85027; 85380; 85610; 85730; 93005; 93306; 93458; 96374; 96376; 99285; A9270; A9577; C1769; C1887; C1894; G0378; J1644; J1650; J2003; J2250; J2270; J2305; J2405; J3010; J7030; J7040; Q9967

== ENCOUNTER 2025-08-04 16:06 | Emergency (ER) | payer OTHER, SELFPAY ==
--- OUTSIDE RECORDS SUMMARY | 2020-09-01 14:16 | XMS_ITS | Continuity of Care Document ---
Author Organization [facility] Address [address] [place] [address] Phone Care Team Providers Care Historical Manuscripts Curator Name Role Phone Michelle Cao Unavailable Unavailable Toño RN, Mara Unavailable Unavailable Advance Directives Directive Yes / No Effective Date File Name No Information Encounters Encounter Description Practice Location Reason(s) For Visit Diagnoses Date Provider Providers Copied on [facility]counter [facility] [address], [place], [place], [id number], tel:[phone] [facility] No Information Gaurav Martinez. [address], [place], [place], [address], . tel:[phone] Consulting Provider: Mara Lundberg, [address], [place], [address]. tel:[phone] Family History Family Member Type Diagnosis Age At Onset No Information Payers Payer name Insurance type Covered green party ID Authoriza tion(s) No Information Social History Type Description Quantity Date Captured Comments Sex Female Smoking Status No Information Chief Complaint And Reason For Visit No Information Reason For Referral Reason For Referral No Information History Of Present Illness Encounter Date Complaint History Of Prese nt Illness No Information Functional Status Date Functional Assessmen t No Information Instructions Date Instruction Additional Infor mation No Information Assessments Type Assessment Date No Information Patient Care Teams Name Effective Dates (start - stop) Status Members No Information
--- OUTSIDE RECORDS SUMMARY | 2020-09-01 14:16 | XMS_ITS | Continuity of Care Document ---
Author Organization [facility] Address [address] [place] [address] Phone Care Team Providers Care Seasonal Delivery Driver Name Role Phone Michelle Cao Unavailable Unavailable Toño RN, Mara Unavailable Unavailable Advance Directives Directive Yes / No Effective Date File Name No Information Encounters Encounter Description Practice Location Reason(s) For Visit Diagnoses Date Provider Providers Copied on Encounter [facility] , [address], [place], [place], [id number], tel:[phone] [facility] No Information Gaurav Martinez. [address], [place], [place], [address], . tel:[phone] Consulting Provider: Mara Lundberg, [address], [place], [address]. tel:[phone] Family History Family Member Type Diagnosis Age At Onset No Information Payers Payer name Insurance type Covered constitution party ID Authoriza tion(s) No Information Social [...]
--- OUTSIDE RECORDS SUMMARY | 2025-06-25 03:40 | XMS_ITS | Continuity of Care Document ---
Author Organization [facility] Address [address] [place] [phone] Phone Care Team Providers Care Environmental Engineering Manager Name Role Phone Lukas JUAN, FAC, Kirby Unavailable Unavailab le Allergies, Adverse Reactions, Alerts Substance Reaction Status Criticality [id number]-MTK-RcV Reductase Inhibitors Acti ve No Information zucchini (for use with DAM only) Active No Information TAPE, OCCLUSIVE ADHESIVE Active No Information Medications Medication Instructions Dosage Effective Dates (start - stop) Status Comments metoprolol succinate ER 25 mg tablet,extended release 24 hr take 1 tablet by oral route every day 25 MG - Active ropinirole ER 2 mg tablet,extended release 24 hr Take 1 tablet by mouth 1 time a day - Active multivitamin tablet TAKE 2 TABLETS BY MOUTH ONCE DAILY - Active Mounjaro 5 mg/0.5 mL subcutaneous pen injector INJECT 5 MG SUBCUTANEOUSLY ONCE A WEEK - Active sumatriptan 50 mg tablet as needed - Active ranolazine ER 500 mg tablet,extended release,12 hr take 1 tablet by oral route 2 times every day 500 MG - Active fluconazole 150 mg tablet - Active clopidogrel 75 mg tablet take 1 tablet by oral route every day 75 MG - Active pantoprazole 40 mg tablet,delayed release TAKE 1 TABLET BY MOUTH EVERY DAY - Active aspirin 81 mg tablet,delayed release - Active furosemide 20 mg tablet TAKE 1 TABLET BY MOUTH EVERY DAY - Active Dexcom G7 Sensor device CHANGE SENSOR EVERY 10 DAYS - Active cyclobenzaprine 10 mg tablet - Active albuterol sulfate HFA 90 mcg/actuation aerosol inhaler - Active Tresiba FlexTouch U-100 insulin 100 unit/mL (3 mL) subcutaneous pen INJECT 82 UNITS SUBCUTANEOUSLY AT BEDTIME WHILE ON STERIODS - Active Vitamin B-12 250 mcg tablet TAKE 2 TABLETS BY MOUTH ONCE DAILY - Active OneTouch Ultra Test strips - Active cyanocobalamin (vit B-12) 250 mcg tablet TAKE 2 TABLETS BY MOUTH ONCE DAILY - Active calcium 200 mg (as citrate)-vitamin D3 6.25 mcg (250 unit) tablet TAKE 2 TABLETS BY MOUTH THREE TIMES DAILY - Active trazodone 100 mg tablet TAKE 1 TABLET BY MOUTH EVERYDAY AT BEDTIME - Active duloxetine 30 mg capsule,delayed release Take 1 tablet by mouth 1 time a day - No Longer Active Procedures Procedure Date Complex e/m visit add on OFFICE/OUTPATIENT VISIT, EST Advance Directives Directive Yes / No Effective Date File Name No Information Encounters Encounter Description Practice Location Reason(s) For Visit Diagnoses Date Provider Providers Copied on Encounter [facility] , [address] [place] [address], [id number] , tel: [phone] [facility] No Information 5 Lukas Orr. [address] [place] [address], [id number] , . tel: [phone] OFFICE/OUTPA TIENT VISIT, EST [facility] , [address] [place] [address], [id number] , tel: [phone] [facility] [place] Follow Up of 6 mo (chief complaint) numbness in toes (chief complaint) Atherosclerotic heart disease of [place] coronary artery without angina pectorisChest pain, unspecifiedEssential (primary) hypertensionHyperlip idemia, unspecifiedType 2 diabetes mellitus without complications 5 Lukas Orr. [address], [place], [place], [id number] , . tel: [phone] Referring Provider: Kirby Gaytan, [address], [place], [address] . tel:[phone] [facility] , [address] [place], [place], [id number] , tel: [phone] [facility] Chest painCADDM type IIHTNHyperlipidemiaO besityPalpitationsDy spneaTobacco useSleep apnea 5 Lukas Orr. [address], [place], [place], [id number] , . tel: [phone] Family History Family Member Type Diagnosis Age At Onset No Information Payers Payer name Insurance type Covered constitution party ID Alessandra engel(s) [employer] OPEN ACCESS CI [id number] AETNA CHOICE POS II CI [id number] Social History Type Description Quantity Date Captured Comments Alcohol Use Details Unknown Caffeine Use Details Unknown Tobacco Use Status No Information Smoking Status No Information Sex Female Chief Complaint And Reason For Visit No Information Reason For Referral Reason For Referral No Information Plan Of Treatment Date Type Action Status Appointment Kevin Duboisonia [facility] Encounter Date Complaint History Of Prese nt Illness Follow Up of 6 mo numbness in toes Functional Status Date Functional Assessmen t No Information Instructions Date Instruction Additional Infor mation No Information Assessments Type Assessment Date No Information Patient Care Teams Name Effective Dates (start - stop) Status Members No Information
--- OUTSIDE RECORDS SUMMARY | 2025-06-25 03:40 | XMS_ITS | Continuity of Care Document ---
Author Organization [facility] Address [address] [place] [phone] Phone Care Team Providers Care Bi Architect Name Role Phone Lukas JUAN, FAC, Kirby Unavailable Unavailab le Allergies, Adverse Reactions, Alerts Substance Reaction Status Criticality Djztwcr-[id number]-ZjC Reductase Inhibitors Acti ve No Information zucchini [...] Diagnoses Date Provider Providers Copied on Encounter [facility] , [address] [place] [address], [id number] , tel: [phone] [facility] No Information 5 Lukas Orr. [address] [place] [address], [id number] , . tel: [phone] OFFICE/OUTPA TIENT VISIT, EST [facility] , [address] [place] [address], [id number] , tel: [phone] [facility] [place] Follow Up of 6 mo (chief complaint) numbness in toes (chief complaint) Atherosclerotic heart disease of [place] coronary artery without angina pectorisChest pain, unspecifiedEssential (primary) hypertensionHyperlip idemia, unspecifiedType 2 diabetes mellitus without complications 5 Lukas Orr. [address], [place], [place], [id number] , . tel: [phone] Referring Provider: Kirby Gaytan, [address], [place], [address] . tel:[phone] [facility] , [address] [place], [place], [id number] , tel: [phone] [facility] Chest painCADDM type IIHTNHyperlipidemiaO besityPalpitationsDy spneaTobacco useSleep apnea 5 Lukas Orr. [address], [place], [place], [id number] , . tel: [phone] Family History Family Member Type Diagnosis Age At Onset No Information Payers Payer name Insurance type Covered republican ID Alessandra engel(s) [employer] OPEN ACCESS CI [id number] AETNA CHOICE POS II CI [id number] Social History Type Description Quantity Date Captured Comments Alcohol Use Details Unknown Caffeine Use Details Unknown Tobacco Use Status No Information Smoking Status No Information Sex Female Chief Complaint And Reason For Visit No Information Reason For Referral Reason For Referral No Information Plan Of Treatment Date Type Action Status Appointment Kevin Duboisonia [facility] Present [facility]ness Encounter Date Complaint History Of Prese nt Illness Follow Up of 6 mo numbness in toes Functional Status Date Functional Assessmen t No Information Instructions Date Instruction Additional Infor mation No Information Assessments Type Assessment Date No Information Patient Care Teams Name Effective Dates (start - stop) Status Members No Information
--- NOTE | 2025-08-04 16:25 | PC.NURSE ---
While waiting for triage, pt states I would like to be seen at another facility and walked out of ED at this time.
--- OUTSIDE RECORDS SUMMARY | 2025-08-04 18:45 | XMS_ITS | Clinical Summary ---
Author Organization [facility] [employer] Address [address] [place] [address] Care Team Providers Care Assistant Community Director Name Role Phone Sara Chambers RN Unavailable [phone] Mara Buck MD Primary Care Provider [phone] Delmi Forrest MD Unavailable [phone] Kirby Gaytan MD Unavailable Source Comments [facility],non-owned Affiliates and Associated Physician Practices is amultiple site organization consisting of ambulatory clinics and hospital sitesin [place], [place], [place] and [place]. This disclosure is being madepursuant to the Care Everywhere program and may not contain all information available regarding this patient. Last updated 18.[facility] Allergies Active Allergy Reactions Criticality Noted Date [...] hyperglycemia, with long-term current use of insulin ([facility]) Use 1 Each every 10 days 3 Each 5 11/27/19 24 Active Lancets Micro Thin 33G MISCIndications :Type 2 diabetes mellitus with hyperglycemia, with long-term current use of insulin ([facility]) Use 1 Each 4 times daily 200 Each 02/05/20 24 Active Insulin Pen Needle 32G X 4 MM MISCIndications :Type 2 diabetes mellitus with hyperglycemia, with long-term current use of insulin ([facility]) 1 Each by Injection route 4 times daily 200 Each 02/05/20 24 Active blood glucose test stripIndication s:Type 2 diabetes mellitus with hyperglycemia, with long-term current use of insulin ([facility]) Use 1 (one) strip 4 times daily - before meals & nightly 200 strip 02/05/20 24 Active insulin aspart, w/Niacinamide, (Fiasp FlexTouch) penIndications: Type 2 diabetes mellitus with hyperglycemia, with long-term current use of insulin ([facility]) INJECT 62 UNITS SUBCUTANEOUSLY 3 TIMES A [...] hyperglycemia, with long-term current use of insulin ([facility]) Inject 25 (twenty five) Units subcutaneously at [...] fluticasone propionate (Flonase) 50 MCG/ACT nasal spray Garfield 2 (two) sprays into each nostril once [...] H/o c/s x2 BOTH are LTCS at [facility] and first at [facility]. Both had vertical skin incisions. w/ [...] Encounters Date Type Department Care Team Description 06/10/2025 Orders Only [facility] - Endocrinology [address], [address] [place] [address] Yuliet Martines APRN-REGIONAL DIRECTOR OF FINANCE 06/10/2025 Telephone [facility] - Endocrinology [id number] [place] [address], [address] [place] [address] Delmi Forrest MD LOW BLOOD SUGAR from Last 3 Months Immunizations Immunization Administration [...] PM CDT Legal Sex Female 5:33 AM MAINTENANCE PLANNER Gender Identity Female 01/29/2025 7:50 PM CDT Sexual Orientation Not on file Occupation Industry Job Start Date Job End Date [employer] Not on file Not on file Not on file Last Filed Vital Signs Vital Sign Reading Time Taken Comments Blood Pressure 132/74 02/03/2025 11:54 AM CDT Pulse 78 02/03/2025 11:54 AM CDT Temperature 36.7 C (98 F) 05/02/2022 11:52 AM CDT Respiratory Rate 20 01/21/2019 3:08 PM MAINTENANCE PLANNER Oxygen Saturation 100% 02/03/2025 11:54 AM CDT Inhaled Oxygen Concentration 21% 11/22/2018 7 :40 AM MAINTENANCE PLANNER Weight 81.6 kg (180 lb) 02/03/2025 11:54 AM CDT Height 165.1 cm (5' 5) 02/03/2025 11:54 AM CDT Body Mass Index 29.95 02/03/2025 11:54 AM CDT Plan of Treatment Upcoming Encounters Date Type Department Care Team (Late st Contact Info) Description 08/08/2025 11:20 AM CDT Office Visit [facility] - Endocrinology [address], [address] [place] [phone] [place] [address] [place] [address] Health Maintenance Due Date Last Done Comments [...] 03/03/2016 03/03/2015 PAP with HPV 10/24/2023 10/24/2018 ZOSTER VACCINE (1 of 2) 2024 DIABETES RETINOPATHY SCREENING 10/31/2024 10/31/2022, 10/07/2021 DEPRESSION SCREENING 11/20/2024 05/02/2022 DIABETES - URINE PROTEIN SCREENING 11/20/2024 10/31/2024, 07/31/2024, 11/27/2023, Additional history exists COVID-19 VACCINE ( - season) 2025 06/28/2021, 05/31/2021 INFLUENZA VACCINE (#1) 2025 2019, 2016 DIABETES-HGB A1C 09/24/2025 03/24/2025, , 10/31/2024, Additional history exists DIABETES-SERUM CREATININE 10/31/20252023, 10/31/2024, [...] this topic Medical Devices Implanted Type Area Overnight Caregiver Device Identifier Shelf Expiration Date Model / Serial / Lot Putdominic Vale Dbx Bone 1.0cc - [id number] Implanted:Qty : 1 on 03/03/2015 by Richard Mosquera MD at [facility] Spine Cervical Spinal [employer] 10/22/2017 [id number] / [id number] / Space Peek 7 X 16 X 14mm Implanted:Qty : 1 on 03/03/2015 by Richard Mosquera MD at [facility] Spine Cervical Medtronic [employer] 12/05/2022 [id number] / / [id number] Infs Bone Ros[employer]ft Med Implanted:Qty : 1 on 03/03/2015 by Richard Mosquera MD at [facility] Spine Cervical Medtronic [employer] [id number] / / Procedures Procedure Name Priority Date/Time Associated Diagnosis Comments HEMOGLOBIN A1C - POINT OF CARE (AMB) Routine 02/03/2025 Type 2 diabetes mellitus with hyperglycemia, with long-term current use of insulin MICROALB/CREAT RATIO URINE RANDOM PANEL Routine 10/31/2024 1:20 PM MAINTENANCE PLANNER Type 2 diabetes mellitus with hyperglycemia, with long-term current use of insulin COMPREHENSIVE METABOLIC PANEL Routine 10/31/2024 1:20 PM MAINTENANCE PLANNER Type 2 diabetes mellitus with hyperglycemia, with long-term current use of insulin HM DIABETES EYE EXAM Routine 10/31/2022 ENDOSCOPY, COLON, DIAGNOSTIC Routine 11/09/2018 12:04 PM MAINTENANCE PLANNER HPV DETECTION HIGH RISK JAI Routine 10/24/2018 11:35 AM MAINTENANCE PLANNER Screening for breast cancer from Last 3 Months or Most Recently Relevant to Health Maintenance Results * HEMOGLOBIN A1C - POINT OF CARE (HgbA1C) (02/03/2025) Hemoglobin A1c POCT 6.5 % Expiration Date 07/10/2026 Lot # [id number] QC Verified Yes Yes Blood BLOOD SPECIMEN / Unknown 02/03/2025 us Delmi Forrest MD LAB - POINT OF CARE RICKY CABRAL Final Result * MICROALB/CREAT RATIO URINE RANDOM PANEL (10/31/2024 1:20 PM MAINTENANCE PLANNER) Creatinine Urine 184.87 mg/dL [facility] ACCOUNT BILL Microalbumin Urine 1.1 mg/dL [facility] ACCOUNT BILL Microalbumin/Crea tinine Ratio 5 <30 mg/g [facility] ACCOUNT BILL Urine URINE SPECIMEN OBTAINED BY CLEAN CATCH PROCEDURE / Unknown 10/31/2024 1:20 PM MAINTENANCE PLANNER 10/31/2024 Narrative [facility] ACCOUNT BILL - 11/01/2024 12:06 AM MAINTENANCE PLANNER Performed at: [address] [place] [address] [place], [place] [id number] Automatic Transmission Mechanic: Lima Pearson [facility], Phone: [phone] us Yuliet Martines FINISHER BRUSH-REGIONAL DIRECTOR OF FINANCE LAB - URINE CHEMISTRY ORD ERABLES Final Result [facility] ACCOUNT BILL [address] [place] [address] * (ABNORMAL) COMPREHENSIVE METABOLIC PANEL (10/31/2024 1:20 PM MAINTENANCE PLANNER) Glucose 87 70 - 99 mg/dL [facility] [...] BLOOD SPECIMEN / Unknown 10/31/2024 1:20 PM MAINTENANCE PLANNER 10/31/2024 Narrative [facility] ACCOUNT BILL - 10/31/2024 11:06 PM MAINTENANCE PLANNER Performed at: [address] [place] [address] [address] [place], [place] [id number] Automatic Transmission Mechanic: Lima Pearson [facility], Phone: [phone] us Yuliet Martines FINISHER BRUSH-REGIONAL DIRECTOR OF FINANCE LAB - CHEMISTRY ORDERABLE S Final Result [facility] ACCOUNT BILL [address] [place] [address] * DIABETES EYE EXAM (10/31/2022) us Delmi Forrest MD HEALTH MAINTENANCE Final Result * ENDOSCOPY, COLON, DIAGNOSTIC (11/09/2018 12:04 PM MAINTENANCE PLANNER) Report Endoscopy POC _ Patient Name: Annemarie Jordan Procedure Date: 11/09/2018 12:04 PM Date of : 1975 Admit Type: Outpatient Age: 43 Gender: Female Attending MD: Moon Summers MD _ Procedure: Colonoscopy Indications: Abdominal pain in the left lower quadrant Providers: Moon Summers MD (Doctor), Meli Garcia RN, Lyle Burris, Radiology Transcriptionist Referring MD: Florentino Chakraborty MD (Referring MD), [...] bowel preparation was evaluated using the BBPS ([place] Bowel Preparation Scale) with scores of: Right [...] previously scheduled. Procedure Code(s): --- Professional --- 96075, Colonoscopy, flexible; with removal of tumor(s), polyp(s), or other lesion(s) by snare technique 44005, 59, Colonoscopy, flexible; with biopsy, single or multiple --- Technical --- 31865, Colonoscopy, flexible; with removal of tumor(s), polyp(s), or other lesion(s) by snare technique 54261, 59, Colonoscopy, flexible; with biopsy, single or multiple Diagnosis Code(s): --- Professional --- D12.3, Benign neoplasm of transverse colon (hepatic flexure or splenic flexure) K62.1, Rectal polyp R10.32, Left lower quadrant pain --- Technical --- D12.3, Benign neoplasm of transverse colon (hepatic flexure or splenic flexure) K62.1, Rectal polyp R10.32, Left lower quadrant pain CPT copyright 2017 [employer]. All rights reserved. The codes documented in this report are preliminary and upon cashier host/hostess review may be revised to meet current compliance requirements. Moon Summers MD 11/09/2018 12:49:45 PM Number of Addenda: 0 Note Initiated On: 11/09/2018 12:04 PM [facility] ENDOSCOPY 11/09/2018 12:0 4 PM MAINTENANCE PLANNER us Moon Summers MD GI PROCEDURE ORDERABLES Ed ited Result - Final [facility] ENDOSCOPY * HPV DETECTION HIGH RISK JAI (10/24/2018 11:35 AM MAINTENANCE PLANNER) High Risk Human Papilloma Result Not Detected Not Detected 10/27/2018 12:26 PM MAINTENANCE PLANNER [facility] High Risk Human Papilloma Interp 10/27/2018 12:26 PM MAINTENANCE PLANNER [facility] Comment:High Risk Human Kartik lloma Virus was Not Detected. Pathology/Cytolo gy MISCELLANEOUS SAMPLES / Unknown 10/24/2018 11:35 AM MAINTENANCE PLANNER 10/25/2018 11:35 AM MAINTENANCE PLANNER Narrative [facility] - 10/27/2018 12:26 PM MAINTENANCE PLANNER Nucleic acid isolated from the specimen was [...] LAB - MICROBIOLOGY ORDERABL ES Final Result Performing Organization Address City/State/[facility] Co de Phone Number [facility] [address] [phone] from Last 3 Months or Most Recently Relevant to Health Maintenance Insurance [facility] Address: [address] [place] [address] [place] [address] [facility] SELF PAY NO INSURANCE Member Subscriber Plan / Payer (Ef fective for All Dates) Name:Annemarie Dubois Member ID:Not on file Relation to Subscriber:Self Name:Annemarie Dubois Subscriber ID:Not on file Payer ID:Not on file Group ID:Not on file Type:Self Pay Address: [place], [place] Advance Directives * Full Code (Latest [...] 12:36 PM 11/16/2018 12:36 PM Care Teams Assistant Community Director Relationship Specialty Start Date End Date Mara Buck MD [address] [place] [phone] PCP - General Family Medicine 03/17/21 Sara Chambers, [facility] Manager 03/03/15 [place] [address] [id number] Endocrinology 05/31/21 Kirby Gaytan MD [address] [place] [phone] Cardiovascular Disease 05/31/21
--- OUTSIDE RECORDS SUMMARY | 2025-08-04 18:45 | XMS_ITS | Clinical Summary ---
Author Organization [facility] Address [address] [place] [address] Care Team Providers Care Publications Designer Name Role Phone Gregory Gaytan MD Unavailable Jose Alejandro Solomon MD Primary Care Provider Allergies Active Allergy Reactions Criticality Noted Date Comments Adhesive Rash Medium 09/07/2022 Adhesive Tape-Silicones Rash Medium 03/09/2018 Atorvastatin Muscle pain Medium 01/31/2023 Elevated CK Elevated CK Elevated CK Elevated CK Dermatitis Antigens Rash Medium 11/09/2018 Empagliflozin Other (See comments) Low 03/25/2021 uti recurrently Metformin Diarrhea,Stomach upset,Nausea And Vomiting Low 03/25/2021 Tezmubc-Lvw-Zhp Reductase Inhibitors Muscle pain High 07/17/2023 Zucchini [...] 1 capsule (30 mg total) by mouth fishing lure assembler before breakfast 10/02/20 23 Active rOPINIRole XL (REQUIP XL) 2 mg 24 hr tabletIndications: Restless Legs Syndrome Take 1 tablet (2 mg total) by mouth nightly Active SUMAtriptan (IMITREX) 50 mg tablet Take 1 tablet (50 mg total) by mouth fishing lure assembler before breakfast 09/27/20 23 Active traZODone (DESYREL) [...] 1 tablet (75 mg total) by mouth fishing lure assembler before breakfast Active oxyCODONE (ROXICODONE) 10 mg [...] (obstructive sleep apnea) 03/21/2024 No diagnosis on Alpine I 06/26/2023 Lumbar radiculopathy 02/09/2023 Vitamin D [...] (11/06/2023): Added automatically from request for surgery [id number] Neck pain 01/26/2015 Maternal mitral valve prolapse, [...] Encounters Date Type Department Care Team Description 06/04/2025 Orders Only [facility] Medical [facility] Cardiology [address] [place] [address] Caitlyn Butler MD from Last 3 Months Surgical History Surgery Date Site/Laterality Comments JOINT REPLACEMENT BACK SURGERY ABDOMINAL SURGERY CARDIAC STENT PLACEMENT SECTION 1996, 2002, 2009 HYSTERECTOMY 2017 Medical History Medical History Date Comments Arthritis Asthma Coronary artery disease Diabetes mellitus (HCC) Sleep apnea Hypertension ND, old Type 2 diabetes mellitus 1997 GERD (gastroesophageal reflux disease) 2022 Low [...] on file Legal Sex Female 2:34 PM COLLECTIONS DIRECTOR Gender Identity Female 03/14/2024 9:53 AM CDT [...] Health Maintenance Due Date Last Done Comments Albumin Creatinine Ratio, Urine 1975 Breast Cancer Screening-Mammogram 1975 Colon Cancer Screening-Colonoscopy 1975 Depression Screening 1975 Hepatitis C Screening 1975 Dilated Eye Exam 1975 Foot Exam 1975 DTaP/Tdap/Td Vaccine (1 - Tdap) 1985 Hepatitis B Screening 1992 Regular Well Visit/Exam 18-64 1992 Pneumococcal vaccine <65 (2 of 2 - PCV) 03/03/2016 03/03/2015 Zoster Vaccine (1 of 2) 2024 Covid-19 Vaccine (3 - 2024-2 6 season) 2025 06/28/2021, 05/31/2021 Influenza Vaccine (#1) 2025 Hemoglobin A1C 09/24/2025 03/24/2025, 02/18, 03/27/2023, Additional history exists Lipid Panel 03/24/2026 03/24/2025, 10/20, 07/31/2024, Additional history exists eGFR 03/24/2026 03/24/2025, 12/2023, 03/01/2024, Additional history exists Medical Devices Implanted Type Area Vp Training Device Identifier Shelf Expiration Date Model / Serial / Lot [employer] Biological Bariatric Peristrip Non Crosslinked Bovine Pericardium For Endo Teri Thin [id number] - Sn/A - [id number] Implanted:Qty: 1 on 03/21/2024 by Jos Samuels MD at [facility] Other - see comments N/A: Abdomen [employer] [id number] 11/08/2025 [id number] ATHN / N/A / [id number] Description:Elisabeth-Strips Dry Staple Line Reinforcement [employer] Biological Bariatric Peristrip Non Crosslinked Bovine Pericardium For Endo Teri Thin [id number] - Sn/A - [id number] Implanted:Qty: 1 on 03/21/2024 by Jos Samuels MD at [facility] Other - see comments N/A: Abdomen [employer] [id number] 11/08/2025 [id number] ATHN / N/A / [id number]- [id number] Description:Elisabeth-Strips Dry Staple Line Reinforcement PlaceSpeak Biological Bariatric Peristrip Non Crosslinked Bovine Pericardium For Endo Teri Thin [id number] - [id number] Implanted:Qty: 1 on 03/21/2024 by Jos Samuels MD at [facility] Other - see comments N/A: Abdomen PlaceSpeak [id number] 11/08/2025 [id number] ATHN / / [id number]- [id number] Description:Elisabeth-Strips Dry Staple Line Reinforcement System Coronary Stent Synergy Pebax Everolimus Eluting Orutsararmiut Chromium Plga L12 Mm L144 Cm Od2.25 Mm Radiopaque 1 Access Port Inflation Lumen Accepts .014 In Guidewire - [id number] Implanted:Qty: 1 on 03/10/2018 by Darek Dailey MD at [facility] 12/13/2018 [id number] / / [id number] Procedures Procedure Name Priority Date/Time Associated Diagnosis Comments CARDIOLOGY DOCUMENT SCAN Routine 06/03/2025 11:41 AM CDT CARDIOLOGY DOCUMENT SCAN Routine 06/02/2025 11:38 AM CDT CARDIOLOGY DOCUMENT SCAN Routine 06/01/2025 11:36 AM CDT CARDIOLOGY DOCUMENT SCAN Routine 05/31/2025 11:25 AM CDT CARDIOLOGY DOCUMENT SCAN Routine 05/30/2025 11:23 AM CDT EGFR Routine 03/24/2025 10:40 AM CDT H/O gastric bypass Intestinal malabsorption, unspecified type BMI 27.0-27.9,adult HEMOGLOBIN A1C Routine 03/24/2025 10:40 AM CDT H/O gastric bypass Intestinal malabsorption, unspecified type BMI 27.0-27.9,adult LIPID PANEL Routine 03/24/2025 10:40 AM CDT H/O gastric bypass Intestinal malabsorption, unspecified type BMI 27.0-27.9,adult from Last 3 Months or Most Recently Relevant to Health Maintenance Results * Cardiology Document Scan (06/03/2025 11:41 AM CDT) Anatomical Region Laterality Modality Other Joel Zamora MD CV CARDIAC SERVICES PROC EDURES Final Result * Cardiology Document Scan (06/02/2025 11:38 AM CDT) Anatomical Region Laterality Modality Other Anupam Briones MD CV CARDIAC SERVICES PROCEDURES F inal Result * Cardiology Document Scan (06/01/2025 11:36 AM CDT) Anatomical Region Laterality Modality Other Perico Amaya MD CV CARDIAC SERVICES PROCE DURES Final Result * Cardiology Document Scan (05/31/2025 11:25 AM CDT) Anatomical Region Laterality Modality Other Perico Amaya MD CV CARDIAC SERVICES PROCE DURES Final Result * Cardiology Document Scan (05/30/2025 11:23 AM CDT) Anatomical Region Laterality Modality Other Caitlyn Butler MD CV CARDIAC SERVICES PROCEDU RES Final Result * eGFR (03/24/2025 10:40 AM CDT) eGFR [...] of Race in Diagnosing Kidney Disease, JASN 202). The CKD-EPI equation should not be used for patients with unstable renal function and has not been validated in children and those over 70. Current interpretive data was last reviewed 2021. Blood 03/24/2025 10:4 0 AM CDT 03/24/2025 10:57 AM CDT Lashay Kristen Jean NP LAB BLOOD ORDERABLES Final Result Performing Organization Address [facility] Phone Number [facility] [address] [address]. [facility] [place] [address] * (ABNORMAL) Hemoglobin A1c (03/24/2025 10:40 AM CDT) Hgb A1C 6.2(H) 4.0 - 5.6 % Estimated Average Glucose 131 mg/dL [facility] GA[facility] Comment: The ADA recommends reporting an estimated Average Glucose (eAG) with all Hemoglobin A1c results using the equation derived from a study of 507 normal and diabetic adults. Minority populations were underrepresented and children were not included. (Diabetes Care 31:6047-2648, 2008). The eAG is not equivalent to a fasting glucose. Blood 03/24/2025 10:4 0 AM CDT 03/24/2025 10:57 AM CDT Lashay Jean NP LAB BLOOD ORDERABLES Final Result Performing Organization Address [facility] Phone Number [facility] [address]. [facility] [place] [address] * Lipid panel (03/24/2025 10:40 AM CDT) [...] 3. Tray Brito et al. MARLY Cardiol. 2020 March 20;5(5):540-548. [...] last revised on 2018. Chol/HDL ratio 4 LULI GAUTAM Blood 03/24/2025 10:4 0 AM CDT 03/24/2025 10:57 AM CDT Lashay Jean NP LAB BLOOD ORDERABLES Edited Result - Final [facility] [address] [address] [address] from Last 3 Months or Most Recently Relevant to Health Maintenance Insurance IDDC [facility] [id number] [facility] [id number] [facility] HMO [facility] [id number] Member Subscriber Plan / Payer (Ef fective 2021-Present) Name:Page Dubois Member ID:[id number] Relation to Subscriber:Self Name:Page Dubois Subscriber ID:[id number] Payer ID:[id number] Type:HEALTHBabybe HMO/PPO Address: [facility] CLAIMS [address] [place] [address] [facility] H[facility] Advance Directives For more information, please contact: [phone] * Full Code (Latest Code Status on File) Date Activated Date Inactivated Comments 03/21/2024 7:12 PM 03/24/2024 6:20 PM * Full Code Date Activated Date Inactivated Comments 02/18/2022 1:39 PM 02/19/2022 5:14 PM * Full Code Date Activated Date Inactivated Comments 02/15/2022 8:29 PM 02/18/2022 1:39 PM * Full Code Date Activated Date Inactivated Comments 03/10/2018 12:26 PM 03/11/2018 3:44 PM Care Teams Publications Designer Relationship Specialty Start [place] [address] [place] [address] PCP - General Gastroenterology 01/05/24 Gregory Gaytan MD Referring Physician Cardiovascular Disease 03/11/18
== END 2025-08-04 16:42 | disposition left against medical advice (07) ==
LOC: ANHED 16:30
PROVIDERS: PCP Emergency Medicine
DX: Z53.21 Procedure and treatment not carried out due to patient leaving prior to being seen by health care provider (principal)
CPT/HCPCS: 99199